=== PATIENT | female | born 1955 | race Caucasian/White ===

== ENCOUNTER 2020-01-08 07:31 | Outpatient (CLI) | payer BC, SELFPAY ==
[2020-01-08 07:56] LABS: Hemoglobin A1C 5.7 % (<5.7)
== END 2020-01-08 07:32 | disposition home or self-care (01) ==
PROVIDERS: PCP Nurse Practitioner Family; Visit Provider Nurse Practitioner Family
DX: R73.9 Hyperglycemia, unspecified (principal)
CPT/HCPCS: 36415; 83036

== ENCOUNTER 2020-01-09 01:20 | Day surgery (SDC) | payer BC, SELFPAY ==
[2020-01-09 06:19] LABS: Glucose Point of Care 157 (65-105)
[2020-01-09 06:25] VITALS: BP 64/46; PULSE 61; RESP 16; O2SAT 98
--- NOTE | 2020-01-09 06:48 | WPDANESEPPF ---
Anes - Initial Pre Proc Eval Procedure: Operation Date: 01/09/20 07:30 Proposed Procedures p Screening Colonoscopy - Heriberto Skinner MD Date/Time: 01/09/20 06:48 Surgeon: Heriberto Skinner MD Pre Op Diagnosis: NEOPLASM SCREENING Patient Data Age: 64 Gender: F Height: 5 ft 5 in Weight: 82 kg Allergies Allergy/AdvReac Type Severity Reaction Status Date / Time levofloxacin Allergy Unknown Rash Verified 01/09/20 06:42 naproxen Allergy Unknown Rash Verified 01/09/20 06:42 Home Medications Medication Instructions Recorded Confirmed Type aspirin 81 mg PO DAILY 11/17/19 01/07/20 History atorvastatin 40 mg PO HS 11/17/19 01/07/20 History carvedilol 25 mg PO BID 11/17/19 01/07/20 History lisinopril 10 mg PO QAM 11/17/19 01/07/20 History albuterol sulfate [ProAir HFA] 2 puff INHALATION QID PRN 01/07/20 01/07/20 History Laboratory Tests 01/09/20 06:17 POC Capillary Glucose 157 mg/dl H mg/dl (65-105) Patient hx anesthesia problems: none Family hx anesthesia problems: none PMFSH Past Medical History Medical History Anemia Arthritis Briones's cyst of knee left knee Bronchitis CAD (coronary artery disease) mild CHF (congestive heart failure) COPD (chronic obstructive pulmonary disease) Diverticulitis Diverticulosis DVT (deep venous thrombosis) Eczema Elbow fracture, left Heart murmur HTN (hypertension) Hyperlipidemia Inguinal hernia left Pneumonia Seasonal allergies Type I diabetes mellitus UTI (urinary tract infection) Valvular heart disease Surgical History Surgical History H/O inguinal hernia repair H/O removal of cyst Briones's cyst removed from left knee History of cardiac catheterization History of hysterectomy History of tubal ligation Hx of tonsillectomy S/P insertion of iliac artery stent Family History Family History Mother Asthma Father Family history of heart disease in male family member before age 55 Other Cerebrovascular accident Diabetes mellitus Family history of allergic disorder Hypertension Social History Social History Smoking status: Former smoker Tobacco type: cigarettes Second hand tobacco smoke exposure: Yes Additional smoking assessment comments: Pt quit smoking in 09/30 Gender identity (if verbalized by the patient): Female Anes - Evsweta Final PreProcedure Day of Procedure 01/09/20 06:48 Patient weight: obese Heart: regular rate and rhythm Lungs: clear to auscultation Airway: Mallampati scale class II and other (dentures) Neurological: alert and oriented Last oral intake: >/= 8 hours ASA classification: III Emergent: no Anesthetic plan: proceed Anesthesia type and monitoring: general GIVS and standard monitoring Other findings: Pt dizzy in pre-op, initial hypotensive, responded to IV fluids ,stable Informed Consent: The patient's anesthetic plan and its attendant risks and benefits were discussed with the patient/family/POA. Questions were solicited and answers provided to the satisfaction of the patient/family/POA.
[2020-01-09] MEDS: LACTATED RINGERS 1,000 ML 150 ML IV CONT (06:52)
[2020-01-09 06:57] VITALS: BP 103/49; PULSE 69; RESP 16; TEMP 36.1; O2SAT 100
--- NOTE | 2020-01-09 06:58 | PM.HPGS ---
History of Present Illness History of Present Illness Consent: Risks, benefits, and alternatives have been discussed and questions answered. Patient agrees to proceed with procedure. Chief complaint: NEOPLASM SCREENING Narrative: Gayle Cisse is a 64 year old W female Who is referred for screening colonoscopy. he patient's last colonoscopy was in 2008. Patient was found to have diverticular disease and multiple small adenomatous polyps. patient was sent follow-up letter several years after that but did not return for colonoscopy. patient has no GI complaints. When the patient was sitting in the waiting room she became lightheaded and dizzy. Her blood pressure was decreased at 70/40 she was given some IV fluids blood pressure now is 100/60 is normal she has no complaints PMFSH Past Medical History Medical History Anemia Arthritis Briones's cyst of knee left knee Bronchitis CAD (coronary artery disease) mild CHF (congestive heart failure) COPD (chronic obstructive pulmonary disease) Diverticulitis Diverticulosis DVT (deep venous thrombosis) Eczema Elbow fracture, left Heart murmur HTN (hypertension) Hyperlipidemia Inguinal hernia left Pneumonia Seasonal allergies Type I diabetes mellitus UTI (urinary tract infection) Valvular heart disease Surgical History Surgical History H/O inguinal hernia repair H/O removal of cyst Briones's cyst removed from left knee History of cardiac catheterization History of hysterectomy History of tubal ligation Hx of tonsillectomy S/P insertion of iliac artery stent Family History Family History Mother Asthma Father Family history of heart disease in male family member before age 55 Other Cerebrovascular accident Diabetes mellitus Family history of allergic disorder Hypertension Social History Social History Smoking status: Former smoker Tobacco type: cigarettes Second hand tobacco smoke exposure: Yes Additional smoking assessment comments: Pt quit smoking in 09/30 Gender identity (if verbalized by the patient): Female Meds Home Medications and Allergies Home Medications Medication Instructions Recorded Confirmed Type aspirin 81 mg PO DAILY 11/17/19 01/09/20 History atorvastatin 40 mg PO HS 11/17/19 01/09/20 History carvedilol 25 mg PO BID 11/17/19 01/09/20 History lisinopril 10 mg PO QAM 11/17/19 01/09/20 History albuterol sulfate [ProAir HFA] 2 puff INHALATION QID PRN 01/07/20 01/09/20 History Allergies Allergy/AdvReac Type Severity Reaction Status Date / Time levofloxacin Allergy Unknown Rash Verified 01/09/20 06:42 naproxen Allergy Unknown Rash Verified 01/09/20 06:42 Vital Signs Vital Signs - 24 hr 01/09/20 06:25 Pulse Rate 61 Respiratory Rate 16 Blood Pressure 64/46 L Pulse Oximetry 98 Exam Const: Orientation/consciousness: patient oriented x3 Resp: Auscultation: clear to auscultation bilaterally Cardio: Rate: regular rate Rhythm: regular rhythm Heart sounds: no murmurs GI: GI Palp: Yes Soft to palpation, No Tenderness to palpation present (GI), Yes No hepatosplenomegaly present and No Palpable mass present Auscultation: normal bowel sounds Neuro: General: patient oriented x3 and no focal motor deficits Extrem: General: no pedal edema Assessment and Plan Additional Plan screening colonoscopy secondary to history of colonic polyps
--- NOTE | 2020-01-09 07:00 | SUR.PREOP ---
PT C/O DIZZINESS DIAPHORTIC AND WEAK IN T HE WAITING ROOM, SHE WAS TRANSFERRED IN WHEELCHAIR TO GI, VS AND GLUCOSE OBTAINED, DR JARAMILLO NOTIFIED, IV AND IVF STARTED, DR JARAMILLO ASSESSED PT.PT STATES SHE FEELS BETTER, VS IMPROVED, DR ORTA IN TO ASSESS PT
[2020-01-09] MEDS: CENTRAL LINE FLUSH 7 ML XX (07:55)
[2020-01-09 08:20] VITALS: BP 98/58; PULSE 63; RESP 13; O2SAT 100
[2020-01-09 08:30] VITALS: BP 121/57; PULSE 69; RESP 20; O2SAT 100
[2020-01-09 08:40] VITALS: BP 111/61; PULSE 69; RESP 18; O2SAT 100
== END 2020-01-09 08:55 | disposition home or self-care (01) ==
PROVIDERS: PCP Nurse Practitioner Family; Visit Provider Internal Medicine Gastroenterology
PROC: 0DJD8ZZ Inspection of Lower Intestinal Tract, Via Natural or Artificial Opening Endoscopic (ICD-10-PCS; CPT 45378; principal; 2020-01-09 07:30)
DX: Z12.11 Encounter for screening for malignant neoplasm of colon (principal); D12.3 Benign neoplasm of transverse colon; D12.4 Benign neoplasm of descending colon; D12.5 Benign neoplasm of sigmoid colon; D12.8 Benign neoplasm of rectum; K64.8 Other hemorrhoids; K57.30 Diverticulosis of large intestine without perforation or abscess without bleeding; I11.0 Hypertensive heart disease with heart failure; I50.9 Heart failure, unspecified; E78.5 Hyperlipidemia, unspecified; D64.9 Anemia, unspecified; I25.10 Atherosclerotic heart disease of native coronary artery without angina pectoris; J44.9 Chronic obstructive pulmonary disease, unspecified; E10.9 Type 1 diabetes mellitus without complications; Z86.718 Personal history of other venous thrombosis and embolism; Z87.891 Personal history of nicotine dependence; E66.9 Obesity, unspecified; Z68.30 Body mass index [BMI] 30.0-30.9, adult
CPT/HCPCS: 45385; 45381; 88305; J2001; J2704; J7120

== ENCOUNTER 2020-04-01 08:34 | Outpatient (CLI) | payer BC, SELFPAY ==
[2020-04-01 09:13] LABS: Alanine Aminotransferase 16 U/L (4-35); Alkaline Phosphatase 94 U/L (38-126); Aspartate Amino Transferase 21 U/L (14-36); Bilirubin,Total 0.4 mg/dL (0.2-1.3); Blood Urea Nitrogen 17 mg/dL (7-17); Calcium 8.9 mg/dL (8.4-10.2); Carbon Dioxide 26 mmol/L (22-30); Chloride 105 mmol/L (98-107); Cholesterol 179 mg/dL (0-200); Creatine Kinase 69 U/L (30-135); Estimated Glomerular Filt Rate 41; Glucose 122 mg/dL (65-105); HDL Direct 49 mg/dL; Magnesium 1.9 mg/dL (1.6-2.3); Potassium 4.4 mmol/L (3.4-5.0); Sodium 137 mmol/L (137-145); Triglycerides 130 mg/dL (<150)
[2020-04-01 09:25] LABS: LDL Cholesterol Direct 89 mg/dL
== END 2020-04-01 08:35 | disposition home or self-care (01) ==
PROVIDERS: PCP Nurse Practitioner Family; Visit Provider Internal Medicine Cardiovascular Disease
DX: E78.2 Mixed hyperlipidemia (principal); I10 Essential (primary) hypertension; I25.10 Atherosclerotic heart disease of native coronary artery without angina pectoris
CPT/HCPCS: 36415; 80053; 80061; 82550; 83735

== ENCOUNTER 2020-06-24 08:38 | Outpatient (CLI) | payer BC, SELFPAY ==
[2020-06-24 09:26] LABS: Alanine Aminotransferase 23 U/L (4-35); Albumin Level 4.4 g/dL (3.5-5.1); Alkaline Phosphatase 101 U/L (38-126); Anion Gap 8 mmol/L (8-16); Aspartate Amino Transferase 29 U/L (14-36); Bilirubin,Total 0.5 mg/dL (0.2-1.3); Blood Urea Nitrogen 15 mg/dL (7-17); Calcium 9.1 mg/dL (8.4-10.2); Carbon Dioxide 26 mmol/L (22-30); Chloride 103 mmol/L (98-107); Cholesterol 205 mg/dL (0-200); Creatine Kinase 89 U/L (30-135); Estimated Glomerular Filt Rate 50; Glucose 124 mg/dL (65-105); HDL Direct 61 mg/dL; Magnesium 1.9 mg/dL (1.6-2.3); Potassium 4.3 mmol/L (3.4-5.0); Sodium 137 mmol/L (137-145); Triglycerides 136 mg/dL (<150)
[2020-06-24 09:36] LABS: LDL Cholesterol Direct 103 mg/dL
== END 2020-06-24 08:39 | disposition home or self-care (01) ==
PROVIDERS: PCP Nurse Practitioner Family; Visit Provider Internal Medicine Cardiovascular Disease
DX: E78.5 Hyperlipidemia, unspecified (principal); I10 Essential (primary) hypertension; I25.10 Atherosclerotic heart disease of native coronary artery without angina pectoris
CPT/HCPCS: 36415; 80053; 80061; 82550; 83735

== ENCOUNTER 2020-11-11 13:57 | Outpatient (CLI) | payer BC, SELFPAY ==
--- NOTE | ~2020-11-11 | XR_ITS ---
XR knee LT min 4V DATE: 11/11/2020 14:23 INDICATION: Knee pain laterally and posteriorly TECHNIQUE: Standing AP and lateral and PA views. [place] view. COMPARISON: None FINDINGS: Diffuse osteopenia. There is enthesopathy of the superior pole of patella at the quadriceps tendon insertion. There is sl ight periarticular spurring of the patella. Knee joint spaces are relatively preserved. No radiograph ic intra-articular loose body or chondrocalcinosis. No fracture or dislocation or joint effusion. IMPRESSION: Osteopenia Slight periarticular spurring of the patella consistent with osteoarthritis Reviewed, dictated and finalized at location A. ATTENDANT
== END 2020-11-11 13:58 | disposition home or self-care (01) ==
PROVIDERS: PCP Nurse Practitioner Family; Visit Provider Nurse Practitioner Family
DX: M25.569 Pain in unspecified knee (principal); M85.88 Other specified disorders of bone density and structure, other site; M76.52 Patellar tendinitis, left knee
CPT/HCPCS: 73564

== ENCOUNTER 2020-12-03 08:34 | Outpatient (CLI) | payer BC, SELFPAY ==
[2020-12-03 09:12] LABS: Hemoglobin A1C 6.1 % (<5.7)
[2020-12-03 09:16] LABS: Alanine Aminotransferase 19 U/L (4-35); Albumin Level 4.2 g/dL (3.5-5.1); Alkaline Phosphatase 102 U/L (38-126); Anion Gap 5 mmol/L (8-16); Aspartate Amino Transferase 26 U/L (14-36); Bilirubin,Total 0.6 mg/dL (0.2-1.3); Blood Urea Nitrogen 18 mg/dL (7-17); Calcium 9.3 mg/dL (8.4-10.2); Carbon Dioxide 28 mmol/L (22-30); Chloride 104 mmol/L (98-107); Cholesterol 232 mg/dL (0-200); Estimated Glomerular Filt Rate 45; Glucose 124 mg/dL (65-105); HDL Direct 61 mg/dL; Magnesium 1.7 mg/dL (1.6-2.3); Potassium 4.4 mmol/L (3.4-5.0); Sodium 137 mmol/L (137-145); Triglycerides 163 mg/dL (<150)
[2020-12-03 09:26] LABS: LDL Cholesterol Direct 124 mg/dL
== END 2020-12-03 08:35 | disposition home or self-care (01) ==
LOC: ANHLAB 08:36
PROVIDERS: PCP Nurse Practitioner Family; Visit Provider Internal Medicine Cardiovascular Disease
DX: R60.0 Localized edema (principal); E78.2 Mixed hyperlipidemia; I10 Essential (primary) hypertension; Z51.81 Encounter for therapeutic drug level monitoring; Z79.899 Other long term (current) drug therapy
CPT/HCPCS: 36415; 80053; 80061; 83036; 83735; 84443

== ENCOUNTER 2021-04-28 07:55 | Outpatient (CLI) | payer BC, SELFPAY ==
[2021-04-28 08:28] LABS: Alanine Aminotransferase 18 U/L (4-35); Albumin Level 4.6 g/dL (3.5-5.1); Alkaline Phosphatase 114 U/L (38-126); Anion Gap 9 mmol/L (8-16); Aspartate Amino Transferase 32 U/L (14-36); Bilirubin,Total 0.6 mg/dL (0.2-1.3); Blood Urea Nitrogen 16 mg/dL (7-17); Calcium 9.9 mg/dL (8.4-10.2); Carbon Dioxide 28 mmol/L (22-30); Chloride 103 mmol/L (98-107); Cholesterol 276 mg/dL (0-200); Estimated Glomerular Filt Rate 45; Glucose 137 mg/dL (65-105); HDL Direct 61 mg/dL; Magnesium 1.8 mg/dL (1.6-2.3); Potassium 4.5 mmol/L (3.4-5.0); Sodium 140 mmol/L (137-145); Triglycerides 257 mg/dL (<150)
[2021-04-28 08:39] LABS: LDL Cholesterol Direct 129 mg/dL
== END 2021-04-28 07:56 | disposition home or self-care (01) ==
PROVIDERS: PCP Nurse Practitioner Family; Visit Provider Internal Medicine Cardiovascular Disease
DX: I25.10 Atherosclerotic heart disease of native coronary artery without angina pectoris (principal); R06.00 Dyspnea, unspecified; R60.9 Edema, unspecified
CPT/HCPCS: 36415; 80053; 80061; 83735; 84443

== ENCOUNTER 2021-06-30 08:24 | Outpatient (CLI) | payer BC, SELFPAY ==
[2021-06-30 09:12] LABS: Alanine Aminotransferase 23 U/L (4-35); Albumin Level 4.4 g/dL (3.5-5.1); Alkaline Phosphatase 107 U/L (38-126); Anion Gap 5 mmol/L (8-16); Aspartate Amino Transferase 25 U/L (14-36); Bilirubin,Total 0.8 mg/dL (0.2-1.3); Blood Urea Nitrogen 14 mg/dL (7-17); Calcium 9.6 mg/dL (8.4-10.2); Carbon Dioxide 31 mmol/L (22-30); Chloride 103 mmol/L (98-107); Cholesterol 256 mg/dL (0-200); Creatine Kinase 119 U/L (30-135); Estimated Glomerular Filt Rate 45; Glucose 127 mg/dL (65-110); HDL Direct 54 mg/dL; Magnesium 1.9 mg/dL (1.6-2.3); Potassium 4.7 mmol/L (3.4-5.0); Sodium 139 mmol/L (137-145); Triglycerides 143 mg/dL (<150)
[2021-06-30 09:23] LABS: LDL Cholesterol Direct 120 mg/dL
== END 2021-06-30 08:25 | disposition home or self-care (01) ==
PROVIDERS: PCP Nurse Practitioner Family; Visit Provider Internal Medicine Cardiovascular Disease
DX: E78.2 Mixed hyperlipidemia (principal); R60.0 Localized edema; I10 Essential (primary) hypertension
CPT/HCPCS: 36415; 80053; 80061; 82550; 83735

== ENCOUNTER 2021-09-15 09:29 | Outpatient (CLI) | payer BC, SELFPAY ==
[2021-09-15 11:21] LABS: Alanine Aminotransferase 20 U/L (4-35); Albumin Level 4.4 g/dL (3.5-5.1); Alkaline Phosphatase 98 U/L (38-126); Anion Gap 8 mmol/L (8-16); Aspartate Amino Transferase 24 U/L (14-36); Bilirubin,Total 0.7 mg/dL (0.2-1.3); Blood Urea Nitrogen 14 mg/dL (7-17); Calcium 9.4 mg/dL (8.4-10.2); Carbon Dioxide 27 mmol/L (22-30); Chloride 105 mmol/L (98-107); Cholesterol 148 mg/dL (0-200); Creatine Kinase 86 U/L (30-135); Estimated Glomerular Filt Rate 50; Glucose 124 mg/dL (65-110); HDL Direct 64 mg/dL; Magnesium 1.8 mg/dL (1.6-2.3); Potassium 4.1 mmol/L (3.4-5.0); Sodium 140 mmol/L (137-145); Triglycerides 138 mg/dL (<150)
[2021-09-15 11:32] LABS: LDL Cholesterol Direct 56 mg/dL
== END 2021-09-15 09:30 | disposition home or self-care (01) ==
LOC: ANHLAB 09:32
PROVIDERS: PCP Nurse Practitioner Family; Visit Provider Internal Medicine Cardiovascular Disease
DX: I11.0 Hypertensive heart disease with heart failure (principal); I50.22 Chronic systolic (congestive) heart failure; E78.2 Mixed hyperlipidemia; R60.0 Localized edema
CPT/HCPCS: 36415; 80053; 80061; 82550; 83735

== ENCOUNTER 2022-05-09 06:52 | Outpatient (CLI) | payer OTHER, SELFPAY ==
[2022-05-09 07:10] LABS: Basophils Percent Auto 0.6 % (0.2-1.2); Eosinophils Absolute Auto 0.1 K/mm3 (0-0.3); Eosinophils Percent Auto 1.8 % (0-4.4); Hematocrit 40.5 % (37.0-47.0); Immature Granulocyte Absolute 0.02 K/mm3 (0.00-0.031); Immature Granulocyte Percent A 0.3 % (0-0.5); Lymphocytes Absolute Auto 1.19 K/mm3 (0.9-3.2); Lymphocytes Percent Auto 18.1 % (18.3-44.2); Mean Corpuscular HGB Conc 32.1 g/dl (32-36); Mean Corpuscular Hemoglobin 30.2 pg (26-34); Mean Corpuscular Volume 94.2 fl (80-100); Mean Platelet Volume 8.4 fl (7.4-10.4); Monocytes Absolute Auto 0.6 K/mm3 (0.1-0.6); Monocytes Percent Auto 8.4 % (2.6-8.5); Neutrophils Absolute Auto 4.7 K/mm3 (1.3-6.7); Neutrophils Percent Auto 70.8 % (45.5-73.1); Platelet Count Result 184 k/mm3 (150-375); Red Cell Distribution Width 12.9 % (11.5-14.5); White Blood Count 6.6 K/mm3 (4.5-10.0)
[2022-05-09 07:27] LABS: Alanine Aminotransferase 19 U/L (6-35); Albumin Level 4.1 g/dL (3.5-5.1); Alkaline Phosphatase 108 U/L (38-126); Anion Gap 5 mmol/L (8-16); Aspartate Amino Transferase 20 U/L (14-36); Bilirubin,Total 0.4 mg/dL (0.2-1.3); Blood Urea Nitrogen 17 mg/dL (7-17); Calcium 8.9 mg/dL (8.4-10.2); Carbon Dioxide 27 mmol/L (22-30); Chloride 107 mmol/L (98-107); Cholesterol 165 mg/dL (0-200); Estimated Glomerular Filt Rate 45; Glucose 170 mg/dL (65-110); HDL Direct 54 mg/dL; Magnesium 1.9 mg/dL (1.6-2.3); Potassium 4.1 mmol/L (3.4-5.0); Sodium 139 mmol/L (137-145); Triglycerides 157 mg/dL (<150)
[2022-05-09 07:38] LABS: LDL Cholesterol Direct 61 mg/dL
== END 2022-05-09 06:53 | disposition home or self-care (01) ==
LOC: ANHLAB 06:56
PROVIDERS: PCP Nurse Practitioner Family; Visit Provider Internal Medicine Cardiovascular Disease
DX: I50.22 Chronic systolic (congestive) heart failure (principal); E78.2 Mixed hyperlipidemia; I25.10 Atherosclerotic heart disease of native coronary artery without angina pectoris; I11.0 Hypertensive heart disease with heart failure
CPT/HCPCS: 36415; 80053; 80061; 83735; 84443; 85025

== ENCOUNTER 2022-08-24 17:54 | Emergency (ER) | payer OTHER, SELFPAY ==
[2022-08-24] VITALS (10 sets, daily range): BP systolic 150–188; BP diastolic 65–83; PULSE 81–92; RESP 17–25; TEMP 37.1; O2SAT 95–98
--- NOTE | ~2022-08-24 | XR_ITS ---
EXAMINATION: XR chest 2V Exam Date/Time: 08/24/2022 18:45 CDT HISTORY: weakness Comparison: 03/08/2019. RESULT: Lines, tubes, and devices: None. Lungs and pleura: Clear. Cardiomediastinal silhouette: Stable. Other: No acute osseous or upper abdominal finding. IMPRESSION: No acute cardiopulmonary process. Reviewed, dictated and finalized at location K.
--- NOTE | 2022-08-24 17:55 | ECG_ITS ---
Measurements Intervals [place] Rate: 81 P: 61 HI: 174 QRS: -32 QRSD: 88 T: 8 QT: 395 QTc: 459 Interpretive Statements SINUS RHYTHM LEFT AXIS DEVIATION [QRS AXIS < -30] PATTERN CONSISTENT WITH PULMONARY DISEASE POSSIBLE RIGHT VENTRICULAR CONDUCTION DELAY [RSR (QR) IN V1/V2]V1/V2] COMPARED TO ECG 03/08/2019 18:15:50 NO SIGNIFICANT CHANGE Electronically Signed On 08-24-2022 20:01:17 CDT by Elodia Sánchez M.D.
--- NOTE | 2022-08-24 19:03 | ED.WEAKNESS ---
HPI - Weakness General Chief complaint: Weakness Stated complaint: congestion, weak, nauseated, diarrhea x 1 week Time Seen by Provider: 08/24/22 19:01 Source: patient and family Mode of arrival: ambulatory Limitations: no limitations History of Present Illness HPI Narrative: The patient is a 67-year-old female with a history of hypertension, hyperlipidemia, prediabetes, presenting to the emergency department for evaluation of general malaise, cough, congestion. Patient states she has felt unwell over the past week when her symptoms began. She reports initial congestion, sore throat, mildly productive cough. She denies hemoptysis, chest pain, shortness of breath. She denies abdominal pain. She reports loose stools that began today. She denies blood or mucus present in the stools. She denies dysuria or hematuria. She has been ambulatory without recent fall or injury. She reports mild myalgias and general malaise. She denies any focal swelling, pain, edema. Patient states she took a negative at-home COVID test. She is vaccinated for COVID. No recent sick contacts. Patient states she contacted her primary care provider who wrote her a prescription for coughing pills. She states she has felt no better over the past 7 days. Related Data Home Medications Medication Instructions Recorded Confirmed aspirin 81 mg tablet,delayed 81 mg PO DAILY 11/17/19 01/09/20 release atorvastatin 40 mg tablet 40 mg PO HS 11/17/19 01/09/20 carvedilol 25 mg tablet 25 mg PO BID 11/17/19 01/09/20 lisinopril 10 mg tablet 10 mg PO QAM 11/17/19 01/09/20 albuterol sulfate 90 mcg/actuation 2 puff inhalation QID PRN Dyspnea 01/07/20 01/09/20 aerosol inhaler (ProAir HFA) Allergies Allergy/AdvReac Type Severity Reaction Status Date / Time levofloxacin Allergy Unknown Rash Verified 08/24/22 18:07 naproxen Allergy Unknown Rash Verified 08/24/22 18:07 Review of Systems Review of Systems: CONSTITUTIONAL: Denies fever, chills, or sweats. EYES: Denies visual changes, redness, or discharge. ENT: Reports rhinorrhea, congestion, sore throat CARDIOVASCULAR: Denies chest pain, palpitations, or edema. RESPIRATORY: Reports cough, denies shortness of breath GASTROINTESTINAL: Denies abdominal pain, nausea, vomiting, reports diarrhea GENITOURINARY: Denies dysuria or hematuria. SKIN: Denies rash or itching. MUSCULOSKELETAL: Denies back pain, joint pain, reports general myalgias NEUROLOGIC: Denies headache, numbness, or weakness. Reports fatigue. [facility] Past Medical History Medical History (Updated 08/24/22 @ 21:00 by Shea Griffin MD) Anemia Arthritis Briones's cyst of knee left knee Bronchitis CAD (coronary artery disease) mild CHF (congestive heart failure) COPD (chronic obstructive pulmonary disease) Diverticulitis Diverticulosis DVT (deep venous thrombosis) Eczema Elbow fracture, left Heart murmur HTN (hypertension) Hyperlipidemia Inguinal hernia left Pneumonia Seasonal allergies Type I diabetes mellitus UTI (urinary tract infection) Valvular heart disease Surgical History Surgical History H/O inguinal hernia repair H/O removal of cyst Briones's cyst removed from left knee History of cardiac catheterization History of hysterectomy History of tubal ligation Hx of tonsillectomy S/P insertion of iliac artery stent Family History Family History Mother Asthma Father Family history of heart disease in male family member before age 55 Other Cerebrovascular accident Diabetes mellitus Family history of allergic disorder Hypertension Social History Social History Smoking status: Former smoker Tobacco type: cigarettes Second hand tobacco smoke exposure: Yes Additional smoking assessment comments: Pt quit smoking in 09/30 Gender identity (if
[2022-08-24 19:15] LABS: Basophils Percent Auto 0.3 % (0.2-1.2); Eosinophils Percent Auto 0.6 % (0-4.4); Hematocrit 38.5 % (37.0-47.0); Hemoglobin 12.6 g/dL (12.0-15.0); Immature Granulocyte Absolute 0.02 K/mm3 (0.00-0.031); Immature Granulocyte Percent A 0.6 % (0-0.5); Lymphocytes Absolute Auto 0.81 K/mm3 (0.9-3.2); Lymphocytes Percent Auto 22.3 % (18.3-44.2); Mean Corpuscular HGB Conc 32.7 g/dl (32-36); Mean Corpuscular Volume 94.6 fl (80-100); Mean Platelet Volume 8.5 fl (7.4-10.4); Monocytes Absolute Auto 0.6 K/mm3 (0.1-0.6); Monocytes Percent Auto 15.7 % (2.6-8.5); Neutrophils Absolute Auto 2.2 K/mm3 (1.3-6.7); Neutrophils Percent Auto 60.5 % (45.5-73.1); Platelet Count Result 140 k/mm3 (150-375); Red Blood Count 4.07 M/mm3 (4.2-5.4); Red Cell Distribution Width 12.8 % (11.5-14.5); White Blood Count 3.6 K/mm3 (4.5-10.0)
[2022-08-24 19:26] LABS: Alanine Aminotransferase 26 U/L (6-35); Albumin Level 4.3 g/dL (3.5-5.1); Alkaline Phosphatase 89 U/L (38-126); Anion Gap 8 mmol/L (8-16); Aspartate Amino Transferase 32 U/L (14-36); Bilirubin,Total 0.6 mg/dL (0.2-1.3); Blood Urea Nitrogen 14 mg/dL (7-17); Calcium 8.8 mg/dL (8.4-10.2); Carbon Dioxide 28 mmol/L (22-30); Chloride 100 mmol/L (98-107); Estimated CRCL calculation 54 ml/min; Estimated Glomerular Filt Rate 50; Glucose 113 mg/dL (65-110); Potassium 3.9 mmol/L (3.4-5.0); Sodium 136 mmol/L (137-145)
[2022-08-24] MEDS: SODIUM CHLORIDE 0.9% IV 1,000 ML 999 ML IV CONT (19:29)
[2022-08-24 20:10] LABS: Add Urine Microscopic? YES; Appearance Urine Cloudy (Clear); Bilirubin Urine Negative (Negative); Blood Urine 1+ (Negative); Color Urine Yellow (Yellow); Glucose Urine UA Negative (Negative); Ketones Urine Trace mg/dL (Negative); Leukocyte Esterase Ur Negative LEU/UL (Negative); Mucus Urine Rare /lpf; Nitrate Urine Negative (Negative); Protein Urine Negative (Negative); Squamous Epithelial Cell Urine Few /hpf (Few); Urobilinogen Urine Negative mg/dL (<2.0); WBC Urine 0-3 /hpf
[2022-08-24 20:24] LABS: Influenza A QL RT-PCR Negative (Negative); Influenza B QL RT-PCR Negative (Negative); SARS-CoV-2 RNA PCR Positive
== END 2022-08-24 21:33 | disposition home or self-care (01) ==
PROVIDERS: General Practice; Emergency Provider Emergency Medicine; PCP Nurse Practitioner Family
DX: U07.1 COVID-19 (principal); E78.5 Hyperlipidemia, unspecified; I25.10 Atherosclerotic heart disease of native coronary artery without angina pectoris; I50.9 Heart failure, unspecified; I11.0 Hypertensive heart disease with heart failure; J44.9 Chronic obstructive pulmonary disease, unspecified; I38 Endocarditis, valve unspecified; R73.03 Prediabetes; M19.90 Unspecified osteoarthritis, unspecified site; Z95.5 Presence of coronary angioplasty implant and graft; Z90.710 Acquired absence of both cervix and uterus; Z86.2 Personal history of diseases of the blood and blood-forming organs and certain disorders involving the immune mechanism; Z86.718 Personal history of other venous thrombosis and embolism; Z87.01 Personal history of pneumonia (recurrent); Z87.440 Personal history of urinary (tract) infections; Z87.891 Personal history of nicotine dependence; Z79.82 Long term (current) use of aspirin; R94.31 Abnormal electrocardiogram [ECG] [EKG]
CPT/HCPCS: 36415; 71046; 80053; 81001; 84443; 85025; 87502; 93005; 96360; 99283; C9803; J7030; U0003; U0005

== ENCOUNTER 2022-12-15 09:28 | Outpatient (CLI) | payer OTHER, SELFPAY ==
[2022-12-15 10:15] LABS: Basophils Absolute Auto 0.1 K/mm3 (0.0-0.1); Basophils Percent Auto 0.8 % (0.2-1.2); Eosinophils Absolute Auto 0.1 K/mm3 (0-0.3); Eosinophils Percent Auto 1.9 % (0-4.4); Hematocrit 40.5 % (37.0-47.0); Hemoglobin 13.1 g/dL (12.0-15.0); Immature Granulocyte Absolute 0.05 K/mm3 (0.00-0.031); Immature Granulocyte Percent A 0.8 % (0-0.5); Lymphocytes Absolute Auto 1.35 K/mm3 (0.9-3.2); Lymphocytes Percent Auto 22.9 % (18.3-44.2); Mean Corpuscular HGB Conc 32.3 g/dl (32-36); Mean Corpuscular Hemoglobin 30.3 pg (26-34); Mean Corpuscular Volume 93.8 fl (80-100); Mean Platelet Volume 9.1 fl (7.4-10.4); Monocytes Absolute Auto 0.4 K/mm3 (0.1-0.6); Monocytes Percent Auto 7.3 % (2.6-8.5); Neutrophils Absolute Auto 3.9 K/mm3 (1.3-6.7); Neutrophils Percent Auto 66.3 % (45.5-73.1); Platelet Count Result 192 k/mm3 (150-375); Red Blood Count 4.32 M/mm3 (4.2-5.4); Red Cell Distribution Width 12.4 % (11.5-14.5); White Blood Count 5.9 K/mm3 (4.5-10.0)
[2022-12-15 10:31] LABS: Alanine Aminotransferase 20 U/L (6-35); Alkaline Phosphatase 92 U/L (38-126); Anion Gap 6 mmol/L (8-16); Aspartate Amino Transferase 22 U/L (14-36); Bilirubin,Total 0.6 mg/dL (0.2-1.3); Blood Urea Nitrogen 17 mg/dL (7-17); Calcium 8.9 mg/dL (8.4-10.2); Carbon Dioxide 29 mmol/L (22-30); Chloride 104 mmol/L (98-107); Cholesterol 158 mg/dL (0-200); Estimated Glomerular Filt Rate 50; Glucose 144 mg/dL (65-110); HDL Direct 55 mg/dL; Magnesium 1.9 mg/dL (1.6-2.3); Potassium 4.2 mmol/L (3.4-5.0); Sodium 139 mmol/L (137-145); Triglycerides 156 mg/dL (<150)
[2022-12-15 10:42] LABS: LDL Cholesterol Direct 57 mg/dL
== END 2022-12-15 09:29 | disposition home or self-care (01) ==
LOC: ANHLAB 09:30
PROVIDERS: PCP Nurse Practitioner Family; Visit Provider Internal Medicine Cardiovascular Disease
DX: E78.5 Hyperlipidemia, unspecified (principal); R60.0 Localized edema; I10 Essential (primary) hypertension
CPT/HCPCS: 36415; 80053; 80061; 83735; 84443; 85025

== ENCOUNTER 2023-06-13 14:05 | Emergency (ER) | payer OTHER, SELFPAY ==
--- NOTE | ~2023-06-13 | XR_ITS ---
EXAMINATION: XR ankle RT min 3V, XR foot RT min 3V DATE: 06/13/2023 14:51 INDICATION: Pain at the right first metatarsal and overlying the medial malleolus post fall TECHNIQUE: 1. Anteroposterior, mortise, additional oblique and lateral view of the right ankle were obtained. 2. Dorsoplantar, two oblique and lateral views of the right foot were obtained. COMPARISON: None. FINDINGS: Alignment of the right foot and ankle is normal. No fracture. Polyarticular osteoarthritis, moderate severity at the first metatarsophalangeal joint and mild at the right ankle and a few tarsometatarsal and interphalangeal joints. Moderate-sized Achilles and plantar calcaneal spurs. Soft tissue swellin g about the right ankle. No definitive ankle joint effusion. IMPRESSION: 1. Calcaneal spurs and mild to moderate polyarticular osteoarthritis at the right foot and ankle. No acute osseous abnormality. Reviewed, dictated and finalized at location . IMPRESSION: 1. Calcaneal spurs and mild to moderate polyarticular osteoarthritis at the [employer] foot and ankle. No acute osseous abnormality.
[2023-06-13 14:08] VITALS: BP 161/70; PULSE 81; RESP 18; TEMP 36.4; O2SAT 98
[2023-06-13] MEDS: ACETAMINOPHEN 500 MG TABLET 1000 MG PO (14:53)
--- NOTE | 2023-06-13 16:26 | ED.LOWEXIN ---
HPI - Extremity Injury (Lower) General Chief Complaint: Extremity Injury, Lower Stated Complaint: right foot pain Time Seen by Provider: 06/13/23 14:11 History of Present Illness HPI Narrative: Patient is a 68-year-old female who presents ER with pain to her right foot and ankle. She was walking earlier and twisted it. She has had pain since then. No numbness or tingling. No swelling or deformity. No additional concerns. Related Data Home Medications Medication Instructions Recorded Confirmed aspirin 81 mg tablet,delayed 81 mg PO DAILY 11/17/19 01/09/20 release atorvastatin 40 mg tablet 40 mg PO HS 11/17/19 01/09/20 carvedilol 25 mg tablet 25 mg PO BID 11/17/19 01/09/20 lisinopril 10 mg tablet 10 mg PO QAM 11/17/19 01/09/20 albuterol sulfate 90 mcg/actuation 2 puff inhalation QID PRN Dyspnea 01/07/20 01/09/20 aerosol inhaler (ProAir HFA) Allergies Allergy/AdvReac Type Severity Reaction Status Date / Time levofloxacin Allergy Unknown Rash Verified 06/13/23 14:54 naproxen Allergy Unknown Rash Verified 06/13/23 14:54 Review of Systems Musculoskeletal: Musculoskeletal: Reports arthralgias and Denies joint swelling Neurologic: Denies focal weakness and Denies numbness PMFSH Past Medical History Medical History (Updated 06/13/23 @ 16:30 by Andrea Crowder MD) Anemia Arthritis Briones's cyst of knee left knee Bronchitis CAD (coronary artery disease) mild CHF (congestive heart failure) COPD (chronic obstructive pulmonary disease) Diverticulitis Diverticulosis DVT (deep venous thrombosis) Eczema Elbow fracture, left Heart murmur HTN (hypertension) Hyperlipidemia Inguinal hernia left Pneumonia Seasonal allergies Type I diabetes mellitus UTI (urinary tract infection) Valvular heart disease Surgical History Surgical History H/O inguinal hernia repair H/O removal of cyst Briones's cyst removed from left knee History of cardiac catheterization History of hysterectomy History of tubal ligation Hx of tonsillectomy S/P insertion of iliac artery stent Family History Family History Mother Asthma Father Family history of heart disease in male family member before age 55 Other Cerebrovascular accident Diabetes mellitus Family history of allergic disorder Hypertension Social History Social History Smoking status: Former smoker Tobacco type: cigarettes Second hand tobacco smoke exposure: Yes Additional smoking assessment comments: Pt quit smoking in 09/30 Gender identity (if verbalized by the patient): Female Exam Narrative: GENERAL: Well-appearing, well-nourished, and in no acute distress. HEAD: Normocephalic, atraumatic. HEART: Regular rate and rhythm. Normal peripheral pulses. EXTREMITIES: Normal range of motion. No edema. Mild tenderness over the medial malleolus of the right ankle as well as over the first metatarsal but no deformity or bruising noted. Sensation intact. SKIN: Warm, dry, no rash. NEURO: Alert and oriented x3. PSYCH: Normal mood and affect. Course Course Emergency Course: Patient resting comfortably. Informed of results. Discharge home. Vital Signs Vital signs: Vital Signs Temperature 97.6 F 06/13/23 14:08 Pulse Rate 81 06/13/23 14:08 Respiratory Rate 18 06/13/23 14:08 Blood Pressure 161/70 H 06/13/23 14:08 Pulse Oximetry 98 06/13/23 14:08 Oxygen Delivery Room Air 06/13/23 14:08 Temperature 97.6 F 06/13/23 14:08 Pulse Rate 76 06/13/23 16:44 Respiratory Rate 16 06/13/23 16:44 Blood Pressure 155/76 H 06/13/23 16:44 Pulse Oximetry 98 06/13/23 16:44 Oxygen Delivery Room Air 06/13/23 14:08 MDM - Extremity Injury (Lower) Imaging Data Radiologist's impression: ITS Impressions Ankle X-Ray 06/13/23 14:53 IM
[2023-06-13 16:44] VITALS: BP 155/76; PULSE 76; RESP 16; O2SAT 98
== END 2023-06-13 16:45 | disposition home or self-care (01) ==
PROVIDERS: Emergency Provider Emergency Medicine; PCP Nurse Practitioner Family
DX: S93.401A Sprain of unspecified ligament of right ankle, initial encounter (principal); S96.911A Strain of unspecified muscle and tendon at ankle and foot level, right foot, initial encounter; I25.10 Atherosclerotic heart disease of native coronary artery without angina pectoris; I11.0 Hypertensive heart disease with heart failure; I50.9 Heart failure, unspecified; Z86.718 Personal history of other venous thrombosis and embolism; E78.5 Hyperlipidemia, unspecified; E10.9 Type 1 diabetes mellitus without complications; Z87.891 Personal history of nicotine dependence; X50.0XXA Overexertion from strenuous movement or load, initial encounter
CPT/HCPCS: 73610; 73630; 99283; A9270

== ENCOUNTER 2023-07-20 07:40 | Outpatient (CLI) | payer OTHER, SELFPAY ==
[2023-07-20 08:41] LABS: Hemoglobin 13.1 g/dL (12.0-15.0); Mean Corpuscular Hemoglobin 30.8 pg (26-34); Mean Corpuscular Volume 96.2 fl (80-100); Mean Platelet Volume 9.1 fl (7.4-10.4); Platelet Count Result 164 k/mm3 (150-375); Red Blood Count 4.26 M/mm3 (4.2-5.4); Red Cell Distribution Width 12.5 % (11.5-14.5); White Blood Count 5.2 K/mm3 (4.5-10.0)
[2023-07-20 08:52] LABS: Alanine Aminotransferase 21 U/L (6-35); Albumin Level 4.3 g/dL (3.5-5.1); Alkaline Phosphatase 92 U/L (38-126); Anion Gap 10 mmol/L (8-16); Aspartate Amino Transferase 24 U/L (14-36); Bilirubin,Total 0.5 mg/dL (0.2-1.3); Blood Urea Nitrogen 16 mg/dL (7-17); Calcium 9.2 mg/dL (8.4-10.2); Carbon Dioxide 25 mmol/L (22-30); Chloride 105 mmol/L (98-107); Estimated Glomerular Filt Rate 45; Glucose 184 mg/dL (65-110); Potassium 4.4 mmol/L (3.4-5.0); Prothrombin Time 13.2 Seconds (11.1-14.7); Sodium 140 mmol/L (137-145)
[2023-07-20 08:53] LABS: Partial Thromboplastin Time 27.6 SECONDS (22.3-36.8)
[2023-07-20 08:58] LABS: NT Pro B Type Natriuretic Pept 138 pg/mL (19.9-100)
== END 2023-07-20 07:41 | disposition home or self-care (01) ==
PROVIDERS: PCP Nurse Practitioner Family; Visit Provider Specialist
DX: E78.5 Hyperlipidemia, unspecified (principal)
CPT/HCPCS: 36415; 80053; 83880; 85027; 85610; 85730

== ENCOUNTER 2023-12-08 09:24 | Outpatient (CLI) | payer OTHER, SELFPAY ==
[2023-12-08 10:11] LABS: Hemoglobin A1C 8.8 % (<5.7)
[2023-12-08 10:18] LABS: Alanine Aminotransferase 21 U/L (6-35); Albumin Level 4.2 g/dL (3.5-5.1); Alkaline Phosphatase 90 U/L (38-126); Anion Gap 8 mmol/L (8-16); Aspartate Amino Transferase 23 U/L (14-36); Bilirubin,Total 0.6 mg/dL (0.2-1.3); Blood Urea Nitrogen 15 mg/dL (7-17); Calcium 9.3 mg/dL (8.4-10.2); Carbon Dioxide 26 mmol/L (22-30); Chloride 104 mmol/L (98-107); Cholesterol 162 mg/dL (0-200); Creatine Kinase 68 U/L (30-135); Estimated Glomerular Filt Rate 55; Glucose 192 mg/dL (65-110); HDL Direct 47 mg/dL; Potassium 4.6 mmol/L (3.4-5.0); Sodium 138 mmol/L (137-145); Triglycerides 200 mg/dL (<150)
[2023-12-08 10:26] LABS: NT Pro B Type Natriuretic Pept 191 pg/mL (19.9-100)
[2023-12-08 10:29] LABS: LDL Cholesterol Direct 72 mg/dL
== END 2023-12-08 09:25 | disposition home or self-care (01) ==
LOC: ANHLAB 09:26
PROVIDERS: PCP Nurse Practitioner Family; Visit Provider Specialist
DX: I10 Essential (primary) hypertension (principal)
CPT/HCPCS: 36415; 80053; 80061; 82550; 83036; 83880

== ENCOUNTER 2024-01-12 17:30 | Emergency (ER) | payer OTHER, SELFPAY ==
[2024-01-12] VITALS (7 sets, daily range): BP systolic 156–195; BP diastolic 67–84; PULSE 73–111; RESP 16–18; TEMP 36.2–36.6; O2SAT 97–98
--- NOTE | ~2024-01-12 | XR_ITS ---
EXAMINATION: XR chest 1V portable INDICATION: Weakness TECHNIQUE: Portable AP chest at 2024 hours COMPARISON: 08/24/2022 FINDINGS: The lungs are free of acute opacities. No pleural effusion or pneumothorax. The cardiomedia stinal silhouette is normal. IMPRESSION: 1. No acute cardiopulmonary abnormality. Reviewed, dictated and finalized at location F. D CLERK
--- NOTE | 2024-01-12 19:58 | ECG_ITS ---
Measurements Intervals [place] Rate: 75 P: 64 [place]: 162 QRS: -34 QRSD: 93 T: 12 QT: 414 QTc: 464 Interpretive Statements SINUS RHYTHM VENTRICULAR PREMATURE COMPLEXES LEFT AXIS DEVIATION ANTEROSEPTAL INFARCT, AGE INDETERMINATE NONSPECIFIC ST-T WAVE ABNORMALITY- DIFFUSE LEADS ABNORMAL ECG COMPARED TO ECG 08/24/2022 19:43:10 NO SIGNIFICANT CHANGES Electronically Signed On 01-13-2024 8:45:57 MACHINERY ENGINEER by Jer Gilbert D.O.
[2024-01-12] MEDS: SODIUM CHLORIDE 0.9% IV 250 ML BAG 500 ML IVPB (20:20)
[2024-01-12 20:24] LABS: Basophils Percent Auto 0.6 % (0.2-1.2); Eosinophils Absolute Auto 0.1 K/mm3 (0-0.3); Eosinophils Percent Auto 0.7 % (0-4.4); Hematocrit 43.5 % (37.0-47.0); Hemoglobin 14.1 g/dL (12.0-15.0); Immature Granulocyte Absolute 0.03 K/mm3 (0.00-0.031); Immature Granulocyte Percent A 0.4 % (0-0.5); Lymphocytes Absolute Auto 1.21 K/mm3 (0.9-3.2); Lymphocytes Percent Auto 16.9 % (18.3-44.2); Mean Corpuscular HGB Conc 32.4 g/dl (32-36); Mean Corpuscular Hemoglobin 30.7 pg (26-34); Mean Corpuscular Volume 94.8 fl (80-100); Mean Platelet Volume 8.7 fl (7.4-10.4); Monocytes Absolute Auto 0.5 K/mm3 (0.1-0.6); Monocytes Percent Auto 7.1 % (2.6-8.5); Neutrophils Absolute Auto 5.3 K/mm3 (1.3-6.7); Neutrophils Percent Auto 74.3 % (45.5-73.1); Platelet Count Result 178 k/mm3 (150-375); Red Blood Count 4.59 M/mm3 (4.2-5.4); Red Cell Distribution Width 12.5 % (11.5-14.5); White Blood Count 7.2 K/mm3 (4.5-10.0)
[2024-01-12 20:31] LABS: Appearance Urine Cloudy (Clear); Bacteria Urine 1+ /hpf; Bilirubin Urine Negative (Negative); Blood Urine Negative (Negative); Color Urine Yellow (Yellow); Glucose Urine UA Negative (Negative); Ketones Urine Trace mg/dL (Negative); Leukocyte Esterase Ur Negative LEU/UL (Negative); Nitrate Urine Negative (Negative); Non Pathogenic Casts 0-2; Protein Urine Trace mg/dL (Negative); Specific Grav Ur 1.024 (1.001-1.035); Squamous Epithelial Cell Urine Moderate /hpf (Few); WBC Urine 0-5 /hpf; pH Urine 5.5 (5.0-9.0)
[2024-01-12 20:35] LABS: Lactic Acid Reflex 1.1 mmol/L (0.7-2.0)
[2024-01-12 20:37] LABS: Add Urine Microscopic? YES
[2024-01-12 20:37] LABS: Alanine Aminotransferase 22 U/L (6-35); Albumin Level 4.5 g/dL (3.5-5.1); Alkaline Phosphatase 101 U/L (38-126); Anion Gap 8 mmol/L (8-16); Aspartate Amino Transferase 24 U/L (14-36); Bilirubin,Total 0.8 mg/dL (0.2-1.3); Blood Urea Nitrogen 13 mg/dL (7-17); Calcium 9.8 mg/dL (8.4-10.2); Carbon Dioxide 28 mmol/L (22-30); Chloride 103 mmol/L (98-107); Estimated CRCL calculation 55 ml/min; Estimated Glomerular Filt Rate 55; Glucose 171 mg/dL (65-110); Potassium 3.8 mmol/L (3.4-5.0); Sodium 139 mmol/L (137-145)
[2024-01-12 20:47] LABS: NT Pro B Type Natriuretic Pept 275 pg/mL (19.9-100); Troponin I < 0.012 ng/mL (0.000-0.034)
[2024-01-12 21:02] LABS: Influenza A QL RT-PCR Negative (Negative); Influenza B QL RT-PCR Negative (Negative); RSV RNA, RT-PCR Negative (Negative); SARS-CoV-2 RNA PCR Negative (Negative)
--- NOTE | 2024-01-12 22:28 | ED.GENADULT ---
HPI - General Adult General Chief complaint: Dizziness Stated complaint: headache Time Seen by Provider: 01/12/24 19:40 History of Present Illness HPI narrative: Patient is a 68-year-old female who presents emergency department with chief complaint of lightheadedness and nausea. Patient reports that she has noticed that she has felt nauseated has not been drinking as much as normal and reports that she has also had a lightheaded sensation worse with standing. The patient reports when she is laying she does not have the sensation. The patient denies fever denies chest pain denies shortness of breath denies focal weakness patient denies abdominal pain denies dysuria Related Data Home Medications Medication Instructions Recorded Confirmed aspirin 81 mg tablet,delayed 81 mg PO DAILY 11/17/19 01/09/20 release atorvastatin 40 mg tablet 40 mg PO HS 11/17/19 01/09/20 carvedilol 25 mg tablet 25 mg PO BID 11/17/19 01/09/20 lisinopril 10 mg tablet 10 mg PO QAM 11/17/19 01/09/20 albuterol sulfate 90 mcg/actuation 2 puff inhalation QID PRN Dyspnea 01/07/20 01/09/20 aerosol inhaler (ProAir HFA) Allergies Allergy/AdvReac Type Severity Reaction Status Date / Time levofloxacin Allergy Unknown Rash Verified 06/13/23 14:54 naproxen Allergy Unknown Rash Verified 06/13/23 14:54 Review of Systems Review of Systems: A 10 system review of systems was completed on the patient and is negative except for what is stated in the HPI. Nursing and ancillary documentation was reviewed. [facility] Past Medical History Medical History (Updated 01/12/24 @ 22:31 by Sunday De La Torre MD) Anemia Arthritis Briones's cyst of knee left knee Bronchitis CAD (coronary artery disease) mild CHF (congestive heart failure) COPD (chronic obstructive pulmonary disease) Diverticulitis Diverticulosis DVT (deep venous thrombosis) Eczema Elbow fracture, left Heart murmur HTN (hypertension) Hyperlipidemia Inguinal hernia left Pneumonia Seasonal allergies Type I diabetes mellitus UTI (urinary tract infection) Valvular heart disease Surgical History Surgical History H/O inguinal hernia repair H/O removal of cyst Briones's cyst removed from left knee History of cardiac catheterization History of hysterectomy History of tubal ligation Hx of tonsillectomy S/P insertion of iliac artery stent Family History Family History Mother Asthma Father Family history of heart disease in male family member before age 55 Other Cerebrovascular accident Diabetes mellitus Family history of allergic disorder Hypertension Social History Social History Smoking status: Former smoker Tobacco type: cigarettes Second hand tobacco smoke exposure: Yes Additional smoking assessment comments: Pt quit smoking in 09/30 Gender identity (if verbalized by the patient): Female Exam Narrative: GENERAL: Well-appearing, well-nourished, and in no acute distress. HEAD: Normocephalic, atraumatic. EYES: PERRLA and EOMI. ENT: Nares clear, no rhinorrhea or epistaxis. Mucous membranes moist. NECK: Supple. CHEST: Clear to auscultation. No respiratory distress. HEART: Regular rate and rhythm. No murmur heard. Normal peripheral pulses. ABDOMEN: Soft, nontender, nondistended, normal active bowel sounds. EXTREMITIES: Normal range of motion. No edema. SKIN: Warm, dry, no rash. NEURO: No focal deficits. Alert and oriented x3. PSYCH: Normal mood and affect. Course Vital Signs Vital signs: Vital Signs Temperature 36.2 C L 01/12/24 17:49 Pulse Rate 83 01/12/24 17:49 Respiratory Rate 16 01/12/24 17:49 Blood Pressure 156/84 H 01/12/24 17:49 Pulse Oximetry 98 01/12/24 17:49 Oxygen Delivery Room Air 01/12/24 17:49 Temperature 36.4 C
--- NOTE | 2024-01-29 10:57 | PC.NURSE ---
LATE ENTRY This note is being entered to document information to the patient's record. The following information was omitted on [01/12/24], by [Margarita Leyva RN]. NS stopped at 2100 5ooml infused.
== END 2024-01-12 22:42 | disposition home or self-care (01) ==
PROVIDERS: Emergency Provider Emergency Medicine; PCP Nurse Practitioner Family
DX: R42 Dizziness and giddiness (principal); Z20.822 Contact with and (suspected) exposure to COVID-19; I25.10 Atherosclerotic heart disease of native coronary artery without angina pectoris; I50.9 Heart failure, unspecified; I11.0 Hypertensive heart disease with heart failure; I38 Endocarditis, valve unspecified; E78.5 Hyperlipidemia, unspecified; E10.9 Type 1 diabetes mellitus without complications; M19.90 Unspecified osteoarthritis, unspecified site; Z86.718 Personal history of other venous thrombosis and embolism; Z87.01 Personal history of pneumonia (recurrent); Z87.440 Personal history of urinary (tract) infections; Z86.2 Personal history of diseases of the blood and blood-forming organs and certain disorders involving the immune mechanism; Z90.710 Acquired absence of both cervix and uterus; Z79.82 Long term (current) use of aspirin; Z87.891 Personal history of nicotine dependence
CPT/HCPCS: 36415; 71045; 80053; 81001; 83605; 83735; 83880; 84484; 85025; 87637; 93005; 96360; 99284; J7050

== ENCOUNTER 2025-02-03 07:03 | Outpatient (CLI) | payer OTHER, SELFPAY ==
--- OUTSIDE RECORDS SUMMARY | 2025-02-03 07:09 | XMS_ITS | Data Portability ---
Author Organization [place] [facility] [employer], Main Office Address [address] [place] [address] Care Team Providers Care Investigative Shopper Name Role Phone Unavailable City Administrator [phone] Unavailable City Administrator [phone] Assessment Encounter Date Assessment Date Assessment LastModified by Organization Details LastModified Time 10/25/2023 10/25/2023 D/w pt about her findings and further plan of care. Explained about different options. Pt declined for any testing at this time. Meds as directed. Good liquid and fiber intake explained. Educated pt about alarming symptoms to monitor at home and call us back or get checked in ED. Pt verbalized understanding it. F/u as directed. [email or web address] Not available 10/25/2023 10:40:54 01/15/2024 01/15/2024 I have reconciled the patient's medications post their discharge from inpatient facility. D/w pt about her findings and further plan of care. Staff to get recent ED records. Pt declined for any Injection for her DM. Meds as directed. OTC symptomatic Rx explained in detail. Very good liquid intake explained. Advised pt to avoid driving until back to his baseline. BP and DM diary education given. Educated pt about alarming symptoms to monitor at home and call us back or get checked in ED. Pt verbalized understanding it. Cont f/u with Cardio as per schedule. F/u as directed. Not available 01/15/2024 15:11:19 04/03/2024 04/03/2024 68 yo F with - WELL ADULT VISIT - DM II - HTN - CHF - HLD - VIT D DEFICIENCY - OBESITY II - EX-SMOKER (quitted 2017) CXR: 08/24/22. D/w pt about her findings, recent labs & imagines and further plan of care. Will do routine labs, LDCT chest. Meds as directed. Diet and exercise explained in detail. BP diary education and fall risk precautions explained. Cont f/u with Cardio as per schedule. Cont f/u with Ophtho as per schedule. HM: WWE - Long time ago. S/p hysterectomy. Pt declined. Mammo - Ordered. DEXA - Ordered. Colonoscopy - 2011, normal as per pt. Cont f/u with GI as per schedule. Flu - 09/04. Tdap - 10/30. Pneumo - On next visit. Shingrix - At pharmacy/HD. F/u in 2-3 weeks. Annual labs in 04/06. [email or web address] Not available 04/03/2024 11:07:19 Plan of Treatment Reminders Order Date Submit Date Provider Last Modified By Organization Details Last Modified Time Details Appointments None recorded. Lab CBC w/ auto diff [address] (Lab), [address] [place], [address], 4 09:14:43 CMP, serum or plasma [address] (Lab), [address] [place], [address], 4 09:14:44 lipid panel, serum [address] (Lab), [address] [place], [address], 4 09:14:44 TSH, serum, reflex free T4 [address] (Lab), [address] [place], [address], 4 09:14:44 urinalysis complete, reflex culture [address] (Lab), [address] [place], [address], 4 09:14:44 vitamin D, 25-hydroxy, total, serum [address] (Lab), [address] [place], [address], 4 09:14:44 glycohemogl obin, total, blood [address] (Lab), [address] [place], [address], 4 09:14:44 microalbumi n, urine [address] (Lab), [address] [place], [address], 4 09:14:44 Referral None recorded. Procedures None recorded. Surgeries None recorded. Imaging MAMMO, screening, bilateral 2023 024 [email or web address] [id number] Not available 10:09:40 LDCT, chest, for lung cancer screening - *Please call pt to schedule* 2023 024 [email or web address] [facility] (Radiology), [address] [place], [address], 4 10:45:23 DEXA 2023 024 [email or web address] [id number] Not available 4 10:10:58 Medication Orders albuterol sulfate HFA 90 mcg/actuati on aerosol inhaler 2024 025 [facility] #[id number], [address] [place], [place], [id number], 5 17:25:12 oseltamivir 75 mg capsule 2024 025 [facility] #43220, [address] [place], [place], [id number], 5 17:25:09 Medrol (Ollie) 4 mg tablets in a dose pack 2024 025 [facility] #90303, [address] [facility] [place], [place], [id number], 5 17:25:15 azithromyci n 250 mg tablet 2023 024 [facility] #76468, [address] [facility] [place], [place], [id number], 4 10:56:23 prednisone 10 mg tablet 2023 024 [facility] #90692, [address] [facility] [place], [place], [id number], 4 10:56:13 benzonatate 200 mg capsule 2023 024 [facility] #03801, [address] [facility] [place], [place], [id number], 4 10:56:07 meclizine 25 mg tablet [address] [facility] #51846, [address] [facility] [place], [place], [id number], 4 10:33:07 ondansetron 4 mg disintegrat ing tablet [email or web address] [facility] #19183, [address] [facility] [place], [place], [id number], 4 10:33:11 metformin ER 500 mg tablet,exte nded release 24 hr 2023 024 [facility] #22468, [address] [facility] [place], [place], [id number], 4 14:59:15 Farxiga 10 mg tablet 2023 024 [facility] #03067, [address] [facility] [place], [place], [id number], 4 14:59:14 ondansetron 4 mg disintegrat ing tablet [address] [facility] #90034, [address] [facility] [place], [place], [id number], 4 10:33:11 ciprofloxac in 500 mg tablet [address] [facility] #39470, [address] [facility] [place], [place], [id number], 4 14:45:35 metronidazo le 500 mg tablet [address] [facility] #10122, [address] [facility] [place], [place], [id number], 4 14:45:48 Medrol (Ollie) 4 mg tablets in a dose pack [address] #53481, [address] [facility] [place], [place], [id number], 4 14:45:44 Breo Ellipta 100 mcg-25 mcg/dose powder for inhalation 2022 023 [facility] #01513, [address] [facility] [place], [place], [id number], 3 16:49:25 Cipro 500 mg tablet [address] [facility] #73594, [address] [facility] [place], [place], [id number], 14:45:35 Patient TargetsNo targets recorded. Patient Instructions Encounter Date Encounter Id Patient Instructions Last Modified By Organization Details Last Modified Time 01/15/2024 [id number] Thank you for your visit to our office today. We would like to request that you reach out to your referring or previous provider and request that they send us a Summary of Care in electronic form, so that we may have it on file in your medical record. At your visit, we had the medical records we needed to provide you with the best possible care; however, for insurance purposes, an electronic Summary of Care is beneficial. Thank you for your assistance in obtaining this information and we look forward to providing continued care to you. Please review your medication list from the Summary of Care for this visit. If there are any differences from what you are currently taking at home, please call us to discuss. Not available 01/15/2024 14:42:56 Homebound Status : {{Patient has an inability to leave the home without a taxing effort and assistance from another person Does not meet homebound status}} Required Home Health Services: {{none fdc, physical therapy, occupational therapy fdc, physical therapy fdc}} Durable Medical Equipment needed: {{cane walker wal ker with seat manual wheelchair bedsid e commode oxygen}} Billing Guidelines CPT code 37059- Transitional Care Management services with moderate medical decision complexity ([id number] visit within 14 days of discharge). CPT code 58297- Transitional Care Management services with high medical decision complexity ([id number] visit within 7 days of discharge). Not available 01/15/2024 14:42:56 Reason for Referral None Reported. Results Created Date Observation Date Name Description Value Unit Range Abnormal Flag Note LastModifiedBy Organization Detail LastModifiedTime 06/13/2006/13/2023 XR, ankle No observ ation record ed. [email or web address] [facility] [address] [facility] [address], [place], [address], 06/14/2023 08:16:35 Result Notes None recorded. Problems Name Problem SNOMED Code Status Onset Date Resolution Date Notes Provider Name and Address Organization Details Recorded Time Chronic obstructiv e pulmonary disease 69926567 Active 2017 Not Available [employer] 3 09:19:02 Feeling stressed 816559704 Active Not Available [facility] 3 09:19:03 Increased blood pressure 77403354 Active 2017 Not Available [facility] 3 09:19:03 Fluid level behind tympanic membrane Active Not Available [facility] 3 09:19:03 Dyspnea 786085286 Active 2017 Not Available [facility] 3 09:19:03 Chest pain 08693916 Active 2017 Not Available [facility] 3 09:19:03 Mass of body structure 124947310 Active Not Available [facility] 3 09:19:03 Diverticul itis 593016298 Active Not Available [facility] 3 09:19:03 Bronchitis 80601417 Active Not Available [facility] 3 09:19:03 Strain of neck muscle 763098704 Active 2018 Not Available [facility] 3 09:19:03 Seasonal allergic rhinitis 137052578 Active 2021 Not Available [facility] 3 09:19:04 Sinusitis 97277434 Active Not Available [facility] 3 09:19:04 Stented coronary artery 315362719 Active 2017 Not Available [facility] 3 09:19:04 Inguinal hernia 883287631 Active Not Available [facility] 3 09:19:04 Congestive heart failure 95988681 Active 2017 Not Available [facility] 3 09:19:04 Acute urinary tract infection 122331940 Active Not Available [facility] 3 09:19:04 Seasonal allergy 717980249 Active Not Available [facility] 3 09:19:04 Dysuria 98970144 Active Not Available [facility] 3 09:19:04 Cough 69099295 Active Not Available [facility] 3 09:19:05 Coronary arterioscl erosis 79883662 Active 2018 Not Available [facility] 3 09:19:05 Upper respirator y infection 55057435 Active 2 Not Available [facility] 3 09:19:05 Left ventricula r hypertroph y 23525382 Active 2017 Not Available [facility] 3 09:19:05 Essential hypertensi on 14929266 Active 2017 Not Available [facility] 3 09:19:05 Urinary tract infectious disease 67452575 Active Not Available [facility] 3 09:19:05 Diverticul osis of colon 060909061 Active 2021 Not Available [facility] 3 09:19:06 Posterior rhinorrhea 54983352 Active Not Available [facility] 3 09:19:06 Smoker 12564051 Completed Not Available [facility] 3 09:19:06 Fatigue 03190789 Active Not Available [facility] 3 09:19:06 Ex-smoker 2312714 Active 2018 Not Available [facility] 3 09:19:06 Cardiomyop athy 96345093 Active 2018 Not Available [facility] 3 09:19:06 Diverticul ar disease of colon 094604670 Active 2022 Scott Wright MD [address], [place], [address] , [employer] [facility] [employer] 3 10:22:41 Nausea and vomiting 10933775 Active 2022 Scott Wright MD [address], [place], [address] , [employer] [facility] [employer] [facility] 3 10:25:03 Obesity 306837515 Active 2022 Scott Wright MD [address], [place], [address] , [employer] [facility] [employer] [facility] 3 10:40:18 Nausea 178156173 Active 2023 Scott Wright MD [address], [place], [address] , [employer] [facility] [employer] [facility] 4 14:52:02 Vertigo 680676663 Active 2023 Scott Wright MD [address] [facility] [address] [place] [address], [place], [address] , [employer] [facility] 4 14:52:11 Type 2 diabetes mellitus without complicati on 553306884 Active 2023 Scott Wright MD [address], [place] [address], [place], [address] , [employer] 4 14:57:17 Labyrinthi tis 62330827 Active 2023 Scott Wright MD [address], [place] [address], [place], [address] , [employer] [facility] 4 15:12:15 Hypertensi ve disorder 79704290 Active 2023 Scott Wright MD [address], [place] [address], [place], [address] , [employer] 4 15:12:35 Vitamin D deficiency 10135883 Active 2023 Scott Wright MD [address] [facility], [place] [address], [place], [address] , [employer] 4 10:52:55 Ex-cigaret te smoker 612772439 Active 2024 Scott Wright MD [address] [facility], [place] [address], [place], [address] , [employer] [facility] 5 17:36:24 Problem Notes None recorded. Procedures Surgical History Date Name Laterality Status Provider Name and Address Organization Details Recorded Time 01/15/2024 Transition al_Care_Ma nagement completed Pablo Cortez Aarki [facility] [employer] 01/15/2024 14:42:56 Imaging Results Imaging Date Name Status LastModified by Organiz ation Details LastModified Time 06/13/2023 XR, ankle completed [email or web address] [facility] [address] [facility] [address], [place], [address], 06/14/2023 08:16:35 Procedure Notes None recorded. Medical Equipment None Reported. Allergies Allergen ID Allergen Name Allergen Category Reaction Reaction Severity Criticality Documentation Date Start Date Code Code System Note Provider Name and Address Organization Details Recorded Time 18112 naproxen medicatio n hives Not available Not available 01/11/2023 7258 RxNorm Not Available [facility] 3 09:26:28 80040 Levaquin medicatio n edema Not available Not available 01/11/2023 49717 2 RxNorm turne d brigh t red Not Available [facility] 3 09:26:28 Medications Name Sig Start Date Stop Date Status Note LastModified by Organization Details LastModified Time cyclobenzap rine 10 mg tablet 08/29 completed Not Available Not Available Not Available furosemide 40 mg tablet 10/23 completed Not Available Not Available Not Available latanoprost 0.005 % eye drops INSTILL 1 DROP INTO BOTH EYES EVERY NIGHT AT BEDTIME active Not Available Not Available No t Available atorvastati n 40 mg tablet 02/11 completed Not Available Not Available Not Available hydralazine 10 mg tablet TAKE 1 TABLET BY MOUTH THREE TIMES DAILY active Not Available Not Available No t Available carvedilol 25 mg tablet TAKE 1 TABLET BY MOUTH TWICE DAILY active Not Available Not Available No t Available carvedilol 6.25 mg tablet 1 tab po bid 11/27 completed Not Available Not Available Not Available prednisone 10 mg tablet Take 1 tablet every day by oral route as directed for 7 days. active Not Available Not Available No t Available doxycycline hyclate 100 mg capsule Take 1 capsule twice a day by oral route for 10 days. active Not Available Not Available No t Available atorvastati n 20 mg tablet TK 1 T PO QD HS 11/20 completed Not Available Not Available Not Available carvedilol 12.5 mg tablet 11/27 completed Not Available Not Available Not Available ipratropium 0.5 mg-albutero l 3 mg (2.5 mg base)/3 mL nebulizatio n soln Inhale 3 mL every day by nebulizat ion route. 11/16 completed Not Available Not Available Not Available cetirizine 10 mg tablet Take 1 tablet every day by oral route. 02/21 completed Not Available Not Available Not Available azithromyci n 250 mg tablet TAKE 2 TABLETS (500 MG) BY ORAL ROUTE ONCE DAILY FOR 1 DAY THEN 1 TABLET (250 MG) BY ORAL ROUTE ONCE DAILY FOR 4 DAYS active Not Available Not Available No t Available fluconazole 150 mg tablet active Not Available Not Available Not Available benzonatate 200 mg capsule TAKE 1 CAPSULE BY MOUTH EVERY 8 HOURS FOR 10 DAYS NEEDED active Not Available Not Available No t Available acetaminoph en 120 mg-codeine 12 mg/5 mL oral solution active Not Available Not Available Not Available lisinopril 20 mg tablet TAKE 1 TABLET BY MOUTH EVERY DAY 02/21 completed Not Available Not Available Not Available prednisone 20 mg tablet 1 tab po bid for 3 days, 1 po daily for 4 days active Not Available Not Available No t Available hydralazine 25 mg tablet 08/29 completed Not Available Not Available Not Available metronidazo le 500 mg tablet TAKE 1 TABLET BY MOUTH EVERY 8 HOURS FOR 7 DAYS 01/14 completed Not Available Not Available Not Available amlodipine 5 mg tablet TAKE 1 TABLET BY MOUTH TWICE DAILY active Not Available Not Available No t Available ciprofloxac in 500 mg tablet Take 1 tablet every 12 hours by oral route for 5 days. 01/14 completed Not Available Not Available Not Available sulfamethox azole 800 mg-trimetho prim 160 mg tablet TK 1 T PO Q 12 H FOR 10 DAYS 10/23 completed Not Available Not Available Not Available acetaminoph en 500 mg tablet TAKE 1 TABLET BY MOUTH EVERY 6 HOURS NEEDED FOR PAIN 04/03 completed Not Available Not Available Not Available triamcinolo ne acetonide 0.1 % topical cream APPLY A THIN LAYER TO THE AFFECTED AREA(S) on feet and hands BY TOPICAL ROUTE 2 TIMES PER DAY active Not Available Not Available No t Available spironolact one 25 mg tablet TK 1/2 T PO QD UTD 02/11 completed Not Available Not Available Not Available amoxicillin 500 mg tablet 05/18 completed Not Available Not Available Not Available carvedilol 3.125 mg tablet 10/23 completed Not Available Not Available Not Available ketorolac 10 mg tablet active Not Available Not Available Not Available Kenalog 40 mg/mL suspension for injection Take 1 mL every day by injection route. 10/23 completed Not Available Not Available Not Available methocarbam ol 750 mg tablet TAKE 1 TABLET BY MOUTH THREE TIMES DAILY NEEDED 01/14 completed Not Available Not Available Not Available lorazepam 2 mg tablet TAKE 2 TABLETS BY MOUTH ONE HOUR PRIOR TO THE TEST. MAY REPEAT 1 TIME IF NEEDED. MUST HAVE A GUIDE RAIL CLEANER FOR THE TEST. 02/21 completed Not Available Not Available Not Available meclizine 25 mg tablet TAKE 1 TABLET BY MOUTH EVERY 8 HOURS FOR 7 DAYS NEEDED 04/03 completed Not Available Not Available Not Available benzonatate 100 mg capsule TK 1 C PO BID PRN 05/18 completed Not Available Not Available Not Available hydrocodone 7.5 mg-acetamin ophen 325 mg tablet active Not Available Not Available No t Available oseltamivir 75 mg capsule TAKE 1 CAPSULE BY MOUTH TWICE DAILY FOR 5 DAYS DIRECTED active Not Available Not Available No t Available nitrofurant oin macrocrysta l 100 mg capsule Take 1 capsule every 6 hours by oral route with meals for 7 days. active Not Available Not Available No t Available lisinopril 10 mg tablet TAKE 1 TABLET BY MOUTH EVERY DAY active Not Available Not Available No t Available nicotine 21 mg/24 hr daily transdermal patch Apply 1 patch every day by transderm al route. active Not Available Not Available No t Available dorzolamide 22.3 mg-timolol 6.8 mg/mL eye drops INSTILL 1 DROP IN BOTH EYES TWICE DAILY active Not Available Not Available No t Available montelukast 10 mg tablet Take 1 tablet every day by oral route in the evening for 90 days. active Not Available Not Available No t Available hydroxyzine HCl 25 mg tablet Take 1 tablet 3 times a day by oral route. active Not Available Not Available No t Available hydralazine 50 mg tablet TAKE 1 TABLET BY MOUTH THREE TIMES DAILY 04/03 completed Not Available Not Available Not Available furosemide 20 mg tablet TAKE 1 TABLET BY MOUTH EVERY DAY active Not Available Not Available No t Available diazepam 10 mg tablet TAKE 1-2 TABLET BY MOUTH 1-2 HOURS BEFORE PROCEDURE 02/21 completed Not Available Not Available Not Available methylpredn isolone 4 mg tablets in a dose pack FOLLOW PACKAGE DIRECTION S active Not Available Not Available No t Available albuterol sulfate HFA 90 mcg/actuati on aerosol inhaler INHALE 2 PUFFS BY MOUTH EVERY 4 HOURS NEEDED active Not Available Not Available No t Available Cipro 250 mg tablet Take 1 tablet every 12 hours by oral route with meals for 5 days. 05/12 completed Not Available Not Available Not Available ondansetron 4 mg disintegrat ing tablet DISSOLVE 1 TABLET ON THE TONGUE EVERY 6 TO 8 HOURS FOR 5 DAYS NEEDED 04/03 completed Not Available Not Available Not Available fluticasone propionate 50 mcg/actuati on nasal spray,suspe nsion SHAKE LIQUID AND USE 2 SPRAYS IN EACH NOSTRIL EVERY DAY IN THE MORNING 02/21 completed Not Available Not Available Not Available metformin ER 500 mg tablet,exte nded release 24 hr TAKE 1 TABLET BY MOUTH TWICE DAILY DIRECTED active Not Available Not Available No t Available loratadine 10 mg tablet Take 1 tablet every day by oral route in the morning for 90 days. active Not Available Not Available No t Available amoxicillin 875 mg-potassiu m clavulanate 125 mg tablet Take 1 tablet every 12 hours by oral route for 10 days. 07/28 completed Not Available Not Available Not Available amoxicillin 500 mg-potassiu m clavulanate 125 mg tablet active Not Available Not Available Not Available Benadryl 25 mg capsule Take 1 capsule every 4 hours by oral route. 02/21 completed Not Available Not Available Not Available Asprin Ec Low Dose 81 mg tablet,virgie yed release Take 1 tablet every day by oral route. 02/21 completed Not Available Not Available Not Available rosuvastati n 10 mg tablet TAKE 1 TABLET BY MOUTH EVERY DAY AT BEDTIME 02/21 completed Not Available Not Available Not Available rosuvastati n 20 mg tablet TAKE 1 TABLET BY MOUTH EVERY DAY AT BEDTIME active Not Available Not Available No t Available nitrofurant oin monohydrate /macrocryst als 100 mg capsule Take 1 capsule every 12 hours by oral route for 7 days. active Not Available Not Available No t Available hydrochloro thiazide 12.5 mg tablet TAKE 1 TABLET BY MOUTH EVERY DAY 02/21 completed Not Available Not Available Not Available Symbicort 80 mcg-4.5 mcg/actuati on HFA aerosol inhaler 2 puffs bid 08/29 completed COPD Not Available Not Available Not Available budesonide- formoterol HFA 160 mcg-4.5 mcg/actuati on aerosol inhaler INHALE 2 PUFFS BY MOUTH TWICE DAILY DIRECTED 02/21 completed Not Available Not Available Not Available brimonidine 0.2 %-timolol 0.5 % eye drops INSTILL 1 DROP IN BOTH EYES TWICE DAILY 04/03 completed Not Available Not Available Not Available Solu-Medrol (PF) 125 mg/2 mL solution for injection Take 125 mg by injection route for 1 day. 01/28 completed Not Available Not Available Not Available Livalo 4 mg tablet TK 1 T PO QD HS 02/21 completed Not Available Not Available Not Available Livalo 2 mg tablet TK 1 T PO QHS 10/29 completed Not Available Not Available Not Available Suprep Bowel Prep Kit 17.5 gram-3.13 gram-1.6 gram oral solution 02/11 completed Not Available Not Available Not Available Lumigan 0.01 % eye drops INSTILL 1 DROP INTO BOTH EYES EVERY NIGHT AT BEDTIME active Not Available Not Available No t Available Breo Ellipta 100 mcg-25 mcg/dose powder for inhalation INHALE 1 PUFF BY MOUTH EVERY DAY active Not Available Not Available No t Available Farxiga 10 mg tablet TAKE 1 TABLET BY MOUTH EVERY DAY DIRECTED active Not Available Not Available No t Available Entresto 49 mg-51 mg tablet TAKE 1 TABLET BY MOUTH TWICE DAILY active Not Available Not Available No t Available Entresto 24 mg-26 mg tablet TAKE 1 TABLET BY MOUTH TWICE DAILY 04/03 completed Not Available Not Available Not Available omega3 300 mg-dha,epa 250 mg-other omega 3s-fish oil 1,000 mg capsule TAKE 1 CAPSULE BY MOUTH EVERY DAY active Not Available Not Available No t Available Vitals Date Recorded Body weight Body mass index (BMI) Body height Body temperature Heart rate Respiratory rate Oxygen saturation Oxygen saturation in Arterial blood by Pulse oximetry Pain severity - 0-10 verbal numeric rating [Score] - Reported Systolic blood pressure Diastolic blood pressure Provider Name and Address Organization Details Last Updated DateTime 3 12156.9 6 g 34.7 kg/m2 165.1 cm 96.6 [degF] 81 /min 20 /min 97 % 97 % 0 180 mm[Hg] 90 mm[Hg] Annemarie Mueller RN [place] - [facility] [employer] [facility] 3 16:34:25 Date Recorded Body height Body mass index (BMI) Body weight Body temperature Respiratory rate Oxygen saturation Oxygen saturation in Arterial blood by Pulse oximetry Systolic blood pressure Diastolic blood pressure Provider Name and Address Organization Details Last Updated DateTime 3 165.1 cm 35 kg/m2 41747.7 5 g 97.1 [degF] 16 /min 98 % 98 % 148 mm[Hg] 72 mm[Hg] Pablo Cortez [place] [employer] [facility] [employer] 3 10:03:40 Date Recorded Body height Body mass index (BMI) Body weight Body temperature Heart rate Respiratory rate Oxygen saturation Oxygen saturation in Arterial blood by Pulse oximetry Systolic blood pressure Diastolic blood pressure Provider Name and Address Organization Details Last Updated DateTime 4 165.1 cm 34.8 kg/m2 21686.5 6 g 98 [degF] 78 /min 16 /min 98 % 98 % 144 mm[Hg] 70 mm[Hg] Pablo Cortez [place] [employer] [facility] [employer] 4 14:47:57 Date Recorded Body height Body mass index (BMI) Body weight Body temperature Heart rate Respiratory rate Oxygen saturation Oxygen saturation in Arterial blood by Pulse oximetry Systolic blood pressure Diastolic blood pressure Provider Name and Address Organization Details Last Updated DateTime 4 165.1 cm 35 kg/m2 78596.7 5 g 97.99 [degF] 82 /min 16 /min 99 % 99 % 140 mm[Hg] 76 mm[Hg] Pablo Cortez [place] [employer] [facility] [employer] 4 10:43:47 Date Recorded Body height Body mass index (BMI) Body weight Body temperature Heart rate Provider Name and Address Organization Details Last Updated DateTime 12/25/2024 165.1 cm 34.2 kg/m2 11173.84 g 97.1 [degF] 95 /min Marisa Diana RN [facility] [employer] 5 17:19:43 Date Recorded Oxygen saturation Oxygen saturation in Arterial blood by Pulse oximetry Systolic blood pressure Diastolic blood pressure Provider Name and Address Organization Details Last Updated DateTime 12/25/2024 94 % 94 % 162 mm[Hg] 100 mm[Hg] Scott Wright MD [address] [facility], [facility] [address], [place], [address], [place] [employer] [facility] [employer] 5 17:35:36 Social History Question Answer Notes LastModified by Organizat ion Details LastModified Time Tobacco Smoking Status Former Smoker Annemarie Ami, RN null, [place] - [facility] 02/21/2023 16:36:22 Do You Have An Advance Directive? No Information not available 02/21/2023 What Is Your Level Of Alcohol Consumption? None [id number] Information not available 01/11/2023 Are You Blind Or Do You Have Difficulty Seeing? No Information not available 02/21/2023 Is Blood Transfusion Acceptable In An Emergency? Yes Information not available 02/21/2023 What Is Your Level Of Caffeine Consumption? Heavy Soda Information not available 02/21/2023 How Much Tobacco Do You Chew? None [id number] Information not available 01/11/2023 What Is Your Code Status? Full Code Information not available 02/21/2023 In The 14 Days Before Symptom Onset, Have You Had Close Contact With A Laboratory-confir med COVID-19 While That Case Was Ill? No [id number] Information not available 01/11/2023 In The 14 Days Before Symptom Onset, Have You Had Close Contact With A Person Who Is Under Investigation For COVID-19 While That Person Was Ill? No [id number] Information not available 01/11/2023 Are You Deaf Or Do You Have Serious Difficulty Hearing? No Information not available 02/21/2023 What Type Of Diet Are You Following? REGULAR [id number] Information not available 01/11/2023 Which Illicit Or Recreational Drugs Have You Used? None [id number] Information not available 01/11/2023 Do You Or Have You Ever Used E-cigarettes Or Vape? Never Used Electronic Cigarettes [id number] Information not available 01/11/2023 What Is Your Occupation? [employer] [id number] Information not available 01/11/2023 Have There Been Any Changes To Your Family Or Social Situation? No Information no t available 02/21/2023 When Did You Quit Smoking? 6-10yearssincel astcigarette Information not available 02/21/2023 Do You Use Insect Repellent Routinely? No Information not available 02/21/2023 Where Do You Live? Other Mobile Information not available 02/21/2023 Do You Have A Medical Power Of Health Specialist? No Information not available 02/21/2023 Do You Have Any Pets? Yes Information not available 02/21/2023 What Is Your Relationship Status? Information not available 02/21/2023 Do You Use Your Seat Belt Or Car Seat Routinely? Yes Information not available 02/21/2023 At What Age Did You Start Smoking Tobacco? 15 Information not available 02/21/2023 Are You Passively Exposed To Smoke? Yes Information no t available 02/21/2023 Are There Any Smokers In Your House? Yes Information not available 02/21/2023 Do You Participate In Social Media? Yes Information not available 02/21/2023 Do You Feel Stressed (tense, Restless, Nervous, Or Anxious, Or Unable To Sleep At Night)? [id number] Information not available 02/21/2023 Do You Use Any Illicit Or Recreational Drugs? No Information not available 02/21/2023 Do You Use Sunscreen Routinely? No Information not available 02/21/2023 Have You Recently Traveled Abroad? No Information not available 02/21/2023 Sex: Unknown Functional Status Question Answer Note LastModified by Organizat ion Details LastModified Time Do you have difficulty walking or climbing stairs? No Information not available 02/21/2023 Do you have transportation difficulties? No Information not available 02/21/2023 Are you able to walk? YESWOREST Information not available 02/21/2023 Do you have difficulty doing errands alone? No Information not available 02/21/2023 Are you able to care for yourself? Yes Information n ot available 02/21/2023 Do you have difficulty dressing or bathing? No Information not available 02/21/2023 What is your exercise level? None [id number] Information not available 01/11/2023 Mental Status Question Answer Note LastModified by Organization D etails LastModified Time Do you have difficulty concentrating, remembering or making decisions? No Information no t available 02/21/2023 Family History Relationship Description Onset Age of this Age Resolved Age Notes LastModified by Organization Details LastModified Time Unspecified Relation Family history of malignant neoplasm [id number] Not available 01/11/2023 09:14:02 Father Congestive heart failure [id number] Not available 01/11/2023 09:14:02 Sister Malignant tumor of pharynx ~early 50's [id number] Not available 01/11/2023 09:14:02 Medical History Condition Response CHF Y Gynecological History Statement/Question Response Date of Last Colonoscopy Most Recent Mammogram Date of LMP Most Recent Bone Density Obstetrics History GPAL:G 0 P 0 0 0 0 Immunizations Vaccine Type Date Status Note Provider Nam e and Address Organization Details Recorded Time Influenza, high-dose, quadrivalent, PF 10/25/2023 completed [facility] 10/26/2023 12:30:55 Influenza, high-dose, quadrivalent, PF 09/28/2022 completed Not Available [facility] 3 09:26:23 Influenza, high-dose, quadrivalent, PF 11/18/2021 completed Not Available [facility] 3 09:26:23 Tdap 10/23/2018 completed Not Available [facility] 01/11/2023 09:26:23 Influenza, split virus, quadrivalent, PF 10/23/2018 completed Not Available [facility] 3 09:26:23 Influenza, split virus, quadrivalent, PF 10/29/2020 completed Not Available [facility] 3 09:26:23 Influenza, split virus, quadrivalent, PF 11/20/2019 completed Not Available [facility] 3 09:26:24 Past Encounters Encounter ID Performer Location Encounter Start Date Encounter Closed Date Diagnosis/Indication Diagnosis SNOMED-CT Code Diagnosis ICD10 Code Diagnosis Note [id number] [address] [address] 02/25/2021 00:00:00 02/25/2021 16:26:49 [id number] [facility] [address] [place] [address] 04/28/2021 00:00:00 04/28/2021 15:23:59 [id number] [facility] [address] [place] [address] 07/08/2021 00:00:00 07/08/2021 17:26:35 [id number] [facility] Dat [address] [place], [place] [address] [place] [address] 11/17/2021 00:00:00 11/17/2021 18:56:43 [id number] [facility] [address] [place], [place] [address] [address] 08/18/2022 00:00:00 08/18/2022 11:43:34 [id number] [facility] [address] [place] [address] 09/28/2022 00:00:00 09/28/2022 12:58:26 [id number] Annemarie Lizarraga NP [address] [address] 02/21/2023 16:25:41 02/21/2023 16:51:40 Chronic obstructive pulmonary disease 83256327 J44.9 Medrol dose ollie, breo sent. If getting colored drainage start on cipro [id number] Scott Wright MD [address] [address] 10/25/2023 09:52:23 10/25/2023 10:46:21 Diverticular disease of colon 219269306 K57.30 Administra tion of influenza vaccine 75720351 Z23 Nausea and vomiting 1693 1999 R11.2 Obesity 837772583 E66.9 [id number] Scott Wright MD [address] [place] [address] 01/15/2024 14:41:05 01/15/2024 15:03:17 Transition of care 3937583630 105 Z75.8 [facility] 916974097 Z76.89 Nausea 535336811 R11.0 Vertigo 134983515 R42 Type 2 zabrina betes mellitus without complication 727403143 E11.9 Ex-smoker 2652191 Z87.89 1 Labyrinthitis 76856319 H 83.03 Hypertensive disorder 38 254675 I10 Obesity 898761763 E66.9 [id number] Scott Wright MD [address] [address] 04/03/2024 10:31:43 04/03/2024 11:15:33 Bronchitis 35023745 J40 Adult heal th examination 709754403 Z00.00 Screening mammography 24 730608 Z12.31 Screening for osteoporosis 834939009 Z13.820 Congestive heart failure 36106273 I50.9 Obesity 578888630 E66.9 Type 2 zabrina betes mellitus without complication 117508107 E11.9 Vitamin D deficiency 347 59163 E55.9 Cough 90381178 R05.9 Ex-smoker 5664086 Z87.89 1 Quitted 2017 [id number] Scott Wright MD [address] [address] 12/25/2024 17:10:35 12/25/2024 17:32:39 Exposure to Influenzavirus 312344060 Z20.828 Pt declined for swab. Bronchitis 16868249 J40 Ex-cigarette smoker 2810 60943 Z87.891 Fatigue 69283377 R53.83 Health Concerns Section Related Observation LastModified by Organization Detai ls LastModified Time None Recorded Concern Status LastModified by Organization Details LastModified Time None Recorded Advance Directives Directive N: Payers Encounter Date Sequence Insurance Name Policy Number Policy Acosta Covered Member ID Acosta Member ID Guarantor Name 02/21/2023 1 [facility] [id number] [facility] [id number] [facility] 10/25/2023 1 [facility] [id number] [facility] [id number] [facility] 01/15/2024 1 [facility] [id number] [facility] [id number] [facility] 04/03/2024 1 [facility] [id number] Gayle Kelseyefer [id number] Gayle Kelseyefer 12/25/2024 1 [facility] [id number] Gayle Kelseyefer [id number] Gayle Cisse Notes Date Note Type Note Provider Name and Address Organization Details Recorded Time 02/21/2023 text/html Sick feeling sta rted yesterday.Having posterior throat drainage. Throat is scratchy and sore. Feeling laborious breathing. Sob. Has been sleeping well on CPAP machine. Waking up to use the restroom at night.Diet decreased since yesterday not feeling well.Sinus drainage is clear. Coughing is not having any drainage.No chills. No sweats.[place] warm today, but was at work.Getting 5-6 hours of sleep routinely. Annemarie Lizarraga NP [address] [address], [place], [address], [employer] 02/21/2023 16:52:44 10/25/2023 text/html ACV: C/o nausea, bloating, abdominal discomfort for last 2 days. Pt has h/o diverticulitis in the past and it feels the same. So she wants to start the Rx for it. Last colonoscopy in 2021. Pt wants to get flu shot today. Scott Wright MD [address] [facility] [address], [place], [address], [employer] 10/25/2023 10:41:29 01/15/2024 text/html ED fuv: Pt was seen in ED 3 days ago due to not feeling well, dizziness, nausea that started couple days before that. Pt had bunch of testing with labs, urine test, EKG and covid tests and it all came back good. So pt was given IV fluids and was d/c to home without any Rx med. Pt is feeling overall little better. Still has c/o vertigo and nausea. No other symptoms. No chest pain/sob/v/c/d/blood in stool/abdo pain. Pt is not on any meds for her DM. Pt is not coming here regularly. Pt is f/u with her Cardio and is on meds by them. Scott Wright MD [address], [place], [address], [employer] 01/15/2024 15:14:33 04/03/2024 text/html Pt is here for h er annual visit. Doing overall well. Denies any problem with meds. C/o cough, congestion, drainage for last 2 weeks. Pt has been doing otc meds, but still not getting better yet. Pt is f/u with Cardio every 3-6 months for her HTN and CHF and is on meds by them. Scott Wright MD [address], [place], [address], [employer] 04/03/2024 11:09:27 12/25/2024 text/html ACV: C/o congestion, dry cough, body aches, chills since yesterday. Pt says one of her co-worker was sick and she was around her and she has Flu. Scott Wright MD [address], [place], [address], [employer] 12/25/2024 17:37:20 OBGyn Episode No OBEpisode recorded.
--- OUTSIDE RECORDS SUMMARY | 2025-02-03 07:09 | XMS_ITS | Clinical Summary ---
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 Role Phone Unavailable Primary Care Provider Unavailabl e Social History Tobacco Use Types Packs/Day Years Used Date Smoking Tobacco: Never Assessed Comments Unknown Sex and Gender Information Value Date Recorded Sex Assigned at Not on file Legal Sex Female 7:00 PM CDT Gender Identity Not on file Sexual Orientation Not on file Plan of Treatment Health Maintenance Due Date Last Done Comments Colorectal Cancer Screening Colonoscopy (10 Years) 1956 Hepatitis C 1974 DTaP, Tdap and Td Vaccines ( 1 - Tdap) 1975 Mammogram Screening 1996 Zoster Vaccines (1 of 2) 2006 Dexa Scan (General) 2021 Pneumococcal Vaccine: 65+ Ye ars (1 of 1 - PCV) 2021 COVID-19 Vaccine ( - 2023-2 5 season) 2024 Influenza Adult (#1) 2024 RSV Immunization or 60+ Years (1 - 1-dose 75+ series) 2031 Meningococcal B Vaccine Aged Out No l onger eligible based on patient's age to complete this topic Meningococcal Vaccine Aged Out No malathi jared eligible based on patient's age to complete this topic RSV Immunizations Under 20 Months Aged Out No longer eligible based on patient's age to complete this topic
--- OUTSIDE RECORDS SUMMARY | 2025-02-03 07:10 | XMS_ITS | Data Portability ---
Author Organization [place] - [facility] OFFICE Address [address] [place] [id number] Assessment Encounter Date Assessment Date Assessment LastModified by Organization Details LastModified Time 07/27/2023 07/27/2023 Patient Examined by CESILIA Sagastume, Also Documentation reviewed and approved by supervising physician paoloo Not available 07/26/2023 15:21:21 11/20/2023 11/20/2023 Patient Examined by CESILIA Sagastume, Also Documentation reviewed and approved by supervising physician paoloo Not available 08/12/2023 13:08:49 04/01/2024 04/01/2024 Patient Examined by CESILIA Sagastume, Also Documentation reviewed and approved by supervising physician paoloo Not available 03/30/2024 11:07:28 Plan of Treatment Reminders Order Date Submit Date Provider Last Modified By Organization Details Last Modified Time Details Appointments ECHO 2024 02:45P Elsie Franco Schedule Not available Not available Not available ESTABLISH ED PATIENT DETAILED 2024 11:15A M Saulo López i, MD Not available Not available Not available Lab None recorded. Referral None recorded. Procedures None recorded. Surgeries None recorded. Imaging None recorded. Medication Orders carvedilo l 25 mg tablet 2023 024 [facility]329, [address], [place], [id number], 07/09/2024 10:39:48 Lasix 20 mg tablet 2023 024 [facility][id number], [address], [place], [id number], 07/09/2024 10:39:39 Fish Oil 1,000 mg (120 mg-180 mg) capsule 2023 [facility] #88593, [address], [place], [place], [id number], 04/01/2024 10:19:07 Entresto 49 mg-51 mg tablet 2023 024 [facility] #07137, [address], [place], [place], [id number], 11/20/2023 13:08:10 Lasix 20 mg tablet 2023 024 [facility] #25057, [address], [place], [place], [id number], 11/20/2023 13:06:25 rosuvasta tin 20 mg tablet 2023 024 [facility] #75057, [address], [place], [place], [id number], 11/20/2023 13:06:25 hydralazi ne 10 mg tablet 2023 024 [facility] #12691, [address], [place], [place], [id number], 11/20/2023 13:06:25 Farxiga 10 mg tablet 2023 024 [facility] #98500, [address], [place], [place], [id number], 11/20/2023 13:07:33 hydralazi ne 50 mg tablet 2022 023 [email or web address] [facility] #49646, [address], [place], [place], [id number], 04/01/2024 09:42:42 Patient TargetsNo targets recorded. Patient Instructions Encounter Date Encounter Id Patient Instructions Last Modified By Organization Details Last Modified Time 07/27/2023 [id number] Low cholesterol diet advised Low sodium diet advised. [email or web address] Not available 07/27/2023 16:28:13 11/20/2023 [id number] Exercise advised Low cholesterol diet advised Low sodium diet advised. eyassin Not available 11/20/2023 13:06:12 04/01/2024 [id number] Low cholesterol diet advised Low sodium diet advised. eyassin Not available 04/01/2024 10:18:11 Reason for Referral None Reported. Results Created Date Observation Date Name Description Value Unit Range Abnormal Flag Note LastModifiedBy Organization Detail LastModifiedTime 07/12/2007/04/2023 [facility] diogr am No observ ation record ed. [email or web address] Not Available 2022 10:53:31 04/09/20 24 04/01/2024 [facility] diogr am No observ ation record ed. [email or web address] Not Available 10:47:37 06/01/20 24 05/28/2024 madeline can cardi olite stres s test (PROC ) No observ ation record ed. [email or web address] Not Available 2023 15:54:53 01/08/20 25 01/07/2025 [facility] diogr am No observ ation record ed. [email or web address] Not Available 2024 10:34:25 Result Notes None recorded. Problems Name Problem SNOMED Code Status Onset Date Resolution Date Notes Provider Name and Address Organization Details Recorded Time Cough 08315542 Active 2017 Not Available [facility] 4 13:54:06 Infection of mucous cyst of nasal sinus 643435449 Active 2017 Not Available [facility] 4 13:54:06 Syncope 373487757 Active 2017 Not Available [facility] 4 13:54:05 Dizziness 154774594 Active 2017 Not Available [facility] 4 13:54:05 Snoring 46777420 Active 2017 Not Available [facility] 4 13:54:06 Fatigue 08786766 Active 2017 Not Available [facility] 4 13:54:06 Nonischemi c congestive cardiomyop athy 656124065041 Active 2017 Not Available [facility] 4 13:54:05 Essential hypertensi on 27076568 Active 2017 Not Available [facility] 4 13:54:06 Dyslipidem ia 599116174 Active 2017 Not Available [facility] 4 13:54:05 Coronary arterioscl erosis 15392434 Active 2018 Not Available [facility] 4 13:54:06 Dyspnea on exertion 61295682 Active 2018 Not Available [facility] 4 13:54:06 Obesity 677676704 Active 2018 Not Available [facility] 4 13:54:05 Obstructiv e sleep apnea syndrome 71327215 Active 2019 Not Available [facility] 4 13:54:06 Edema of lower extremity 656268367 Active 2019 Not Available [facility] 4 13:54:05 Notes:Some problems listed i n Documents: #[id number], #[id number], #[id number], #[id number], #[id number], #[id number], #[id number], #[id number], #[id number], #[id number] could not be added to this patient's chart. Please review these documents and add these problems to the patient's chart manually as needed. Problem Notes None recorded. Procedures Surgical History Date Name Laterality Status Provider Name and Address Organization Details Recorded Time [facility]08[facility]2018 13:07:10 [facility] 10/08/2018 13:07:19 [facility] 10/08/2018 13[facility]07:34 [facility] 13:07:48 Imaging Results Imaging Date Name Status LastModified by Organization Details LastModified Time 07/04/2023 electrocardiogram completed [email or web address] Informa tion not available 07/12/2023 10:53:31 04/01/2024 electrocardiogram completed [email or web address] Info rmation not available 06/01/2024 10:47:37 05/28/2024 lexiscan cardiolite stress test (PROC) completed Information not available 06/01/2024 15:54:53 01/07/2025 electrocardiogram completed Informa tion not available 01/08/2025 10:34:25 Procedure Notes None recorded. Medical Equipment None Reported. Allergies Allergen ID Allergen Name Allergen Category Reaction Reaction Severity Criticality Documentation Date Start Date Code Code System Note Provider Name and Address Organization Details Recorded Time 7083 naproxen medicatio n facial swelling hives itching severe severe severe Not available 10/08/2018 7258 RxNorm Annmarie Jacobpravin walls, [facility] 9 11:19:40 7084 Levaquin medicatio n hives itching severe severe Not available 10/08/2018 99714 2 RxNorm Annmarie Jacobpravin [place], [place] - [facility] 9 11:19:16 Medications Name Sig Start Date Stop Date Status Note LastModified by Organization Details LastModified Time symbicort 160-4.5 mcg/act aero 06/03 completed pt not taking 03/04/20 Not Available Not Available Not Available atorvastat in calcium 40 mg tabs 03/04 completed Not Available Not Available Not Available methylpred nisolone dose pack 4 mg tbpk 06/03 completed pt not taking 03/04/20 Not Available Not Available Not Available spironolac tone 25 mg tabs 03/04 completed pt not taking 03/04/20 Not Available Not Available Not Available carvedilol 25 mg tabs bid 06/03 completed Not Available Not Available Not Available cyclobenza jose hydrochlor francheska 10 mg tabs 11/11 completed Not Available Not Available Not Available hydralazin e hydrochlor francheska 25 mg tabs 03/04 completed pt not taking 03/04/20 Not Available Not Available Not Available amoxicilli n/clavulan ate potassium 875-125 mg tabs 06/03 completed pt not taking 03/04/20 Not Available Not Available Not Available ciprofloxa marcin hydrochlor francheska 500 mgtabs 06/03 completed pt not taking 03/04/20 Not Available Not Available Not Available atorvastat in calcium 20 mg tabs 03/04 completed pt not taking 03/04/20 Not Available Not Available Not Available lisinopril 10 mg tabs qd 03/04 completed Not Available Not Available Not Available cyclobenza jose 10 mg tablet 01/11 completed pt not taking 03/04/20 Not Available Not Available Not Available furosemide 40 mg tablet Take 1 tablet every day by oral route as directed . 10/08 completed Not Available Not Available Not Available latanopros t 0.005 % eye drops INSTILL 1 DROP INTO BOTH EYES EVERY NIGHT AT BEDTIME active Not Available Not Available No t Available atorvastat in 40 mg tablet Take 1 tablet every day by oral route at bedtime. 03/04 completed pt not taking 03/04/20 Not Available Not Available Not Available hydralazin e 10 mg tablet TAKE 1 TABLET BY MOUTH THREE TIMES DAILY active Not Available Not Available No t Available carvedilol 25 mg tablet TAKE 1 TABLET BY MOUTH TWICE DAILY active Not Available Not Available No t Available carvedilol 6.25 mg tablet Take 1 tablet twice a day by oral route. 10/29 completed Not Available Not Available Not Available prednisone 10 mg tablet TAKE 1 TABLET BY MOUTH EVERY DAY FOR 7 DAYS DIRECTED 01/07 completed Not Available Not Available Not Available atorvastat in 20 mg tablet Take 1 tablet every day by oral route at bedtime. 10/09 completed Not Available Not Available Not Available carvedilol 12.5 mg tablet Take 1 tablet twice a day by oral route. 11/19 completed Not Available Not Available Not Available azithromyc in 250 mg tablet active Not Available Not Available Not Available benzonatat e 200 mg capsule TAKE 1 CAPSULE BY MOUTH EVERY 8 HOURS FOR 10 DAYS NEEDED 01/07 completed Not Available Not Available Not Available lisinopril 20 mg tablet TAKE 1 TABLET BY MOUTH EVERY DAY 03/30 completed Not Available Not Available Not Available prednisone 20 mg tablet 06/03 completed pt not taking 03/04/20 Not Available Not Available Not Available hydralazin e 25 mg tablet Take 1 tablet 3 times a day by oral route. 10/09 completed pt. no longer takes 9 FH Not Available Not Available Not Available metronidaz ole 500 mg tablet TAKE 1 TABLET BY MOUTH EVERY 8 HOURS FOR 7 DAYS 04/01 completed Not Available Not Available Not Available amlodipine 5 mg tablet TAKE 1 TABLET BY MOUTH TWICE DAILY active Not Available Not Available No t Available ciprofloxa marcin 500 mg tablet TAKE 1 TABLET BY MOUTH EVERY 12 HOURS FOR 5 DAYS 03/30 completed Not Available Not Available Not Available sulfametho xazole 800 mg-trimeth oprim 160 mg tablet 06/03 completed Not Available Not Available Not Available acetaminop hen 500 mg tablet TAKE 1 TABLET BY MOUTH EVERY 6 HOURS NEEDED FOR PAIN active Not Available Not Available No t Available triamcinol one acetonide 0.1 % topical cream 06/03 completed pt not taking 03/04/20 Not Available Not Available Not Available spironolac tone 25 mg tablet Take 0.5 tablets every day by oral route as directed . 03/04 completed pt not taking 03/04/20 Not Available Not Available Not Available carvedilol 3.125 mg tablet Take 1 tablet twice a day by oral route as directed . 10/08 completed Not Available Not Available Not Available methocarba mol 750 mg tablet TAKE 1 TABLET BY MOUTH THREE TIMES DAILY NEEDED 08/11 completed Not Available Not Available Not Available lorazepam 2 mg tablet TAKE 2 TABLETS BY MOUTH ONE HOUR PRIOR TO THE TEST. MAY REPEAT 1 TIME IF NEEDED. MUST HAVE A RESEARCH AIDE FOR THE TEST. 04/01 completed Not Available Not Available Not Available meclizine 25 mg tablet TAKE 1 TABLET BY MOUTH EVERY 8 HOURS FOR 7 DAYS NEEDED 04/01 completed Not Available Not Available Not Available oseltamivi r 75 mg capsule TAKE 1 CAPSULE BY MOUTH TWICE DAILY FOR 5 DAYS DIRECTED 01/07 completed Not Available Not Available Not Available lisinopril 10 mg tablet Take 1 tablet every day by oral route as directed . 03/04 completed Not Available Not Available Not Available dorzolamid e 22.3 mg-timolol 6.8 mg/mL eye drops INSTILL 1 DROP IN BOTH EYES TWICE DAILY active Not Available Not Available No t Available hydroxyzin e HCl 25 mg tablet 04/10 completed NO LONGER TAKING; AL 8 Not Available Not Available Not Available hydralazin e 50 mg tablet TAKE 1 TABLET BY MOUTH THREE TIMES DAILY 04/01 completed Not Available Not Available Not Available furosemide 20 mg tablet TAKE 1 TABLET BY MOUTH EVERY DAY active Not Available Not Available No t Available diazepam 10 mg tablet TAKE 1-2 TABLET BY MOUTH 1-2 HOURS BEFORE PROCEDUR E 03/30 completed Not Available Not Available Not Available methylpred nisolone 4 mg tablets in a dose pack FOLLOW PACKAGE DIRECTIO NS 01/07 completed Not Available Not Available Not Available albuterol sulfate HFA 90 mcg/actuat ion aerosol inhaler INHALE 2 PUFFS BY MOUTH EVERY 4 HOURS NEEDED active Not Available Not Available No t Available ondansetro n 4 mg disintegra ting tablet DISSOLVE 1 TABLET ON THE TONGUE EVERY 6 TO 8 HOURS FOR 5 DAYS NEEDED 01/07 completed Not Available Not Available Not Available fluticason e propionate 50 mcg/actuat ion nasal spray,susp ension SHAKE LIQUID AND USE 2 SPRAYS IN EACH NOSTRIL EVERY DAY IN THE MORNING active Not Available Not Available No t Available metformin ER 500 mg tablet,ext ended release 24 hr TAKE 1 TABLET BY MOUTH TWICE DAILY DIRECTED active Not Available Not Available No t Available amoxicilli n 875 mg-potassi um clavulanat e 125 mg tablet 06/03 completed Not Available Not Available Not Available rosuvastat in 10 mg tablet TAKE 1 TABLET BY MOUTH EVERY DAY AT BEDTIME 09/30 completed Not Available Not Available Not Available rosuvastat in 20 mg tablet TAKE 1 TABLET BY MOUTH EVERY DAY AT BEDTIME active Not Available Not Available No t Available hydrochlor othiazide 12.5 mg tablet Take 1 tablet every day by oral route. 03/30 completed Not Available Not Available Not Available Symbicort 160 mcg-4.5 mcg/actuat ion HFA aerosol inhaler 06/03 completed pt not taking 03/04/20 Not Available Not Available Not Available Symbicort 80 mcg-4.5 mcg/actuat ion HFA aerosol inhaler Inhale 2 puffs twice a day by inhalati on route as directed . 06/03 completed pt not taking 03/04/20 Not Available Not Available Not Available brimonidin e 0.2 %-timolol 0.5 % eye drops INSTILL 1 DROP IN BOTH EYES TWICE DAILY active Not Available Not Available No t Available Livalo 4 mg tablet Take 1 tablet every day by oral route at bedtime. 08/11 completed pt not taking Not Available Not Available Not Available Livalo 2 mg tablet Take 1 tablet every day by oral route at bedtime. 06/24 completed Not Available Not Available Not Available Suprep Bowel Prep Kit 17.5 gram-3.13 gram-1.6 gram oral solution 06/03 completed pt not taking 03/04/20 Not Available Not Available Not Available Lumigan [...] TAKE 1 TABLET BY MOUTH TWICE DAILY 04/01 completed Not Available Not Available Not Available Fish Oil 1,000 mg (120 mg-180 mg) capsule Take 1 capsule every day by oral route. 2023 active Not Available Not Available Not Avai lable omega3 300 mg-dha,epa 250 mg-other omega 3s-fish oil 1,000 mg capsule TAKE 1 CAPSULE BY MOUTH EVERY DAY active Not Available Not Available No t Available Adult Aspirin Regimen 81 mg tablet,del ayed release Take 1 tablet every day by oral route. active Not Available Not Available No t Available Vitals Date Recorded Body height Body mass index (BMI) Body weight Heart rate Respiratory rate Oxygen saturation Oxygen saturation in Arterial blood by Pulse oximetry Systolic blood pressure Diastolic blood pressure Provider Name and Address Organization Details Last Updated DateTime 3 162.56 cm 36.2 kg/m2 39326.9 9 g 61 /min 16 /min 97 % 97 % 138 mm[Hg] 70 mm[Hg] Crow [place] 3 15:48:45 Date Recorded Body height Body mass index (BMI) Body weight Heart rate Respiratory rate Oxygen saturation Oxygen saturation in Arterial blood by Pulse oximetry Systolic blood pressure Diastolic blood pressure Provider Name and Address Organization Details Last Updated DateTime 4 162.56 cm 35.9 kg/m2 93927.8 1 g 66 /min 16 /min 94 % 94 % 127 mm[Hg] 62 mm[Hg] Crow Walls [facility] 4 12:36:07 Date Recorded Body height Body mass index (BMI) Body weight Heart rate Oxygen saturation Oxygen saturation in Arterial blood by Pulse oximetry Systolic blood pressure Diastolic blood pressure Provider Name and Address Organization Details Last Updated DateTime 4 162.56 cm 35.7 kg/m2 67700.2 1 g 85 /min 91 % 91 % 124 mm[Hg] 70 mm[Hg] Keely Mccain [facility] 4 09:44:14 Date Recorded Body height Body mass index (BMI) Body weight Heart rate Respiratory rate Oxygen saturation Oxygen saturation in Arterial blood by Pulse oximetry Systolic blood pressure Diastolic blood pressure Provider Name and Address Organization Details Last Updated DateTime 4 162.56 cm 35.9 kg/m2 33538.8 1 g 81 /min 16 /min 97 % 97 % 132 mm[Hg] 84 mm[Hg] Kalli Mason [facility] 4 10:07:52 Date Recorded Body height Body mass index (BMI) Body weight Heart rate Oxygen saturation Oxygen saturation in Arterial blood by Pulse oximetry Systolic blood pressure Diastolic blood pressure Provider Name and Address Organization Details Last Updated DateTime 5 162.56 cm 35.9 kg/m2 92068.2 4 g 70 /min 93 % 93 % 132 mm[Hg] 68 mm[Hg] Keely Mccain [facility] 5 12:19:34 Social History Question Answer Notes LastModified by Organizat ion Details LastModified Time Tobacco Smoking Status Former Smoker QUIT 8 Not Available [facility] 09/15/2020 03:30:42 What Is Your Level Of Alcohol Consumption? None [id number] Information not available 09/15/2020 What Is Your Level Of Caffeine Consumption? Moderate [id number] Information not available 09/15/2020 How Much Tobacco Do You Chew? None [id number] Information not available 09/15/2020 What Type Of Diet Are You Following? REGULAR LOW SALT [id number] Information not available 09/15/2020 Which Illicit Or Recreational Drugs Have You Used? NO [id number] Information not available 09/15/2020 Do You Or Have You Ever Used E-cigarettes Or Vape? 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 With Others Information not available 10/08/2018 Marital Status Informatio n not available 10/08/2018 What Was The Date Of Your Most Recent Tobacco Screening? 12/10/2018 [id number] Information not available 09/15/2020 How Many Children Do You Have? 3 [id number] Information not available 09/15/2020 Do You Or Have You Ever Used Smokeless Tobacco? Former Smokeless Tobacco User [id number] Information not available 09/15/2020 How Much Tobacco Do You Smoke? No [id number] Information not available 09/15/2020 Sex: Unknown Functional Status Question Answer Note LastModified by Organization D etails LastModified Time What is your exercise level? None [id number] Information not available 09/15/2020 Mental Status None recorded. Family History Relationship Description Onset Age of this Age Resolved Age Notes LastModified by Organization Details LastModified Time Father Heart disease [email or web address] Not available 2017 13:05:00 Father Myocardial infarction [email or web address] Not available 10/08 13:05:14 Father Hypertensive disorder [email or web address] Not available 2017 13:05:33 Father Cerebrovascu lar accident [email or web address] Not available 13:05:42 Maternal Aunt Heart disease [email or web address] Not available 2017 13:05:00 Maternal Aunt Myocardial infarction [email or web address] Not available 10/08 13:05:14 Maternal Aunt Diabetes mellitus [email or web address] Not available 2017 13:05:25 Sister Diabetes mellitus [email or web address] Not available 2017 13:05:25 Notes:No premature [place]. Medical History Condition Response Coronary Artery Disease Y Cardiomyopathy Y Hyperlipidemia Y Hypertension Y Gynecological HistoryNo gynecological history recorded. Obstetrics History GPAL:G 0 P 0 0 0 0 Past Encounters Encounter ID Performer Location Encounter Start Date Encounter Closed Date Diagnosis/Indication Diagnosis SNOMED-CT Code Diagnosis ICD10 Code Diagnosis Note [id number] Tereso Huynh [place] [facility] [address] [place] [address] 10/08/2018 12:21:25 10/08/2018 14:27:55 Nonischemic congestive cardiomyopathy 6800603195 04 I42.0 Dyspnea improving. Had echo 09/22/18: mild enlargemen t of left ventricle, severe global left ventricula r systolic dysfunctio n, LVEF 30%, mild to moderate MR. Had [facility] 09/26/18: mild CAD, severe left ventricula r dysfunctio n with possible nonischemi c cardiomyop athy. Continue lisinopril , Aldactone. Increased to carvedilol 6.25 mg bid 10/08/18. Had 10/02/18: Cr 1.5, K 4.6. Previously , Cr 0.9 09/21/18. Stopped furosemide 10/08/16 given increased Cr and no edema, and repeat BMP, Mg in 2 .5 wks. Begin [facility]. Begin cardiac rehab. at [place]. Patient interested in discussing CHF trials. Essential hypertension 92554915 I10 Patient's blood pressure is {{well-con trolled* s omewhat well-contr olled not well-contr olled}} on present medical therapy. Patient is {{tolerati ng, without difficulty ,* having side effects with}} the current medication s. I have {{not made* made the following} } changes to the current regimen. {{ Patient is advised to maintain a blood pressure diary.}} Patient was advised to eat a low-sodium diet (2 grams sodium or less daily). Dyslipidemia 036193339 E 78.5 Obtain FLP. Continue statin. [id number] Tereso Huynh [place] [facility] [address] [place] [address] 10/29/2018 11:51:24 11/08/2018 10:22:57 Nonischemic congestive cardiomyopathy 1075379397 04 I42.0 Dyspnea improving. Had echo 09/22/18: mild enlargemen t of left ventricle, severe global left ventricula r systolic dysfunctio n, LVEF 30%, mild to moderate MR. Had [facility] 09/26/18: mild CAD, severe left ventricula r dysfunctio n with possible nonischemi c cardiomyop athy. Continue lisinopril , Aldactone. Increased to carvedilol 6.25 mg bid 10/08/18. Increased to carvedilol 12.5 mg bid 10/29/18. Had 10/02/18: Cr 1.5, K 4.6. Previously , Cr 0.9 09/21/18. Stopped furosemide 10/08/16 given increased Cr and no edema, and repeated BMP, Mg in 2 .5 wks. Had 10/24/18: K 4.8, BUN 20, CR 1.20, decreased compared with Cr 1.5 10/02/18. Began [facility]. Repeat echo mid 12/2018. Begining cardiac rehab. at [facility] 10/29/18. Patient interested in discussing CHF trials. 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 Essential hypertension 42541710 I10 Patient's blood pressure is {{well-con trolled so mewhat well-contr olled* not well-contr olled}} on present medical therapy. Patient is {{tolerati ng, without difficulty ,* having side effects with}} the current medication s. I have {{not made* made the following} } changes to the current regimen. {{ Patient is advised to maintain a blood pressure diary.}} Patient was advised to eat a low-sodium diet (2 grams sodium or less daily). Dyslipidemia 192882699 E 78.5 Obtained FLP 10/24/18: LDL 71. Needs to keep LDL less than 70, and HDL more than 40. Continue statin. [id number] Tereso Reyezhman [place] [facility] [address] [place] [address] 11/19/2018 11:48:27 11/19/2018 13:19:04 Nonischemic congestive cardiomyopathy 3187263140 04 I42.0 Dyspnea improving. Had echo 09/22/18: mild enlargemen t of left ventricle, severe global left ventricula r systolic dysfunctio n, LVEF 30%, mild to moderate MR. Had [facility] 09/26/18: mild CAD, severe left ventricula r dysfunctio n with possible nonischemi c cardiomyop athy. Continue lisinopril , Aldactone. Increased to carvedilol 6.25 mg bid 10/08/18. Had 10/02/18: Cr 1.5, K 4.6. Previously , Cr 0.9 09/21/18. Stopped furosemide 10/08/16 given increased Cr and no edema, and repeated BMP, Mg in 2 .5 wks. Had 10/24/18: K 4.8, BUN 20, CR 1.20, decreased compared with Cr 1.5 10/02/18. Began Lifevest. Repeat echo mid 12/2018. Begining cardiac rehab. at [facility] 10/29/18. Patient interested in discussing CHF trials. Increased to carvedilol 25 mg bid 11/19/18. Needs to obtain echo 12/23/17 to evaluate for structural /functiona l disease. to reassess LVEF on Lifevest. Essential hypertension [id number] I10 Patient's blood pressure is {{well-con trolled so mewhat well-contr olled* not well-contr olled}} on present medical therapy. Patient is {{tolerati ng, without difficulty ,* having side effects with}} the current medication s. I have {{not made* made the following} } changes to the current regimen. {{ Patient is advised to maintain a blood pressure diary.}} Patient was advised to eat a low-sodium diet (2 grams sodium or less daily). Dyslipidemia [id number] E 78.5 Obtained FLP 10/24/18: LDL 71. Needs to keep LDL less than 70, and HDL more than 40. Continue statin. Coronary arteriosclerosis [id number] I25.10 Had [facility] 09/26/18: mild CAD, severe left ventricula r dysfunctio n with possible nonischemi c cardiomyop athy. Continue ASA and statin. Needs to keep LDL less than 70, and HDL more than 40. [id number] [address] [place] [address] [place] [address] 12/10/2018 12:00:28 12/10/2018 13:32:07 Nonischemic congestive cardiomyopathy [id number] 04 I42.0 Dyspnea improving. Had echo 09/22/18: mild enlargemen t of left ventricle, severe global left ventricula r systolic dysfunctio n, LVEF 30%, mild to moderate MR. Had [facility] 09/26/18: mild CAD, severe left ventricula r dysfunctio n with possible nonischemi c cardiomyop athy. Continue lisinopril , Aldactone. Increased to carvedilol 6.25 mg bid 10/08/18. Had 10/02/18: Cr 1.5, K 4.6. Previously , Cr 0.9 09/21/18. Stopped furosemide 10/08/16 given increased Cr and no edema, and repeated BMP, Mg in 2 .5 wks. Had 10/24/18: K 4.8, BUN 20, CR 1.20, decreased compared with Cr 1.5 10/02/18. Began Lifevest. Repeat echo mid 12/2018. Begining cardiac rehab. at [facility] 10/29/18. Patient interested in discussing CHF trials and patient states [facility] is following her for any available trials. Increased to carvedilol 25 mg bid 11/19/18. Given mildly increased Cr 1.2, continue with lisinopril 10 mg and began hydralazin e 25 mg tid 12/10/18. Needs to obtain echo 12/23/17 to evaluate for structural /functiona l disease. to reassess LVEF on Lifevest. Coronary arteriosclerosis [id number] I25.10 Had [facility] 09/26/18: mild CAD, severe left ventricula r dysfunctio n with possible nonischemi c cardiomyop athy. Continue ASA and statin. Needs to keep LDL less than 70, and HDL more than 40. Essential hypertension [id number] I10 Patient's blood pressure is {{well-con trolled so mewhat well-contr olled* not well-contr olled}} on present medical therapy. Patient is {{tolerati ng, without difficulty ,* having side effects with}} the current medication s. I have {{not made made the following* }} changes to the current regimen. {{ Patient is advised to maintain a blood pressure diary.}} Patient was advised to eat a low-sodium diet (2 grams sodium or less daily). Patient did not take meds today. Dyslipidemia [id number] E 78.5 Obtained FLP 10/24/18: LDL 71. Needs to keep LDL less than 70, and HDL more than 40. Continue statin. [id number] [address] [place] [facility] [address] [place] [address] 01/09/2019 13:30:59 01/09/2019 15:04:15 Nonischemic congestive cardiomyopathy [id number] 04 I42.0 Had normalizat ion of severe LV systolic function as of echo 12/20/18. Dyspnea improved. Had ECHO 12/20/18: LV chamber is normal. LV wall thickness is normal. There is normal global systolic function and contractil ity. The estimated left ventricle ejection fraction 55-60%(nor mal). LV relaxation is impaired. Let atrium chamber is mildly dilated. There is a trace anterior pericardia l effusion. Minimal MR. Had echo 09/22/18: mild enlargemen t of left ventricle, severe global left ventricula r systolic dysfunctio n, LVEF 30%, mild to moderate MR. Had [facility] 09/26/18: mild CAD, severe left ventricula r dysfunctio n with possible nonischemi c cardiomyop athy. Continue lisinopril , Aldactone. Increased to carvedilol 25 mg bid 11/19/18. Given mildly increased Cr 1.2, continue with lisinopril 10 mg and began hydralazin e 25 mg tid 12/10/18. Stop Lifevest. Continue cardiac rehab. at [facility]. Coronary arteriosclerosis [id number] I25.10 Had [facility] 09/26/18: mild CAD, severe left ventricula r dysfunctio n with possible nonischemi c cardiomyop athy. Continue ASA and statin. Needs to keep LDL less than 70, and HDL more than 40. Essential hypertension [id number] I10 Patient's blood pressure is {{well-con trolled so mewhat well-contr olled* not well-contr olled}} on present medical therapy. Patient is {{tolerati ng, without difficulty ,* having side effects with}} the current medication s. I have {{not made made the following* }} changes to the current regimen. {{ Patient is advised to maintain a blood pressure diary.*}} Patient was advised to eat a low-sodium diet (2 grams sodium or less daily). Patient did not take meds today. Dyslipidemia [id number] E 78.5 Obtained FLP 10/24/18: LDL 71. Needs to keep LDL less than 70, and HDL more than 40. Continue statin. [id number] Te[address] Hu[address]h [facility] [address] [place] [address] 04/10/2019 11:14:16 04/10/2019 12:47:31 Nonischemic congestive cardiomyopathy [id number] 04 I42.0 Had normalizat ion of severe LV systolic function as of echo 12/20/18. Dyspnea improved. Had ECHO 12/20/18: LV chamber is normal. LV wall thickness is normal. There is normal global systolic function and contractil ity. The estimated left ventricle ejection fraction 55-60%(nor mal). LV relaxation is impaired. Let atrium chamber is mildly dilated. There is a trace anterior pericardia l effusion. Minimal MR. Had echo 09/22/18: mild enlargemen t of left ventricle, severe global left ventricula r systolic dysfunctio n, LVEF 30%, mild to moderate MR. Had [facility] 09/26/18: mild CAD, severe left ventricula r dysfunctio n with possible nonischemi c cardiomyop athy. Continue lisinopril , Aldactone. Increased to carvedilol 25 mg bid 11/19/18. Given mildly increased Cr 1.2, continue with lisinopril 10 mg and began hydralazin e 25 mg tid 12/10/18. Obtain BMP, Mg. Completed cardiac rehab. at [facility]. Increase walking. Coronary arteriosclerosis [id number] I25.10 Had [facility] 09/26/18: mild CAD, severe left ventricula r dysfunctio n with possible nonischemi c cardiomyop athy. Continue ASA and statin. Needs to keep LDL less than 70, and HDL more than 40. Essential hypertension [id number] I10 Patient's blood pressure is {{well-con trolled* s omewhat well-contr olled not well-contr olled}} on present medical therapy. Patient is {{tolerati ng, without difficulty ,* having side effects with}} the current medication s. I have {{not made* made the following} } changes to the current regimen. {{ Patient is advised to maintain a blood pressure diary.*}} Patient was advised to eat a low-sodium diet (2 grams sodium or less daily). Patient did not take meds today. Dyslipidemia [id number] E 78.5 Obtained FLP 10/24/18: LDL 71. Needs to keep LDL less than 70, and HDL more than 40. Continue statin. Obtain FLP. [id number] [address] [place] [facility] [address] [place] [address] 10/09/2019 11:03:09 10/09/2019 11:45:43 Nonischemic congestive cardiomyopathy [id number] 04 I42.0 Had normalizat ion of severe LV systolic function as of echo 12/20/18. Dyspnea improved. Had ECHO 12/20/18: LV chamber is normal. LV wall thickness is normal. There is normal global systolic function and contractil ity. The estimated left ventricle ejection fraction 55-60%(nor mal). LV relaxation is impaired. Let atrium chamber is mildly dilated. There is a trace anterior pericardia l effusion. Minimal MR. Had echo 09/22/18: mild enlargemen t of left ventricle, severe global left ventricula r systolic dysfunctio n, LVEF 30%, mild to moderate MR. Had [facility] 09/26/18: mild CAD, severe left ventricula r dysfunctio n with possible nonischemi c cardiomyop athy. Continue lisinopril , Aldactone. Increased to carvedilol 25 mg bid 11/19/18. Given mildly increased Cr 1.2, continue with lisinopril 10 mg and began hydralazin e 25 mg tid 12/10/18. PCP stopped hydralazin e. Obtain BMP, Mg to follow-up Cr 1.3 04/29/19. Completed cardiac rehab. at [facility]. Increase walking. Obtain echo to evaluate for structural /functiona l disease, reassess LVEF and has new exertional dyspnea. Coronary arteriosclerosis [id number] I25.10 Had [facility] 09/26/18: mild CAD, severe left ventricula r dysfunctio n with possible nonischemi c cardiomyop athy. Continue ASA and statin. Needs to keep LDL less than 70, and HDL more than 40. Essential hypertension [id number] I10 Patient's blood pressure is {{well-con trolled* s omewhat well-contr olled not well-contr olled}} on present medical therapy. Patient is {{tolerati ng, without difficulty ,* having side effects with}} the current medication s. I have {{not made* made the following} } changes to the current regimen. {{ Patient is advised to maintain a blood pressure diary.*}} Patient was advised to eat a low-sodium diet (2 grams sodium or less daily). Dyslipidemia [id number] E 78.5 Obtained FLP 10/24/18: LDL 71. Needs to keep LDL less than 70, and HDL more than 40. Had 04/29/19: TC 191 ,TG 109, HDL 57, LDL 95. Increased to atorvastat in 40 mg qHS 10/09/19. FLP in 1 mo. Dyspnea on exertion 6084 5006 R06.09 Increased exertional dyspnea for 1 month. Obtain echo to evaluate for structural /functiona l disease. 20 lb. weight loss recommende d over the next 2 months. Increase walking. Consider pulm. evaluation for COPD. Obesity [id number] E66.9 20 lb. weight loss recommende d over the next 2 months. [id number] [facility] [address] [place] [address] 12/11/2019 11:00:23 12/11/2019 12:21:29 Nonischemic congestive cardiomyopathy [id number] 04 I42.0 Had normalizat ion of severe LV systolic function as of echo 12/20/18, with LVEF 45-50% mildly reduced on repeat echo 10/31/19. Dyspnea improved. Had echo 10/31/19: normal LV size and thickness, mildly reduced LV systolic function with LVEF 45-50%, grade 1 DD, mild pulm. HTN. Had ECHO 12/20/18: LV chamber is normal. LV wall thickness is normal. There is normal global systolic function and contractil ity. The estimated left ventricle ejection fraction 55-60%(nor mal). LV relaxation is impaired. Let atrium chamber is mildly dilated. There is a trace anterior pericardia l effusion. Minimal MR. Had echo 09/22/18: mild enlargemen t of left ventricle, severe global left ventricula r systolic dysfunctio n, LVEF 30%, mild to moderate MR. Had [facility] 09/26/18: mild CAD, severe left ventricula r dysfunctio n with possible nonischemi c cardiomyop athy. Continue lisinopril . Increased to carvedilol 25 mg bid 11/19/18. Given mildly increased Cr 1.2, continue with lisinopril 10 mg and began hydralazin e 25 mg tid 12/10/18. PCP stopped hydralazin e. Obtain BMP, Mg to follow-up Cr 1.3 04/29/19. Had 11/08/19 : Na 141, K 4.4, CL 101, CO2 31, GLU 117, BUN 18, CR 1.30, AST 20 ,ALT 19, Given persistent mild elevation in Cr 1.3, stopped spironolac tone 12/11/19. Obtain BMP, Mg in 1 mo. Completed cardiac rehab. at [facility]. Increase walking. Coronary arteriosclerosis [id number] I25.10 Had [facility] 09/26/18: mild CAD, severe left ventricula r dysfunctio n with possible nonischemi c cardiomyop athy. Continue ASA and statin. Needs to keep LDL less than 70, and HDL more than 40. Essential hypertension [id number] I10 Patient's blood pressure is {{well-con trolled* s omewhat well-contr olled not well-contr olled}} on present medical therapy. Patient is {{tolerati ng, without difficulty ,* having side effects with}} the current medication s. I have {{not made* made the following} } changes to the current regimen. {{ Patient is advised to maintain a blood pressure diary.*}} Patient was advised to eat a low-sodium diet (2 grams sodium or less daily). Dyslipidemia [id number] E 78.5 Obtained FLP 10/24/18: LDL 71. Needs to keep LDL less than 70, and HDL more than 40. Had 04/29/19: TC 191 ,TG 109, HDL 57, LDL 95. Increased to atorvastat in 40 mg qHS 10/09/19. Had 11/08/19 : TC 240 ,TG 205, HDL 51,LDL 146, Patient misses atorvastat in twice per week. Resume regular use of atorvastat in. FLP in 1 mo. Dyspnea on exertion 6084 5006 R06.09 Has occasional increased exertional dyspnea, currently improving with weight loss. Had echo 10/31/19: normal LV size and thickness, mildly reduced LV systolic function with LVEF 45-50%, grade 1 DD, mild pulm. HTN. 20 lb. weight loss recommende d over the next 2 months. Increase walking. Needs pulm. evaluation for COPD per PCP. Has mild pulm. HTN. Obesity [id number] E66.9 20 lb. weight loss recommende d over the next 2 months. [id number] [address] [place] [facility] [address] [place] [address] 03/04/2020 12:27:37 03/04/2020 15:26:36 Nonischemic congestive cardiomyopathy [id number] 04 I42.0 Had near normalizat ion of severe LV systolic function as of echo 12/20/18, with LVEF 45-50% mildly reduced on repeat echo 10/31/19. Dyspnea improved. Had echo 10/31/19: normal LV size and thickness, mildly reduced LV systolic function with LVEF 45-50%, grade 1 DD, mild pulm. HTN. Had ECHO 12/20/18: LV chamber is normal. LV wall thickness is normal. There is normal global systolic function and contractil ity. The estimated left ventricle ejection fraction 55-60%(nor mal). LV relaxation is impaired. Let atrium chamber is mildly dilated. There is a trace anterior pericardia l effusion. Minimal MR. Had echo 09/22/18: mild enlargemen t of left ventricle, severe global left ventricula r systolic dysfunctio n, LVEF 30%, mild to moderate MR. Had [facility] 09/26/18: mild CAD, severe left ventricula r dysfunctio n with possible nonischemi c cardiomyop athy. Increased to carvedilol 25 mg bid 11/19/18. Given mildly increased Cr 1.2, continue with lisinopril 10 mg and began hydralazin e 25 mg tid 12/10/18. PCP stopped hydralazin e. Obtain BMP, Mg to follow-up Cr 1.3 04/29/19. Had 11/08/19 : Na 141, K 4.4, CL 101, CO2 31, GLU 117, BUN 18, CR 1.30, AST 20 ,ALT 19, Given persistent mild elevation in Cr 1.3, stopped spironolac tone 12/11/19. PCP increased to lisinopril 20 mg qd early 02/2020. Obtain CMP, Mg. Completed cardiac rehab. at [facility]. Increase walking. Coronary arteriosclerosis [id number] I25.10 Had [facility] 09/26/18: mild CAD, severe left ventricula r dysfunctio n with possible nonischemi c cardiomyop athy. Continue ASA and statin. Needs to keep LDL less than 70, and HDL more than 40. Essential hypertension [id number] I10 Patient's blood pressure is {{well-con trolled so mewhat well-contr olled not well-contr olled*}} on present medical therapy. Patient is {{tolerati ng, without difficulty ,* having side effects with}} the current medication s. I have {{not made made the following* }} changes to the current regimen. {{ Patient is advised to maintain a blood pressure diary.*}} Patient was advised to eat a low-sodium diet (2 grams sodium or less daily). To improve BP control, began amlodipine 5 mg qd 03/04/20. Dyslipidemia [id number] E 78.5 Obtained FLP 10/24/18: LDL 71. Needs to keep LDL less than 70, and HDL more than 40. Had 04/29/19: TC 191 ,TG 109, HDL 57, LDL 95. Increased to atorvastat in 40 mg qHS 10/09/19. Had 11/08/19 : TC 240 ,TG 205, HDL 51,LDL 146, Patient misses atorvastat in twice per week. Resume regular use of atorvastat in. Patient was taking atorvastat in 40 mg qHS regularly then had cramps in both legs, resolved after stopping atorvastat in for a few days, then returned after resumed atorvastat in, so she stopped it. Switched to Livalo 2 mg qHS 03/04/20. FLP, CPK, CMP, Mg in 1 mo. Dyspnea on exertion 6084 5006 R06.09 Has occasional increased exertional dyspnea, currently improving with weight loss. Had echo 10/31/19: normal LV size and thickness, mildly reduced LV systolic function with LVEF 45-50%, grade 1 DD, mild pulm. HTN. 20 lb. weight loss recommende d over the next 2 months. Increase walking. Needs pulm. evaluation for COPD per PCP. Has mild pulm. HTN. Obesity 049527340 E66.9 20 lb. weight loss recommende d over the next 2 months. [id number] Tereso Huynh [facility] [address] [place] [address] 06/03/2020 12:00:00 06/03/2020 12:55:39 Nonischemic congestive cardiomyopathy [id number] 04 I42.0 Had near normalizat ion of severe LV systolic function as of echo 12/20/18, with LVEF 45-50% mildly reduced on repeat echo 10/31/19. Dyspnea improved. Had echo 10/31/19: normal LV size and thickness, mildly reduced LV systolic function with LVEF 45-50%, grade 1 DD, mild pulm. HTN. Had ECHO 12/20/18: LV chamber is normal. LV wall thickness is normal. There is normal global systolic function and contractil ity. The estimated left ventricle ejection fraction 55-60%(nor mal). LV relaxation is impaired. Let atrium chamber is mildly dilated. There is a trace anterior pericardia l effusion. Minimal MR. Had echo 09/22/18: mild enlargemen t of left ventricle, severe global left ventricula r systolic dysfunctio n, LVEF 30%, mild to moderate MR. Had C 09/26/18: mild CAD, severe left ventricula r dysfunctio n with possible nonischemi c cardiomyop athy. Increased to carvedilol 25 mg bid 11/19/18. Given mildly increased Cr 1.2, continue with lisinopril 10 mg and began hydralazin e 25 mg tid 12/10/18. PCP stopped hydralazin e. Obtain BMP, Mg to follow-up Cr 1.3 04/29/19. Had 11/08/19 : Na 141, K 4.4, CL 101, CO2 31, GLU 117, BUN 18, CR 1.30, AST 20 ,ALT 19, Given persistent mild elevation in Cr 1.3, stopped spironolac tone 12/11/19. PCP increased to lisinopril 20 mg qd early 02/2020. Had 04/01/20: K 4.4, Mg 1.9, CR 1.3. Completed cardiac rehab. at [facility]. Increase walking. Obtain echo 10/2020. Coronary arteriosclerosis [id number] I25.10 Had [facility] 09/26/18: mild CAD, severe left ventricula r dysfunctio n with possible nonischemi c cardiomyop athy. Continue ASA and statin. Needs to keep LDL less than 70, and HDL more than 40. Essential hypertension [id number] I10 Patient's blood pressure is {{well-con trolled so mewhat well-contr olled* not well-contr olled}} on present medical therapy. Patient is {{tolerati ng, without difficulty ,* having side effects with}} the current medication s. I have {{not made made the following* }} changes to the current regimen. {{ Patient is advised to maintain a blood pressure diary.*}} Patient was advised to eat a low-sodium diet (2 grams sodium or less daily). To improve BP control, began amlodipine 5 mg qd 03/04/20. Dyslipidemia [id number] E 78.5 Obtained FLP 10/24/18: LDL 71. Needs to keep LDL less than 70, and HDL more than 40. Had 04/29/19: TC 191 ,TG 109, HDL 57, LDL 95. Increased to atorvastat in 40 mg qHS 10/09/19. Had 11/08/19 : TC 240 ,TG 205, HDL 51,LDL 146. Patient misses atorvastat in twice per week. Resume regular use of atorvastat in. Patient was taking atorvastat in 40 mg qHS regularly then had cramps in both legs, resolved after stopping atorvastat in for a few days, then returned after resumed atorvastat in, so she stopped it. Switched to Livalo 2 mg qHS 03/04/20, which she has been tolerating . Had 04/01/20: TC 179 ,TG 130 ,HDL 49 ,LDL 89, CPK 69. Increase Livalo to 4 mg qHS 06/03/20. FLP, CPK, CMP, Mg in 1 mo. Dyspnea on exertion 6084 5006 R06.09 Has occasional increased exertional dyspnea, currently improving with weight loss. Had echo 10/31/19: normal LV size and thickness, mildly reduced LV systolic function with LVEF 45-50%, grade 1 DD, mild pulm. HTN. 20 lb. weight loss recommende d over the next 2 months. Increase walking. Needs pulm. evaluation for COPD per PCP. Has mild pulm. HTN. Obesity [id number] E66.9 20 lb. weight loss recommende d over the next 2 months. [id number] [address] [place] [facility] [address] [place] [address] 06/24/2020 14:42:46 06/24/2020 16:38:37 Nonischemic congestive cardiomyopathy [id number] 04 I42.0 Had near normalizat ion of severe LV systolic function as of echo 12/20/18, with LVEF 45-50% mildly reduced on repeat echo 10/31/19. Dyspnea improved. Had echo 10/31/19: normal LV size and thickness, mildly reduced LV systolic function with LVEF 45-50%, grade 1 DD, mild pulm. HTN. Had ECHO 12/20/18: LV chamber is normal. LV wall thickness is normal. There is normal global systolic function and contractil ity. The estimated left ventricle ejection fraction 55-60%(nor mal). LV relaxation is impaired. Let atrium chamber is mildly dilated. There is a trace anterior pericardia l effusion. Minimal MR. Had echo 09/22/18: mild enlargemen t of left ventricle, severe global left ventricula r systolic dysfunctio n, LVEF 30%, mild to moderate MR. Had C 09/26/18: mild CAD, severe left ventricula r dysfunctio n with possible nonischemi c cardiomyop athy. Increased to carvedilol 25 mg bid 11/19/18. Given mildly increased Cr 1.2, continue with lisinopril 10 mg and began hydralazin e 25 mg tid 12/10/18. PCP stopped hydralazin e. Obtain BMP, Mg to follow-up Cr 1.3 04/29/19. Had 11/08/19 : Na 141, K 4.4, CL 101, CO2 31, GLU 117, BUN 18, CR 1.30, AST 20 ,ALT 19, Given persistent mild elevation in Cr 1.3, stopped spironolac tone 12/11/19. PCP increased to lisinopril 20 mg qd early 02/2020. Had 04/01/20: K 4.4, Mg 1.9, CR 1.3. Had 06/24/20: K 4.3, Cr 1.1, Mg 1.9, LDL 103. Completed cardiac rehab. at [facility]. Increase walking. Obtain echo 10/2020. Coronary arteriosclerosis [id number] I25.10 Had [facility] 09/26/18: mild CAD, severe left ventricula r dysfunctio n with possible nonischemi c cardiomyop athy. Continue ASA and statin. Needs to keep LDL less than 70, and HDL more than 40. Essential hypertension [id number] I10 Patient's blood pressure is {{well-con trolled so mewhat well-contr olled* not well-contr olled}} on present medical therapy. Patient is {{tolerati ng, without difficulty ,* having side effects with}} the current medication s. I have {{not made* made the following} } changes to the current regimen. {{ Patient is advised to maintain a blood pressure diary.*}} Patient was advised to eat a low-sodium diet (2 grams sodium or less daily). To improve BP control, began amlodipine 5 mg qd 03/04/20. Dyslipidemia 374967077 E 78.5 Obtained FLP 10/24/18: LDL 71. Needs to keep LDL less than 70, and HDL more than 40. Had 04/29/19: TC 191 ,TG 109, HDL 57, LDL 95. Increased to atorvastat in 40 mg qHS 10/09/19. Had 11/08/19 : TC 240 ,TG 205, HDL 51,LDL 146. Patient misses atorvastat in twice per week. Resume regular use of atorvastat in. Patient was taking atorvastat in 40 mg qHS regularly then had cramps in both legs, resolved after stopping atorvastat in for a few days, then returned after resumed atorvastat in, so she stopped it. Switched to Livalo 2 mg qHS 03/04/20, which she has been tolerating . Had 04/01/20: TC 179 ,TG 130 ,HDL 49 ,LDL 89, CPK 69. Increase Livalo to 4 mg qHS 06/03/20, without leg cramps. Had 06/24/20: LDL 103. Patient missed half of Livalo doses in recents weeks due to falling asleep. Increase compliance with Livalo. Dyspnea on exertion 6084 5006 R06.09 Has occasional increased exertional dyspnea, currently improving with weight loss. Had echo 10/31/19: normal LV size and thickness, mildly reduced LV systolic function with LVEF 45-50%, grade 1 DD, mild pulm. HTN. 20 lb. weight loss recommende d over the next 2 months. Increase walking. Needs pulm. evaluation for COPD per PCP. Has mild pulm. HTN. Obesity 386206267 E66.9 20 lb. weight loss recommende d over the next 2 months. Obstructiv e sleep apnea syndrome 65344858 G47.33 Reports snoring. Reports fatigue. No daytime somnolence . Had echo 10/31/19: normal LV size and thickness, mildly reduced LV systolic function with LVEF 45-50%, grade 1 DD, mild pulm. HTN. Obtain home sleep study. Edema of l ower extremity [id number] R60.0 Reports increased bilateral pedal edema since 06/18/20, greater on right. Spironolac tone was stopped several months prior due to increased Cr to 1.3, which improved off spironolac tone. Had 06/24/20: K 4.3, Cr 1.1, Mg 1.9 Obtain bilateral LE venous Doppler. Elevate legs.Compr ession stockings. Sodium restrictio n. Obtain home sleep study, given mild pulm. HTN. Consider stopping amlodipine . [id number] [address] [place] [facility] [address] [place] [address] 11/11/2020 11:20:02 11/11/2020 12:35:01 Edema of lower extremity [id number] R60.0 Reports less intermitte nt bilateral pedal edema, greater on right. Spironolac tone was stopped several months prior due to increased Cr to 1.3, which improved off spironolac tone. Had 06/24/20: K 4.3, Cr 1.1, Mg 1.9 Obtained 10/27/20 negative bilateral LE venous Doppler. Elevate legs.Compr ession stockings. Sodium restrictio n. Obtain home sleep study, given mild pulm. HTN. Consider stopping amlodipine . Obtain CMP, Mg, TSH. Nonischemi c congestive cardiomyopathy [id number] 04 I42.0 Had near normalizat ion of severe LV systolic function as of echo 12/20/18, with LVEF 45-50% mildly reduced on repeat echo 10/31/19. Dyspnea improved. Had echo 10/31/19: normal LV size and thickness, mildly reduced LV systolic function with LVEF 45-50%, grade 1 DD, mild pulm. HTN. Had ECHO 12/20/18: LV chamber is normal. LV wall thickness is normal. There is normal global systolic function and contractil ity. The estimated left ventricle ejection fraction 55-60%(nor mal). LV relaxation is impaired. Let atrium chamber is mildly dilated. There is a trace anterior pericardia l effusion. Minimal MR. Had echo 09/22/18: mild enlargemen t of left ventricle, severe global left ventricula r systolic dysfunctio n, LVEF 30%, mild to moderate MR. Had [facility] 09/26/18: mild CAD, severe left ventricula r dysfunctio n with possible nonischemi c cardiomyop athy. Increased to carvedilol 25 mg bid 11/19/18. Given mildly increased Cr 1.2, continue with lisinopril 10 mg and began hydralazin e 25 mg tid 12/10/18. PCP stopped hydralazin e. Obtain BMP, Mg to follow-up Cr 1.3 04/29/19. Had 11/08/19 : Na 141, K 4.4, CL 101, CO2 31, GLU 117, BUN 18, CR 1.30, AST 20 ,ALT 19, Given persistent mild elevation in Cr 1.3, stopped spironolac tone 12/11/19. PCP increased to lisinopril 20 mg qd early 02/2020. Had 04/01/20: K 4.4, Mg 1.9, CR 1.3. Had 06/24/20: K 4.3, Cr 1.1, Mg 1.9, LDL 103. Completed cardiac rehab. at [facility]. Increase walking. Obtain echo to evaluate for structural /functiona l disease. Coronary arteriosclerosis [id number] I25.10 Had [facility] 09/26/18: mild CAD, severe left ventricula r dysfunctio n with possible nonischemi c cardiomyop athy. Continue ASA and statin. Needs to keep LDL less than 70, and HDL more than 40. Essential hypertension [id number] I10 Patient's blood pressure is {{well-con trolled* s omewhat well-contr olled not well-contr olled}} on present medical therapy. Patient is {{tolerati ng, without difficulty ,* having side effects with}} the current medication s. I have {{not made* made the following} } changes to the current regimen. {{ Patient is advised to maintain a blood pressure diary.*}} Patient was advised to eat a low-sodium diet (2 grams sodium or less daily). To improve BP control, began amlodipine 5 mg qd 03/04/20. Dyslipidemia [id number] E 78.5 Obtained FLP 10/24/18: LDL 71. Needs to keep LDL less than 70, and HDL more than 40. Had 04/29/19: TC 191 ,TG 109, HDL 57, LDL 95. Increased to atorvastat in 40 mg qHS 10/09/19. Had 11/08/19 : TC 240 ,TG 205, HDL 51,LDL 146. Patient misses atorvastat in twice per week. Resume regular use of atorvastat in. Patient was taking atorvastat in 40 mg qHS regularly then had cramps in both legs, resolved after stopping atorvastat in for a few days, then returned after resumed atorvastat in, so she stopped it. Switched to Livalo 2 mg qHS 03/04/20, which she has been tolerating . Had 04/01/20: TC 179 ,TG 130 ,HDL 49 ,LDL 89, CPK 69. Increase Livalo to 4 mg qHS 06/03/20, without leg cramps. Had 06/24/20: LDL 103. Patient missed half of Livalo doses in recents weeks due to falling asleep.She has increased compliance with Livalo. Obtain FLP. Dyspnea on exertion 6084 5006 R06.09 Has occasional increased exertional dyspnea, currently improving with weight loss. Had echo 10/31/19: normal LV size and thickness, mildly reduced LV systolic function with LVEF 45-50%, grade 1 DD, mild pulm. HTN. 20 lb. weight loss recommende d over the next 2 months. Increase walking. Needs pulm. evaluation for COPD per PCP. Has mild pulm. HTN. Obesity [id number] E66.9 20 lb. weight loss recommende d over the next 2 months. Obstructiv e sleep apnea syndrome 27183660 G47.33 Reports snoring. Reports fatigue. No daytime somnolence . Had echo 10/31/19: normal LV size and thickness, mildly reduced LV systolic function with LVEF 45-50%, grade 1 DD, mild pulm. HTN. Obtain home sleep study. [id number] [facility] [address] [place] [address] 05/05/2021 11:23:52 05/05/2021 17:47:54 Edema of lower extremity [id number] R60.0 Reports less intermitte nt bilateral pedal edema, greater on right. Stable. Spironolac tone was stopped several months prior due to increased Cr to 1.3, which improved off spironolac tone. Had 06/24/20: K 4.3, Cr 1.1, Mg 1.9 Obtained 10/27/20 negative bilateral LE venous Doppler. Elevate legs.Compr ession stockings. Sodium restrictio n. Obtain home sleep study, given mild pulm. HTN. Consider stopping amlodipine . 04/28/21:N a 140,K 4.5,Cl 103,Co2 28,Glu 137,Bun 16,Cr 1.2,AST 32,ALT 18, Mg 1.8, TSH 2.92. Nonischemi c congestive cardiomyopathy [id number] 04 I42.0 Improved to mild-moder ate LV dysfunctio n from severe LV systolic function as of echo 12/20/18, 10/31/19, 01/08/21. Dyspnea improved. Had 01/08/2021 : EChocardio graphic studies ; Study quality technicall y difficult Technical limitation s LV chamber size is normal There is borderline LV hypertroph y LV systolic function is mildly to moderately reduced The estimated left ventricle ejection fraction is 40-45% LV relaxation is impaired Left atrium chamber is mildly dilated There is mild aortic root calcificat ion There is mild thickening of the mitral valve anterior leaflet There is trace mitral regurgitat ion There is trace tricuspid regurgitat ion Had echo 10/31/19: normal LV size and thickness, mildly reduced LV systolic function with LVEF 45-50%, grade 1 DD, mild pulm. HTN. Had ECHO 12/20/18: LV chamber is normal. LV wall thickness is normal. There is normal global systolic function and contractil ity. The estimated left ventricle ejection fraction 55-60%(nor mal). LV relaxation is impaired. Let atrium chamber is mildly dilated. There is a trace anterior pericardia l effusion. Minimal MR. Had echo 09/22/18: mild enlargemen t of left ventricle, severe global left ventricula r systolic dysfunctio n, LVEF 30%, mild to moderate MR. Had [facility] 09/26/18: mild CAD, severe left ventricula r dysfunctio n with possible nonischemi c cardiomyop athy. Increased to carvedilol 25 mg bid 11/19/18. Given mildly increased Cr 1.2, continue with lisinopril 10 mg and began hydralazin e 25 mg tid 12/10/18. PCP stopped hydralazin e. Obtain BMP, Mg to follow-up Cr 1.3 04/29/19. Had 11/08/19 : Na 141, K 4.4, CL 101, CO2 31, GLU 117, BUN 18, CR 1.30, AST 20 ,ALT 19, Given persistent mild elevation in Cr 1.3, stopped spironolac tone 12/11/19. PCP increased to lisinopril 20 mg qd early 02/2020. Had 04/01/20: K 4.4, Mg 1.9, CR 1.3. Had 06/24/20: K 4.3, Cr 1.1, Mg 1.9, LDL 103. Had 04/28/21:N a 140,K 4.5,Cl 103,Co2 28,Glu 137,Bun 16,Cr 1.2,AST 32,ALT 18, Mg 1.8, TSH 2.92. Completed cardiac rehab. at [facility]. Increase walking. Coronary arteriosclerosis [id number] I25.10 Had [facility] 09/26/18: mild CAD, severe left ventricula r dysfunctio n with possible nonischemi c cardiomyop athy. Continue ASA and statin. Needs to keep LDL less than 70, and HDL more than 40. Essential hypertension [id number] I10 Patient's blood pressure is {{well-con trolled* s omewhat well-contr olled not well-contr olled}} on present medical therapy. Patient is {{tolerati ng, without difficulty ,* having side effects with}} the current medication s. I have {{not made* made the following} } changes to the current regimen. {{ Patient is advised to maintain a blood pressure diary.*}} Patient was advised to eat a low-sodium diet (2 grams sodium or less daily). To improve BP control, began amlodipine 5 mg qd 03/04/20. Dyslipidemia [id number] E 78.5 Obtained FLP 10/24/18: LDL 71. Needs to keep LDL less than 70, and HDL more than 40. Had 04/29/19: TC 191 ,TG 109, HDL 57, LDL 95. Increased to atorvastat in 40 mg qHS 10/09/19. Had 11/08/19 : TC 240 ,TG 205, HDL 51,LDL 146. Patient misses atorvastat in twice per week. Resume regular use of atorvastat in. Patient was taking atorvastat in 40 mg qHS regularly then had cramps in both legs, resolved after stopping atorvastat in for a few days, then returned after resumed atorvastat in, so she stopped it. Switched to Livalo 2 mg qHS 03/04/20, which she has been tolerating . Had 04/01/20: TC 179 ,TG 130 ,HDL 49 ,LDL 89, CPK 69. Increase Livalo to 4 mg qHS 06/03/20, without leg cramps. Had 06/24/20: LDL 103. Patient missed half of Livalo doses in recents weeks due to falling asleep.She has increased compliance with Livalo. Due to insurance issues, she switched from Livalo to rosuvastat in 10 mg qHS. Obtained 04/28/21:T C 276,TG 257,HDL 61,LDL 129, with regular use of rosuvastat in. Switched back to Livalo 4 mg qHS 05/05/21. Obtain FLP, BMP, Mg Dyspnea on exertion 6084 5006 R06.09 Has occasional increased exertional dyspnea, currently improving with need for weight loss. Had echo 10/31/19: normal LV size and thickness, mildly reduced LV systolic function with LVEF 45-50%, grade 1 DD, mild pulm. HTN. 20 lb. weight loss recommende d over the next 2 months. Increase walking. Needs pulm. evaluation for COPD per PCP. Has mild pulm. HTN. Obesity [id number] E66.9 20 lb. weight loss recommende d over the next 2 months. Obstructiv e sleep apnea syndrome 24755997 G47.33 Reports snoring. Reports fatigue. No daytime somnolence . Had echo 10/31/19: normal LV size and thickness, mildly reduced LV systolic function with LVEF 45-50%, grade 1 DD, mild pulm. HTN. Obtain home sleep study. [id number] [facility] [address] [place] [address] 08/11/2021 10:59:57 08/11/2021 12:11:24 Edema of lower extremity [id number] R60.0 Reports increased intermitte nt bilateral pedal edema, greater on right. Stable. Spironolac tone was stopped several months prior due to increased Cr to 1.3, which improved off spironolac tone. Had 06/24/20: K 4.3, Cr 1.1, Mg 1.9 Obtained 10/27/20 negative bilateral LE venous Doppler. Elevate legs.Compr ession stockings, using.Sodi um restrictio n. 20 lb. weight loss recommende d over the next 2 months. Obtain home sleep study, given mild pulm. HTN. Had 04/28/21:N a 140,K 4.5,Cl 103,Co2 28,Glu 137,Bun 16,Cr 1.2,AST 32,ALT 18, Mg 1.8, TSH 2.92. Had06/30/21 : K 4.7, Mg 1.9, Cr 1.2, BUN 14, LDL 120 Began HCTZ 12.5 mg qd 08/11/21 for improved control of edema and HTN. Obtain BMP, Mg, FLP in 3 wks. Consider stopping amlodipine . BP diary. Nonischemi c congestive cardiomyopathy [id number] 04 I42.0 Improved to mild-moder ate LV dysfunctio n from severe LV systolic function as of echo 12/20/18, 10/31/19, 01/08/21. Dyspnea improved. Had 01/08/2021 : EChocardio graphic studies ; Study quality technicall y difficult Technical limitation s LV chamber size is normal There is borderline LV hypertroph y LV systolic function is mildly to moderately reduced The estimated left ventricle ejection fraction is 40-45% LV relaxation is impaired Left atrium chamber is mildly dilated There is mild aortic root calcificat ion There is mild thickening of the mitral valve anterior leaflet There is trace mitral regurgitat ion There is trace tricuspid regurgitat ion Had echo 10/31/19: normal LV size and thickness, mildly reduced LV systolic function with LVEF 45-50%, grade 1 DD, mild pulm. HTN. Had ECHO 12/20/18: LV chamber is normal. LV wall thickness is normal. There is normal global systolic function and contractil ity. The estimated left ventricle ejection fraction 55-60%(nor mal). LV relaxation is impaired. Let atrium chamber is mildly dilated. There is a trace anterior pericardia l effusion. Minimal MR. Had echo 09/22/18: mild enlargemen t of left ventricle, severe global left ventricula r systolic dysfunctio n, LVEF 30%, mild to moderate MR. Had [facility] 09/26/18: mild CAD, severe left ventricula r dysfunctio n with possible nonischemi c cardiomyop athy. Increased to carvedilol 25 mg bid 11/19/18. Given mildly increased Cr 1.2, continue with lisinopril 10 mg and began hydralazin e 25 mg tid 12/10/18. PCP stopped hydralazin e. Obtain BMP, Mg to follow-up Cr 1.3 04/29/19. Had 11/08/19 : Na 141, K 4.4, CL 101, CO2 31, GLU 117, BUN 18, CR 1.30, AST 20 ,ALT 19, Given persistent mild elevation in Cr 1.3, stopped spironolac tone 12/11/19. PCP increased to lisinopril 20 mg qd early 02/2020. Had 04/01/20: K 4.4, Mg 1.9, CR 1.3. Had 06/24/20: K 4.3, Cr 1.1, Mg 1.9, LDL 103. Had 04/28/21:N a 140,K 4.5,Cl 103,Co2 28,Glu 137,Bun 16,Cr 1.2,AST 32,ALT 18, Mg 1.8, TSH 2.92. Completed cardiac rehab. at [facility]. Increase walking. Coronary arteriosclerosis [id number] I25.10 Had [facility] 09/26/18: mild CAD, severe left ventricula r dysfunctio n with possible nonischemi c cardiomyop athy. Continue ASA and statin. Needs to keep LDL less than 70, and HDL more than 40. Essential hypertension 75063968 I10 Patient's blood pressure is {{well-con trolled so mewhat well-contr olled* not well-contr olled}} on present medical therapy. Patient is {{tolerati ng, without difficulty ,* having side effects with}} the current medication s. I have {{not made made the following* }} changes to the current regimen. {{ Patient is advised to maintain a blood pressure diary.*}} Patient was advised to eat a low-sodium diet (2 grams sodium or less daily). To improve BP control, began amlodipine 5 mg qd 03/04/20. Began HCTZ 12.5 mg qd 08/11/21 for improved control of edema and HTN. Dyslipidemia [id number] E 78.5 Needs to keep LDL less than 70, and HDL more than 40. Had 04/29/19: TC 191 ,TG 109, HDL 57, LDL 95. Increased to atorvastat in 40 mg qHS 10/09/19. Had 11/08/19 : TC 240 ,TG 205, HDL 51,LDL 146. Patient misses atorvastat in twice per week. Resume regular use of atorvastat in. Patient was taking atorvastat in 40 mg qHS regularly then had cramps in both legs, resolved after stopping atorvastat in for a few days, then returned after resumed atorvastat in, so she stopped it. Switched to Livalo 2 mg qHS 03/04/20, which she has been tolerating . Had 04/01/20: TC 179 ,TG 130 ,HDL 49 ,LDL 89, CPK 69. Increase Livalo to 4 mg qHS 06/03/20, without leg cramps. Had 06/24/20: LDL 103. Patient missed half of Livalo doses in recents weeks due to falling asleep.She has increased compliance with Livalo. Due to insurance issues, she switched from Livalo to rosuvastat in 10 mg qHS. Obtained 04/28/21:T C 276,TG 257,HDL 61,LDL 129, with regular use of rosuvastat in 10mg. Switched back to Livalo 4 mg qHS 05/05/21. Had06/30/21 : LDL 120 off all statins. Began rosuvastat in 20 mg qHS 08/11/21 as 10 mg was not enough previously . Obtain FLP, CMP, Mg, CPK. Dyspnea on exertion 6084 5006 R06.09 Has occasional increased exertional dyspnea, currently improving with need for weight loss. Had echo 10/31/19: normal LV size and thickness, mildly reduced LV systolic function with LVEF 45-50%, grade 1 DD, mild pulm. HTN. 20 lb. weight loss recommende d over the next 2 months. Increase walking. Needs pulm. evaluation for COPD per PCP. Has mild pulm. HTN. Obesity 135521311 E66.9 20 lb. weight loss recommende d over the next 2 months. Obstructiv e sleep apnea syndrome 93692117 G47.33 Reports snoring. Reports fatigue. No daytime somnolence . Had echo 10/31/19: normal LV size and thickness, mildly reduced LV systolic function with LVEF 45-50%, grade 1 DD, mild pulm. HTN. Obtain home sleep study for possible GUNNAR. [id number] Saulo Martínez MD [place] [facility] [address] [place] [address] 09/29/2021 11:34:43 09/29/2021 12:31:56 Edema of lower extremity [id number] R60.0 Previously : Had Reports increased intermitte nt bilateral pedal edema, greater on right. Stable. Much improved today 09-29-2021 Spironolac tone was stopped several months prior due to increased Cr to 1.3, which improved off spironolac tone. Had 06/24/20: K 4.3, Cr 1.1, Mg 1.9 Obtained 10/27/20 negative bilateral LE venous Doppler. Elevate legs.Compr ession stockings, using.Sodi um restrictio n. 20 lb. weight loss recommende d over the next 2 months. Obtain home sleep study, given mild pulm. HTN. Had 04/28/21:N a 140,K 4.5,Cl 103,Co2 28,Glu 137,Bun 16,Cr 1.2,AST 32,ALT 18, Mg 1.8, TSH 2.92. Had06/30/21 : K 4.7, Mg 1.9, Cr 1.2, BUN 14, LDL 120 Began HCTZ 12.5 mg qd 08/11/21 for improved control of edema and HTN. Obtain BMP, Mg, FLP in 3 wks. Consider stopping amlodipine . BP diary. Nonischemi c congestive cardiomyopathy [id number] 04 I42.0 Improved to mild-moder ate LV dysfunctio n from severe LV systolic function as of echo 12/20/18, 10/31/19, 01/08/21. Dyspnea improved. Had 01/08/2021 : EChocardio graphic studies ; Study quality technicall y difficult Technical limitation s LV chamber size is normal There is borderline LV hypertroph y LV systolic function is mildly to moderately reduced The estimated left ventricle ejection fraction is 40-45% LV relaxation is impaired Left atrium chamber is mildly dilated There is mild aortic root calcificat ion There is mild thickening of the mitral valve anterior leaflet There is trace mitral regurgitat ion There is trace tricuspid regurgitat ion Had echo 10/31/19: normal LV size and thickness, mildly reduced LV systolic function with LVEF 45-50%, grade 1 DD, mild pulm. HTN. Had ECHO 12/20/18: LV chamber is normal. LV wall thickness is normal. There is normal global systolic function and contractil ity. The estimated left ventricle ejection fraction 55-60%(nor mal). LV relaxation is impaired. Let atrium chamber is mildly dilated. There is a trace anterior pericardia l effusion. Minimal MR. Had echo 09/22/18: mild enlargemen t of left ventricle, severe global left ventricula r systolic dysfunctio n, LVEF 30%, mild to moderate MR. Had [facility] 09/26/18: mild CAD, severe left ventricula r dysfunctio n with possible nonischemi c cardiomyop athy. Increased to carvedilol 25 mg bid 11/19/18. Given mildly increased Cr 1.2, continue with lisinopril 10 mg and began hydralazin e 25 mg tid 12/10/18. PCP stopped hydralazin e. Obtain BMP, Mg to follow-up Cr 1.3 04/29/19. Had 11/08/19 : Na 141, K 4.4, CL 101, CO2 31, GLU 117, BUN 18, CR 1.30, AST 20 ,ALT 19, Given persistent mild elevation in Cr 1.3, stopped spironolac tone 12/11/19. PCP increased to lisinopril 20 mg qd early 02/2020. Had 04/01/20: K 4.4, Mg 1.9, CR 1.3. Had 06/24/20: K 4.3, Cr 1.1, Mg 1.9, LDL 103. Had 04/28/21:N a 140,K 4.5,Cl 103,Co2 28,Glu 137,Bun 16,Cr 1.2,AST 32,ALT 18, Mg 1.8, TSH 2.92. Completed cardiac rehab. at [facility]. Increase walking. Coronary arteriosclerosis [id number] I25.10 Had [facility] 09/26/18: mild CAD, severe left ventricula r dysfunctio n with possible nonischemi c cardiomyop athy. Continue ASA and statin. Needs to keep LDL less than 70, and HDL more than 40. Essential hypertension 44614336 I10 Patient's blood pressure is {{well-con trolled so mewhat well-contr olled not well-contr olled well-contr olled#}} on present medical therapy. Patient is {{tolerati ng, without difficulty ,* having side effects with}} the current medication s. I have {{not made made the following* }} changes to the current regimen. {{ Patient is advised to maintain a blood pressure diary.*}} Patient was advised to eat a low-sodium diet (2 grams sodium or less daily). To improve BP control, began amlodipine 5 mg qd 03/04/20. Began HCTZ 12.5 mg qd 08/11/21 for improved control of edema and HTN. Dyslipidemia 615991605 E 78.5 Needs to keep LDL less than 70, and HDL more than 40. Had 04/29/19: TC 191 ,TG 109, HDL 57, LDL 95. Increased to atorvastat in 40 mg qHS 10/09/19. Had 11/08/19 : TC 240 ,TG 205, HDL 51,LDL 146. Patient misses atorvastat in twice per week. Resume regular use of atorvastat in. Patient was taking atorvastat in 40 mg qHS regularly then had cramps in both legs, resolved after stopping atorvastat in for a few days, then returned after resumed atorvastat in, so she stopped it. Switched to Livalo 2 mg qHS 03/04/20, which she has been tolerating . Had 04/01/20: TC 179 ,TG 130 ,HDL 49 ,LDL 89, CPK 69. Increase Livalo to 4 mg qHS 06/03/20, without leg cramps. Had 06/24/20: LDL 103. Patient missed half of Livalo doses in recents weeks due to falling asleep.She has increased compliance with Livalo. Due to insurance issues, she switched from Livalo to rosuvastat in 10 mg qHS. Obtained 04/28/21:T C 276,TG 257,HDL 61,LDL 129, with regular use of rosuvastat in 10mg. Switched back to Livalo 4 mg qHS 05/05/21. Had06/30/21 : LDL 120 off all statins. Began rosuvastat in 20 mg qHS 08/11/21 as 10 mg was not enough previously . Obtain FLP, CMP, Mg, CPK. Had labs at [facility] and we were not able to review them or obtain them will need to recheck LDL Dyspnea on exertion 6084 5006 R06.09 Has occasional increased exertional dyspnea, currently improving with need for weight loss. Had echo 10/31/19: normal LV size and thickness, mildly reduced LV systolic function with LVEF 45-50%, grade 1 DD, mild pulm. HTN. 20 lb. weight loss recommende d over the next 2 months. Increase walking. Needs pulm. evaluation for COPD per PCP. Has mild pulm. HTN. Obesity 016702563 E66.9 20 lb. weight loss recommende d over the next 2 months. Obstructiv e sleep apnea syndrome [id number] G47.33 Reports snoring. Reports fatigue. No daytime somnolence . Had echo 10/31/19: normal LV size and thickness, mildly reduced LV systolic function with LVEF 45-50%, grade 1 DD, mild pulm. HTN. Obtain home sleep study for possible GUNNAR. 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 Intermitte nt. Spironolac tone was stopped several months prior due to increased Cr to 1.3, which improved off spironolac tone. Had 06/24/20: K 4.3, Cr 1.1, Mg 1.9 Obtained 10/27/20 negative bilateral LE venous Doppler. Elevate legs.Compr ession stockings, using.Sodi um restrictio n. 20 lb. weight loss recommende d over the next 2 months. Obtain home sleep study, given mild pulm. HTN. Had 04/28/21:N a 140,K 4.5,Cl 103,Co2 28,Glu 137,Bun 16,Cr 1.2,AST 32,ALT 18, Mg 1.8, TSH 2.92. Had06/30/21 : K 4.7, Mg 1.9, Cr 1.2, BUN 14, LDL 120 Began HCTZ 12.5 mg qd 08/11/21 for improved control of edema and HTN. Had 1 CMP- sodium-140 , POTASSIUM- 4.1, CHOLRIDE-1 05, creatinine -1.10, (lipids,ld l,hdl)-glu cose-124, calcium-9. 4, mag-1.8, Consider stopping amlodipine . BP diary. Nonischemi c congestive cardiomyopathy [id number] 04 I42.0 Improved to mild-moder ate LV dysfunctio n from severe LV systolic function as of echo 12/20/18, 10/31/19, 2/26/21. Dyspnea improved. Had 01/08/2021 : EChocardio graphic studies ; Study quality technicall y difficult Technical limitation s LV chamber size is normal There is borderline LV hypertroph y LV systolic function is mildly to moderately reduced The estimated left ventricle ejection fraction is 40-45% LV relaxation is impaired Left atrium chamber is mildly dilated There is mild aortic root calcificat ion There is mild thickening of the mitral valve anterior leaflet There is trace mitral regurgitat ion There is trace tricuspid regurgitat ion Had echo 10/31/19: normal LV size and thickness, mildly reduced LV systolic function with LVEF 45-50%, grade 1 DD, mild pulm. HTN. Had ECHO 12/20/18: LV chamber is normal. LV wall thickness is normal. There is normal global systolic function and contractil ity. The estimated left ventricle ejection fraction 55-60%(nor mal). LV relaxation is impaired. Let atrium chamber is mildly dilated. There is a trace anterior pericardia l effusion. Minimal MR. Had echo 09/22/18: mild enlargemen t of left ventricle, severe global left ventricula r systolic dysfunctio n, LVEF 30%, mild to moderate MR. Had LHC 09/26/18: mild CAD, severe left ventricula r dysfunctio n with possible nonischemi c cardiomyop athy. Increased to carvedilol 25 mg bid 11/19/18. Given mildly increased Cr 1.2, continue with lisinopril 10 mg and began hydralazin e 25 mg tid 12/10/18. PCP stopped hydralazin e. Obtain BMP, Mg to follow-up Cr 1.3 04/29/19. Had 11/08/19 : Na 141, K 4.4, CL 101, CO2 31, GLU 117, BUN 18, CR 1.30, AST 20 ,ALT 19, Given persistent mild elevation in Cr 1.3, stopped spironolac tone 12/11/19. PCP increased to lisinopril 20 mg qd early 02/2020. Had 04/01/20: K 4.4, Mg 1.9, CR 1.3. Had 06/24/20: K 4.3, Cr 1.1, Mg 1.9, LDL 103. Had 04/28/21:N a 140,K 4.5,Cl 103,Co2 28,Glu 137,Bun 16,Cr 1.2,AST 32,ALT 18, Mg 1.8, TSH 2.92. Completed cardiac rehab. at [facility]. Increase walking. Stop lisinopril for 2 days 03/30/22, and begin Entresto 24-26 bid. Obtain CMP, Mg, CBC, Mg, FLP in 3-4 wks. Obtain echo to evaluate for structural /functiona l disease, reassess LVEF. Pending echo and LVEF, consider Verquvo and Farxiga. Coronary arteriosclerosis [id number] I25.10 Had [facility] 09/26/18: mild CAD, severe left ventricula r dysfunctio n with possible nonischemi c cardiomyop athy. Continue ASA and statin. Needs to keep LDL less than 70, and HDL more than 40. Essential hypertension [id number] I10 Patient's blood pressure is {{well-con trolled so mewhat well-contr olled not well-contr olled well-contr olled#}} on present medical therapy. Patient is {{tolerati ng, without difficulty ,* having side effects with}} the current medication s. I have {{not made made the following* }} changes to the current regimen. {{ Patient is advised to maintain a blood pressure diary.*}} Patient was advised to eat a low-sodium diet (2 grams sodium or less daily). To improve BP control, began amlodipine 5 mg qd 03/04/20. Began HCTZ 12.5 mg qd 08/11/21 for improved control of edema and HTN. Dyslipidemia [id number] E 78.5 Needs to keep LDL less than 70, and HDL more than 40. Had 04/29/19: TC 191 ,TG 109, HDL 57, LDL 95. Increased to atorvastat in 40 mg qHS 10/09/19. Had 11/08/19 : TC 240 ,TG 205, HDL 51,LDL 146. Patient misses atorvastat in twice per week. Resume regular use of atorvastat in. Patient was taking atorvastat in 40 mg qHS regularly then had cramps in both legs, resolved after stopping atorvastat in for a few days, then returned after resumed atorvastat in, so she stopped it. Switched to Livalo 2 mg qHS 03/04/20, which she has been tolerating . Had 04/01/20: TC 179 ,TG 130 ,HDL 49 ,LDL 89, CPK 69. Increase Livalo to 4 mg qHS 06/03/20, without leg cramps. Had 06/24/20: LDL 103. Patient missed half of Livalo doses in recents weeks due to falling asleep.She has increased compliance with Livalo. Due to insurance issues, she switched from Livalo to rosuvastat in 10 mg qHS. Obtained 04/28/21:T C 276,TG 257,HDL 61,LDL 129, with regular use of rosuvastat in 10mg. Switched back to Livalo 4 mg qHS 05/05/21. Had06/30/21 : LDL 120 off all statins. Began rosuvastat in 20 mg qHS 08/11/21 as 10 mg was not enough previously . Obtain 09/15/21: creatine kinase-86, trig-138, chol-148, direct LDL-56, HDL direct-64. Dyspnea on exertion 6084 5006 R06.09 Has occasional increased exertional dyspnea, currently improving with need for weight loss. Had echo 10/31/19: normal LV size and thickness, mildly reduced LV systolic function with LVEF 45-50%, grade 1 DD, mild pulm. HTN. 20 lb. weight loss recommende d over the next 2 months. Increase walking. Needs pulm. evaluation for COPD per PCP. Has mild pulm. HTN. Obesity [id number] E66.9 20 lb. weight loss recommende d over the next 2 months. Obstructiv e sleep apnea syndrome [id number] G47.33 Reports snoring. Reports fatigue. No daytime somnolence . Had echo 10/31/19: normal LV size and thickness, mildly reduced LV systolic function with LVEF 45-50%, grade 1 DD, mild pulm. HTN. Obtain home sleep study for possible GUNNAR. [id number] [address] [place] [facility] [address] [place] [address] 06/01/2022 11:51:30 06/01/2022 12:39:22 Edema of lower extremity [id number] R60.0 Stable. Intermitte nt. Spironolac tone was stopped several months prior due to increased Cr to 1.3, which improved off spironolac tone. Had 06/24/20: K 4.3, Cr 1.1, Mg 1.9 Obtained 10/27/20 negative bilateral LE venous Doppler. Elevate legs.Compr ession stockings, using.Sodi um restrictio n. 20 lb. weight loss recommende d over the next 2 months. Obtain home sleep study with GUNNAR, beginning CPAP. Had 04/28/21:N a 140,K 4.5,Cl 103,Co2 28,Glu 137,Bun 16,Cr 1.2,AST 32,ALT 18, Mg 1.8, TSH 2.92. Had06/30/21 : K 4.7, Mg 1.9, Cr 1.2, BUN 14, LDL 120 Began HCTZ 12.5 mg qd 08/11/21 for improved control of edema and HTN. Had 1 CMP- sodium-140 , POTASSIUM- 4.1, CHOLRIDE-1 05, creatinine -1.10, (lipids,ld l,hdl)-glu cose-124, calcium-9. 4, mag-1.8, Had 05/09/2022 CMP-NA 139 K 4.1 CR 1.20 GL 170 CA 8.9 MAG 1.9 LIPID-TRIG 157 CHOL 165 LDL 61 HDL 54 CBC-WBC 5.6 RBC 4.30 HGB 13.0 HCT 40.5 PLT 184 Consider stopping amlodipine . BP diary. Nonischemi c congestive cardiomyopathy [id number] 04 I42.0 Improved to mild-moder ate LV dysfunctio n from severe LV systolic function as of echo 12/20/18, 10/31/19, 01/08/21, then LVEF normalized on echo 04/13/22. Dyspnea improved. Had US, echocardio gram 04/13/22:LV chamber size is normal. There is normal global systolic function and contractil ity. The estimated left ventricle ejection fraction is 55-60% (normal). Diastolic filling demonstrat es impaired relaxation . Left Atrium chamber is mildly dilated. Had 01/08/2021 : EChocardio graphic studies ; Study quality technicall y difficult Technical limitation s LV chamber size is normal There is borderline LV hypertroph y LV systolic function is mildly to moderately reduced The estimated left ventricle ejection fraction is 40-45% LV relaxation is impaired Left atrium chamber is mildly dilated There is mild aortic root calcificat ion There is mild thickening of the mitral valve anterior leaflet There is trace mitral regurgitat ion There is trace tricuspid regurgitat ion Had echo 10/31/19: normal LV size and thickness, mildly reduced LV systolic function with LVEF 45-50%, grade 1 DD, mild pulm. HTN. Had ECHO 12/20/18: LV chamber is normal. LV wall thickness is normal. There is normal global systolic function and contractil ity. The estimated left ventricle ejection fraction 55-60%(nor mal). LV relaxation is impaired. Let atrium chamber is mildly dilated. There is a trace anterior pericardia l effusion. Minimal MR. Had echo 09/22/18: mild enlargemen t of left ventricle, severe global left ventricula r systolic dysfunctio n, LVEF 30%, mild to moderate MR. Had [facility] 09/26/18: mild CAD, severe left ventricula r dysfunctio n with possible nonischemi c cardiomyop athy. Increased to carvedilol 25 mg bid 11/19/18. Given mildly increased Cr 1.2, continue with lisinopril 10 mg and began hydralazin e 25 mg tid 12/10/18. PCP stopped hydralazin e. Obtain BMP, Mg to follow-up Cr 1.3 04/29/19. Had 11/08/19 : Na 141, K 4.4, CL 101, CO2 31, GLU 117, BUN 18, CR 1.30, AST 20 ,ALT 19, Given persistent mild elevation in Cr 1.3, stopped spironolac tone 12/11/19. PCP increased to lisinopril 20 mg qd early 02/2020. Had 04/01/20: K 4.4, Mg 1.9, CR 1.3. Had 06/24/20: K 4.3, Cr 1.1, Mg 1.9, LDL 103. Had 04/28/21:N a 140,K 4.5,Cl 103,Co2 28,Glu 137,Bun 16,Cr 1.2,AST 32,ALT 18, Mg 1.8, TSH 2.92. Completed cardiac rehab. at [facility]. Increase walking. Stopped lisinopril for 2 days 03/30/22, then began Entresto 24-26 bid. Had 05/09/2022 CMP-NA 139 K 4.1 CR 1.20 GL 170 CA 8.9 MAG 1.9 Coronary arteriosclerosis [id number] I25.10 Had [facility] 09/26/18: mild CAD, severe left ventricula r dysfunctio n with possible nonischemi c cardiomyop athy. Continue ASA and statin. Needs to keep LDL less than 70, and HDL more than 40. Essential hypertension [id number] I10 Patient's blood pressure is {{well-con trolled* s omewhat well-contr olled not well-contr olled}} on present medical therapy. Patient is {{tolerati ng, without difficulty ,* having side effects with}} the current medication s. I have {{not made* made the following} } changes to the current regimen. {{ Patient is advised to maintain a blood pressure diary.*}} Patient was advised to eat a low-sodium diet (2 grams sodium or less daily). To improve BP control, began amlodipine 5 mg qd 03/04/20. Began HCTZ 12.5 mg qd 08/11/21 for improved control of edema and HTN. Dyslipidemia [id number] E 78.5 Needs to keep LDL less than 70, and HDL more than 40. Had 04/29/19: TC 191 ,TG 109, HDL 57, LDL 95. Increased to atorvastat in 40 mg qHS 10/09/19. Had 11/08/19 : TC 240 ,TG 205, HDL 51,LDL 146. Patient misses atorvastat in twice per week. Resume regular use of atorvastat in. Patient was taking atorvastat in 40 mg qHS regularly then had cramps in both legs, resolved after stopping atorvastat in for a few days, then returned after resumed atorvastat in, so she stopped it. Switched to Livalo 2 mg qHS 03/04/20, which she has been tolerating . Had 04/01/20: TC 179 ,TG 130 ,HDL 49 ,LDL 89, CPK 69. Increase Livalo to 4 mg qHS 06/03/20, without leg cramps. Had 06/24/20: LDL 103. Patient missed half of Livalo doses in recents weeks due to falling asleep.She has increased compliance with Livalo. Due to insurance issues, she switched from Livalo to rosuvastat in 10 mg qHS. Obtained 04/28/21:T C 276,TG 257,HDL 61,LDL 129, with regular use of rosuvastat in 10mg. Switched back to Livalo 4 mg qHS 05/05/21. Had06/30/21 : LDL 120 off all statins. Began rosuvastat in 20 mg qHS 08/11/21 as 10 mg was not enough previously . Obtain 09/15/21: creatine kinase-86, trig-138, chol-148, direct LDL-56, HDL direct-64. Had 05/09/2022 LIPID-TRIG 157 CHOL 165 LDL 61 HDL 54 Minimize simple sugars. Dyspnea on exertion 6084 5006 R06.09 Has occasional increased exertional dyspnea, currently improving with need for weight loss. Had US, echocardio gram 04/13/22:LV chamber size is normal. There is normal global systolic function and contractil ity. The estimated left ventricle ejection fraction is 55-60% (normal). Diastolic filling demonstrat es impaired relaxation . Left Atrium chamber is mildly dilated. Had echo 10/31/19: normal LV size and thickness, mildly reduced LV systolic function with LVEF 45-50%, grade 1 DD, mild pulm. HTN. 20 lb. weight loss recommende d over the next 2 months. Increase walking. Needs pulm. evaluation for COPD per PCP. Had mild pulm. HTN. Obesity [id number] E66.9 20 lb. weight loss recommende d over the next 2 months. Obstructiv e sleep apnea syndrome [id number] G47.33 Reports snoring. Reports fatigue. No daytime somnolence . Had US, echocardio gram 04/13/22: LV chamber size is normal. There is normal global systolic function and contractil ity. The estimated left ventricle ejection fraction is 55-60% (normal). Diastolic filling demonstrat es impaired relaxation . Left Atrium chamber is mildly dilated. RVSP 11. Had echo 10/31/19: normal LV size and thickness, mildly reduced LV systolic function with LVEF 45-50%, grade 1 DD, mild pulm. HTN. Had sleep study 05/18/22:Fin dings are consistent with moderate positional obstructiv e sleep apnea. Began CPAP. [id number] [address] [place] [facility] [address] [place] [address] 07/13/2022 12:23:36 07/13/2022 13:48:39 Edema of lower extremity [id number] R60.0 Stable. Intermitte nt. Spironolac tone was stopped several months prior due to increased Cr to 1.3, which improved off spironolac tone. Had 06/24/20: K 4.3, Cr 1.1, Mg 1.9 Obtained 10/27/20 negative bilateral LE venous Doppler. Elevate legs.Compr ession stockings, using.Sodi um restrictio n. 20 lb. weight loss recommende d over the next 2 months. Obtain home sleep study with [facility], beginning CPAP. Had 04/28/21:N a 140,K 4.5,Cl 103,Co2 28,Glu 137,Bun 16,Cr 1.2,AST 32,ALT 18, Mg 1.8, TSH 2.92. Had06/30/21 : K 4.7, Mg 1.9, Cr 1.2, BUN 14, LDL 120 Began HCTZ 12.5 mg qd 08/11/21 for improved control of edema and HTN. Had 1 CMP- sodium-140 , POTASSIUM- 4.1, CHOLRIDE-1 05, creatinine -1.10, (lipids,ld l,hdl)-glu cose-124, calcium-9. 4, mag-1.8, Had 05/09/2022 CMP-NA 139 K 4.1 CR 1.20 GL 170 CA 8.9 MAG 1.9LIPID-T RIG 157 CHOL 165 LDL 61 HDL 54CBC-WBC 5.6 RBC 4.30 HGB 13.0 HCT 40.5 PLT 184 Consider stopping amlodipine . BP diary. Nonischemi c congestive cardiomyopathy [id number] 04 I42.0 Improved to mild-moder ate LV dysfunctio n from severe LV systolic function as of echo 12/20/18, 10/31/19, 01/08/21, then LVEF normalized on echo 04/13/22. Dyspnea improved. Had US, echocardio gram 04/13/22:LV chamber size is normal. There is normal global systolic function and contractil ity. The estimated left ventricle ejection fraction is 55-60% (normal). Diastolic filling demonstrat es impaired relaxation . Left Atrium chamber is mildly dilated. RVSP 11. Had 01/08/2021 : EChocardio graphic studies ; Study quality technicall y difficult Technical limitation s LV chamber size is normal There is borderline LV hypertroph y LV systolic function is mildly to moderately reduced The estimated left ventricle ejection fraction is 40-45% LV relaxation is impaired Left atrium chamber is mildly dilated There is mild aortic root calcificat ion There is mild thickening of the mitral valve anterior leaflet There is trace mitral regurgitat ion There is trace tricuspid regurgitat ion Had echo 10/31/19: normal LV size and thickness, mildly reduced LV systolic function with LVEF 45-50%, grade 1 DD, mild pulm. HTN. Had ECHO 12/20/18: LV chamber is normal. LV wall thickness is normal. There is normal global systolic function and contractil ity. The estimated left ventricle ejection fraction 55-60%(nor mal). LV relaxation is impaired. Let atrium chamber is mildly dilated. There is a trace anterior pericardia l effusion. Minimal MR. Had echo 09/22/18: mild enlargemen t of left ventricle, severe global left ventricula r systolic dysfunctio n, LVEF 30%, mild to moderate MR. Had [facility] 09/26/18: mild CAD, severe left ventricula r dysfunctio n with possible nonischemi c cardiomyop athy. Increased to carvedilol 25 mg bid 11/19/18. Given persistent mild elevation in Cr 1.3, stopped spironolac tone 12/11/19. Completed cardiac rehab. at [facility]. Increase walking. Stopped lisinopril for 2 days 03/30/22, then began Entresto 24-26 bid. Had 05/09/2022 CMP-NA 139 K 4.1 CR 1.20 GL 170 CA 8.9 MAG 1.9 Coronary arteriosclerosis [id number] I25.10 Had [facility] 09/26/18: mild CAD, severe left ventricula r dysfunctio n with possible nonischemi c cardiomyop athy. Continue ASA and statin. Needs to keep LDL less than 70, and HDL more than 40. Essential hypertension [id number] I10 Patient's blood pressure is {{well-con trolled so mewhat well-contr olled* not well-contr olled}} on present medical therapy. Patient is {{tolerati ng, without difficulty ,* having side effects with}} the current medication s. I have {{not made* made the following} } changes to the current regimen. {{ Patient is advised to maintain a blood pressure diary.*}} Patient was advised to eat a low-sodium diet (2 grams sodium or less daily). To improve BP control, began amlodipine 5 mg qd 03/04/20. BP diary. Dyslipidemia 147706504 E 78.5 Needs to keep LDL less than 70, and HDL more than 40. Had 04/29/19: TC 191 ,TG 109, HDL 57, LDL 95. Increased to atorvastat in 40 mg qHS 10/09/19. Had 11/08/19 : TC 240 ,TG 205, HDL 51,LDL 146. Patient misses atorvastat in twice per week. Resume regular use of atorvastat in. Patient was taking atorvastat in 40 mg qHS regularly then had cramps in both legs, resolved after stopping atorvastat in for a few days, then returned after resumed atorvastat in, so she stopped it. Switched to Livalo 2 mg qHS 03/04/20, which she has been tolerating . Had 04/01/20: TC 179 ,TG 130 ,HDL 49 ,LDL 89, CPK 69. Increase Livalo to 4 mg qHS 06/03/20, without leg cramps. Had 06/24/20: LDL 103. Patient missed half of Livalo doses in recents weeks due to falling asleep.She has increased compliance with Livalo. Due to insurance issues, she switched from Livalo to rosuvastat in 10 mg qHS. Obtained 04/28/21:T C 276,TG 257,HDL 61,LDL 129, with regular use of rosuvastat in 10mg. Switched back to Livalo 4 mg qHS 05/05/21. Had06/30/21 : LDL 120 off all statins. Began rosuvastat in 20 mg qHS 08/11/21 as 10 mg was not enough previously . Obtain 09/15/21: creatine kinase-86, trig-138, chol-148, direct LDL-56, HDL direct-64. Had 05/09/2022 : LIPID-TRIG 157 CHOL 165 LDL 61 HDL 54 Minimize simple sugars. Dyspnea on exertion 6084 5006 R06.09 Has occasional increased exertional dyspnea, currently improving with need for weight loss. Had US, echocardio gram 04/13/22:LV chamber size is normal. There is normal global systolic function and contractil ity. The estimated left ventricle ejection fraction is 55-60% (normal). Diastolic filling demonstrat es impaired relaxation . Left Atrium chamber is mildly dilated. Had echo 10/31/19: normal LV size and thickness, mildly reduced LV systolic function with LVEF 45-50%, grade 1 DD, mild pulm. HTN. 20 lb. weight loss recommende d over the next 2 months. Increase walking. Needs pulm. evaluation for COPD per PCP. Had mild pulm. HTN. Obesity 853176277 E66.9 20 lb. weight loss recommende d over the next 2 months. Obstructiv e sleep apnea syndrome 61428290 G47.33 Reports snoring. Reports fatigue. No daytime somnolence . Had US, echocardio gram 04/13/22: LV chamber size is normal. There is normal global systolic function and contractil ity. The estimated left ventricle ejection fraction is 55-60% (normal). Diastolic filling demonstrat es impaired relaxation . Left Atrium chamber is mildly dilated. RVSP 11. Had echo 10/31/19: normal LV size and thickness, mildly reduced LV systolic function with LVEF 45-50%, grade 1 DD, mild pulm. HTN. Had sleep study 05/18/22: Findings are consistent with moderate positional obstructiv e sleep apnea. Ordered CPAP, and is currently awaiting CPAP delivery, with delay. [id number] [address] [facility] [address] [place] [address] 10/13/2022 10:24:51 10/13/2022 11:11:36 Sleep disorder 25409242 G47.9 Now she has CpapPt is on CPAP and is 100% compliant. Patient is benefiting with CPAP therapy and will continue nightly use. [id number] [address] [place] [facility] [address] [place] [address] 11/23/2022 14:55:19 11/23/2022 15:52:22 Edema of lower extremity [id number] R60.0 Stable. Intermitte nt. Spironolac tone was stopped several months prior due to increased Cr to 1.3, which improved off spironolac tone. Had 06/24/20: K 4.3, Cr 1.1, Mg 1.9 Obtained 10/27/20 negative bilateral LE venous Doppler. Elevate legs.Compr ession stockings, using.Sodi um restrictio n. 20 lb. weight loss recommende d over the next 2 months. Obtain home sleep study with [facility], beginning CPAP. Had 04/28/21:N a 140,K 4.5,Cl 103,Co2 28,Glu 137,Bun 16,Cr 1.2,AST 32,ALT 18, Mg 1.8, TSH 2.92. Had06/30/21 : K 4.7, Mg 1.9, Cr 1.2, BUN 14, LDL 120 Began HCTZ 12.5 mg qd 08/11/21 for improved control of edema and HTN. Had 1 CMP- sodium-140 , POTASSIUM- 4.1, CHOLRIDE-1 05, creatinine -1.10, (lipids,ld l,hdl)-glu cose-124, calcium-9. 4, mag-1.8, Had 05/09/2022 CMP-NA 139 K 4.1 CR 1.20 GL 170 CA 8.9 MAG 1.9LIPID-T RIG 157 CHOL 165 LDL 61 HDL 54CBC-WBC 5.6 RBC 4.30 HGB 13.0 HCT 40.5 PLT 184 Consider stopping amlodipine . BP diary. Nonischemi c congestive cardiomyopathy [id number] 04 I42.0 Improved to mild-moder ate LV dysfunctio n from severe LV systolic function as of echo 12/20/18, 10/31/19, 01/08/21, then LVEF normalized on echo 04/13/22. Dyspnea improved. Had US, echocardio gram 04/13/22:LV chamber size is normal. There is normal global systolic function and contractil ity. The estimated left ventricle ejection fraction is 55-60% (normal). Diastolic filling demonstrat es impaired relaxation . Left Atrium chamber is mildly dilated. RVSP 11. Had 01/08/2021 : EChocardio graphic studies ; Study quality technicall y difficult Technical limitation s LV chamber size is normal There is borderline LV hypertroph y LV systolic function is mildly to moderately reduced The estimated left ventricle ejection fraction is 40-45% LV relaxation is impaired Left atrium chamber is mildly dilated There is mild aortic root calcificat ion There is mild thickening of the mitral valve anterior leaflet There is trace mitral regurgitat ion There is trace tricuspid regurgitat ion Had echo 10/31/19: normal LV size and thickness, mildly reduced LV systolic function with LVEF 45-50%, grade 1 DD, mild pulm. HTN. Had ECHO 12/20/18: LV chamber is normal. LV wall thickness is normal. There is normal global systolic function and contractil ity. The estimated left ventricle ejection fraction 55-60%(nor mal). LV relaxation is impaired. Let atrium chamber is mildly dilated. There is a trace anterior pericardia l effusion. Minimal MR. Had echo 09/22/18: mild enlargemen t of left ventricle, severe global left ventricula r systolic dysfunctio n, LVEF 30%, mild to moderate MR. Had [facility] 09/26/18: mild CAD, severe left ventricula r dysfunctio n with possible nonischemi c cardiomyop athy. Increased to carvedilol 25 mg bid 11/19/18. Given persistent mild elevation in Cr 1.3, stopped spironolac tone 12/11/19. Completed cardiac rehab. at [facility]. Increase walking. Stopped lisinopril for 2 days 03/30/22, then began Entresto 24-26 bid. Had 05/09/2022 : CMP-NA 139 K 4.1 CR 1.20 GL 170 CA 8.9 MAG 1.9 Coronary arteriosclerosis 55281102 I25.10 Had [facility] 09/26/18: mild CAD, severe left ventricula r dysfunctio n with possible nonischemi c cardiomyop athy. Continue ASA and statin. Needs to keep LDL less than 70, and HDL more than 40. Essential hypertension [id number] I10 Patient's blood pressure is {{well-con trolled so mewhat well-contr olled* not well-contr olled}} on present medical therapy. Patient is {{tolerati ng, without difficulty ,* having side effects with}} the current medication s. I have {{not made* made the following} } changes to the current regimen. {{ Patient is advised to maintain a blood pressure diary.*}} Patient was advised to eat a low-sodium diet (2 grams sodium or less daily). To improve BP control, began amlodipine 5 mg qd 03/04/20. BP diary. Consider increase in Entresto pending BP diary. Dyslipidemia 731927431 E 78.5 Needs to keep LDL less than 70, and HDL more than 40. Had 04/29/19: TC 191 ,TG 109, HDL 57, LDL 95. Increased to atorvastat in 40 mg qHS 10/09/19. Had 11/08/19 : TC 240 ,TG 205, HDL 51,LDL 146. Patient misses atorvastat in twice per week. Resume regular use of atorvastat in. Patient was taking atorvastat in 40 mg qHS regularly then had cramps in both legs, resolved after stopping atorvastat in for a few days, then returned after resumed atorvastat in, so she stopped it. Switched to Livalo 2 mg qHS 03/04/20, which she has been tolerating . Had 04/01/20: TC 179 ,TG 130 ,HDL 49 ,LDL 89, CPK 69. Increase Livalo to 4 mg qHS 06/03/20, without leg cramps. Had 06/24/20: LDL 103. Patient missed half of Livalo doses in recents weeks due to falling asleep.She has increased compliance with Livalo. Due to insurance issues, she switched from Livalo to rosuvastat in 10 mg qHS. Obtained 04/28/21:T C 276,TG 257,HDL 61,LDL 129, with regular use of rosuvastat in 10mg. Switched back to Livalo 4 mg qHS 05/05/21. Had06/30/21 : LDL 120 off all statins. Began rosuvastat in 20 mg qHS 08/11/21 as 10 mg was not enough previously . Obtain 09/15/21: creatine kinase-86, trig-138, chol-148, direct LDL-56, HDL direct-64. Had 05/09/2022 : LIPID-TRIG 157 CHOL 165 LDL 61 HDL 54 Minimize simple sugars. Obtain FLP, CMP, Mg, TSH, CBC. Dyspnea on exertion 6084 5006 R06.09 Has occasional increased exertional dyspnea, currently improving with need for weight loss. Had US, echocardio gram 04/13/22: LV chamber size is normal. There is normal global systolic function and contractil ity. The estimated left ventricle ejection fraction is 55-60% (normal). Diastolic filling demonstrat es impaired relaxation . Left Atrium chamber is mildly dilated. Had echo 10/31/19: normal LV size and thickness, mildly reduced LV systolic function with LVEF 45-50%, grade 1 DD, mild pulm. HTN. 20 lb. weight loss recommende d over the next 2 months. Increase walking. Needs pulm. evaluation for COPD per PCP. Had mild pulm. HTN, with GUNNAR now on CPAP. Obesity 118353131 E66.9 20 lb. weight loss recommende d over the next 2 months. Obstructiv e sleep apnea syndrome 83209942 G47.33 Reports snoring. Reports fatigue. No daytime somnolence . Had US, echocardio gram 04/13/22: LV chamber size is normal. There is normal global systolic function and contractil ity. The estimated left ventricle ejection fraction is 55-60% (normal). Diastolic filling demonstrat es impaired relaxation . Left Atrium chamber is mildly dilated. RVSP 11. Had echo 10/31/19: normal LV size and thickness, mildly reduced LV systolic function with LVEF 45-50%, grade 1 DD, mild pulm. HTN. Had sleep study 05/18/22: Findings are consistent with moderate positional obstructiv e sleep apnea. Tolerating CPAP. Continue. [id number] MD Ector [facility] [address] [address] 01/26/2023 10:08:28 01/26/2023 11:04:46 Obstructive sleep apnea syndrome [id number] G47.33 Pt is on CPAP and is 100% compliant. Patient is benefiting with CPAP therapy and will continue nightly use. [id number] Tereso Huynh [place] [facility] [address] [place] [address] 03/10/2023 10:59:52 03/10/2023 11:37:27 Edema of lower extremity [id number] R60.0 Resolved on CPAP. Spironolac tone was stopped several months prior due to increased Cr to 1.3, which improved off spironolac tone. Had 06/24/20: K 4.3, Cr 1.1, Mg 1.9 Obtained 10/27/20 negative bilateral LE venous Doppler. Elevate legs.Compr ession stockings, using.Sodi um restrictio n. 20 lb. weight loss recommende d over the next 2 months. Obtain home sleep study with GUNNAR, beginning CPAP. Had 04/28/21:N a 140,K 4.5,Cl 103,Co2 28,Glu 137,Bun 16,Cr 1.2,AST 32,ALT 18, Mg 1.8, TSH 2.92. Had06/30/21 : K 4.7, Mg 1.9, Cr 1.2, BUN 14, LDL 120 Began HCTZ 12.5 mg qd 08/11/21 for improved control of edema and HTN. Had 1 CMP- sodium-140 , POTASSIUM- 4.1, CHOLRIDE-1 05, creatinine -1.10, (lipids,ld l,hdl)-glu cose-124, calcium-9. 4, mag-1.8, Had 05/09/2022 CMP-NA 139 K 4.1 CR 1.20 GL 170 CA 8.9 MAG 1.9LIPID-T RIG 157 CHOL 165 LDL 61 HDL 54CBC-WBC 5.6 RBC 4.30 HGB 13.0 HCT 40.5 PLT 184 BP diary. Nonischemi c congestive cardiomyopathy [id number] 04 I42.0 Improved to mild-moder ate LV dysfunctio n from severe LV systolic function as of echo 12/20/18, 10/31/19, 01/08/21, then LVEF normalized on echo 04/13/22. Dyspnea improved. Had US, echocardio gram 04/13/22:LV chamber size is normal. There is normal global systolic function and contractil ity. The estimated left ventricle ejection fraction is 55-60% (normal). Diastolic filling demonstrat es impaired relaxation . Left Atrium chamber is mildly dilated. RVSP 11. Had 01/08/2021 : EChocardio graphic studies ; Study quality technicall y difficult Technical limitation s LV chamber size is normal There is borderline LV hypertroph y LV systolic function is mildly to moderately reduced The estimated left ventricle ejection fraction is 40-45% LV relaxation is impaired Left atrium chamber is mildly dilated There is mild aortic root calcificat ion There is mild thickening of the mitral valve anterior leaflet There is trace mitral regurgitat ion There is trace tricuspid regurgitat ion Had echo 10/31/19: normal LV size and thickness, mildly reduced LV systolic function with LVEF 45-50%, grade 1 DD, mild pulm. HTN. Had ECHO 12/20/18: LV chamber is normal. LV wall thickness is normal. There is normal global systolic function and contractil ity. The estimated left ventricle ejection fraction 55-60%(nor mal). LV relaxation is impaired. Let atrium chamber is mildly dilated. There is a trace anterior pericardia l effusion. Minimal MR. Had echo 09/22/18: mild enlargemen t of left ventricle, severe global left ventricula r systolic dysfunctio n, LVEF 30%, mild to moderate MR. Had [facility] 09/26/18: mild CAD, severe left ventricula r dysfunctio n with possible nonischemi c cardiomyop athy. Increased to carvedilol 25 mg bid 11/19/18. Given persistent mild elevation in Cr 1.3, stopped spironolac tone 12/11/19. Completed cardiac rehab. at [facility]. Increase walking. Stopped lisinopril for 2 days 03/30/22, then began Entresto 24-26 bid. Had 05/09/2022 : CMP-NA 139 K 4.1 CR 1.20 GL 170 CA 8.9 MAG 1.9 Obtain echo 05/2023, reassess LVEF. Coronary arteriosclerosis [id number] I25.10 Had [facility] 09/26/18: mild CAD, severe left ventricula r dysfunctio n with possible nonischemi c cardiomyop athy. Continue ASA and statin. Needs to keep LDL less than 70, and HDL more than 40. Essential hypertension [id number] I10 Patient's blood pressure is {{well-con trolled so mewhat well-contr olled* not well-contr olled}} on present medical therapy. Patient is {{tolerati ng, without difficulty ,* having side effects with}} the current medication s. I have {{not made* made the following} } changes to the current regimen. {{ Patient is advised to maintain a blood pressure diary.*}} Patient was advised to eat a low-sodium diet (2 grams sodium or less daily). To improve BP control, began amlodipine 5 mg qd 03/04/20. BP diary. Consider increase in Entresto pending BP diary. Dyslipidemia [id number] E 78.5 Needs to keep LDL less than 70, and HDL more than 40. Had 04/29/19: TC 191 ,TG 109, HDL 57, LDL 95. Increased to atorvastat in 40 mg qHS 10/09/19. Had 11/08/19 : TC 240 ,TG 205, HDL 51,LDL 146. Patient misses atorvastat in twice per week. Resume regular use of atorvastat in. Patient was taking atorvastat in 40 mg qHS regularly then had cramps in both legs, resolved after stopping atorvastat in for a few days, then returned after resumed atorvastat in, so she stopped it. Switched to Livalo 2 mg qHS 03/04/20, which she has been tolerating . Had 04/01/20: TC 179 ,TG 130 ,HDL 49 ,LDL 89, CPK 69. Increase Livalo to 4 mg qHS 06/03/20, without leg cramps. Had 06/24/20: LDL 103. Patient missed half of Livalo doses in recents weeks due to falling asleep.She has increased compliance with Livalo. Due to insurance issues, she switched from Livalo to rosuvastat in 10 mg qHS. Obtained 04/28/21:T C 276,TG 257,HDL 61,LDL 129, with regular use of rosuvastat in 10mg. Switched back to Livalo 4 mg qHS 05/05/21. Had06/30/21 : LDL 120 off all statins. Began rosuvastat in 20 mg qHS 08/11/21 as 10 mg was not enough previously . Obtain 09/15/21: creatine kinase-86, trig-138, chol-148, direct LDL-56, HDL direct-64. Had 05/09/2022 : LIPID-TRIG 157 CHOL 165 LDL 61 HDL 54 Had 12/15/2022 CBC-WBC 5.9 RBC 4.32 HGB 13.1 HCT 40.5 PLT 192CMP-NA 139 K 4.2 BUN 17 CR 1.10 GL 144 CA 8.9 MG 1.9LIPID-T RIG 156 CHOL 158 LDL 57 HDL 55 TSH 3.150 Minimize simple sugars. Obtain FLP, CMP, Mg, TSH, CBC. Dyspnea on exertion 6084 5006 R06.09 Has occasional increased exertional dyspnea, currently improving with need for weight loss. Had US, echocardio gram 04/13/22: LV chamber size is normal. There is normal global systolic function and contractil ity. The estimated left ventricle ejection fraction is 55-60% (normal). Diastolic filling demonstrat es impaired relaxation . Left Atrium chamber is mildly dilated. Had echo 10/31/19: normal LV size and thickness, mildly reduced LV systolic function with LVEF 45-50%, grade 1 DD, mild pulm. HTN. 20 lb. weight loss recommende d over the next 2 months. Increase walking. Needs pulm. evaluation for COPD per PCP. Had mild pulm. HTN, with GUNNAR now on CPAP. Obesity [id number] E66.9 20 lb. weight loss recommende d over the next 2 months. Obstructiv e sleep apnea syndrome 87383927 G47.33 Reports snoring. Reports fatigue. No daytime somnolence . Had US, echocardio gram 04/13/22: LV chamber size is normal. There is normal global systolic function and contractil ity. The estimated left ventricle ejection fraction is 55-60% (normal). Diastolic filling demonstrat es impaired relaxation . Left Atrium chamber is mildly dilated. RVSP 11. Had echo 10/31/19: normal LV size and thickness, mildly reduced LV systolic function with LVEF 45-50%, grade 1 DD, mild pulm. HTN. Had sleep study 05/18/22: Findings are consistent with moderate positional obstructiv e sleep apnea. Tolerating CPAP. Continue. [id number] [address] STORM [place] [facility] [address] [place] [address] 07/04/2023 11:12:27 07/04/2023 12:41:18 Edema of lower extremity [id number] R60.0 Resolved on CPAP. Spironolac tone was stopped several months prior due to increased Cr to 1.3, which improved off spironolac tone. Had 06/24/20: K 4.3, Cr 1.1, Mg 1.9 Obtained 10/27/20 negative bilateral LE venous Doppler. Elevate legs.Compr ession stockings, using.Sodi um restrictio n. 20 lb. weight loss recommende d over the next 2 months. Obtain home sleep study with GUNNAR, beginning CPAP. Had 04/28/21:N a 140,K 4.5,Cl 103,Co2 28,Glu 137,Bun 16,Cr 1.2,AST 32,ALT 18, Mg 1.8, TSH 2.92. Had06/30/21 : K 4.7, Mg 1.9, Cr 1.2, BUN 14, LDL 120 Began HCTZ 12.5 mg qd 08/11/21 for improved control of edema and HTN. Had 1 CMP- sodium-140 , POTASSIUM- 4.1, CHOLRIDE-1 05, creatinine -1.10, (lipids,ld l,hdl)-glu cose-124, calcium-9. 4, mag-1.8, Had 05/09/2022 CMP-NA 139 K 4.1 CR 1.20 GL 170 CA 8.9 MAG 1.9LIPID-T RIG 157 CHOL 165 LDL 61 HDL 54CBC-WBC 5.6 RBC 4.30 HGB 13.0 HCT 40.5 PLT 184 BP diary. Nonischemi c congestive cardiomyopathy [id number] 04 I42.0 Improved to mild-moder ate LV dysfunctio n from severe LV systolic function as of echo 12/20/18, 10/31/19, 01/08/21, then LVEF normalized on echo 04/13/22. Dyspnea improved. Had US, echocardio gram 04/13/22:LV chamber size is normal. There is normal global systolic function and contractil ity. The estimated left ventricle ejection fraction is 55-60% (normal). Diastolic filling demonstrat es impaired relaxation . Left Atrium chamber is mildly dilated. RVSP 11. Had 01/08/2021 : EChocardio graphic studies ; Study quality technicall y difficult Technical limitation s LV chamber size is normal There is borderline LV hypertroph y LV systolic function is mildly to moderately reduced The estimated left ventricle ejection fraction is 40-45% LV relaxation is impaired Left atrium chamber is mildly dilated There is mild aortic root calcificat ion There is mild thickening of the mitral valve anterior leaflet There is trace mitral regurgitat ion There is trace tricuspid regurgitat ion Had echo 10/31/19: normal LV size and thickness, mildly reduced LV systolic function with LVEF 45-50%, grade 1 DD, mild pulm. HTN. Had ECHO 12/20/18: LV chamber is normal. LV wall thickness is normal. There is normal global systolic function and contractil ity. The estimated left ventricle ejection fraction 55-60%(nor mal). LV relaxation is impaired. Let atrium chamber is mildly dilated. There is a trace anterior pericardia l effusion. Minimal MR. Had echo 09/22/18: mild enlargemen t of left ventricle, severe global left ventricula r systolic dysfunctio n, LVEF 30%, mild to moderate MR. Had [facility] 09/26/18: mild CAD, severe left ventricula r dysfunctio n with possible nonischemi c cardiomyop athy. Increased to carvedilol 25 mg bid 11/19/18. Given persistent mild elevation in Cr 1.3, stopped spironolac tone 12/11/19. Completed cardiac rehab. at [facility]. Increase walking. Stopped lisinopril for 2 days 03/30/22, then began Entresto 24-26 bid. Had 05/09/2022 : CMP-NA 139 K 4.1 CR 1.20 GL 170 CA 8.9 MAG 1.9 Obtain echo 05/2023, reassess LVEF. Coronary arteriosclerosis 18272249 I25.10 NO chest painUS, echocardio gram 04/13/22-E CHO. LV chamber size is normal. There is normal global systolic function and contractil ity. The estimated left ventricle ejection fraction is 55-60% (normal). Diastolic filling demonstrat es impaired relaxation . Left Atrium chamber is mildly dilated. Had [facility] 09/26/18: mild CAD, severe left ventricula r dysfunctio n with possible nonischemi c cardiomyop athy. Continue ASA and statin. Needs to keep LDL less than 70, and HDL more than 40. Essential hypertension 50672740 I10 will increased Entresto to 49.restart using CPAP Dyslipidemia 353998939 E 78.5 LDL is 57 and TG is 151continu e with crestor 20 mg daily Dyspnea on exertion 6084 5006 R06.09 Has occasional increased exertional dyspnea, currently improving with need for weight loss. Had US, echocardio gram 04/13/22: LV chamber size is normal. There is normal global systolic function and contractil ity. The estimated left ventricle ejection fraction is 55-60% (normal). Diastolic filling demonstrat es impaired relaxation . Left Atrium chamber is mildly dilated. Had echo 10/31/19: normal LV size and thickness, mildly reduced LV systolic function with LVEF 45-50%, grade 1 DD, mild pulm. HTN. 20 lb. weight loss recommende d over the next 2 months. Increase walking. Needs pulm. evaluation for COPD per PCP. Had mild pulm. HTN, with GUNNAR now on CPAP. Obesity 594992350 E66.9 20 lb. weight loss recommende d over the next 2 months. Obstructiv e sleep apnea syndrome 64907671 G47.33 Reports snoring. Reports fatigue. No daytime somnolence . Had US, echocardio gram 04/13/22: LV chamber size is normal. There is normal global systolic function and contractil ity. The estimated left ventricle ejection fraction is 55-60% (normal). Diastolic filling demonstrat es impaired relaxation . Left Atrium chamber is mildly dilated. RVSP 11. Had echo 10/31/19: normal LV size and thickness, mildly reduced LV systolic function with LVEF 45-50%, grade 1 DD, mild pulm. HTN. Had sleep study 05/18/22: Findings are consistent with moderate positional obstructiv e sleep apnea. Tolerating CPAP. Continue. Carotid bruit [id number] R09.89 will do ultrasound Swelling o f bilateral lower limbs 968980833 M79.89 will start her on lasix 20 mg daily for 2 weeks [id number] Alondra Barger [place] [facility] [address] [place] [address] 07/14/2023 13:54:39 07/14/2023 14:20:47 Edema of lower extremity 576171778 R60.0 Resolved on CPAP. Spironolac tone was stopped several months prior due to increased Cr to 1.3, which improved off spironolac tone. Had 06/24/20: K 4.3, Cr 1.1, Mg 1.9 Obtained 10/27/20 negative bilateral LE venous Doppler. Elevate legs.Compr ession stockings, using.Sodi um restrictio n. 20 lb. weight loss recommende d over the next 2 months. Obtain home sleep study with GUNNAR, beginning CPAP. Had 04/28/21:N a 140,K 4.5,Cl 103,Co2 28,Glu 137,Bun 16,Cr 1.2,AST 32,ALT 18, Mg 1.8, TSH 2.92. Had06/30/21 : K 4.7, Mg 1.9, Cr 1.2, BUN 14, LDL 120 Began HCTZ 12.5 mg qd 08/11/21 for improved control of edema and HTN. Had 1 CMP- sodium-140 , POTASSIUM- 4.1, CHOLRIDE-1 05, creatinine -1.10, (lipids,ld l,hdl)-glu cose-124, calcium-9. 4, mag-1.8, Had 05/09/2022 CMP-NA 139 K 4.1 CR 1.20 GL 170 CA 8.9 MAG 1.9LIPID-T RIG 157 CHOL 165 LDL 61 HDL 54CBC-WBC 5.6 RBC 4.30 HGB 13.0 HCT 40.5 PLT 184 BP diary. Nonischemi c congestive cardiomyopathy [id number] 04 I42.0 starting farxiga 10 mg daily and continue with entresto 49 BID daily Improved to mild-moder ate LV dysfunctio n from severe LV systolic function as of echo 12/20/18, 10/31/19, 01/08/21, then LVEF normalized on echo 04/13/22. Dyspnea improved. Had US, echocardio gram 04/13/22:LV chamber size is normal. There is normal global systolic function and contractil ity. The estimated left ventricle ejection fraction is 55-60% (normal). Diastolic filling demonstrat es impaired relaxation . Left Atrium chamber is mildly dilated. RVSP 11. Had 01/08/2021 : EChocardio graphic studies ; Study quality technicall y difficult Technical limitation s LV chamber size is normal There is borderline LV hypertroph y LV systolic function is mildly to moderately reduced The estimated left ventricle ejection fraction is 40-45% LV relaxation is impaired Left atrium chamber is mildly dilated There is mild aortic root calcificat ion There is mild thickening of the mitral valve anterior leaflet There is trace mitral regurgitat ion There is trace tricuspid regurgitat ion Had echo 10/31/19: normal LV size and thickness, mildly reduced LV systolic function with LVEF 45-50%, grade 1 DD, mild pulm. HTN. Had ECHO 12/20/18: LV chamber is normal. LV wall thickness is normal. There is normal global systolic function and contractil ity. The estimated left ventricle ejection fraction 55-60%(nor mal). LV relaxation is impaired. Let atrium chamber is mildly dilated. There is a trace anterior pericardia l effusion. Minimal MR. Had echo 09/22/18: mild enlargemen t of left ventricle, severe global left ventricula r systolic dysfunctio n, LVEF 30%, mild to moderate MR. Had [facility] 09/26/18: mild CAD, severe left ventricula r dysfunctio n with possible nonischemi c cardiomyop athy. Increased to carvedilol 25 mg bid 11/19/18. Given persistent mild elevation in Cr 1.3, stopped spironolac tone 12/11/19. Completed cardiac rehab. at [facility]. Increase walking. Stopped lisinopril for 2 days 03/30/22, then began Entresto 24-26 bid. Had 05/09/2022 : CMP-NA 139 K 4.1 CR 1.20 GL 170 CA 8.9 MAG 1.9 Obtain echo 05/2023, reassess LVEF. Coronary arteriosclerosis [id number] I25.10 NO chest painUS, echocardio gram 04/13/22-E CHO. LV chamber size is normal. There is normal global systolic function and contractil ity. The estimated left ventricle ejection fraction is 55-60% (normal). Diastolic filling demonstrat es impaired relaxation . Left Atrium chamber is mildly dilated. Had [facility] 09/26/18: mild CAD, severe left ventricula r dysfunctio n with possible nonischemi c cardiomyop athy. Continue ASA and statin. Needs to keep LDL less than 70, and HDL more than 40. Essential hypertension 03556277 I10 continue with Entresto to 49 BID dailywill increased amlodipin too 5 mg BID dailystart ing farxiga 10 mg dailyresta rt using CPAP Dyslipidemia 437884425 E 78.5 LDL is 57 and TG is 151continu e with crestor 20 mg daily Dyspnea on exertion 6084 5006 R06.09 Has occasional increased exertional dyspnea, currently improving with need for weight loss. Had US, echocardio gram 04/13/22: LV chamber size is normal. There is normal global systolic function and contractil ity. The estimated left ventricle ejection fraction is 55-60% (normal). Diastolic filling demonstrat es impaired relaxation . Left Atrium chamber is mildly dilated. Had echo 10/31/19: normal LV size and thickness, mildly reduced LV systolic function with LVEF 45-50%, grade 1 DD, mild pulm. HTN. 20 lb. weight loss recommende d over the next 2 months. Increase walking. Needs pulm. evaluation for COPD per PCP. Had mild pulm. HTN, with GUNNAR now on CPAP. Obesity 042919591 E66.9 20 lb. weight loss recommende d over the next 2 months. Obstructiv e sleep apnea syndrome 31022656 G47.33 Reports snoring. Reports fatigue. No daytime somnolence . Had US, echocardio gram 04/13/22: LV chamber size is normal. There is normal global systolic function and contractil ity. The estimated left ventricle ejection fraction is 55-60% (normal). Diastolic filling demonstrat es impaired relaxation . Left Atrium chamber is mildly dilated. RVSP 11. Had echo 10/31/19: normal LV size and thickness, mildly reduced LV systolic function with LVEF 45-50%, grade 1 DD, mild pulm. HTN. Had sleep study 05/18/22: Findings are consistent with moderate positional obstructiv e sleep apnea. Tolerating CPAP. Continue. Congestive heart failure 53481565 I50.9 [id number] [address] STORM [place] [facility] [address] [place] [address] 07/27/2023 15:31:04 07/27/2023 16:55:03 Edema of lower extremity 469449217 R60.0 Resolved on CPAP. Spironolac tone was stopped several months prior due to increased Cr to 1.3, which improved off spironolac tone. Had 06/24/20: K 4.3, Cr 1.1, Mg 1.9 Obtained 10/27/20 negative bilateral LE venous Doppler. Elevate legs.Compr ession stockings, using.Sodi um restrictio n. 20 lb. weight loss recommende d over the next 2 months. Obtain home sleep study with GUNNAR, beginning CPAP. Had 04/28/21:N a 140,K 4.5,Cl 103,Co2 28,Glu 137,Bun 16,Cr 1.2,AST 32,ALT 18, Mg 1.8, TSH 2.92. Had06/30/21 : K 4.7, Mg 1.9, Cr 1.2, BUN 14, LDL 120 Began HCTZ 12.5 mg qd 08/11/21 for improved control of edema and HTN. Had 1 CMP- sodium-140 , POTASSIUM- 4.1, CHOLRIDE-1 05, creatinine -1.10, (lipids,ld l,hdl)-glu cose-124, calcium-9. 4, mag-1.8, Had 05/09/2022 CMP-NA 139 K 4.1 CR 1.20 GL 170 CA 8.9 MAG 1.9LIPID-T RIG 157 CHOL 165 LDL 61 HDL 54CBC-WBC 5.6 RBC 4.30 HGB 13.0 HCT 40.5 PLT 184 BP diary. Nonischemi c congestive cardiomyopathy [id number] 04 I42.0 continue with farxiga 10 mg daily and continue with entresto 49 BID daily Improved to mild-moder ate LV dysfunctio n from severe LV systolic function as of echo 12/20/18, 10/31/19, 01/08/21, then LVEF normalized on echo 04/13/22. Dyspnea improved. Had US, echocardio gram 04/13/22:LV chamber size is normal. There is normal global systolic function and contractil ity. The estimated left ventricle ejection fraction is 55-60% (normal). Diastolic filling demonstrat es impaired relaxation . Left Atrium chamber is mildly dilated. RVSP 11. Had 01/08/2021 : EChocardio graphic studies ; Study quality technicall y difficult Technical limitation s LV chamber size is normal There is borderline LV hypertroph y LV systolic function is mildly to moderately reduced The estimated left ventricle ejection fraction is 40-45% LV relaxation is impaired Left atrium chamber is mildly dilated There is mild aortic root calcificat ion There is mild thickening of the mitral valve anterior leaflet There is trace mitral regurgitat ion There is trace tricuspid regurgitat ion Had echo 10/31/19: normal LV size and thickness, mildly reduced LV systolic function with LVEF 45-50%, grade 1 DD, mild pulm. HTN. Had ECHO 12/20/18: LV chamber is normal. LV wall thickness is normal. There is normal global systolic function and contractil ity. The estimated left ventricle ejection fraction 55-60%(nor mal). LV relaxation is impaired. Let atrium chamber is mildly dilated. There is a trace anterior pericardia l effusion. Minimal MR. Had echo 09/22/18: mild enlargemen t of left ventricle, severe global left ventricula r systolic dysfunctio n, LVEF 30%, mild to moderate MR. Had [facility] 09/26/18: mild CAD, severe left ventricula r dysfunctio n with possible nonischemi c cardiomyop athy. Increased to carvedilol 25 mg bid 11/19/18. Given persistent mild elevation in Cr 1.3, stopped spironolac tone 12/11/19. Completed cardiac rehab. at [facility]. Increase walking. Stopped lisinopril for 2 days 03/30/22, then began Entresto 24-26 bid. Had 05/09/2022 : CMP-NA 139 K 4.1 CR 1.20 GL 170 CA 8.9 MAG 1.9 Obtain echo 05/2023, reassess LVEF. Coronary arteriosclerosis 95881057 I25.10 NO chest painUS, echocardio gram 04/13/22-E CHO. LV chamber size is normal. There is normal global systolic function and contractil ity. The estimated left ventricle ejection fraction is 55-60% (normal). Diastolic filling demonstrat es impaired relaxation . Left Atrium chamber is mildly dilated. Had [facility] 09/26/18: mild CAD, severe left ventricula r dysfunctio n with possible nonischemi c cardiomyop athy. Continue ASA and statin. Needs to keep LDL less than 70, and HDL more than 40. Essential hypertension 49262473 I10 still elevated 180/80cont inue with Entresto to 49 BID dailyconti nue amlodipin 5 mg BID dailyconti nue farxiga 10 mg dailystari ng hydralazin e 50 mg TID dailyresta rt using CPAP Dyslipidemia 828713389 E 78.5 LDL is 57 and TG is 151continu e with crestor 20 mg daily Dyspnea on exertion 6084 5006 R06.09 Has occasional increased exertional dyspnea, currently improving with need for weight loss. Had US, echocardio gram 04/13/22: LV chamber size is normal. There is normal global systolic function and contractil ity. The estimated left ventricle ejection fraction is 55-60% (normal). Diastolic filling demonstrat es impaired relaxation . Left Atrium chamber is mildly dilated. Had echo 10/31/19: normal LV size and thickness, mildly reduced LV systolic function with LVEF 45-50%, grade 1 DD, mild pulm. HTN. 20 lb. weight loss recommende d over the next 2 months. Increase walking. Needs pulm. evaluation for COPD per PCP. Had mild pulm. HTN, with GUNNAR now on CPAP. Obesity [id number] E66.9 20 lb. weight loss recommende d over the next 2 months. Obstructiv e sleep apnea syndrome 99471519 G47.33 Reports snoring. Reports fatigue. No daytime somnolence . Had US, echocardio gram 04/13/22: LV chamber size is normal. There is normal global systolic function and contractil ity. The estimated left ventricle ejection fraction is 55-60% (normal). Diastolic filling demonstrat es impaired relaxation . Left Atrium chamber is mildly dilated. RVSP 11. Had echo 10/31/19: normal LV size and thickness, mildly reduced LV systolic function with LVEF 45-50%, grade 1 DD, mild pulm. HTN. Had sleep study 05/18/22: Findings are consistent with moderate positional obstructiv e sleep apnea. Tolerating CPAP. Continue. Congestive heart failure [id number] I50.9 [id number] JOAQUIN STORM [place] [facility] [place] [address] 11/20/2023 12:23:06 11/20/2023 13:09:53 Nonischemic congestive cardiomyopathy [id number] 04 I42.0 continue with farxiga 10 mg daily and continue with entresto 49 BID daily Improved to mild-moder ate LV dysfunctio n from severe LV systolic function as of echo 12/20/18, 10/31/19, 01/08/21, then LVEF normalized on echo 04/13/22. Dyspnea improved. Had US, echocardio gram 04/13/22:LV chamber size is normal. There is normal global systolic function and contractil ity. The estimated left ventricle ejection fraction is 55-60% (normal). Diastolic filling demonstrat es impaired relaxation . Left Atrium chamber is mildly dilated. RVSP 11. Had 01/08/2021 : EChocardio graphic studies ; Study quality technicall y difficult Technical limitation s LV chamber size is normal There is borderline LV hypertroph y LV systolic function is mildly to moderately reduced The estimated left ventricle ejection fraction is 40-45% LV relaxation is impaired Left atrium chamber is mildly dilated There is mild aortic root calcificat ion There is mild thickening of the mitral valve anterior leaflet There is trace mitral regurgitat ion There is trace tricuspid regurgitat ion Had echo 10/31/19: normal LV size and thickness, mildly reduced LV systolic function with LVEF 45-50%, grade 1 DD, mild pulm. HTN. Had ECHO 12/20/18: LV chamber is normal. LV wall thickness is normal. There is normal global systolic function and contractil ity. The estimated left ventricle ejection fraction 55-60%(nor mal). LV relaxation is impaired. Let atrium chamber is mildly dilated. There is a trace anterior pericardia l effusion. Minimal MR. Had echo 09/22/18: mild enlargemen t of left ventricle, severe global left ventricula r systolic dysfunctio n, LVEF 30%, mild to moderate MR. Had [facility] 09/26/18: mild CAD, severe left ventricula r dysfunctio n with possible nonischemi c cardiomyop athy. Increased to carvedilol 25 mg bid 11/19/18. Given persistent mild elevation in Cr 1.3, stopped spironolac tone 12/11/19. Completed cardiac rehab. at [facility]. Increase walking. Stopped lisinopril for 2 days 03/30/22, then began Entresto 24-26 bid. Had 05/09/2022 : CMP-NA 139 K 4.1 CR 1.20 GL 170 CA 8.9 MAG 1.9 Obtain echo 05/2023, reassess LVEF. Coronary arteriosclerosis 07148037 I25.10 NO chest painUS, echocardio gram 04/13/22-E CHO. LV chamber size is normal. There is normal global systolic function and contractil ity. The estimated left ventricle ejection fraction is 55-60% (normal). Diastolic filling demonstrat es impaired relaxation . Left Atrium chamber is mildly dilated. Had [facility] 09/26/18: mild CAD, severe left ventricula r dysfunctio n with possible nonischemi c cardiomyop athy. Continue ASA and statin. Needs to keep LDL less than 70, and HDL more than 40. Essential hypertension [id number] I10 still elevated 150/80cont inue with Entresto to 49 BID dailyconti nue amlodipin 5 mg BID dailyconti nue farxiga 10 mg dailystari ng hydralazin e 25 mg BID dailyconti nue CPAP Dyslipidemia [id number] E 78.5 LDL is 57 and TG is 151continu e with crestor 20 mg daily Obesity 207656792 E66.9 20 lb. weight loss recommende d over the next 2 months. Obstructiv e sleep apnea syndrome 27482286 G47.33 Reports snoring. Reports fatigue. No daytime somnolence . Had US, echocardio gram 04/13/22: LV chamber size is normal. There is normal global systolic function and contractil ity. The estimated left ventricle ejection fraction is 55-60% (normal). Diastolic filling demonstrat es impaired relaxation . Left Atrium chamber is mildly dilated. RVSP 11. Had echo 10/31/19: normal LV size and thickness, mildly reduced LV systolic function with LVEF 45-50%, grade 1 DD, mild pulm. HTN. Had sleep study 05/18/22: Findings are consistent with moderate positional obstructiv e sleep apnea. Tolerating CPAP. Continue. Congestive heart failure 97495482 I50.9 Swelling o f bilateral lower limbs 565056834 M79.89 will start her on lasix 20 mg daily [id number] JOAQUIN STORM [place] [facility] [address] [place] [address] 04/01/2024 09:27:43 04/01/2024 10:21:49 Nonischemic congestive cardiomyopathy [id number] 04 I42.0 continue with farxiga 10 mg daily and continue with entresto 49 BID daily Improved to mild-moder ate LV dysfunctio n from severe LV systolic function as of echo 12/20/18, 10/31/19, 01/08/21, then LVEF normalized on echo 04/13/22. Dyspnea improved. Had US, echocardio gram 04/13/22:LV chamber size is normal. There is normal global systolic function and contractil ity. The estimated left ventricle ejection fraction is 55-60% (normal). Diastolic filling demonstrat es impaired relaxation . Left Atrium chamber is mildly dilated. RVSP 11. Had 01/08/2021 : EChocardio graphic studies ; Study quality technicall y difficult Technical limitation s LV chamber size is normal There is borderline LV hypertroph y LV systolic function is mildly to moderately reduced The estimated left ventricle ejection fraction is 40-45% LV relaxation is impaired Left atrium chamber is mildly dilated There is mild aortic root calcificat ion There is mild thickening of the mitral valve anterior leaflet There is trace mitral regurgitat ion There is trace tricuspid regurgitat ion Had echo 10/31/19: normal LV size and thickness, mildly reduced LV systolic function with LVEF 45-50%, grade 1 DD, mild pulm. HTN. Had ECHO 12/20/18: LV chamber is normal. LV wall thickness is normal. There is normal global systolic function and contractil ity. The estimated left ventricle ejection fraction 55-60%(nor mal). LV relaxation is impaired. Let atrium chamber is mildly dilated. There is a trace anterior pericardia l effusion. Minimal MR. Had echo 09/22/18: mild enlargemen t of left ventricle, severe global left ventricula r systolic dysfunctio n, LVEF 30%, mild to moderate MR. Had [facility] 09/26/18: mild CAD, severe left ventricula r dysfunctio n with possible nonischemi c cardiomyop athy. Increased to carvedilol 25 mg bid 11/19/18. Given persistent mild elevation in Cr 1.3, stopped spironolac tone 12/11/19. Completed cardiac rehab. at [facility]. Increase walking. Stopped lisinopril for 2 days 03/30/22, then began Entresto 24-26 bid. Had 05/09/2022 : CMP-NA 139 K 4.1 CR 1.20 GL 170 CA 8.9 MAG 1.9 Obtain echo 05/2023, reassess LVEF. Coronary arteriosclerosis [id number] I25.10 Lexiscan Myoview stress test, pt can not walk. Has known coronary artery disease, with atypical symptoms now US, echocardio gram 04/13/22-E CHO. LV chamber size is normal. There is normal global systolic function and contractil ity. The estimated left ventricle ejection fraction is 55-60% (normal). Diastolic filling demonstrat es impaired relaxation . Left Atrium chamber is mildly dilated. Had [facility] 09/26/18: mild CAD, severe left ventricula r dysfunctio n with possible nonischemi c cardiomyop athy. Continue ASA and statin. Needs to keep LDL less than 70, and HDL more than 40. Essential hypertension 60119409 I10 BP is well controlled todayconti nue with Entresto to 49 BID dailyconti nue amlodipin 5 mg BID dailyconti nue farxiga 10 mg daily and hydralazin e 25 mg BID dailyconti nue CPAP Dyslipidemia 708857402 E 78.5 *Last LDL was 72 and TG is 200 done on 12/07/23.P t takes rosuvastat in 20 mg.will add fish oil Obesity 331207910 E66.9 20 lb. weight loss recommende d over the next 2 months. Obstructiv e sleep apnea syndrome 77910583 G47.33 Reports snoring. Reports fatigue. No daytime somnolence . Had US, echocardio gram 04/13/22: LV chamber size is normal. There is normal global systolic function and contractil ity. The estimated left ventricle ejection fraction is 55-60% (normal). Diastolic filling demonstrat es impaired relaxation . Left Atrium chamber is mildly dilated. RVSP 11. Had echo 10/31/19: normal LV size and thickness, mildly reduced LV systolic function with LVEF 45-50%, grade 1 DD, mild pulm. HTN. Had sleep study 05/18/22: Findings are consistent with moderate positional obstructiv e sleep apnea. Tolerating CPAP. Continue. Congestive heart failure 22534639 I50.9 well compensate d today Swelling o f bilateral lower limbs 783058608 M79.89 will start her on lasix 20 mg daily for two day then continue as needed [id number] Saulo Martínez MD [place] [facility] [place] [address] 07/09/2024 09:32:37 07/09/2024 10:41:45 Nonischemic congestive cardiomyopathy [id number] 04 I42.0 continue with farxiga 10 mg daily and continue with entresto 49 BID daily Improved to mild-moder ate LV dysfunctio n from severe LV systolic function as of echo 12/20/18, 10/31/19, 01/08/21, then LVEF normalized on echo 04/13/22. Dyspnea improved. Had US, echocardio gram 04/13/22:LV chamber size is normal. There is normal global systolic function and contractil ity. The estimated left ventricle ejection fraction is 55-60% (normal). Diastolic filling demonstrat es impaired relaxation . Left Atrium chamber is mildly dilated. RVSP 11. Had 01/08/2021 : EChocardio graphic studies ; Study quality technicall y difficult Technical limitation s LV chamber size is normal There is borderline LV hypertroph y LV systolic function is mildly to moderately reduced The estimated left ventricle ejection fraction is 40-45% LV relaxation is impaired Left atrium chamber is mildly dilated There is mild aortic root calcificat ion There is mild thickening of the mitral valve anterior leaflet There is trace mitral regurgitat ion There is trace tricuspid regurgitat ion Had echo 10/31/19: normal LV size and thickness, mildly reduced LV systolic function with LVEF 45-50%, grade 1 DD, mild pulm. HTN. Had ECHO 12/20/18: LV chamber is normal. LV wall thickness is normal. There is normal global systolic function and contractil ity. The estimated left ventricle ejection fraction 55-60%(nor mal). LV relaxation is impaired. Let atrium chamber is mildly dilated. There is a trace anterior pericardia l effusion. Minimal MR. Had echo 09/22/18: mild enlargemen t of left ventricle, severe global left ventricula r systolic dysfunctio n, LVEF 30%, mild to moderate MR. Had [facility] 09/26/18: mild CAD, severe left ventricula r dysfunctio n with possible nonischemi c cardiomyop athy. Increased to carvedilol 25 mg bid 11/19/18. Given persistent mild elevation in Cr 1.3, stopped spironolac tone 12/11/19. Completed cardiac rehab. at [facility]. Increase walking. Stopped lisinopril for 2 days 03/30/22, then began Entresto 24-26 bid. Had 05/09/2022 : CMP-NA 139 K 4.1 CR 1.20 GL 170 CA 8.9 MAG 1.9 Obtain echo 05/2023, reassess LVEF. Coronary arteriosclerosis 50853295 I25.10 Lexiscan Myoview stress test, pt can not walk. Has known coronary artery disease, with atypical symptoms now US, echocardio gram 04/13/22-E CHO. LV chamber size is normal. There is normal global systolic function and contractil ity. The estimated left ventricle ejection fraction is 55-60% (normal). Diastolic filling demonstrat es impaired relaxation . Left Atrium chamber is mildly dilated. Had [facility] 09/26/18: mild CAD, severe left ventricula r dysfunctio n with possible nonischemi c cardiomyop athy. Continue ASA and statin. Needs to keep LDL less than 70, and HDL more than 40. Essential hypertension 42930213 I10 BP is well controlled todayconti nue with Entresto to 49 BID dailyconti nue amlodipin 5 mg BID dailyconti nue farxiga 10 mg daily and hydralazin e 25 mg BID dailyconti nue CPAP Dyslipidemia 254710425 E 78.5 *Last LDL was 72 and TG is 200 done on 12/07/23.P t takes rosuvastat in 20 mg.will add fish oil Obesity 556419562 E66.9 20 lb. weight loss recommende d over the next 2 months. Obstructiv e sleep apnea syndrome 93932792 G47.33 Reports snoring. Reports fatigue. No daytime somnolence . Had US, echocardio gram 04/13/22: LV chamber size is normal. There is normal global systolic function and contractil ity. The estimated left ventricle ejection fraction is 55-60% (normal). Diastolic filling demonstrat es impaired relaxation . Left Atrium chamber is mildly dilated. RVSP 11. Had echo 10/31/19: normal LV size and thickness, mildly reduced LV systolic function with LVEF 45-50%, grade 1 DD, mild pulm. HTN. Had sleep study 05/18/22: Findings are consistent with moderate positional obstructiv e sleep apnea. Tolerating CPAP. Continue. Congestive heart failure 21256452 I50.9 well compensate d today Swelling o f bilateral lower limbs 939957503 M79.89 will start her on lasix 20 mg daily for two day then continue as needed [id number] Alondra Barger [place] [facility] [address] [place] [address] 01/07/2025 11:35:53 01/07/2025 12:32:54 Nonischemic congestive cardiomyopathy [id number] 04 I42.0 continue with farxiga 10 mg daily and continue with entresto 49 BID daily Improved to mild-moder ate LV dysfunctio n from severe LV systolic function as of echo 12/20/18, 10/31/19, 01/08/21, then LVEF normalized on echo 04/13/22. Coronary arteriosclerosis 69543169 I25.10 Positive Lexiscan stress test on 05/28/24 with reversible defect small in size consistent with ischemia in inferior area. Normal LV systolic function. LVEF: 48%. US, echocardio gram 04/13/22-E CHO. LV chamber size is normal. There is normal global systolic function and contractil ity. The estimated left ventricle ejection fraction is 55-60% (normal). Diastolic filling demonstrat es impaired relaxation . Left Atrium chamber is mildly dilated. Essential hypertension 52827366 I10 BP is well controlled todayconti nue with Entresto to 49 BID dailyconti nue amlodipin 5 mg BID dailyconti nue farxiga 10 mg daily and hydralazin e 25 mg BID dailyconti nue CPAP Dyslipidemia 129908616 E 78.5 *Last LDL was 72 and TG is 200 done on 12/07/23.P t takes rosuvastat in 20 mg.will add fish oil Obesity 731924991 E66.9 20 lb. weight loss recommende d over the next 2 months. Obstructiv e sleep apnea syndrome 44423583 G47.33 resume CpapObtain echo to evaluate for structural /functiona l disease. Congestive heart failure 27417373 I50.9 well compensate d todayObtai n echo to evaluate for structural /functiona l disease. Swelling o f bilateral lower limbs 426783355 M79.89 will start her on lasix 20 mg daily for two day then continue as needed Health Concerns Section Related Observation LastModified by Organization Detai ls LastModified Time None Recorded Concern Status LastModified by Organization Details LastModified Time None Recorded Advance Directives Directive None Recorded Payers Encounter Date Sequence Insurance Name Policy Number Policy Acosta Covered Member ID Acosta Member ID Guarantor Name 07/27/2023 1 [facility] [id number] Gayle Pappaser [id number] Gayle Pappaser 11/20/2023 1 [facility] [id number] Gayle Kelseyefer [id number] Gayle Pappaser 04/01/2024 1 [facility] [id number] Gayle Kelseyefer [id number] Gayle Kelseyefer 07/09/2024 1 [facility] [id number] Gayle Kelseyefer [id number] Gayle Kelseyefer 01/07/2025 1 [facility] [id number] Gayle Kelseyefer [id number] Gayle Cisse Notes Date Note Type Note Provider Name and Address Organization Details Recorded Time 07/27/2023 text/html 07/27/23CC : Car diac follow up dyspnea on [id number] year-old white woman with history of nonischemic cardiomyopathy, HF-rEF (improved to mild-moderate LV dysfunction from severe LV systolic function as of echo 12/20/18, 10/31/19, 01/08/21, then LVEF normalized on echo 04/13/22), mild CAD, GUNNAR (on CPAP), pulmonary HTN, hypertension, dyslipidemia, pre-diabetes, former tobacco dependence (70 pack-year, quit 09/21/2018), COPD, obesity, peripheral vascular disease, CKD, presents for 2 week follow-up. She was last seen in the clinic on 07/14/23, since then Radames denies ER visits and hospitalizations since she was last seen. Today reports:Denies chest pain.Denies shortness of breath at rest. Has mild dyspnea on exertion.No orthopnea. No PNDs.Denies heart palpitations.Denies dizziness. Denies syncope or near syncope.No ankle or leg edema.No major bleeding events.No reported side effects from medications. Taking medications as prescribed with no missed doses.Denies snoring, daytime somnolence and AM headache.*Last LDL was 57 done on 12/14/22.Pt takes rosuvastatin 20 mg. Previously:Now she has Cpap, Pt is on CPAP and is 80% compliant. Patient is benefiting with CPAP therapy and will continue nightly use. Previously had reported intermittent bilateral pedal edema since 06/18/20, greater on right, much improved on CPAP. Previously, [facility] with several day history of dyspnea, with orthopnea, edema, and tachycardia. BNP elevated. Reports snoring but no daytime somnolence and has sense of good sleep. Had sleep study 05/18/22: Findings are consistent with moderate positional obstructive sleep apnea. Had [facility] 09/26/18: mild CAD, severe left ventricular dysfunction with possible nonischemic cardiomyopathy. Had ECHO on 04/13/22: LV chamber size is normal. There is normal global systolic function and contractility. The estimated left ventricle ejection fraction is 55-60% (normal). Diastolic filling demonstrates impaired relaxation. Left Atrium chamber is mildly dilated.Results from this visit, or from the past: 3CBC-WBC 5.9 RBC 4.32 HGB 13.1 HCT 40.5 PLT 192CMP-NA 139 K 4.2 BUN 17 CR 1.10 GL 144 CA 8.9 MG 1.9LIPID-TRIG 156 CHOL 158 LDL 57 HDL 55 TSH 3.150 2CMP-NA 139 K 4.1 CR 1.20 GL 170 CA 8.9 MAG 1.9LIPID-TRIG 157 CHOL 165 LDL 61 HDL 54CBC-WBC 5.6 RBC 4.30 HGB 13.0 HCT 40.5 PLT 184 09/15/21 CMP- sodium-140, POTASSIUM-4.1, CHOLRIDE-105, creatinine-1.10, (lipids,ldl,hdl)-gluco se-124, calcium-9.4, mag-1.8, AST-24, ALT-86, creatine kinase-86, trig-138, chol-148, direct LDL-56, HDL direct-64. 06/20/21:Na 139,K 4.7,Cl 103,CO2 31,GLU 127,BUN 14,Cr 1.2,AST 25,ALT 23,CK 119. 04/28/21:Na 140,K 4.5,Cl 103,Co2 28,Glu 137,Bun 16,Cr 1.2,AST 32,ALT 18, Mg 1.8, TSH 2.92. 04/28/21:TC 276,TG 257,HDL 61,LDL 129. CMP, serum or plasma [id number] 6.1, Na 137, K 4.4, Cl 104, CO2 28, Anion Gap 5, BUN 18, Cr 1.2, Estimated GFR 45, Glucose 124, Ca 9.3, Mg 1.7, Total Bilirubin 0.8, AST 26, ALT 19, Total Protein 8/0, Albumin 4.2, TR 163, TC 232, LDL 124, HDL 61, Alk Phos 102, TSH 2.: K 4.3, Cr 1.1, Mg 1.9, LDL 103. 11/08/19 : Na 141, K 4.4, CL 101, CO2 31, GLU 117, BUN 18, CR 1.30, AST 20 ,ALT 19, 11/08/19 : TC 240 ,TG 205, HDL 51,LDL 146, CMP, serum or plasma 04-29-2019 04/29/19: Na 140, K 4.1 ,CL 104 , CO2 28 , GLU 114, BUN 21 ,CR 1.30 , lipid panel, blood 04-29-2019 04/29/19: TC 191 ,TG 109, HDL 57,LDL 95, 10/24/18: NA 136 , K 4.8, CL 103 ,CO2 27, GLU 105, BUN 20, CR 1.20, 10/24/18: TC 154 ,TG 99 ,HDL ,LDL 71 ,AST 22, ALT23 , electrocardiogram 03-30-2022:One or more complexes with too much noise, warning; excessive noise in (part of ) recording, sinus rhythm, P; normal, QRS; possible septal infarct. QS in V1. R < 0.15 mV in V2 V3. ST-T; slight left-precordial ST-T changes, consider ischemia. LV overload or aspecific change, small negative T in V5 V6 with flat or low negative T in V4 , conclusion: possibly abnormal ECG. 08/11/21 EKG: sinus rhythm,P; normal, QRS; 05/05/21 EKG One or more complexes with too much noise warning excessive noise in (part of) recording sinus rhythm P normal QRS normal ST-T mid and left precordial ST-T changes, consider ischemia or LV overload negative T in V5 V6 with small negative T in V3 V4 conclusion abnormal ECG EKG 04/10/19 AM Non confirmed diagnosis. Low voltage, chest leads. Poor R progression in chest leads.EKG 01/09/19 : NSR WNL.EK10/08/18 Normal sinus rhythm.EKG : 10/08/18 Sinus rhythm. Inverted Twave in V5 and V6. [facility] 09/26/18: mild CAD, severe left ventricular dysfunction with possible nonischemic cardiomyopathy. 10/27/20 VENOUS DOP: Negative bilateral venous study 04/13/22-ECHO.LV chamber size is normal. There is normal global systolic function and contractility. The estimated left ventricle ejection fraction is 55-60% (normal). Diastolic filling demonstrates impaired relaxation. Left Atrium chamber is mildly dilated. 01/08/2021 : EChocardiographic studies ; Study quality technically difficult Technical limitations LV chamber size is normal There is borderline LV hypertrophy LV sytolic function is mildly to moderately reduyced The estimated left ventricle ejection fraction is 40-45% LV relaxation is impaired Left atrium chamber is mildly dilated There is mild aortic root calcification There is mild thickening of the mitral valve anterior leaflet There is trace mitral regurgitation There is trace tricuspid regurgitation 12/20/18 ECHO: LV chamber is normal. LV wall thickness is normal. There is normal global systolic function and contractility. The estimated left ventricle ejection fraction 55-60%(normal). LV relaxation is impaired. Let atrium chamber is mildly dilated. The aortic valve is mildly calcified. There is mild aortic root calcification. There is mild thickening of mitral valve anterior leaflet. There is mild calcification of mitral valve posterior leaflet. There is minimal pulmonic regurgitation. There is a trace anterior pericardial effusion. Had echo 10/31/19: normal LV size and thickness, mildly reduced LV systolic function with LVEF 45-50%, grade 1 DD, mild pulm. HTN. Echo 09/22/18: mild enlargement of left ventricle, severe global left ventricular systolic dysfunction, LVEF 30%, mild to moderate MR. JOAQUIN STORM [facility], [place] [facility] 07/27/2023 16:28:20 11/20/2023 text/html 11/20/23CC : Car diac follow up dyspnea on [id number] year-old white woman with history of nonischemic cardiomyopathy, HF-rEF (improved to mild-moderate LV dysfunction from severe LV systolic function as of echo 12/20/18, 10/31/19, 01/08/21, then LVEF normalized on echo 04/13/22), mild CAD, GUNNAR (on CPAP), pulmonary HTN, hypertension, dyslipidemia, pre-diabetes, former tobacco dependence (70 pack-year, quit 09/21/2018), COPD, obesity, peripheral vascular disease, and CKD, presents for 2 week follow-up. She was last seen in the clinic on 07/27/23, since then she is doing well. Her BP is still elevated but she did not tolerate her hydralazine 50 mg tid.*Last LDL was 57 done on 12/14/22.Pt takes rosuvastatin 20 mg. She denies ER visits and hospitalizations since she was last seen. Today reports:Denies chest pain.Denies shortness of breath at rest. Has mild dyspnea on exertion.No orthopnea. No PNDs.Denies heart palpitations.Denies dizziness. Denies syncope or near syncope.YES ankle or leg edema. ON LASIXNo major bleeding events.No reported side effects from medications. Taking medications as prescribed with no missed doses.Denies snoring, daytime somnolence and AM headache.*Last LDL was 57 done on 12/14/22.Pt takes rosuvastatin 20 mg. Previously:Now she has Cpap, Pt is on CPAP and is 80% compliant. Patient is benefiting with CPAP therapy and will continue nightly use. Previously had reported intermittent bilateral pedal edema since 06/18/20, greater on right, much improved on CPAP. Previously, patient presented [facility] with several day history of dyspnea, with orthopnea, edema, and tachycardia. BNP elevated. Reports snoring but no daytime somnolence and has sense of good sleep. Had sleep study 05/18/22: Findings are consistent with moderate positional obstructive sleep apnea. *Had [facility] 09/26/18: mild CAD, severe left ventricular dysfunction with possible nonischemic cardiomyopathy. *Had ECHO on 04/13/22: LV chamber size is normal. There is normal global systolic function and contractility. The estimated left ventricle ejection fraction is 55-60% (normal). Diastolic filling demonstrates impaired relaxation. Left Atrium chamber is mildly dilated.Results from this visit, or from the past: 3CBC-WBC 5.9 RBC 4.32 HGB 13.1 HCT 40.5 PLT 192CMP-NA 139 K 4.2 BUN 17 CR 1.10 GL 144 CA 8.9 MG 1.9LIPID-TRIG 156 CHOL 158 LDL 57 HDL 55 TSH 3.150 2CMP-NA 139 K 4.1 CR 1.20 GL 170 CA 8.9 MAG 1.9LIPID-TRIG 157 CHOL 165 LDL 61 HDL 54CBC-WBC 5.6 RBC 4.30 HGB 13.0 HCT 40.5 PLT 184 09/15/21 CMP- sodium-140, POTASSIUM-4.1, CHOLRIDE-105, creatinine-1.10, (lipids,ldl,hdl)-gluco se-124, calcium-9.4, mag-1.8, AST-24, ALT-86, creatine kinase-86, trig-138, chol-148, direct LDL-56, HDL direct-64. 06/20/21:Na 139,K 4.7,Cl 103,CO2 31,GLU 127,BUN 14,Cr 1.2,AST 25,ALT 23,CK 119. 04/28/21:Na 140,K 4.5,Cl 103,Co2 28,Glu 137,Bun 16,Cr 1.2,AST 32,ALT 18, Mg 1.8, TSH 2.92. 04/28/21:TC 276,TG 257,HDL 61,LDL 129. CMP, serum or plasma [id number] 6.1, Na 137, K 4.4, Cl 104, CO2 28, Anion Gap 5, BUN 18, Cr 1.2, Estimated GFR 45, Glucose 124, Ca 9.3, Mg 1.7, Total Bilirubin 0.8, AST 26, ALT 19, Total Protein 8/0, Albumin 4.2, TR 163, TC 232, LDL 124, HDL 61, Alk Phos 102, TSH 2.: K 4.3, Cr 1.1, Mg 1.9, LDL 103. 11/08/19 : Na 141, K 4.4, CL 101, CO2 31, GLU 117, BUN 18, CR 1.30, AST 20 ,ALT 19, 11/08/19 : TC 240 ,TG 205, HDL 51,LDL 146, CMP, serum or plasma 04-29-2019 04/29/19: Na 140, K 4.1 ,CL 104 , CO2 28 , GLU 114, BUN 21 ,CR 1.30 , lipid panel, blood 04-29-2019 04/29/19: TC 191 ,TG 109, HDL 57,LDL 95, 10/24/18: NA 136 , K 4.8, CL 103 ,CO2 27, GLU 105, BUN 20, CR 1.20, 10/24/18: TC 154 ,TG 99 ,HDL ,LDL 71 ,AST 22, ALT23 , electrocardiogram 03-30-2022:One or more complexes with too much noise, warning; excessive noise in (part of ) recording, sinus rhythm, P; normal, QRS; possible septal infarct. QS in V1. R < 0.15 mV in V2 V3. ST-T; slight left-precordial ST-T changes, consider ischemia. LV overload or aspecific change, small negative T in V5 V6 with flat or low negative T in V4 , conclusion: possibly abnormal ECG. 08/11/21 EKG: sinus rhythm,P; normal, QRS; 05/05/21 EKG One or more complexes with too much noise warning excessive noise in (part of) recording sinus rhythm P normal QRS normal ST-T mid and left precordial ST-T changes, consider ischemia or LV overload negative T in V5 V6 with small negative T in V3 V4 conclusion abnormal ECG EKG 04/10/19 AM Non confirmed diagnosis. Low voltage, chest leads. Poor R progression in chest leads.EKG 01/09/19 : NSR WNL.EK10/08/18 Normal sinus rhythm.EKG : 10/08/18 Sinus rhythm. Inverted Twave in V5 and V6. LHC 09/26/18: mild CAD, severe left ventricular dysfunction with possible nonischemic cardiomyopathy. 10/27/20 VENOUS DOP: Negative bilateral venous study 04/13/22-ECHO.LV chamber size is normal. There is normal global systolic function and contractility. The estimated left ventricle ejection fraction is 55-60% (normal). Diastolic filling demonstrates impaired relaxation. Left Atrium chamber is mildly dilated. 01/08/2021 : EChocardiographic studies ; Study quality technically difficult Technical limitations LV chamber size is normal There is borderline LV hypertrophy LV sytolic function is mildly to moderately reduyced The estimated left ventricle ejection fraction is 40-45% LV relaxation is impaired Left atrium chamber is mildly dilated There is mild aortic root calcification There is mild thickening of the mitral valve anterior leaflet There is trace mitral regurgitation There is trace tricuspid regurgitation 12/20/18 ECHO: LV chamber is normal. LV wall thickness is normal. There is normal global systolic function and contractility. The estimated left ventricle ejection fraction 55-60%(normal). LV relaxation is impaired. Let atrium chamber is mildly dilated. The aortic valve is mildly calcified. There is mild aortic root calcification. There is mild thickening of mitral valve anterior leaflet. There is mild calcification of mitral valve posterior leaflet. There is minimal pulmonic regurgitation. There is a trace anterior pericardial effusion. Had echo 10/31/19: normal LV size and thickness, mildly reduced LV systolic function with LVEF 45-50%, grade 1 DD, mild pulm. HTN. Echo 09/22/18: mild enlargement of left ventricle, severe global left ventricular systolic dysfunction, LVEF 30%, mild to moderate MR. JOAQUIN walls [place] [facility] 11/20/2023 13:06:21 04/01/2024 text/html 04/01/24CC : Car diac follow up dyspnea on [id number] year-old white woman with history of nonischemic cardiomyopathy, HF-rEF (improved to mild-moderate LV dysfunction from severe LV systolic function as of echo 12/20/18, 10/31/19, 01/08/21, then LVEF normalized on echo 04/13/22), mild CAD C done 2017, GUNNAR (on CPAP), pulmonary HTN, hypertension, dyslipidemia, pre-diabetes, former tobacco dependence (70 pack-year, quit 09/21/2018), COPD, obesity, peripheral vascular disease, and CKD, presents for 3 week follow-up. She was last seen in the clinic on 11/30/23, since then she is doing well. She denied chest pain but she has some dyspnea on exertion as she is currently having upper respiratoy viral infection, *Last LDL was 72 and TG is 200 done on 12/07/23.Pt takes rosuvastatin 20 mg. She denies ER visits and hospitalizations since she was last seen. Today reports:no ccDenies chest pain.Denies shortness of breath at rest. Has mild dyspnea on exertion.No orthopnea. No PNDs.Denies heart palpitations.Denies dizziness. Denies syncope or near syncope.No ankle or leg edema.No major bleeding events.No reported side effects from medications. Taking medications as prescribed with no missed doses.Denies snoring, daytime somnolence and AM headache.*Last LDL was 72 done on 12/07/23.Pt takes rosuvastatin 20 mg. 12/08/23:Na 138,K 4.6,CL 104,CO2 26,GLU 192,BUN 15,Cr 1.00,AST 21,ALT 23, 8.8.12/08/23:TC 162,TG 200,HDL 47,LDL 72. Previously:Her BP is still elevated but she did not tolerate her hydralazine 50 mg tid. Now she has Cpap, Pt is on CPAP and is 80% compliant. Patient is benefiting with CPAP therapy and will continue nightly use. Previously had reported intermittent bilateral pedal edema since 06/18/20, greater on right, much improved on CPAP. Previously, patient presented to [facility] 09/[facility]/18 with several day history of dyspnea, with orthopnea, edema, and tachycardia. BNP elevated. Reports snoring but no daytime somnolence and has sense of good sleep. Had sleep study 05/18/22: Findings are consistent with moderate positional obstructive sleep apnea. *Had C 09/26/18: mild CAD, severe left ventricular dysfunction with possible nonischemic cardiomyopathy. *Had ECHO on 04/13/22: LV chamber size is normal. There is normal global systolic function and contractility. The estimated left ventricle ejection fraction is 55-60% (normal). Diastolic filling demonstrates impaired relaxation. Left Atrium chamber is mildly dilated.Results from this visit, or from the past: 3CBC-WBC 5.9 RBC 4.32 HGB 13.1 HCT 40.5 PLT 192CMP-NA 139 K 4.2 BUN 17 CR 1.10 GL 144 CA 8.9 MG 1.9LIPID-TRIG 156 CHOL 158 LDL 57 HDL 55 TSH 3.150 2CMP-NA 139 K 4.1 CR 1.20 GL 170 CA 8.9 MAG 1.9LIPID-TRIG 157 CHOL 165 LDL 61 HDL 54CBC-WBC 5.6 RBC 4.30 HGB 13.0 HCT 40.5 PLT 184 09/15/21 CMP- sodium-140, POTASSIUM-4.1, CHOLRIDE-105, creatinine-1.10, (lipids,ldl,hdl)-gluco se-124, calcium-9.4, mag-1.8, AST-24, ALT-86, creatine kinase-86, trig-138, chol-148, direct LDL-56, HDL direct-64. 06/20/21:Na 139,K 4.7,Cl 103,CO2 31,GLU 127,BUN 14,Cr 1.2,AST 25,ALT 23,CK 119. 04/28/21:Na 140,K 4.5,Cl 103,Co2 28,Glu 137,Bun 16,Cr 1.2,AST 32,ALT 18, Mg 1.8, TSH 2.92. 04/28/21:TC 276,TG 257,HDL 61,LDL 129. CMP, serum or plasma [id number] 6.1, Na 137, K 4.4, Cl 104, CO2 28, Anion Gap 5, BUN 18, Cr 1.2, Estimated GFR 45, Glucose 124, Ca 9.3, Mg 1.7, Total Bilirubin 0.8, AST 26, ALT 19, Total Protein 8/0, Albumin 4.2, TR 163, TC 232, LDL 124, HDL 61, Alk Phos 102, TSH 2.: K 4.3, Cr 1.1, Mg 1.9, LDL 103. 11/08/19 : Na 141, K 4.4, CL 101, CO2 31, GLU 117, BUN 18, CR 1.30, AST 20 ,ALT 19, 11/08/19 : TC 240 ,TG 205, HDL 51,LDL 146, CMP, serum or plasma 04-29-2019 04/29/19: Na 140, K 4.1 ,CL 104 , CO2 28 , GLU 114, BUN 21 ,CR 1.30 , lipid panel, blood 04-29-2019 04/29/19: TC 191 ,TG 109, HDL 57,LDL 95, 10/24/18: NA 136 , K 4.8, CL 103 ,CO2 27, GLU 105, BUN 20, CR 1.20, 10/24/18: TC 154 ,TG 99 ,HDL ,LDL 71 ,AST 22, ALT23 , electrocardiogram 03-30-2022:One or more complexes with too much noise, warning; excessive noise in (part of ) recording, sinus rhythm, P; normal, QRS; possible septal infarct. QS in V1. R < 0.15 mV in V2 V3. ST-T; slight left-precordial ST-T changes, consider ischemia. LV overload or aspecific change, small negative T in V5 V6 with flat or low negative T in V4 , conclusion: possibly abnormal ECG. 08/11/21 EKG: sinus rhythm,P; normal, QRS; 05/05/21 EKG One or more complexes with too much noise warning excessive noise in (part of) recording sinus rhythm P normal QRS normal ST-T mid and left precordial ST-T changes, consider ischemia or LV overload negative T in V5 V6 with small negative T in V3 V4 conclusion abnormal ECG EKG 04/10/19 AM Non confirmed diagnosis. Low voltage, chest leads. Poor R progression in chest leads.EKG 01/09/19 : NSR WNL.EK10/08/18 Normal sinus rhythm.EKG : 10/08/18 Sinus rhythm. Inverted Twave in V5 and V6. LHC 09/26/18: mild CAD, severe left ventricular dysfunction with possible nonischemic cardiomyopathy. 10/27/20 VENOUS DOP: Negative bilateral venous study 04/13/22-ECHO.LV chamber size is normal. There is normal global systolic function and contractility. The estimated left ventricle ejection fraction is 55-60% (normal). Diastolic filling demonstrates impaired relaxation. Left Atrium chamber is mildly dilated. 01/08/2021 : EChocardiographic studies ; Study quality technically difficult Technical limitations LV chamber size is normal There is borderline LV hypertrophy LV sytolic function is mildly to moderately reduyced The estimated left ventricle ejection fraction is 40-45% LV relaxation is impaired Left atrium chamber is mildly dilated There is mild aortic root calcification There is mild thickening of the mitral valve anterior leaflet There is trace mitral regurgitation There is trace tricuspid regurgitation 12/20/18 ECHO: LV chamber is normal. LV wall thickness is normal. There is normal global systolic function and contractility. The estimated left ventricle ejection fraction 55-60%(normal). LV relaxation is impaired. Let atrium chamber is mildly dilated. The aortic valve is mildly calcified. There is mild aortic root calcification. There is mild thickening of mitral valve anterior leaflet. There is mild calcification of mitral valve posterior leaflet. There is minimal pulmonic regurgitation. There is a trace anterior pericardial effusion. Had echo 10/31/19: normal LV size and thickness, mildly reduced LV systolic function with LVEF 45-50%, grade 1 DD, mild pulm. HTN. Echo 09/22/18: mild enlargement of left ventricle, severe global left ventricular systolic dysfunction, LVEF 30%, mild to moderate MR. JOAQUIN PATINODARWIN [place], [place] - [facility] 04/01/2024 10:19:04 07/09/2024 text/html 07/09/24CC : Car diac follow up, dyspnea on year-old white woman with history of nonischemic cardiomyopathy, HF-rEF (improved to mild-moderate LV dysfunction from severe LV systolic function as of echo 12/20/18, 10/31/19, 01/08/21, then LVEF normalized on echo 04/13/22), mild CAD LHC done 2017, GUNNAR (on CPAP), pulmonary HTN, hypertension, dyslipidemia, pre-diabetes, former tobacco dependence (70 pack-year, quit 09/21/2018), COPD, obesity, peripheral vascular disease, and CKD, presents for 3 month follow-up with stress test results. She was last seen in the clinic on 04/01/24, since then she had a stress ets with mild ischemiaShe denies ER visits and hospitalizations since she was last seen. Today reports:Denies chest pain.Denies shortness of breath at rest. Has mild dyspnea on exertion.No orthopnea. No PNDs.Denies heart palpitations.Denies dizziness. Denies syncope or near syncope.Has leg edema.No major bleeding events.No reported side effects from medications. Taking medications as prescribed with no missed doses.Denies snoring, daytime somnolence and AM headache.*Last LDL was 72 and TG is 200 done on 12/07/23.Pt takes rosuvastatin 20 mg. *Had Positive Lexiscan stress test on 05/28/24 with reversible defect small in size consistent with ischemia in inferior area. Normal LV systolic function. LVEF: 48%. Previously:Now she has Cpap, Pt is on CPAP and is 80% compliant. Patient is benefiting with CPAP therapy and will continue nightly use. Had sleep study 05/18/22: Findings are consistent with moderate positional obstructive sleep apnea. *Had LHC 09/26/18: mild CAD, severe left ventricular dysfunction with possible nonischemic cardiomyopathy. *Had ECHO on 04/13/22: LV chamber size is normal. There is normal global systolic function and contractility. The estimated left ventricle ejection fraction is 55-60% (normal). Diastolic filling demonstrates impaired relaxation. Left Atrium chamber is mildly dilated.Results from this visit, or from the past: 3CBC-WBC 5.9 RBC 4.32 HGB 13.1 HCT 40.5 PLT 192CMP-NA 139 K 4.2 BUN 17 CR 1.10 GL 144 CA 8.9 MG 1.9LIPID-TRIG 156 CHOL 158 LDL 57 HDL 55 TSH 3.150 2CMP-NA 139 K 4.1 CR 1.20 GL 170 CA 8.9 MAG 1.9LIPID-TRIG 157 CHOL 165 LDL 61 HDL 54CBC-WBC 5.6 RBC 4.30 HGB 13.0 HCT 40.5 PLT 184 09/15/21 CMP- sodium-140, POTASSIUM-4.1, CHOLRIDE-105, creatinine-1.10, (lipids,ldl,hdl)-gluco se-124, calcium-9.4, mag-1.8, AST-24, ALT-86, creatine kinase-86, trig-138, chol-148, direct LDL-56, HDL direct-64. 06/20/21:Na 139,K 4.7,Cl 103,CO2 31,GLU 127,BUN 14,Cr 1.2,AST 25,ALT 23,CK 119. 04/28/21:Na 140,K 4.5,Cl 103,Co2 28,Glu 137,Bun 16,Cr 1.2,AST 32,ALT 18, Mg 1.8, TSH 2.92. 04/28/21:TC 276,TG 257,HDL 61,LDL 129. CMP, serum or plasma [id number] 6.1, Na 137, K 4.4, Cl 104, CO2 28, Anion Gap 5, BUN 18, Cr 1.2, Estimated GFR 45, Glucose 124, Ca 9.3, Mg 1.7, Total Bilirubin 0.8, AST 26, ALT 19, Total Protein 8/0, Albumin 4.2, TR 163, TC 232, LDL 124, HDL 61, Alk Phos 102, TSH 2.: K 4.3, Cr 1.1, Mg 1.9, LDL 103. 11/08/19 : Na 141, K 4.4, CL 101, CO2 31, GLU 117, BUN 18, CR 1.30, AST 20 ,ALT 19, 11/08/19 : TC 240 ,TG 205, HDL 51,LDL 146, CMP, serum or plasma 04-29-2019 04/29/19: Na 140, K 4.1 ,CL 104 , CO2 28 , GLU 114, BUN 21 ,CR 1.30 , lipid panel, blood 04-29-2019 04/29/19: TC 191 ,TG 109, HDL 57,LDL 95, 10/24/18: NA 136 , K 4.8, CL 103 ,CO2 27, GLU 105, BUN 20, CR 1.20, 10/24/18: TC 154 ,TG 99 ,HDL ,LDL 71 ,AST 22, ALT23 , electrocardiogram 03-30-2022:One or more complexes with too much noise, warning; excessive noise in (part of ) recording, sinus rhythm, P; normal, QRS; possible septal infarct. QS in V1. R < 0.15 mV in V2 V3. ST-T; slight left-precordial ST-T changes, consider ischemia. LV overload or aspecific change, small negative T in V5 V6 with flat or low negative T in V4 , conclusion: possibly abnormal ECG. 08/11/21 EKG: sinus rhythm,P; normal, QRS; 05/05/21 EKG One or more complexes with too much noise warning excessive noise in (part of) recording sinus rhythm P normal QRS normal ST-T mid and left precordial ST-T changes, consider ischemia or LV overload negative T in V5 V6 with small negative T in V3 V4 conclusion abnormal ECG EKG 04/10/19 AM Non confirmed diagnosis. Low voltage, chest leads. Poor R progression in chest leads.EKG 01/09/19 : NSR WNL.EK10/08/18 Normal sinus rhythm.EKG : 10/08/18 Sinus rhythm. Inverted Twave in V5 and V6. LHC 09/26/18: mild CAD, severe left ventricular dysfunction with possible nonischemic cardiomyopathy. 10/27/20 VENOUS DOP: Negative bilateral venous study 04/13/22-ECHO.LV chamber size is normal. There is normal global systolic function and contractility. The estimated left ventricle ejection fraction is 55-60% (normal). Diastolic filling demonstrates impaired relaxation. Left Atrium chamber is mildly dilated. 01/08/2021 : EChocardiographic studies ; Study quality technically difficult Technical limitations LV chamber size is normal There is borderline LV hypertrophy LV sytolic function is mildly to moderately reduyced The estimated left ventricle ejection fraction is 40-45% LV relaxation is impaired Left atrium chamber is mildly dilated There is mild aortic root calcification There is mild thickening of the mitral valve anterior leaflet There is trace mitral regurgitation There is trace tricuspid regurgitation 12/20/18 ECHO: LV chamber is normal. LV wall thickness is normal. There is normal global systolic function and contractility. The estimated left ventricle ejection fraction 55-60%(normal). LV relaxation is impaired. Let atrium chamber is mildly dilated. The aortic valve is mildly calcified. There is mild aortic root calcification. There is mild thickening of mitral valve anterior leaflet. There is mild calcification of mitral valve posterior leaflet. There is minimal pulmonic regurgitation. There is a trace anterior pericardial effusion. Had echo 10/31/19: normal LV size and thickness, mildly reduced LV systolic function with LVEF 45-50%, grade 1 DD, mild pulm. HTN. Echo 09/22/18: mild enlargement of left ventricle, severe global left ventricular systolic dysfunction, LVEF 30%, mild to moderate MR. Saulo Martínez MD [address] [place], [address], [facility] 07/09/2024 10:39:42 01/07/2025 text/html 01/07/25CC : Car [facility] follow up69 year-old white woman with history of nonischemic cardiomyopathy, HF-rEF (improved to mild-moderate LV dysfunction from severe LV systolic function as of echo 12/20/18, 10/31/19, 01/08/21, then LVEF normalized on echo 04/13/22), mild CAD C done 2017, GUNNAR (on CPAP), pulmonary HTN, hypertension, dyslipidemia, pre-diabetes, former tobacco dependence (70 pack-year, quit 09/21/2018), COPD, obesity, peripheral vascular disease, and CKD, presents for 6 month follow-up. She was last seen in the clinic on 07/09/24, since then she had flu LAST MONTHShe denies ER visits and hospitalizations since she was last seen. Today reports:getting over virus flu bronchitisDenies chest pain.Denies shortness of breath at rest. Has mild dyspnea on exertion.No orthopnea. No PNDs.Denies heart palpitations.Denies dizziness. Denies syncope or near syncope.No ankle or leg edema.No major bleeding events.No reported side effects from medications. Taking medications as prescribed with no missed doses.Denies snoring, daytime somnolence and AM headache.*Last LDL was 72 done on 12/08/23.Pt takes rosuvastatin 20 mg. Previously:*Had Positive Lexiscan stress test on 05/28/24 with reversible defect small in size consistent with ischemia in inferior area. Normal LV systolic function. LVEF: 48%. Now she has Cpap, Pt is on CPAP and is 80% compliant. Patient is benefiting with CPAP therapy and will continue nightly use. Had sleep study 05/18/22: Findings are consistent with moderate positional obstructive sleep apnea. *Had LHC 09/26/18: mild CAD, severe left ventricular dysfunction with possible nonischemic cardiomyopathy. *Had ECHO on 04/13/22: LV chamber size is normal. There is normal global systolic function and contractility. The estimated left ventricle ejection fraction is 55-60% (normal). Diastolic filling demonstrates impaired relaxation. Left Atrium chamber is mildly dilated.Results from this visit, or from the past: 3CBC-WBC 5.9 RBC 4.32 HGB 13.1 HCT 40.5 PLT 192CMP-NA 139 K 4.2 BUN 17 CR 1.10 GL 144 CA 8.9 MG 1.9LIPID-TRIG 156 CHOL 158 LDL 57 HDL 55 TSH 3.150 2CMP-NA 139 K 4.1 CR 1.20 GL 170 CA 8.9 MAG 1.9LIPID-TRIG 157 CHOL 165 LDL 61 HDL 54CBC-WBC 5.6 RBC 4.30 HGB 13.0 HCT 40.5 PLT 184 09/15/21 CMP- sodium-140, POTASSIUM-4.1, CHOLRIDE-105, creatinine-1.10, (lipids,ldl,hdl)-gluco se-124, calcium-9.4, mag-1.8, AST-24, ALT-86, creatine kinase-86, trig-138, chol-148, direct LDL-56, HDL direct-64. 06/20/21:Na 139,K 4.7,Cl 103,CO2 31,GLU 127,BUN 14,Cr 1.2,AST 25,ALT 23,CK 119. 04/28/21:Na 140,K 4.5,Cl 103,Co2 28,Glu 137,Bun 16,Cr 1.2,AST 32,ALT 18, Mg 1.8, TSH 2.92. 04/28/21:TC 276,TG 257,HDL 61,LDL 129. CMP, serum or plasma [id number] 6.1, Na 137, K 4.4, Cl 104, CO2 28, Anion Gap 5, BUN 18, Cr 1.2, Estimated GFR 45, Glucose 124, Ca 9.3, Mg 1.7, Total Bilirubin 0.8, AST 26, ALT 19, Total Protein 8/0, Albumin 4.2, TR 163, TC 232, LDL 124, HDL 61, Alk Phos 102, TSH 2.: K 4.3, Cr 1.1, Mg 1.9, LDL 103. 11/08/19 : Na 141, K 4.4, CL 101, CO2 31, GLU 117, BUN 18, CR 1.30, AST 20 ,ALT 19, 11/08/19 : TC 240 ,TG 205, HDL 51,LDL 146, CMP, serum or plasma 04-29-2019 04/29/19: Na 140, K 4.1 ,CL 104 , CO2 28 , GLU 114, BUN 21 ,CR 1.30 , lipid panel, blood 04-29-2019 04/29/19: TC 191 ,TG 109, HDL 57,LDL 95, 10/24/18: NA 136 , K 4.8, CL 103 ,CO2 27, GLU 105, BUN 20, CR 1.20, 10/24/18: TC 154 ,TG 99 ,HDL ,LDL 71 ,AST 22, ALT23 , electrocardiogram 03-30-2022:One or more complexes with too much noise, warning; excessive noise in (part of ) recording, sinus rhythm, P; normal, QRS; possible septal infarct. QS in V1. R < 0.15 mV in V2 V3. ST-T; slight left-precordial ST-T changes, consider ischemia. LV overload or aspecific change, small negative T in V5 V6 with flat or low negative T in V4 , conclusion: possibly abnormal ECG. 08/11/21 EKG: sinus rhythm,P; normal, QRS; 05/05/21 EKG One or more complexes with too much noise warning excessive noise in (part of) recording sinus rhythm P normal QRS normal ST-T mid and left precordial ST-T changes, consider ischemia or LV overload negative T in V5 V6 with small negative T in V3 V4 conclusion abnormal ECG EKG 04/10/19 AM Non confirmed diagnosis. Low voltage, chest leads. Poor R progression in chest leads.EKG 01/09/19 : NSR WNL.EK10/08/18 Normal sinus rhythm.EKG : 10/08/18 Sinus rhythm. Inverted Twave in V5 and V6. LHC 09/26/18: mild CAD, severe left ventricular dysfunction with possible nonischemic cardiomyopathy. 10/27/20 VENOUS DOP: Negative bilateral venous study 04/13/22-ECHO.LV chamber size is normal. There is normal global systolic function and contractility. The estimated left ventricle ejection fraction is 55-60% (normal). Diastolic filling demonstrates impaired relaxation. Left Atrium chamber is mildly dilated. 01/08/2021 : EChocardiographic studies ; Study quality technically difficult Technical limitations LV chamber size is normal There is borderline LV hypertrophy LV sytolic function is mildly to moderately reduyced The estimated left ventricle ejection fraction is 40-45% LV relaxation is impaired Left atrium chamber is mildly dilated There is mild aortic root calcification There is mild thickening of the mitral valve anterior leaflet There is trace mitral regurgitation There is trace tricuspid regurgitation 12/20/18 ECHO: LV chamber is normal. LV wall thickness is normal. There is normal global systolic function and contractility. The estimated left ventricle ejection fraction 55-60%(normal). LV relaxation is impaired. Let atrium chamber is mildly dilated. The aortic valve is mildly calcified. There is mild aortic root calcification. There is mild thickening of mitral valve anterior leaflet. There is mild calcification of mitral valve posterior leaflet. There is minimal pulmonic regurgitation. There is a trace anterior pericardial effusion. Had echo 10/31/19: normal LV size and thickness, mildly reduced LV systolic function with LVEF 45-50%, grade 1 DD, mild pulm. HTN. Echo 09/22/18: mild enlargement of left ventricle, severe global left ventricular systolic dysfunction, LVEF 30%, mild to moderate MR. Alondra Barger [facility], [place] - [facility] 01/20/2025 16:04:30 OBGyn Episode No OBEpisode recorded.
[2025-02-03 07:47] LABS: Basophils Percent Auto 0.4 % (0.2-1.2); Eosinophils Absolute Auto 0.2 K/mm3 (0-0.3); Eosinophils Percent Auto 1.8 % (0-4.4); Hematocrit 40.6 % (37.0-47.0); Hemoglobin 12.9 g/dL (12.0-15.0); Immature Granulocyte Absolute 0.03 K/mm3 (0.00-0.031); Immature Granulocyte Percent A 0.3 % (0-0.5); Lymphocytes Absolute Auto 1.27 K/mm3 (0.9-3.2); Lymphocytes Percent Auto 13.9 % (18.3-44.2); Mean Corpuscular HGB Conc 31.8 g/dl (32-36); Mean Corpuscular Hemoglobin 30.1 pg (26-34); Mean Corpuscular Volume 94.6 fl (80-100); Mean Platelet Volume 9.1 fl (7.4-10.4); Monocytes Absolute Auto 0.6 K/mm3 (0.1-0.6); Monocytes Percent Auto 6.9 % (2.6-8.5); Neutrophils Percent Auto 76.7 % (45.5-73.1); Platelet Count Result 174 k/mm3 (150-375); Red Blood Count 4.29 M/mm3 (4.2-5.4); Red Cell Distribution Width 12.9 % (11.5-14.5); White Blood Count 9.1 K/mm3 (4.5-10.0)
[2025-02-03 08:00] LABS: Alanine Aminotransferase 22 U/L (6-35); Albumin Level 4.4 g/dL (3.5-5.1); Alkaline Phosphatase 107 U/L (38-126); Anion Gap 9 mmol/L (4-12); Aspartate Amino Transferase 22 U/L (14-36); Bilirubin,Total 0.9 mg/dL (0.2-1.3); Blood Urea Nitrogen 20 mg/dL (7-17); Calcium 9.5 mg/dL (8.4-10.2); Carbon Dioxide 27 mmol/L (22-30); Chloride 102 mmol/L (98-107); Cholesterol 158 mg/dL (0-200); Estimated Glomerular Filt Rate 37; Glucose 220 mg/dL (65-110); HDL Direct 50 mg/dL; Potassium 4.3 mmol/L (3.4-5.0); Sodium 138 mmol/L (137-145); Triglycerides 213 mg/dL (<150)
[2025-02-03 08:08] LABS: Add Urine Microscopic? NO; Appearance Urine Clear (Clear); Bilirubin Urine Negative (Negative); Blood Urine Negative (Negative); Color Urine Yellow (Yellow); Glucose Urine UA 3+ mg/dL (Negative); Ketones Urine Trace mg/dL (Negative); Leukocyte Esterase Ur Negative LEU/UL (Negative); Nitrate Urine Negative (Negative); Protein Urine Negative (Negative); Specific Grav Ur 1.033 (1.001-1.035); Urobilinogen Urine 0.2 mg/dL (<2.0); pH Urine 6.5 (5.0-9.0)
[2025-02-03 08:11] LABS: LDL Cholesterol Direct 57 mg/dL
[2025-02-03 08:20] LABS: Hemoglobin A1C 8.3 % (<5.7)
[2025-02-03 09:15] LABS: Creatinine Urine 82.4 mg/dL
[2025-02-03 09:21] LABS: MALB Creatinine Ratio < 7.3 mg/g (0-30); Microalbumin Urine Random < 6.0 mg/L (0-16.7)
[2025-02-03 10:10] LABS: Vitamin D 25 Hydroxy 20.4 ng/mL
== END 2025-02-03 07:04 | disposition home or self-care (01) ==
PROVIDERS: PCP Nurse Practitioner Family; Visit Provider Family Medicine
DX: Z00.00 Encounter for general adult medical examination without abnormal findings (principal); E11.9 Type 2 diabetes mellitus without complications; E55.9 Vitamin D deficiency, unspecified
CPT/HCPCS: 36415; 80053; 80061; 81003; 82043; 82306; 83036; 84443; 85025

== ENCOUNTER 2025-04-04 08:06 | Outpatient (CLI) | payer OTHER, SELFPAY ==
--- NOTE | ~2025-04-04 | CT_ITS ---
CT Scan of the Chest without Contrast: Clinical Indication: History of nicotine dependence Technique: Contiguous sections were acquired throughout the chest without intravenous contrast. Dose reduction technique was used on this scan by utilizing automated exposure control and iterative recon struction technique. The dose-length product (DLP) was 178.45 mGy-cm. Findings: There is no evidence of any significant mediastinal, hilar or axillary lymphadenopathy. There are ext ensive atherosclerotic calcifications of the aorta and coronary arteries. There is no evidence of pleural or pericardial effusion. The lungs are clear, aside from calcified left lower lobe granuloma. There is minimal emphysema. Images through the upper abdomen reveal are severely atrophic left kidney. Impression: Minimal emphysema. No significant pulmonary nodule. Reviewed, dictated and finalized at location . Impression: Minimal emphysema. No significant pulmonary nodule.
--- OUTSIDE RECORDS SUMMARY | 2025-04-04 08:13 | XMS_ITS | Data Portability ---
Author Organization [place] [facility] [employer], Main Office Address [address] [place] [address] Care Team Providers Care Implementation Manager Name Role Phone Unavailable Union Contract Representative Unavailable Union Contract Representative [phone] Assessment Encounter Date Assessment Date Assessment LastModified by Organization Details LastModified Time 01/15/2024 01/15/2024 I have reconciled the patient's [...] Cardio as per schedule. F/u as directed. [email or web address] Not available 01/15/2024 15:11:19 04/03/2024 04/03/2024 68 [...] in 2-3 weeks. Annual labs in 04/06. [email or web address] Not available 04/03/2024 11:07:19 02/05/2025 02/05/2025 69 yo F with - CKD III, new - DM II, uncontrolled - HTN - CHF - HLD - HTG - VIT D DEFICIENCY - OBESITY II - EX-SMOKER (quitted 2017) HbA1c: Annual labs: 02/03/25. CXR: 08/24/22. D/w pt about her findings, recent labs & imagines and further plan of care. Will refer pt to Pulmo. All meds verified with pt. Pt declined for any injection. Meds as directed. Diet and exercise explained in detail. BP diary education and fall risk precautions explained. F/u with Pulmo as per schedule. Cont f/u with Cardio as per schedule. Cont f/u with Ophtho as per schedule. HM: WWE - Long time ago. S/p hysterectomy. Pt declined. Mammo - Ordered again. DEXA - Ordered again. Colonoscopy - 2011, normal as per pt. Cont f/u with GI as per schedule. Flu - Pt declined. Tdap - 10/30. Pneumo - Pt declined. Shingrix - At pharmacy/HD. F/u in 3 months. A1c, lipids, BMP in 05/07. Annual labs in 02/05. [email or web address] Not available 02/05/2025 13:10:12 02/17/2025 02/17/2025 The patient gave verbal consent using TelePhonic services and the consent is documented in the medical record prior to using the service. The patient has been informed of what a TeleMedicine visit is. Patient is located at home. Provider is located at office. Names and roles of persons in addition to the patient and provider participating in telemedicine services include staff. The patient had a 11 minute TeleMedicine consultation via phone call to discuss the following: [email or web address] Not available 02/17/2025 10:26:39 Plan of Treatment Reminders Order Date Submit Date Provider Last Modified By Organization Details Last Modified Time Details Appointments None recorded. Lab lipid panel, serum 202415/ 025 [email or web address] [facility], [address], [place], [address], 5 13:07:38 BMP, serum or plasma 2024 025 [email or web address] [facility], [address], [place], [address], 5 13:07:38 glycohemogl obin, total, blood 2024 025 [email or web address] [facility] (Lab), [address] [place], [address], 5 13:07:37 CBC w/ auto diff [address] (Lab), [address] [place], [address], 4 09:14:43 CMP, serum or plasma [address] (Lab), [address] [place], [address], 4 09:14:44 lipid panel, serum [address] (Lab), [address] [place], [address], 4 09:14:44 TSH, serum, reflex free T4 [address] (Lab), [address] [place], [address], 4 09:14:44 urinalysis complete, reflex culture [address] (Lab), [address] [place], [address], 4 09:14:44 vitamin D, 25-hydroxy, total, serum [address] (Lab), [address] [place], [address], 4 09:14:44 glycohemogl obin, total, blood [address] (Lab), [address] [place], [address], 4 09:14:44 microalbumi n, urine [address] (Lab), [address] [place], [address], 4 09:14:[address] referral - Please call patient to schedule an appointment . Thank you. 2024 025 [email or web address] Michelet San MD, [address] [place], [address], 5 14:45:50 Procedures None recorded. Surgeries None recorded. Imaging MAMMO, screening, bilateral [address], [address] [place] [address], [address], 5 10:01:23 LDCT, chest, for lung cancer screening - *Please call pt to schedule* [address], [address] [place] [address], [address], 5 16:13:44 DEXA [address], [address] [place] [address], [address], 5 10:01:23 MAMMO, screening, bilateral 2023 024 [email or web address] [id number] Not available 4 10:09:40 LDCT, chest, for lung cancer screening - *Please call pt to schedule* 2023 024 [email or web address] [id number] [facility] (Radiology), [address] [place], [address], 4 10:45:23 DEXA 2023 024 [email or web address] 256 Not available 4 10:10:58 Medication Orders ciprofloxac in 500 mg tablet [address] [facility], [address] [facility], [place], [place], [id number], 5 11:50:52 metronidazo le 500 mg tablet [address] [facility]103, [address], [place], [id number], 5 11:50:51 azithromyci n 250 mg tablet 2024 025 [email or web address] [facility], [address] [place], [place], [id number], 5 11:48:02 prednisone 10 mg tablet 2024 025 [facility], [address], [place], [id number], 5 11:48:19 benzonatate 200 mg capsule 2024 025 [email or web address] [facility], [address] [place], [place], [id number], 5 11:48:06 Breztri Aerosphere 160 mcg-9mcg-4. 8mcg/actuat ion HFA aerosol inhaler [address] [facility]00069, [address] [facility], [place], [place], [id number], 5 13:07:38 ergocalcife rol (vitamin D2) 1,250 mcg (50,000 unit) capsule [address] [facility]25285, [address] [facility], [place], [place], [id number], 5 13:07:38 metformin ER 500 mg tablet,exte nded release 24 hr [address] [facility]84027, [address] [place], [place], [id number], 5 13:07:38 Rybelsus 3 mg tablet [address] [facility] #93431, [address] [place], [place], [id number], 5 13:07:38 albuterol sulfate HFA 90 mcg/actuati on aerosol inhaler 2024 DEX [facility] #03075, [address] [place], [place], [id number], 5 17:25:12 oseltamivir 75 mg capsule [address] [facility]64174, [address] [place], [place], [id number], 5 12:50:52 Medrol (Ollie) 4 mg tablets in a dose pack [address] [facility] #52599, [address] [place], [place], [id number], 5 12:50:44 azithromyci n 250 mg tablet 2023 024 [address] [facility] [facility], [address] [facility], [place], [place], [id number], 5 11:48:02 prednisone 10 mg tablet [address] [facility] #28757, [address] [facility], [place], [place], [id number], 5 11:48:19 benzonatate 200 mg capsule 2023 024 [facility], [address] [facility], [place], [place], [id number], 5 11:48:06 meclizine 25 mg tablet 2023 024 [address] [facility], [address] [facility], [place], [place], [id number], 4 10:33:07 ondansetron 4 mg disintegrat ing tablet [address] [facility] #16078, [address] [facility], [place], [place], [id number], 4 10:33:11 metformin ER 500 mg tablet,exte nded release 24 hr 2023 [facility], [address] [facility], [place], [place], [id number], 4 14:59:15 Farxiga 10 mg tablet [address] [facility], [address] [facility], [place], [place], [id number], 4 14:59:14 Patient TargetsNo targets recorded. Patient Instructions Encounter Date Encounter Id Patient Instructions Last Modified By Organization Details Last Modified Time 01/15/2024 [id number] Thank you for yo ur visit to our office today. We would [...] homebound status}} Required Home Health Services: {{none penitentiary, physical therapy, occupational therapy penitentiary, physical therapy penitentiary}} Durable Medical Equipment needed: {{cane walker walk er with seat manual wheelchair bedside commode oxygen}} Billing Guidelines CPT code 76237- Transitional Care Management services with moderate medical decision complexity (onln-sg-ckea visit within 14 days of discharge). CPT code 94132- Transitional Care Management services with high medical decision complexity (lnzg-fn-nhuc visit within 7 days of discharge). Not available 01/15/2024 14:42:56 02/17/2025 [id number] Due to the COVID-19 (Novel Coronavirus) pandemic, it is within this context (and with the understanding that this method of patient encounter is in the patient s best interest as well as the health and safety of other patients and the public) that telehealth is being provided for this patient encounter rather than a wefp-hn-wwut visit. This patient encounter is appropriate at this time. This patient has been advised of the potential risks and limitations of this mode of treatment (including, but not limited to, the absence of in-person examination) and has agreed to be treated in a remote fashion despite these risks. Any and all of the patient s/patient s family s questions on this issue have been answered, and I have made no promises or guarantees to the patient. The patient has also been advised to contact this office for worsening conditions or problems, and seek emergency medical treatment and/or call 911 if the patient deems either necessary. HPI and/or vitals, if listed, were provided by the patient. Not available 02/17/2025 10:26:13 Reason for Referral Leadership Program Internship Referral for C hronic dyspnea Please call patient to schedule an appointment. Thank you. Referring Physician: Scott Wright, Family Medicine, Encounter Date: 02/05/2025 Results Created Date Observation Date Name Description Value Unit Range Abnormal Flag Note LastModifiedBy Organization Detail LastModifiedTime Result Notes None recorded. Problems Name Problem SNOMED Code Status Onset Date Resolution Date Notes Provider Name and Address Organization Details Recorded Time Chronic obstructiv e pulmonary disease 05240249 Active 2017 Not Available [facility] 3 09:19:02 Feeling stressed 633398490 Active Not Available [facility] 3 09:19:03 Increased blood pressure 14704286 Active 2017 Not Available [facility] 3 09:19:03 Fluid level behind tympanic membrane Active Not Available [facility] 3 09:19:03 Dyspnea 034511848 Active 2017 Not Available [facility] 3 09:19:03 Chest pain 89628516 Active 2017 Not Available [facility] 3 09:19:03 Mass of body structure 611114222 Active Not Available [facility] 3 09:19:03 Diverticul itis 588064233 Active Not Available [facility] 3 09:19:03 Bronchitis 24599703 Active Not Available [facility] 3 09:19:03 Strain of neck muscle 358277965 Active 2018 Not Available [facility] 3 09:19:03 Seasonal allergic rhinitis 573665343 Active 2021 Not Available [facility] 3 09:19:04 Sinusitis 37952362 Active Not Available [facility] 3 09:19:04 Stented coronary artery 839881277 Active 2017 Not Available [facility] 3 09:19:04 Inguinal hernia 744857399 Active Not Available [facility] 3 09:19:04 Congestive heart failure 50891050 Active 2017 Not Available [facility] 3 09:19:04 Acute urinary tract infection 910069086 Active Not Available [facility] 3 09:19:04 Seasonal allergy 810308650 Active Not Available [facility] 3 09:19:04 Dysuria 48172117 Active Not Available [facility] 3 09:19:04 Cough 69290402 Active Not Available [facility] 3 09:19:05 Coronary arterioscl erosis 16215161 Active 2018 Not Available [facility] 3 09:19:05 Upper respirator y infection 80930010 Active 2021 Not Available [facility] 3 09:19:05 Left ventricula r hypertroph y 32010792 Active 2017 Not Available [facility] 3 09:19:05 Essential hypertensi on 63518391 Active 2017 Not Available [facility] 3 09:19:05 Urinary tract infectious disease 41551511 Active Not Available [facility] 3 09:19:05 Diverticul osis of colon 403210838 Active 2021 Not Available [facility] 3 09:19:06 Posterior rhinorrhea 32528032 Active Not Available [facility] 3 09:19:06 Smoker 41140589 Completed Not Available [facility] 3 09:19:06 Fatigue 11228227 Active Not Available [facility] 3 09:19:06 Ex-smoker 4064951 Active 2018 Not Available [facility] 3 09:19:06 Cardiomyop athy 78493382 Active 2018 Not Available [facility] 3 09:19:06 Diverticul ar disease of colon 963885968 Active 2022 Scott Wright MD [address] [place] [address], [address], [address] , [place] [facility] 3 10:22:41 Nausea and vomiting 03563435 Active 2022 Scott Wright MD [address], [place], [address] , [place] [facility] 3 10:25:03 Obesity 550377931 Active 2022 Scott Wright MD [address], [place], [address] , [place] [facility] 3 10:40:18 Nausea 681765920 Active 2023 Scott Wright MD [address], [place], [address] , [facility] 4 14:52:02 Vertigo 298416491 Active 2023 Scott Wright MD [address], [place], [address] , [facility] 4 14:52:11 Type 2 diabetes mellitus without complicati on 841528253 Active 2023 Scott Wright MD [address], [place], [address] , [facility] 4 14:57:17 Labyrinthi tis 35230708 Active 2023 Scott Wright MD [address], [place], [address] , [facility] - [facility] 4 15:12:15 Hypertensi ve disorder 69213999 Active 2023 Scott Wright MD [address], [place], [address] , [facility] 4 15:12:35 Vitamin D deficiency 73763031 Active 2023 Scott Wright MD [address], [place], [address] , [facility] - [facility] [employer] 4 10:52:55 Ex-cigaret te smoker 167588975 Active 2024 Scott Wright MD [address] [place] [address], [place], [address] , [employer] [facility] [employer] 5 17:36:24 Chronic kidney disease stage 3 179014363 Active 2024 Scott Wright MD [address], [address] , [employer] [facility] [employer] 5 12:57:35 Hypertrigl yceridemia 684878695 Active 2024 Scott Wright MD [address] [facility] [place], [address] , [employer] [facility] [employer] 5 12:58:51 Chronic dyspnea 580840926 Active 2024 Scott Wright MD [address] [facility] [place], [address] , [employer] [facility] [employer] 5 13:01:26 Left lower quadrant pain 234642301 Active 2024 Sctot Wright MD [address] [facility] [place], [address] , [employer] [facility] [employer] 5 11:47:50 Diverticul itis of colon 443208719 Active 2024 Scott Wirght MD [address] [facility] [address], [place], [address] , [employer] [facility] [employer] 5 11:48:35 Abdominal pain 73783565 Active 2024 Scott Wright MD [address] [facility] [place], [address] , [employer] [facility] [employer] 5 11:51:06 Problem Notes None recorded. Procedures Surgical History Date Name Laterality Status Provider Name and Address Organization Details Recorded Time 01/15/2024 Transition al_Care_Ma nagement completed Pablo Cortez [employer] [facility] [employer] 01/15/2024 14:42:56 Imaging Results None recorded. Procedure Notes None recorded. Medical Equipment None Reported. Allergies Allergen ID Allergen Name Allergen Category Reaction Reaction Severity Criticality Documentation Date Start Date Code Code System Note Provider Name and Address Organization Details Recorded Time 88286 naproxen medicatio n hives Not available Not available 01/11/2023 7258 RxNorm Not Available [facility] 3 09:26:28 13868 Levaquin medicatio n edema Not available Not available 01/11/2023 98569 2 RxNorm turne d brigh t red Not Available [facility] 3 09:26:28 Medications Name Sig Start Date [...] oral route as directed for 7 days. 02/17 completed Not Available Not Available Not Available doxycycline hyclate 100 mg capsule Take [...] ORAL ROUTE ONCE DAILY FOR 4 DAYS 02/17 completed Not Available Not Available Not Available fluconazole 150 mg tablet active Not Available Not Available Not Available benzonatate 200 mg capsule TAKE 1 CAPSULE BY MOUTH EVERY 8 HOURS FOR 10 DAYS NEEDED 02/17 completed Not Available Not Available Not Available acetaminoph en 120 mg-codeine 12 mg/5 [...] MOUTH EVERY 8 HOURS FOR 7 DAYS active Not Available Not Available No t Available amlodipine 5 mg tablet TAKE 1 TABLET BY MOUTH TWICE DAILY active Not Available Not Available No t Available ciprofloxac in 500 mg tablet TAKE 1 TABLET BY MOUTH EVERY 12 HOURS FOR 5 DAYS active Not Available Not Available No t Available sulfamethox azole 800 mg-trimetho prim 160 [...] 1 TIME IF NEEDED. MUST HAVE A BUFFET SERVER FOR THE TEST. 02/21 completed Not Available [...] MOUTH TWICE DAILY FOR 5 DAYS DIRECTED 02/05 completed Not Available Not Available Not Available nitrofurant oin macrocrysta l 100 mg [...] Not Available Not Available No t Available ergocalcife rol (vitamin D2) 1,250 mcg (50,000 unit) capsule TAKE 1 CAPSULE BY MOUTH EVERY WEEK DIRECTED active Not Available Not Available No t Available diazepam 10 mg tablet TAKE 1-2 TABLET BY MOUTH 1-2 HOURS BEFORE PROCEDURE 02/21 completed Not Available Not Available Not Available methylpredn isolone 4 mg tablets in a dose pack FOLLOW PACKAGE DIRECTION S 02/05 completed Not Available Not Available Not Available albuterol sulfate HFA 90 mcg/actuati on [...] Not Available Not Available No t Available Rybelsus 3 mg tablet TAKE 1 TABLET BY MOUTH EVERY DAY DIRECTED active Not Available Not Available No t Available Breztri Aerosphere 160 mcg-9mcg-4. 8mcg/actuat ion HFA aerosol inhaler INHALE 2 PUFFS BY MOUTH TWICE DAILY DIRECTED active Not Available Not Available No t Available Vitals Date Recorded Body height Body mass index (BMI) Body weight Body temperature Heart rate Respiratory rate Oxygen saturation Oxygen saturation in Arterial blood by Pulse oximetry Systolic blood pressure Diastolic blood pressure Provider Name and Address Organization Details Last Updated DateTime 4 165.1 cm 34.8 kg/m2 13252.5 6 g 98 [degF] 78 /min 16 /min 98 % 98 % 144 mm[Hg] 70 mm[Hg] Pablo Cortez [employer] 4 14:47:57 Date Recorded Body height Body mass index (BMI) Body weight Body temperature Heart rate Respiratory rate Oxygen saturation Oxygen saturation in Arterial blood by Pulse oximetry Systolic blood pressure Diastolic blood pressure Provider Name and Address Organization Details Last Updated DateTime 4 165.1 cm 35 kg/m2 73976.7 5 g 97.99 [degF] 82 /min 16 /min 99 % 99 % 140 mm[Hg] 76 mm[Hg] Pablo Cortez [employer] [facility] [employer] 4 10:43:47 Date Recorded Body height Body mass index (BMI) Body weight Body temperature Heart rate Provider Name and Address Organization Details Last Updated DateTime 12/25/2024 165.1 cm 34.2 kg/m2 32472.84 g 97.1 [degF] 95 /min Marisa Diana RN [facility] [employer] 5 17:19:43 Date Recorded Oxygen saturation Oxygen saturation in Arterial blood by Pulse oximetry Systolic blood pressure Diastolic blood pressure Provider Name and Address Organization Details Last Updated DateTime 12/25/2024 94 % 94 % 162 mm[Hg] 100 mm[Hg] Scott Wright MD [address] [facility] [facility] [address], [place], [address], [employer] [facility] [employer] 5 17:35:36 Date Recorded Body height Body mass index (BMI) Body weight Body temperature Heart rate Systolic blood pressure Diastolic blood pressure Provider Name and Address Organization Details Last Updated DateTime 5 165.1 cm 34.5 kg/m2 90185.3 2 g 97.2 [degF] 73 /min 150 mm[Hg] 72 mm[Hg] Marisa Diana RN [facility] [employer] 5 12:50:23 Date Recorded Oxygen saturation Oxygen saturation in Arterial blood by Pulse oximetry Provider Name and Address Organization Details Last Updated DateTime 02/05/2025 93 % 93 % Scott Wright MD [address], [place], [address], [facility] [employer] 02/05/2025 13:06:50 Social History Question Answer Notes LastModified by Organizat ion Details LastModified Time Tobacco Smoking Status Former Smoker quit 2017 [place] [employer], [place] 04/01/2025 16:16:46 Do You Have An Advance Directive? No Information not available 02/21/2023 Are You Blind Or Do You Have Difficulty Seeing? No Information not available 02/21/2023 Is Blood Transfusion Acceptable In An Emergency? Yes Information not available 02/21/2023 What Is Your Level Of Caffeine Consumption? Heavy Soda Information not available 02/21/2023 How Much Tobacco Do You Chew? None [id number] Information not available 01/11/2023 What Is Your Code Status? Full Code Information not available 02/21/2023 In The 14 Days Before Symptom Onset, Have You Had Close Contact With A Laboratory-confir med COVID-19 While That Case Was Ill? No [id number] Information not available 01/11/2023 In The 14 Days Before Symptom Onset, Have You Had Close Contact With A Person Who Is Under Investigation For COVID-19 While That Person Was Ill? No [id number] Information not available 01/11/2023 Are You Deaf Or Do You Have Serious Difficulty Hearing? No Information not available 02/21/2023 What Type Of Diet Are You Following? REGULAR [id number] Information not available 01/11/2023 Which Illicit Or Recreational Drugs Have You Used? None [id number] Information not available 01/11/2023 Have There Been Any Changes To Your Family Or Social Situation? No Information no t available 02/21/2023 When Did You Quit Smoking? 6-10yearssi ncelastciga rette Information not available 02/21/2023 Do You Use Insect Repellent Routinely? No Information not available 02/21/2023 Where Do You Live? Other [place] Information not available 02/21/2023 Do You Have A Medical Power Of Pushcart Peddler? No Information not available 02/21/2023 Do You [...] Yes Information not available 02/21/2023 Do You Use Sunscreen Routinely? No Information not available 02/21/2023 How Many Years Have You Smoked Tobacco? 48 [email or web address] Information not available 04/01/2025 Have You Recently Traveled Abroad? No Information not available 02/21/2023 Do You Have Difficulty Walking Or Climbing Stairs? No Information not available 02/21/2023 Sex: Unknown Functional Status Question Answer Note LastModified by Organizat ion Details LastModified Time Do you use any illicit or recreational drugs? No Information not available 02/21/2023 What is your level of alcohol consumption? None [id number] Information not available 01/11/2023 Do you have transportation difficulties? No Information not available 02/21/2023 Are you able to walk? YESWOREST Information not available 02/21/2023 Do you have difficulty doing errands alone? No Information not available 02/21/2023 Are you able to care for yourself? 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 No Information not available 02/21/2023 Do you or have you ever used e-cigarettes or vape? Never used electronic cigarettes [id number] Information not available 01/11/2023 What is your exercise level? None [id number] Information not available 01/11/2023 Mental Status Question Answer Note LastModified by Organizat ion Details LastModified Time Do you feel stressed (tense, restless, nervous, or anxious, or unable to sleep at night)? [id number] Information not available 02/21/2023 Do you have difficulty concentrating, remembering or making decisions? No Information no t available 02/21/2023 Family History Relationship Description Onset Age of this Age Resolved Age Notes LastModified by Organization Details LastModified Time Unspecified Relation Family history of malignant neoplasm [id number] Not available 01/11/2023 09:14:02 Father Congestive heart failure [id number] Not available 01/11/2023 09:14:02 Sister Malignant tumor of pharynx ~early 50's [id number] Not available 01/11/2023 09:14:02 Medical History Condition Response CHF Y Gynecological History Statement/Question Response Date of Last Colonoscopy Most Recent Mammogram Date of LMP Most Recent Bone Density Obstetrics History GPAL:G 0 P 0 0 0 0 Immunizations Vaccine Type Date Status Note Provider Nam e and Address Organization Details Recorded Time Influenza, high-dose, quadrivalent, PF 10/25/[address] [facility] 10/26/2023 12:30:55 Influenza, high-dose, quadrivalent, PF 09/28/2022 completed Not Available [facility] 3 09:26:23 Influenza, high-dose, quadrivalent, PF 11/18/2021 completed Not Available [facility] 3 09:26:23 Tdap 10/23/2018 completed Not Available [facility] 01/11/2023 09:26:23 Influenza, split virus, quadrivalent, PF 10/23/2018 completed Not Available [facility] 3 09:26:23 Influenza, split virus, quadrivalent, PF 10/29/2020 completed Not Available [facility] 3 09:26:23 Influenza, split virus, quadrivalent, PF 11/20/2019 completed Not [facility] 09:26:24 Past Encounters Encounter ID Performer Location Encounter Start Date Encounter Closed Date Diagnosis/Indication Diagnosis SNOMED-CT Code Diagnosis ICD10 Code Diagnosis Note [id number] Scott Wright MD [facility] [address] [place] [address] 02/25/2021 00:00:00 02/25/2021 16:26:49 [id number] Scott Wright MD [facility] [address] [place] [address] 04/28/2021 00:00:00 04/28/2021 15:23:59 [id number] Scott Wright MD [facility] [address] [place] [address] 07/08/2021 00:00:00 07/08/2021 17:26:35 [id number] Scott Wright MD [facility] [address] [place] [address] 11/17/2021 00:00:00 11/17/2021 18:56:43 [id number] Scott Wright MD [facility] [address] [place] [address] 08/18/2022 00:00:00 08/18/2022 11:43:34 [id number] Scott Wright MD [facility] [address] [place] [address] 09/28/2022 00:00:00 09/28/2022 12:58:26 [id number] Annemarie Lizarraga NP [facility] [address] [place] [address] 02/21/2023 16:25:41 02/21/2023 16:51:40 Chronic obstructive pulmonary disease 04403036 J44.9 Medrol dose ollie, breo sent. If getting colored drainage start on [facility] [id number] Scott Wright MD [facility] [address] [place] [address] 10/25/2023 09:52:23 10/25/2023 10:46:21 Diverticular disease of colon 262033455 K57.30 Administra tion of influenza vaccine 98712063 Z23 Nausea and vomiting 1693 2000 R11.2 Obesity 789335610 E66.9 [id number] Scott Wright MD [address] [address] 01/15/2024 14:41:05 01/15/2024 15:03:17 Transition of care 5531786089 105 Z75.8 [facility] 190104735 Z76.89 Nausea 422559978 R11.0 Vertigo 739929702 R42 Type 2 zabrina betes mellitus without complication 967784956 E11.9 Ex-smoker 4797004 Z87.89 1 Labyrinthitis 28335734 H 83.03 Hypertensive disorder 38 122313 I10 Obesity 433374281 E66.9 [id number] Scott Wright MD [address] [address] 04/03/2024 10:31:43 04/03/2024 11:15:33 Bronchitis 89628012 J40 Adult heal th examination 388540649 Z00.00 Screening mammography 24 062666 Z12.31 Screening for osteoporosis 747934907 Z13.820 Congestive heart failure 91162974 I50.9 Obesity 038899504 E66.9 Type 2 zabrina betes mellitus without complication 063216230 E11.9 Vitamin D deficiency 347 73048 E55.9 Cough 65704788 R05.9 Ex-smoker 3259249 Z87.89 1 Quitted 2017 [id number] Scott Wright MD [address] [address] 12/25/2024 17:10:35 12/25/2024 17:32:39 Exposure to Influenzavirus 175338894 Z20.828 Pt declined for swab. Bronchitis 13755342 J40 Ex-cigarette smoker 2810 69890 Z87.891 Fatigue 89040376 R53.83 [id number] Scott rWight MD [facility] [address] [address] 02/05/2025 12:41:02 02/05/2025 13:06:24 Bronchitis 55484664 J40 Screening mammography 24 569337 Z12.31 Screening for osteoporosis 378583232 Z13.820 Congestive heart failure 53169788 I50.9 Obesity 922010423 E66.9 Type 2 zabrina betes mellitus without complication 557023892 E11.9 Vitamin D deficiency 347 32649 E55.9 Cough 77017311 R05.9 Ex-smoker 8503629 Z87.89 1 Quitted 2017 Chronic ki dney disease stage 3 206075602 N18.30 Hypertriglyceridemia 302 856329 E78.2 Chronic dyspnea 17027014 9 R06.00 [id number] Scott Wright MD [facility] [address] 02/17/2025 10:14:47 02/17/2025 12:43:24 Diverticulitis of colon 582804155 K57.32 Left lower quadrant pain 801522391 R10.32 Abdominal pain 80247395 R10.9 Educated pt about alarming symptoms to monitor at home and get checked in ED in that case. Health Concerns Section Related Observation LastModified by Organization Detai ls LastModified Time None Recorded Concern Status LastModified by Organization Details LastModified Time None Recorded Advance Directives Directive N: Payers Encounter Date Sequence Insurance Name Policy Number Policy Acosta Covered Member ID Acosta Member ID Guarantor Name 01/15/2024 1 [facility] [id number] [id number] 04/03/2024 1 [facility] [id number] Gayle Tanna [id number] Gayle Tanna 12/25/2024 1 [facility] [id number] Gayle Tanna [id number] Gayle Tanna 02/05/2025 1 [facility] [id number] Gayle Tanna [id number] Gayle Tanna 02/17/2025 1 [facility] [id number] Gayle Tanna [id number] [facility] Notes Date Note Type Note Provider Name and Address Organization Details Recorded Time 01/15/2024 text/html ED fuv: Pt was seen [...] and nausea. No other symptoms. No chest pain/sob/v/c/d/blo od in stool/abdo pain. Pt is not on any meds for her DM. Pt is not coming here regularly. Pt is f/u with her Cardio and is on meds by them. Scott Wright MD [address], [place], [address], [email or web address] 01/15/2024 15:14:33 04/03/2024 text/html Pt is here for h er annual visit. Doing overall well. Denies any problem with meds. C/o cough, congestion, drainage for last 2 weeks. Pt has been doing otc meds, but still not getting better yet. Pt is f/u with Cardio every 3-6 months for her HTN and CHF and is on meds by them. Scott Wright MD [address], [place], [address], [email or web address] 04/03/2024 11:09:27 12/25/2024 text/html ACV: C/o congestion, dry cough, body aches, chills since yesterday. Pt says one of her co-worker was sick and she was around her and she has Flu. Scott Wright MD [address], [place], [address], [email or web address] 12/25/2024 17:37:20 02/05/2025 text/html FUV + ACV: C/o cough, congestion, drainage for last 2 weeks. Pt has been doing otc meds, but still not getting better yet. F/u on her annual labs. Denies any problem with meds. Pt is f/u with Cardio every 3-6 months for her HTN and CHF and is on meds by them. Scott Wright MD [address], [place], [address], [employer] 02/05/2025 13:10:40 02/17/2025 text/html Telephone visit.ACV: C/o LLQ abdominal area pain for last 3 days, denies any other symptoms or concerns. Denies any unusual outside food intake/known sick contact. Pt has done some dietary changes and she is feeling better today. Pt is requesting antibiotics for diverticulitis. Pt had it last year and it feels same this time. No other concern. Scott Wright MD [address], [place], [address], [employer] 02/17/2025 12:38:01 OBGyn Episode No OBEpisode recorded.
== END 2025-04-04 08:07 | disposition home or self-care (01) ==
PROVIDERS: PCP Family Medicine; Visit Provider Family Medicine
DX: Z12.2 Encounter for screening for malignant neoplasm of respiratory organs (principal); Z87.891 Personal history of nicotine dependence
CPT/HCPCS: 71250

== ENCOUNTER 2025-08-07 17:18 | Emergency (ER) | payer OTHER, SELFPAY ==
--- NOTE | 2025-08-07 17:22 | ED.URI ---
HPI - URI/Sore Throat General Chief Complaint: Upper Respiratory Infection Stated Complaint: Cough / Congestion Time Seen by Provider: 08/07/25 17:30 Source: patient Mode of arrival: ambulatory Limitations: no limitations History of Present Illness HPI Narrative: Gayle is a 70-year-old female patient presenting to the clinic today with complaints of productive cough with some yellow phlegm, nasal congestion, and chest congestion x3 days. She denies any shortness of breath or chest pain. No known fever but has had some chills and sweats. Has taken DayQuil, NyQuil, and Mucinex. MD elicited complaint: sore throat and nasal congestion Related Data Home Medications ?Medication ?Instructions ?Recorded ?Confirmed ?Last Taken ?Type aspirin 81 mg tablet,delayed 81 mg PO DAILY 11/17/19 01/09/20 01/08/20 08:00 History release atorvastatin 40 mg tablet 40 mg PO HS 11/17/19 01/09/20 01/08/20 20:00 History carvedilol 25 mg tablet 25 mg PO BID 11/17/19 01/09/20 01/09/20 04:30 History lisinopril 10 mg tablet 10 mg PO QAM 11/17/19 01/09/20 01/09/20 04:30 History albuterol sulfate 90 mcg/actuation 2 puff inhalation QID PRN Dyspnea 01/07/20 01/09/20 Unknown History aerosol inhaler (ProAir HFA) Allergies Allergy/AdvReac Type Severity Reaction Status Date / Time levofloxacin Allergy Unknown Rash Verified 08/07/25 17:38 naproxen Allergy Unknown Rash Verified 08/07/25 17:38 Review of Systems Review of Systems: Pertinent positives per HPI. Patient denies any fever, rash, headache, visual changes, dizziness, shortness of breath, chest pain, palpitations, nausea, vomiting, diarrhea, constipation, abdominal pain, or any urinary issues. [facility] Past Medical History Medical History (Updated 08/07/25 @ 18:01 by Kennedy Salcedo APRN) Eczema Anemia Type I diabetes mellitus Elbow fracture, left Briones's cyst of knee left knee Arthritis UTI (urinary tract infection) Inguinal hernia left Diverticulosis Pneumonia Bronchitis COPD (chronic obstructive pulmonary disease) DVT (deep venous thrombosis) CAD (coronary artery disease) mild Heart murmur Valvular heart disease CHF (congestive heart failure) Seasonal allergies Hyperlipidemia HTN (hypertension) Diverticulitis Surgical History Surgical History H/O removal of cyst Briones's cyst removed from left knee History of hysterectomy History of tubal ligation H/O inguinal hernia repair S/P insertion of iliac artery stent History of cardiac catheterization Hx of tonsillectomy Family History Family History Mother Asthma Father Family history of heart disease in male family member before age 55 Other Cerebrovascular accident Diabetes mellitus Family history of allergic disorder Hypertension Social History Social History Smoking status: Former smoker Tobacco type: cigarettes Second hand tobacco smoke exposure: Yes Additional smoking assessment comments: Pt quit smoking in 09/30 Gender identity (if verbalized by the patient): Female Comments At the time of my signature, I reviewed and agree with the nursing past medical, surgical, social, and family history. There is no relevant family history pertinent to the patient complaint. Exam Narrative: General: Well-developed, well nourished, in no apparent distress Head: Normocephalic, atraumatic Eyes: Pupils equally round and reactive to light bilaterally, EOM intact, sclera and conjunctive clear, no discharge, lids normal Ears: TMs intact and clear, ear canals clear, no drainage, grossly hearing normal. Nose: Nares patent, clear nasal discharge, mild inflammation, no sinus tenderness. Mouth: Oral pharynx without lesions or masses, good dentition, MMM. Postnasal drip Neck: Supple, trachea midline, no enlargement of anterior or posterior cervical nodes, no thyroid masses or goiter palpable. Cardio: Regular rate and rhythm, s1 and s2 normal, no murmur appreciated. Resp: Clear to auscultation bilaterally, no rhonchi, rales, wheezing or rubs Course Course Emergency Course: Portions of this record may have been created with voice recognition software. Level of Care: Express Care Visit Vital Signs Vital signs: Vital Signs Temperature 36.6 C 08/07/25 17:25 Pulse Rate 82 08/07/25 17:25 Respiratory Rate 18 08/07/25 17:25 Blood Pressure 174/66 H 08/07/25 17:25 Pulse Oximetry 95 08/07/25 17:25 Oxygen Delivery Room Air 08/07/25 17:25 Temperature 36.6 C 08/07/25 17:25 Pulse Rate 82 08/07/25 17: Respiratory Rate 18 08/07/25 17:25 Blood Pressure 174/66 H 08/07/25 17:25 Pulse Oximetry 95 08/07/25 17:25 Oxygen Delivery Room Air 08/07/25 17:25 Vital signs reviewed MDM - URI/Sore Throat MDM Narrative Medical decision making narrative: At the time of visit patient is resting comfortably on the exam table. Patient appears to be nontoxic. complaints of productive cough with some yellow phlegm, nasal congestion, and chest congestion x3 days. She denies any shortness of breath or chest pain. No known fever but has had some chills and sweats. Has taken DayQuil, NyQuil, and Mucinex. On exam patient has clear nasal drainage, mild swelling of the anterior turbinates, postnasal drip, lung sounds are clear, and heart rates regular rate and rhythm. COVID test was ordered Labs: COVID testing was performed and was negative in the clinic today. Plan: I suspect patient has URI. Recommend taking Coricidin HBP for cold flu symptoms patient's has high blood pressure is type 1 diabetic. Supportive measures were discussed with the patient and they voiced understanding discharge instructions and agrees to treatment plan. Return precautions reviewed Differential Diagnosis Differential diagnosis: Likely upper respiratory infection, otitis media, sinusitis, viral infection, bronchitis, influenza (Pneumonia), pharyngitis and other (COVID) Lab Data Labs: Lab Results 08/07/25 Range/Units 17:59 POC SARS CoV-2 Ag Negative (Negative) Discharge Plan Discharge Clinical Impression: Upper respiratory infection Qualifiers: URI type: unspecified URI Qualified Code(s): J06.9 - Acute upper respiratory infection, unspecified Patient Disposition: Home Condition: Stable Instructions: Antibiotic Form, Cold Symptoms (ED) Additional Instructions: COVID testing was negative in the clinic today. May take Coricidin HBP as directed on bottle for cold/flu symptoms Increase fluids and stay well hydrated May take Tylenol or motrin as directed on bottle for pain/fever May use Flonase 1 spray in each nare daily May take OTC antihistamines such as Zyrtec or Claritin daily as directed on bottle May apply Vicks vapor rub to chest to open sinuses Sinus rinses for congestion Cepacol spray, cough drops, throat lozenges, warm tea with honey/lemon, gargle salt water to soothe throat BRAT diet for diarrhea Clear liquids x 24 hours then advance as tolerated for nausea/vomiting Go to the ED if you develop a worsening in your condition- high fever not controlled by Tylenol or Motrin, dehydration, weakness, lethargy, shortness of breath, or chest pain. Follow up with your PCP in 3-5 days if symptoms persist. Patient Language: Honduran Prescriptions: No Action atorvastatin 40 mg Tablet 40 mg PO HS carvedilol 25 mg Tablet 25 mg PO BID aspirin 81 mg Tablet,Delayed Release (Dr/Ec) 81 mg PO DAILY lisinopril 10 mg Tablet 10 mg PO QAM albuterol sulfate [ProAir HFA] 90 mcg/actuation Hfa Aerosol Inhaler 2 puff INHALATION QID PRN (Reason: Dyspnea) acetaminophen 500 mg capsule 500 mg PO Q6H PRN (Reason: fever or pain) Qty: 30 0RF acetaminophen 500 mg capsule 500 mg PO Q6H PRN (Reason: pain) Qty: 20 0RF Follow-up/Referrals: Kyle,MD Scott [Primary Care Provider, Unknown] Time of Disposition: 17:58 Quality NIHSS Nursing Documentation ED NIHSS nursing documentation: reviewed/agree
[2025-08-07 17:25] VITALS: BP 174/66; PULSE 82; RESP 18; TEMP 36.6; O2SAT 95
--- OUTSIDE RECORDS SUMMARY | 2025-08-07 17:48 | XMS_ITS | Clinical Summary ---
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
--- OUTSIDE RECORDS SUMMARY | 2025-08-07 17:48 | XMS_ITS | Data Portability ---
Author Organization [place] - [facility] OFFICE Address [address] [place] [id number] Assessment Encounter Date Assessment Date Assessment LastModified by Organization Details LastModified Time 11/20/2023 11/20/2023 Patient Examined by CESILIA Sagastume, Also Documentation reviewed and approved by supervising physician quinesto Not available 08/12/2023 13:08:49 04/01/2024 04/01/2024 Patient Examined by CESILIA Sagastume, Also Documentation reviewed and approved by supervising physician esto Not available 03/30/2024 11:07:28 Plan of Treatment Reminders Order Date Submit Date Provider Last Modified By Organization Details Last Modified Time Details Appointments ESTABLISH ED PATIENT DETAILED 2025 01:45P M Saulo López i, MD Not available Not available Not available Lab None recorded. Referral None recorded. Procedures None recorded. Surgeries None recorded. Imaging None recorded. Medication Orders carvedilo l 25 mg tablet 2023 024 [facility], [address] [place], [place], [phone], 07/09/2024 10:39:48 Lasix 20 mg tablet 2023 024 [facility], [address], [place], [id number], 07/09/2024 10:39:39 Fish Oil 1,000 mg (120 mg-180 mg) capsule 2023 024 [facility], [address], [place], [id number], 04/01/2024 10:19:07 Entresto 49 mg-51 mg tablet 2023 024 [facility] #47342, [address], [place], [place], [id number], 11/20/2023 13:08:10 Lasix 20 mg tablet 2023 024 [facility] #65051, [address], [place], [place], [id number], 11/20/2023 13:06:25 rosuvasta tin 20 mg tablet 2023 024 [facility] #36700, [address], [place], [place], [id number], 11/20/2023 13:06:25 hydralazi ne 10 mg tablet 2023 024 [facility] #60053, [address], [place], [place], [id number], 11/20/2023 13:06:25 Farxiga 10 mg tablet 2023 024 [facility] #68679, [address], [place], [place], [id number], 11/20/2023 13:07:33 Patient TargetsNo targets recorded. Patient Instructions Encounter Date Encounter Id Patient Instructions Last Modified By Organization Details Last Modified Time 11/20/2023 [id number] Exercise advised Low cholesterol diet advised Low sodium diet advised. [email or web address] Not available 11/20/2023 13:06:12 04/01/2024 [id number] Low cholesterol diet advised Low sodium diet advised. eyassin Not available 04/01/2024 10:18:11 Reason for Referral None Reported. Results Created Date Observation Date Name Description Value Unit Range Abnormal Flag Note LastModifiedBy Organization Detail LastModifiedTime 05/04/01/2024 elect rocar diogr am No observ ation record ed. [email or web address] Not Available 10:47:37 06/01/20 24 05/28/2024 madeline can cardi olite stres s test (PROC ) No observ ation record ed. [email or web address] Not Available 2023 15:54:53 01/08/20 25 01/07/2025 elect rocar diogr am No observ ation record ed. [email or web address] Not Available 2024 14:50:05 02/21/20 25 02/05/2025 US, echoc ardio gram No observ ation record ed. esto [facility] [address], [place], [address], 07/18/2025 14:48:46 Result Notes None recorded. Problems Name Problem SNOMED Code Status Onset Date Resolution Date Notes Provider Name and Address Organization Details Recorded Time Cough 29831650 Active 2017 Not Available [facility] 13:[facility]:06 Infection of mucous cyst of nasal sinus 533350286 Active 2017 Not Available [facility] 4 13:54:06 Syncope 746979920 Active 2017 Not Available [facility] 4 13:54:05 Dizziness 018866982 Active 2017 Not Available [facility] 4 13:54:05 Snoring 25808080 Active 2017 Not Available [facility] 4 13:54:06 Fatigue 86920153 Active 2017 Not Available [facility] 4 13:54:06 Nonischemi c congestive cardiomyop athy 170394285767 Active 2017 Not Available [facility] 4 13:54:05 Essential hypertensi on 71378856 Active 2017 Not Available [facility] 4 13:54:06 Dyslipidem ia 763082678 Active 2017 Not Available [facility] 4 13:54:05 Coronary arterioscl erosis 48052915 Active 2018 Not Available [facility] 4 13:54:06 Dyspnea on exertion 60512931 Active 2018 Not Available [facility] 4 13:54:06 Obesity 241997968 Active 2018 Not Available [facility] 4 13:54:05 Obstructiv e sleep apnea syndrome 40608879 Active 2019 Not Available [facility] 4 13:54:06 Edema of lower extremity 609723845 Active 2019 Not Available [facility] 4 13:54:05 Notes:Some problems listed i n Documents: #[id number], #[id number], #[id number], #[id number], #[id number], #[id number], #[id number], #[id number], #[id number], #[id number] could not be added to this patient's chart. Please review these documents and add these problems to the patient's chart manually as needed. Problem Notes None recorded. Procedures Surgical History Date Name Laterality Status Provider Name and Address Organization Details Recorded Time tonsillectomy completed [facility] 10/08/2018 13:07:10 procedure on knee completed [facility] [place] 10/08/2018 13:07:19 hysterectomy completed [facility] 10/08/2018 13:07:34 cardiac catheterization completed [facility] 10/08/2018 13:07:48 Imaging Results None recorded. Procedure Notes None recorded. Medical Equipment None Reported. Allergies Allergen ID Allergen Name Allergen Category Reaction Reaction Severity Criticality Documentation Date Start Date Code Code System Note Provider Name and Address Organization Details Recorded Time 7083 naproxen medicatio n facial swelling hives itching severe severe severe Not available 10/08/2018 7258 RxNorm [facility] [place] 9 11:19:40 7084 Levaquin medicatio n hives itching severe severe Not available 10/08/2018 40361 2 RxNorm Annmar[facility], [facility] 9 11:19:16 Medications Name Sig Start Date Stop Date Status Note LastModified by Organization Details LastModified Time cyclobenza jose hydrochlor francheska 10 mg tabs 11/11 completed Not Available Not Available Not Available amoxicilli [...] 03/04/20 Not Available Not Available Not Available symbicort 160-4.5 mcg/act aero 06/03 completed pt [...] tablet twice a day by oral route. 12/17 /2018 completed Not Available Not Available Not Available prednisone 10 mg tablet TAKE 1 TABLET BY MOUTH EVERY DAY FOR 7 DAYS DIRECTED active Not Available Not Available No t Available atorvastat in 20 mg tablet Take [...] Available Not Available No t Available lisinopril 20 mg tablet TAKE 1 [...] Not Available Not Available No t Available sulfametho xazole 800 mg-trimeth oprim 160 [...] 1 TIME IF NEEDED. MUST HAVE A MATERIAL CHASER FOR THE TEST. 04/01 completed Not Available [...] Not Available Not Available No t Available ergocalcif eulogio (vitamin D2) 1,250 mcg (50,000 unit) capsule [...] 1 capsule every day by oral route. 2024 active Not Available Not Available Not Lydia labbalta omega3 300 mg-dha,epa 250 mg-other omega 3s-fish [...] Available No t Available Breztri Aerosphere 160 mcg-9mcg-4 .8mcg/actu ation HFA aerosol inhaler INHALE 2 PUFFS BY MOUTH TWICE DAILY DIRECTED active Not Available Not Available No t Available Vitals Date Recorded Body height Body mass index (BMI) Body weight Heart rate Respiratory rate Oxygen saturation Oxygen saturation in Arterial blood by Pulse oximetry Systolic And Diastolic Provider Name and Address Organization Details Last Updated DateTime 4 162.56 cm 35.9 kg/m2 94235.8 1 g 66 /min 16 /min 94 % 94 % 127/62 mm[Hg] Crow Walls [facility] [place] 4 12:36:07 Date Recorded Body height Body mass index (BMI) Body weight Heart rate Oxygen saturation Oxygen saturation in Arterial blood by Pulse oximetry Systolic And Diastolic Provider Name and Address Organization Details Last Updated DateTime 5 162.56 cm 35.9 kg/m2 28229.2 4 g 70 /min 93 % 93 % 132/68 mm[Hg] Keely Mccain [facility] [place] 5 12:19:34 Date Recorded Body height Body mass index (BMI) Body weight Heart rate Oxygen saturation Oxygen saturation in Arterial blood by Pulse oximetry Systolic And Diastolic Provider Name and Address Organization Details Last Updated DateTime 4 162.56 cm 35.7 kg/m2 45804.2 1 g 85 /min 91 % 91 % 124/70 mm[Hg] Keely Mccain [facility] [place] 4 09:44:14 Date Recorded Body height Body mass index (BMI) Body weight Heart rate Respiratory rate Oxygen saturation Oxygen saturation in Arterial blood by Pulse oximetry Systolic And Diastolic Provider Name and Address Organization Details Last Updated DateTime 4 162.56 cm 35.9 kg/m2 44328.8 1 g 81 /min 16 /min 97 % 97 % 132/84 mm[Hg] Kalli Smithran [facility] [place] 4 10:07:52 Date Recorded Body height Body mass index (BMI) Body weight Heart rate Respiratory rate Oxygen saturation Oxygen saturation in Arterial blood by Pulse oximetry Systolic And Diastolic Provider Name and Address Organization Details Last Updated DateTime 5 162.56 cm 35.4 kg/m2 14747.0 3 g 63 /min 16 /min 98 % 98 % 134/70 mm[Hg] Crow Walls [facility] [place] 5 12:54:47 Social History Question Answer Notes LastModified by PA Semi Details LastModified Time Tobacco Smoking Status Former Smoker QUIT 8 Not Available [facility] 09/15/2020 03:30:42 What Is Your Level Of Caffeine Consumption? Moderate [id number] Information not available 09/15/2020 How Much Tobacco Do You Chew? None [id number] Information not available 09/15/2020 What Type Of Diet Are You Following? REGULAR LOW SALT [id number] Information not available 09/15/2020 Which Illicit Or Recreational Drugs Have You Used? NO [id number] Information not available 09/15/2020 Live Alone Or With Others? With Others Information not available 10/08/2018 Marital Status Informatio n not available 10/08/2018 What Was The Date Of Your Most Recent Tobacco Screening? 12/10/2018 [id number] Information not available 09/15/2020 How Many Children Do You Have? 3 [id number] Information not available 09/15/2020 How Much Tobacco Do You Smoke? No [id number] Information not available 09/15/2020 Sex: Unknown Functional Status Question Answer Note LastModified by PA Semi Details LastModified Time What is your level of alcohol consumption? None [id number] Information not available 09/15/2020 Do you or have you ever used smokeless tobacco? Former smokeless tobacco user [id number] Information not available 09/15/2020 What is your occupation? [employer]- [employer] Information not available 10/08/2018 Do you or have you ever used e-cigarettes or vape? Never used electronic cigarettes [id number] Information not available 09/15/2020 What is your exercise level? None [id number] Information not available 09/15/2020 Mental Status None [...] [email or web address] Not available 2017 13:05:25 Notes:No premature NH. Medical History Condition Response Coronary Artery Disease Y Cardiomyopathy Y Hyperlipidemia Y Hypertension Y Gynecological HistoryNo gynecological history recorded. Obstetrics History GPAL:G 0 P 0 0 0 0 Past Encounters Encounter ID Performer Location Encounter Start Date Encounter Closed Date Diagnosis/Indication Diagnosis SNOMED-CT Code Diagnosis ICD10 Code Diagnosis IMO Codes Diagnosis Note [id number] Tereso Huynh MD [id number] [place] [address] 10/08/2018 12:21:25 10/08/2018 14:27:55 Nonischemic congestive cardiomyopathy 6054992401 04 I42.0 Dyspnea improving. Had echo 09/22/18: [...] wks. Begin [facility]. Begin cardiac rehab. at [place]. Patient interested in discussing CHF trials. Essential hypertension 44278084 I10 Patient's blood pressure is well-contr olled on present medical therapy. Patient is tolerating , without difficulty , the current medication s. I have not made changes to the current regimen. Patient was advised to eat a low-sodium diet (2 grams sodium or less daily). Dyslipidemia 822926121 E 78.5 Obtain FLP. Continue statin. [id number] Tereso Huynh MD [place] OFF[facility] [address] [place] [address] 10/29/2018 11:51:24 11/08/2018 10:22:57 Nonischemic congestive cardiomyopathy 9773370205 04 I42.0 Dyspnea improving. Had echo 09/22/18: [...] echo mid 12/2018. Begining cardiac rehab. at [place] 10/29/18. Patient interested in discussing CHF trials. 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 Essential hypertension 10838214 I10 Patient's blood pressure is somewhat well-contr olled on present medical therapy. Patient is tolerating , without difficulty , the current medication s. I have not made changes to the current regimen. Patient was advised to eat a low-sodium diet (2 grams sodium or less daily). Dyslipidemia 115746195 E 78.5 Obtained FLP 10/24/18: LDL 71. Needs to keep LDL less than 70, and HDL more than 40. Continue statin. [id number] Tereso Huynh MD [place] [facility] [address] [place] [address] 11/19/2018 11:48:27 11/19/2018 13:19:04 Nonischemic congestive cardiomyopathy 5357496777 04 I42.0 Dyspnea improving. Had echo 09/22/18: [...] echo mid 12/2018. Begining cardiac rehab. at [place] 10/29/18. Patient interested in discussing CHF trials. Increased to carvedilol 25 mg bid 11/19/18. Needs to obtain echo 12/23/17 to evaluate for structural /functiona l disease. to reassess LVEF on [facility]. Essential hypertension 59458901 I10 Patient's blood pressure is somewhat well-contr olled on present medical therapy. Patient is tolerating , without difficulty , the current medication s. I have not made changes to the current regimen. Patient was advised to eat a low-sodium diet (2 grams sodium or less daily). Dyslipidemia 198561534 E 78.5 Obtained FLP 10/24/18: LDL 71. Needs to keep LDL less than 70, and HDL more than 40. Continue statin. Coronary arteriosclerosis 23769568 I25.10 Had [facility] 09/26/18: mild CAD, severe left ventricula r dysfunctio n with possible nonischemi c cardiomyop athy. Continue ASA and statin. Needs to keep LDL less than 70, and HDL more than 40. [id number] Tereso Huynh MD [place] [facility] [address] [place] [address] 12/10/2018 12:00:28 12/10/2018 13:32:07 Nonischemic congestive cardiomyopathy 0426199392 04 I42.0 Dyspnea improving. Had echo 09/22/18: mild enlargemen t of left ventricle, severe global left ventricula r systolic dysfunctio n, LVEF 30%, mild to moderate MR. Had [facility] 09/26/18: mild CAD, severe left ventricula r [...] echo mid 12/2018. Begining cardiac rehab. at [place] 10/29/18. Patient interested in discussing CHF trials and patient states Keily is following her for any available trials. Increased to carvedilol 25 mg bid 11/19/18. Given mildly increased Cr 1.2, continue with lisinopril 10 mg and began hydralazin e 25 mg tid 12/10/18. Needs to obtain echo 12/23/17 to evaluate for structural /functiona l disease. to reassess LVEF on [facility]. Coronary arteriosclerosis 91026927 I25.10 Had [facility] 09/26/18: mild CAD, severe left ventricula r dysfunctio n with possible nonischemi c cardiomyop athy. Continue ASA and statin. Needs to keep LDL less than 70, and HDL more than 40. Essential hypertension 09808387 I10 Patient's blood pressure is somewhat well-contr olled on present medical therapy. Patient is tolerating , without difficulty , the current medication s. I have made the following changes to the current regimen. Patient was advised to eat a low-sodium diet (2 grams sodium or less daily). Patient did not take meds today. Dyslipidemia 831847520 E 78.5 Obtained FLP 10/24/18: LDL 71. Needs to keep LDL less than 70, and HDL more than 40. Continue statin. [id number] Tereso Huynh MD [place] [facility] [address] [place] [address] 01/09/2019 13:30:59 01/09/2019 15:04:15 Nonischemic congestive cardiomyopathy 1453785937 04 I42.0 Had normalizat ion of severe [...] LVEF 30%, mild to moderate MR. Had [facility] 09/26/18: mild CAD, severe left ventricula r dysfunctio n with possible nonischemi c cardiomyop athy. Continue lisinopril , Aldactone. Increased to carvedilol 25 mg bid 11/19/18. Given mildly increased Cr 1.2, continue with lisinopril 10 mg and began hydralazin e 25 mg tid 12/10/18. Stop [facility]. Continue cardiac rehab. at [place]. Coronary arteriosclerosis 21403766 I25.10 Had [facility] 09/26/18: mild CAD, severe left ventricula r dysfunctio n with possible nonischemi c cardiomyop athy. Continue ASA and statin. Needs to keep LDL less than 70, and HDL more than 40. Essential hypertension 30875282 I10 Patient's blood pressure is somewhat well-contr olled on present medical therapy. Patient is tolerating , without difficulty , the current medication s. I have made the following changes to the current regimen. Patient is advised to maintain a blood pressure diary. Patient was advised to eat a low-sodium diet (2 grams sodium or less daily). Patient did not take meds today. Dyslipidemia 480145184 E 78.5 Obtained FLP 10/24/18: LDL 71. Needs to keep LDL less than 70, and HDL more than 40. Continue statin. [id number] Tereso Huynh MD [place] [facility] [address] [place] [address] 04/10/2019 11:14:16 04/10/2019 12:47:31 Nonischemic congestive cardiomyopathy 2804100474 04 I42.0 Had normalizat ion of severe [...] LVEF 30%, mild to moderate MR. Had [facility] 09/26/18: mild CAD, severe left ventricula r dysfunctio n with possible nonischemi c cardiomyop athy. Continue lisinopril , Aldactone. Increased to carvedilol 25 mg bid 11/19/18. Given mildly increased Cr 1.2, continue with lisinopril 10 mg and began hydralazin e 25 mg tid 12/10/18. Obtain BMP, Mg. Completed cardiac rehab. at [place]. Increase walking. Coronary arteriosclerosis 39581791 I25.10 Had [facility] 09/26/18: mild CAD, severe left ventricula r dysfunctio n with possible nonischemi c cardiomyop athy. Continue ASA and statin. Needs to keep LDL less than 70, and HDL more than 40. Essential hypertension 07270248 I10 Patient's blood pressure is well-contr olled on present medical therapy. Patient is tolerating , without difficulty , the current medication s. I have not made changes to the current regimen. Patient is advised to maintain a blood pressure diary. Patient was advised to eat a low-sodium diet (2 grams sodium or less daily). Patient did not take meds today. Dyslipidemia 983547953 E 78.5 Obtained FLP 10/24/18: LDL 71. Needs to keep LDL less than 70, and HDL more than 40. Continue statin. Obtain FLP. [id number] Tereso Huynh MD [place] [facility] [address] [place] [address] 10/09/2019 11:03:09 10/09/2019 11:45:43 Nonischemic congestive cardiomyopathy 6629300949 04 I42.0 Had normalizat ion of severe [...] LVEF 30%, mild to moderate MR. Had [facility] 09/26/18: mild CAD, severe left ventricula r dysfunctio n with possible nonischemi c cardiomyop athy. Continue lisinopril , Aldactone. Increased to carvedilol 25 mg bid 11/19/18. Given mildly increased Cr 1.2, continue with lisinopril 10 mg and began hydralazin e 25 mg tid 12/10/18. PCP stopped hydralazin e. Obtain BMP, Mg to follow-up Cr 1.3 04/29/19. Completed cardiac rehab. at [place]. Increase walking. Obtain echo to evaluate for structural /functiona l disease, reassess LVEF and has new exertional dyspnea. Coronary arteriosclerosis 58738206 I25.10 Had [facility] 09/26/18: mild CAD, severe left ventricula r dysfunctio n with possible nonischemi c cardiomyop athy. Continue ASA and statin. Needs to keep LDL less than 70, and HDL more than 40. Essential hypertension 66129800 I10 Patient's blood pressure is well-contr olled on present medical therapy. Patient is tolerating , without difficulty , the current medication s. I have not made changes to the current regimen. Patient is advised to maintain a blood pressure diary. Patient was advised to eat a low-sodium diet (2 grams sodium or less daily). Dyslipidemia 174455156 E 78.5 Obtained FLP 10/24/18: LDL 71. [...] walking. Consider pulm. evaluation for COPD. Obesity 149160470 E66.9 20 lb. weight loss recommende d over the next 2 months. [id number] Tereso Huynh MD [place] [facility] [address] [place] [address] 12/11/2019 11:00:23 12/11/2019 12:21:29 Nonischemic congestive cardiomyopathy 4374416117 04 I42.0 Had normalizat ion of severe [...] in 1 mo. Completed cardiac rehab. at [place]. Increase walking. Coronary arteriosclerosis 17155678 I25.10 Had [facility] 09/26/18: mild CAD, severe left ventricula r dysfunctio n with possible nonischemi c cardiomyop athy. Continue ASA and statin. Needs to keep LDL less than 70, and HDL more than 40. Essential hypertension 09868578 I10 Patient's blood pressure is well-contr olled on present medical therapy. Patient is tolerating , without difficulty , the current medication s. I have not made changes to the current regimen. Patient is advised to maintain a blood pressure diary. Patient was advised to eat a low-sodium diet (2 grams sodium or less daily). Dyslipidemia 886892592 E 78.5 Obtained FLP 10/24/18: LDL 71. [...] per PCP. Has mild pulm. HTN. Obesity 805530383 E66.9 20 lb. weight loss recommende d over the next 2 months. [id number] Tereso Huynh MD [place] [facility] [address] [place] [address] 03/04/2020 12:27:37 03/04/2020 15:26:36 Nonischemic congestive cardiomyopathy 3817837994 04 I42.0 Had near normalizat ion of [...] Obtain CMP, Mg. Completed cardiac rehab. at [place]. Increase walking. Coronary arteriosclerosis 49057690 I25.10 Had [facility] 09/26/18: mild CAD, severe left ventricula r dysfunctio n with possible nonischemi c cardiomyop athy. Continue ASA and statin. Needs to keep LDL less than 70, and HDL more than 40. Essential hypertension 34175437 I10 Patient's blood pressure is not well-contr olled on present medical therapy. Patient is tolerating , without difficulty , the current medication s. I have made the following changes to the current regimen. Patient is advised to maintain a blood pressure diary. Patient was advised to eat a low-sodium diet (2 grams sodium or less daily). To improve BP control, began amlodipine 5 mg qd 03/04/20. Dyslipidemia 189966105 E 78.5 Obtained FLP 10/24/18: LDL 71. [...] per PCP. Has mild pulm. HTN. Obesity 132479911 E66.9 20 lb. weight loss recommende d over the next 2 months. [id number] Tereso Huynh MD [place] [facility] [address] [place] [address] 06/03/2020 12:00:00 06/03/2020 12:55:39 Nonischemic congestive cardiomyopathy 1037007313 04 I42.0 Had near normalizat ion of [...] LVEF 30%, mild to moderate MR. Had [facility] 09/26/18: mild CAD, severe left ventricula r [...] 1.9, CR 1.3. Completed cardiac rehab. at [place]. Increase walking. Obtain echo 10/2020. Coronary arteriosclerosis 25556862 I25.10 Had [facility] 09/26/18: mild CAD, severe left ventricula r dysfunctio n with possible nonischemi c cardiomyop athy. Continue ASA and statin. Needs to keep LDL less than 70, and HDL more than 40. Essential hypertension 26797214 I10 Patient's blood pressure is somewhat well-contr olled on present medical therapy. Patient is tolerating , without difficulty , the current medication s. I have made the following changes to the current regimen. Patient is advised to maintain a blood pressure diary. Patient was advised to eat a low-sodium diet (2 grams sodium or less daily). To improve BP control, began amlodipine 5 mg qd 03/04/20. Dyslipidemia 514785472 E 78.5 Obtained FLP 10/24/18: LDL 71. [...] per PCP. Has mild pulm. HTN. Obesity 607573001 E66.9 20 lb. weight loss recommende d over the next 2 months. [id number] Tereso Huynh MD [place] [facility] [address] [place] [address] 06/24/2020 14:42:46 06/24/2020 16:38:37 Nonischemic congestive cardiomyopathy [id number] 04 I42.0 Had near normalizat ion of [...] LVEF 30%, mild to moderate MR. Had [facility] 09/26/18: mild CAD, severe left ventricula r [...] 1.9, LDL 103. Completed cardiac rehab. at [place]. Increase walking. Obtain echo 10/2020. Coronary arteriosclerosis 30792069 I25.10 Had C 09/26/18: mild CAD, severe left ventricula r dysfunctio n with possible nonischemi c cardiomyop athy. Continue ASA and statin. Needs to keep LDL less than 70, and HDL more than 40. Essential hypertension 52430773 I10 Patient's blood pressure is somewhat well-contr olled on present medical therapy. Patient is tolerating , without difficulty , the current medication s. I have not made changes to the current regimen. Patient is advised to maintain a blood pressure diary. Patient was advised to eat a low-sodium diet (2 grams sodium or less daily). To improve BP control, began amlodipine 5 mg qd 03/04/20. Dyslipidemia 187923524 E 78.5 Obtained FLP 10/24/18: LDL 71. [...] per PCP. Has mild pulm. HTN. Obesity 126381215 E66.9 20 lb. weight loss recommende d over the next 2 months. Obstructiv e sleep apnea syndrome 85145513 G47.33 Reports snoring. Reports fatigue. No daytime somnolence . Had echo 10/31/19: normal LV size and thickness, mildly reduced LV systolic function with LVEF 45-50%, grade 1 DD, mild pulm. HTN. Obtain home sleep study. Edema of l ower extremity 199065708 R60.0 Reports increased bilateral pedal edema since 06/18/20, greater on right. Spironolac tone was stopped several months prior due to increased Cr to 1.3, which improved off spironolac tone. Had 06/24/20: K 4.3, Cr 1.1, Mg 1.9 Obtain bilateral LE venous Doppler. Elevate legs.Compr ession stockings. Sodium restrictio n. Obtain home sleep study, given mild pulm. HTN. Consider stopping amlodipine . [id number] Tereso Huynh MD [id number] [place] [address] 11/11/2020 11:20:02 11/11/2020 12:35:01 Edema of lower extremity 671209832 R60.0 Reports less intermitte nt bilateral pedal [...] CMP, Mg, TSH. Nonischemi c congestive cardiomyopathy 2136289727 04 I42.0 Had near normalizat ion of [...] LVEF 30%, mild to moderate MR. Had [facility] 09/26/18: mild CAD, severe left ventricula r [...] 1.9, LDL 103. Completed cardiac rehab. at [facility]. Increase walking. Obtain echo to evaluate for structural /functiona l disease. Coronary arteriosclerosis 79973009 I25.10 Had [facility] 09/26/18: mild CAD, severe left ventricula r dysfunctio n with possible nonischemi c cardiomyop athy. Continue ASA and statin. Needs to keep LDL less than 70, and HDL more than 40. Essential hypertension 74623297 I10 Patient's blood pressure is well-contr olled on present medical therapy. Patient is tolerating , without difficulty , the current medication s. I have not made changes to the current regimen. Patient is advised to maintain a blood pressure diary. Patient was advised to eat a low-sodium diet (2 grams sodium or less daily). To improve BP control, began amlodipine 5 mg qd 03/04/20. Dyslipidemia 540742326 E 78.5 Obtained FLP 10/24/18: LDL 71. [...] per PCP. Has mild pulm. HTN. Obesity 649585222 E66.9 20 lb. weight loss recommende d over the next 2 months. Obstructiv e sleep apnea syndrome 49416679 G47.33 Reports snoring. Reports fatigue. No daytime somnolence . Had echo 10/31/19: normal LV size and thickness, mildly reduced LV systolic function with LVEF 45-50%, grade 1 DD, mild pulm. HTN. Obtain home sleep study. [address]23 Tereso Huynh MD [facility] [address] [place] [address] 05/05/2021 11:23:52 05/05/2021 17:47:54 Edema of lower extremity 222740764 R60.0 Reports less intermitte nt bilateral pedal [...] 1.8, TSH 2.92. Nonischemi c congestive cardiomyopathy 9302031352 04 I42.0 Improved to mild-moder ate LV [...] 1.8, TSH 2.92. Completed cardiac rehab. at [place]. Increase walking. Coronary arteriosclerosis 82308370 I25.10 Had [facility] 09/26/18: mild CAD, severe left ventricula r dysfunctio n with possible nonischemi c cardiomyop athy. Continue ASA and statin. Needs to keep LDL less than 70, and HDL more than 40. Essential hypertension 79927771 I10 Patient's blood pressure is well-contr olled on present medical therapy. Patient is tolerating , without difficulty , the current medication s. I have not made changes to the current regimen. Patient is advised to maintain a blood pressure diary. Patient was advised to eat a low-sodium diet (2 grams sodium or less daily). To improve BP control, began amlodipine 5 mg qd 03/04/20. Dyslipidemia 445564074 E 78.5 Obtained FLP 10/24/18: LDL 71. [...] per PCP. Has mild pulm. HTN. Obesity 991511776 E66.9 20 lb. weight loss recommende d over the next 2 months. Obstructiv e sleep apnea syndrome 67589889 G47.33 Reports snoring. Reports fatigue. No daytime somnolence . Had echo 10/31/19: normal LV size and thickness, mildly reduced LV systolic function with LVEF 45-50%, grade 1 DD, mild pulm. HTN. Obtain home sleep study. 10961 Tereso Huynh MD [place] [facility] [place] [place] [address] 08/11/2021 10:59:57 08/11/2021 12:11:24 Edema of lower extremity 156565382 R60.0 Reports increased intermitte nt bilateral pedal [...] . BP diary. Nonischemi c congestive cardiomyopathy 8815917199 04 I42.0 Improved to mild-moder ate LV [...] pericardia l effusion. Minimal MR. Had echo 11/10/18: mild enlargemen t of left ventricle, severe global left ventricula r systolic dysfunctio n, LVEF 30%, mild to moderate MR. Had [facility] 09/26/18: mild CAD, severe left ventricula r [...] 1.8, TSH 2.92. Completed cardiac rehab. at [place]. Increase walking. Coronary arteriosclerosis 74392314 I25.10 Had [facility] 09/26/18: mild CAD, severe left ventricula r dysfunctio n with possible nonischemi c cardiomyop athy. Continue ASA and statin. Needs to keep LDL less than 70, and HDL more than 40. Essential hypertension 98267270 I10 Patient's blood pressure is somewhat well-contr olled on present medical therapy. Patient is tolerating , without difficulty , the current medication s. I have made the following changes to the current regimen. Patient is advised to maintain a blood pressure diary. Patient was advised to eat a low-sodium diet (2 grams sodium or less daily). To improve BP control, began amlodipine 5 mg qd 03/04/20. Began HCTZ 12.5 mg qd 08/11/21 for improved control of edema and HTN. Dyslipidemia 579519997 E 78.5 Needs to keep LDL less [...] per PCP. Has mild pulm. HTN. Obesity 620267733 E66.9 20 lb. weight loss recommende d over the next 2 months. Obstructiv e sleep apnea syndrome 60082056 G47.33 Reports snoring. Reports fatigue. No daytime somnolence . Had echo 10/31/19: normal LV size and thickness, mildly reduced LV systolic function with LVEF 45-50%, grade 1 DD, mild pulm. HTN. Obtain home sleep study for possible GUNNAR. [address] Saulo Martínez MD [place] [facility] [address] [place] [address] 09/29/2021 11:34:43 09/29/2021 12:31:56 Edema of lower extremity 531907453 R60.0 Previously : Had Reports increased intermitte [...] . BP diary. Nonischemi c congestive cardiomyopathy 2145286514 04 I42.0 Improved to mild-moder ate LV [...] LVEF 30%, mild to moderate MR. Had [facility] 09/26/18: mild CAD, severe left ventricula r [...] 1.8, TSH 2.92. Completed cardiac rehab. at [place]. Increase walking. Coronary arteriosclerosis 56594666 I25.10 Had [facility] 09/26/18: mild CAD, severe left ventricula r dysfunctio n with possible nonischemi c cardiomyop athy. Continue ASA and statin. Needs to keep LDL less than 70, and HDL more than 40. Essential hypertension 86506330 I10 Patient's blood pressure is well-contr olled on present medical therapy. Patient is tolerating , without difficulty , the current medication s. I have made the following changes to the current regimen. Patient is advised to maintain a blood pressure diary. Patient was advised to eat a low-sodium diet (2 grams sodium or less daily). To improve BP control, began amlodipine 5 mg qd 03/04/20. Began HCTZ 12.5 mg qd 08/11/21 for improved control of edema and HTN. Dyslipidemia 400521906 E 78.5 Needs to keep LDL less [...] statins. Began rosuvastat in 20 mg qHS 9/29/21 as 10 mg was not enough previously . Obtain FLP, CMP, Mg, CPK. Had labs at [facility] and we were not able to review [...] per PCP. Has mild pulm. HTN. Obesity 418063430 E66.9 20 lb. weight loss recommende d over the next 2 months. Obstructiv e sleep apnea syndrome 19049533 G47.33 Reports snoring. Reports fatigue. No daytime somnolence . Had echo 10/31/19: normal LV size and thickness, mildly reduced LV systolic function with LVEF 45-50%, grade 1 DD, mild pulm. HTN. Obtain home sleep study for possible GUNNAR. Was unable to complete sleep study due to malfunctio n of equipment in the office will relate this to court collections officer and give patient a call to reschedule [id number] Tereso Huynh MD [place] [facility] [place] [address] 03/30/2022 11:32:28 03/30/2022 13:27:47 Edema of lower extremity 102644951 R60.0 Stable. Intermitte nt. Spironolac tone was [...] . BP diary. Nonischemi c congestive cardiomyopathy 3133657976 04 I42.0 Improved to mild-moder ate LV [...] 1.8, TSH 2.92. Completed cardiac rehab. at [facility]. Increase walking. Stop lisinopril for 2 days 03/30/22, and begin Entresto 24-26 bid. Obtain CMP, Mg, CBC, Mg, FLP in 3-4 wks. Obtain echo to evaluate for structural /functiona l disease, reassess LVEF. Pending echo and LVEF, consider Verquvo and Farxiga. Coronary arteriosclerosis 88013491 I25.10 Had [facility] 09/26/18: mild CAD, severe left ventricula r dysfunctio n with possible nonischemi c cardiomyop athy. Continue ASA and statin. Needs to keep LDL less than 70, and HDL more than 40. Essential hypertension 79602378 I10 Patient's blood pressure is well-contr olled on present medical therapy. Patient is tolerating , without difficulty , the current medication s. I have made the following changes to the current regimen. Patient is advised to maintain a blood pressure diary. Patient was advised to eat a low-sodium diet (2 grams sodium or less daily). To improve BP control, began amlodipine 5 mg qd 03/04/20. Began HCTZ 12.5 mg qd 08/11/21 for improved control of edema and HTN. Dyslipidemia 791754985 E 78.5 Needs to keep LDL less [...] per PCP. Has mild pulm. HTN. Obesity 834629568 E66.9 20 lb. weight loss recommende d over the next 2 months. Obstructiv e sleep apnea syndrome 83435712 G47.33 Reports snoring. Reports fatigue. No daytime somnolence . Had echo 10/31/19: normal LV size and thickness, mildly reduced LV systolic function with LVEF 45-50%, grade 1 DD, mild pulm. HTN. Obtain home sleep study for possible GUNNAR. [address]78 Tereso Huynh MD [place] [facility] [place] [address] 06/01/2022 11:51:30 06/01/2022 12:39:22 Edema of lower extremity 226226141 R60.0 Stable. Intermitte nt. Spironolac tone was [...] . BP diary. Nonischemi c congestive cardiomyopathy 6574846912 04 I42.0 Improved to mild-moder ate LV [...] 1.8, TSH 2.92. Completed cardiac rehab. at [facility]. Increase walking. Stopped lisinopril for 2 days 03/30/22, then began Entresto 24-26 bid. Had 05/09/2022 CMP-NA 139 K 4.1 CR 1.20 GL 170 CA 8.9 MAG 1.9 Coronary arteriosclerosis 03990367 I25.10 Had [facility] 09/26/18: mild CAD, severe left ventricula r dysfunctio n with possible nonischemi c cardiomyop athy. Continue ASA and statin. Needs to keep LDL less than 70, and HDL more than 40. Essential hypertension 34824165 I10 Patient's blood pressure is well-contr olled on present medical therapy. Patient is tolerating , without difficulty , the current medication s. I have not made changes to the current regimen. Patient is advised to maintain a blood pressure diary. Patient was advised to eat a low-sodium diet (2 grams sodium or less daily). To improve BP control, began amlodipine 5 mg qd 03/04/20. Began HCTZ 12.5 mg qd 08/11/21 for improved control of edema and HTN. Dyslipidemia 622658389 E 78.5 Needs to keep LDL less [...] per PCP. Had mild pulm. HTN. Obesity 554411864 E66.9 20 lb. weight loss recommende d over the next 2 months. Obstructiv e sleep apnea syndrome 26586604 G47.33 Reports snoring. Reports fatigue. No daytime [...] positional obstructiv e sleep apnea. Began CPAP. 52197 Tereso Huynh MD [facility] [address] [place] [address] 07/13/2022 12:23:36 07/13/2022 13:48:39 Edema of lower extremity 479246511 R60.0 Stable. Intermitte nt. Spironolac tone was [...] . BP diary. Nonischemi c congestive cardiomyopathy 9975764935 04 I42.0 Improved to mild-moder ate LV [...] LVEF 30%, mild to moderate MR. Had [facility] 09/26/18: mild CAD, severe left ventricula r dysfunctio n with possible nonischemi c cardiomyop athy. Increased to carvedilol 25 mg bid 11/19/18. Given persistent mild elevation in Cr 1.3, stopped spironolac tone 12/11/19. Completed cardiac rehab. at [facility]. Increase walking. Stopped lisinopril for 2 days 03/30/22, then began Entresto 24-26 bid. Had 05/09/2022 CMP-NA 139 K 4.1 CR 1.20 GL 170 CA 8.9 MAG 1.9 Coronary arteriosclerosis 75995534 I25.10 Had [facility] 09/26/18: mild CAD, severe left ventricula r dysfunctio n with possible nonischemi c cardiomyop athy. Continue ASA and statin. Needs to keep LDL less than 70, and HDL more than 40. Essential hypertension 28225246 I10 Patient's blood pressure is somewhat well-contr olled on present medical therapy. Patient is tolerating , without difficulty , the current medication s. I have not made changes to the current regimen. Patient is advised to maintain a blood pressure diary. Patient was advised to eat a low-sodium diet (2 grams sodium or less daily). To improve BP control, began amlodipine 5 mg qd 03/04/20. BP diary. Dyslipidemia 964799402 E 78.5 Needs to keep LDL less [...] per PCP. Had mild pulm. HTN. Obesity 048528754 E66.9 20 lb. weight loss recommende d over the next 2 months. Obstructiv e sleep apnea syndrome 24929163 G47.33 Reports snoring. Reports fatigue. No daytime [...] is currently awaiting CPAP delivery, with delay. [id number] MD [facility] [address] [facility] [place] [address] 10/13/2022 10:24:51 10/13/2022 11:11:36 Sleep disorder 47488949 G47.9 Now she has CpapPt is on CPAP and is 100% compliant. Patient is benefiting with CPAP therapy and will continue nightly use. [id number] Tereso Huynh MD [place] [facility] [address] [place] [address] 11/23/2022 14:55:19 11/23/2022 15:52:22 Edema of lower extremity 351703375 R60.0 Stable. Intermitte nt. Spironolac tone was [...] . BP diary. Nonischemi c congestive cardiomyopathy 5295555810 04 I42.0 Improved to mild-moder ate LV [...] spironolac tone 12/11/19. Completed cardiac rehab. at [facility]. Increase walking. Stopped lisinopril for 2 days 03/30/22, then began Entresto 24-26 bid. Had 05/09/2022 : CMP-NA 139 K 4.1 CR 1.20 GL 170 CA 8.9 MAG 1.9 Coronary arteriosclerosis 09268440 I25.10 Had C 09/26/18: mild CAD, severe left ventricula r dysfunctio n with possible nonischemi c cardiomyop athy. Continue ASA and statin. Needs to keep LDL less than 70, and HDL more than 40. Essential hypertension 57424239 I10 Patient's blood pressure is somewhat well-contr olled on present medical therapy. Patient is tolerating , without difficulty , the current medication s. I have not made changes to the current regimen. Patient is advised to maintain a blood pressure diary. Patient was advised to eat a low-sodium diet (2 grams sodium or less daily). To improve BP control, began amlodipine 5 mg qd 03/04/20. BP diary. Consider increase in Entresto pending BP diary. Dyslipidemia 101489070 E 78.5 Needs to keep LDL less [...] HTN, with GUNNAR now on CPAP. Obesity 919988203 E66.9 20 lb. weight loss recommende d over the next 2 months. Obstructiv e sleep apnea syndrome 78686428 G47.33 Reports snoring. Reports fatigue. No daytime [...] obstructiv e sleep apnea. Tolerating CPAP. Continue. [id number] MD [facility] [address] [place] [address] 01/26/2023 10:08:28 01/26/2023 11:04:46 Obstructive sleep apnea syndrome 91442738 G47.33 Pt is on CPAP and is 100% compliant. Patient is benefiting with CPAP therapy and will continue nightly use. 22110 Tereso Huynh MD [facility] [address] [place] [address] 03/10/2023 10:59:52 03/10/2023 11:37:27 Edema of lower extremity 095167566 R60.0 Resolved on CPAP. Spironolac tone was [...] 184 BP diary. Nonischemi c congestive cardiomyopathy 5035609793 04 I42.0 Improved to mild-moder ate LV [...] LVEF 30%, mild to moderate MR. Had [facility] 09/26/18: mild CAD, severe left ventricula r dysfunctio n with possible nonischemi c cardiomyop athy. Increased to carvedilol 25 mg bid 11/19/18. Given persistent mild elevation in Cr 1.3, stopped spironolac tone 12/11/19. Completed cardiac rehab. at [facility]. Increase walking. Stopped lisinopril for 2 days 03/30/22, then began Entresto 24-26 bid. Had 05/09/2022 : CMP-NA 139 K 4.1 CR 1.20 GL 170 CA 8.9 MAG 1.9 Obtain echo 05/2023, reassess LVEF. Coronary arteriosclerosis 24657064 I25.10 Had [facility] 09/26/18: mild CAD, severe left ventricula r dysfunctio n with possible nonischemi c cardiomyop athy. Continue ASA and statin. Needs to keep LDL less than 70, and HDL more than 40. Essential hypertension 64813968 I10 Patient's blood pressure is somewhat well-contr olled on present medical therapy. Patient is tolerating , without difficulty , the current medication s. I have not made changes to the current regimen. Patient is advised to maintain a blood pressure diary. Patient was advised to eat a low-sodium diet (2 grams sodium or less daily). To improve BP control, began amlodipine 5 mg qd 03/04/20. BP diary. Consider increase in Entresto pending BP diary. Dyslipidemia 674950895 E 78.5 Needs to keep LDL less [...] HTN, with GUNNAR now on CPAP. Obesity 977654774 E66.9 20 lb. weight loss recommende d over the next 2 months. Obstructiv e sleep apnea syndrome 01024623 G47.33 Reports snoring. Reports fatigue. No daytime [...] obstructiv e sleep apnea. Tolerating CPAP. Continue. [address] Saulo Martínez MD [place] [facility] [place] [address] 07/04/2023 11:12:27 07/04/2023 12:41:18 Edema of lower extremity 470626576 R60.0 Resolved on CPAP. Spironolac tone was [...] 184 BP diary. Nonischemi c congestive cardiomyopathy 5189997902 04 I42.0 Improved to mild-moder ate LV [...] LVEF 30%, mild to moderate MR. Had [facility] 09/26/18: mild CAD, severe left ventricula r dysfunctio n with possible nonischemi c cardiomyop athy. Increased to carvedilol 25 mg bid 11/19/18. Given persistent mild elevation in Cr 1.3, stopped spironolac tone 12/11/19. Completed cardiac rehab. at [facility]. Increase walking. Stopped lisinopril for 2 days 03/30/22, then began Entresto 24-26 bid. Had 05/09/2022 : CMP-NA 139 K 4.1 CR 1.20 GL 170 CA 8.9 MAG 1.9 Obtain echo 05/2023, reassess LVEF. Coronary arteriosclerosis 96687397 I25.10 NO chest painUS, echocardio gram 04/13/22-E CHO. LV chamber size is normal. There is normal global systolic function and contractil ity. The estimated left ventricle ejection fraction is 55-60% (normal). Diastolic filling demonstrat es impaired relaxation . Left Atrium chamber is mildly dilated. Had [facility] 09/26/18: mild CAD, severe left ventricula r dysfunctio n with possible nonischemi c cardiomyop athy. Continue ASA and statin. Needs to keep LDL less than 70, and HDL more than 40. Essential hypertension 60219915 I10 will increased Entresto to 49.restart using CPAP Dyslipidemia 414782044 E 78.5 LDL is 57 and TG [...] HTN, with GUNNAR now on CPAP. Obesity 986460950 E66.9 20 lb. weight loss recommende d over the next 2 months. Obstructiv e sleep apnea syndrome 58967862 G47.33 Reports snoring. Reports fatigue. No daytime [...] sleep apnea. Tolerating CPAP. Continue. Carotid bruit 015456991 R09.89 will do ultrasound Swelling o f bilateral lower limbs 418699525 M79.89 will start her on lasix 20 mg daily for 2 weeks [id number] Saulo Martínez MD [facility] [address] [place] [address] 07/14/2023 13:54:39 07/14/2023 14:20:47 Edema of lower extremity 367977542 R60.0 Resolved on CPAP. Spironolac tone was [...] 184 BP diary. Nonischemi c congestive cardiomyopathy 3011450875 04 I42.0 starting farxiga 10 mg daily [...] LVEF 30%, mild to moderate MR. Had [facility] 09/26/18: mild CAD, severe left ventricula r dysfunctio n with possible nonischemi c cardiomyop athy. Increased to carvedilol 25 mg bid 11/19/18. Given persistent mild elevation in Cr 1.3, stopped spironolac tone 12/11/19. Completed cardiac rehab. at [facility]. Increase walking. Stopped lisinopril for 2 days 03/30/22, then began Entresto 24-26 bid. Had 05/09/2022 : CMP-NA 139 K 4.1 CR 1.20 GL 170 CA 8.9 MAG 1.9 Obtain echo 05/2023, reassess LVEF. Coronary arteriosclerosis 47623399 I25.10 NO chest painUS, echocardio gram 04/13/22-E CHO. LV chamber size is normal. There is normal global systolic function and contractil ity. The estimated left ventricle ejection fraction is 55-60% (normal). Diastolic filling demonstrat es impaired relaxation . Left Atrium chamber is mildly dilated. Had [facility] 09/26/18: mild CAD, severe left ventricula r dysfunctio n with possible nonischemi c cardiomyop athy. Continue ASA and statin. Needs to keep LDL less than 70, and HDL more than 40. Essential hypertension 23210215 I10 continue with Entresto to 49 BID dailywill increased amlodipin too 5 mg BID dailystart ing farxiga 10 mg dailyresta rt using CPAP Dyslipidemia 044142555 E 78.5 LDL is 57 and TG [...] HTN, with GUNNAR now on CPAP. Obesity 208647852 E66.9 20 lb. weight loss recommende d over the next 2 months. Obstructiv e sleep apnea syndrome 92351349 G47.33 Reports snoring. Reports fatigue. No daytime [...] apnea. Tolerating CPAP. Continue. Congestive heart failure 10263356 I50.9 42728 Saulo Martínez MD [place] [facility] [place] [address] 07/27/2023 15:31:04 07/27/2023 16:55:03 Edema of lower extremity 583195112 R60.0 Resolved on CPAP. Spironolac tone was [...] 184 BP diary. Nonischemi c congestive cardiomyopathy 8352009600 04 I42.0 continue with farxiga 10 mg [...] LVEF 30%, mild to moderate MR. Had [facility] 09/26/18: mild CAD, severe left ventricula r dysfunctio n with possible nonischemi c cardiomyop athy. Increased to carvedilol 25 mg bid 11/19/18. Given persistent mild elevation in Cr 1.3, stopped spironolac tone 12/11/19. Completed cardiac rehab. at [facility]. Increase walking. Stopped lisinopril for 2 days 03/30/22, then began Entresto 24-26 bid. Had 05/09/2022 : CMP-NA 139 K 4.1 CR 1.20 GL 170 CA 8.9 MAG 1.9 Obtain echo 05/2023, reassess LVEF. Coronary arteriosclerosis 87620806 I25.10 NO chest painUS, echocardio gram 04/13/22-E CHO. LV chamber size is normal. There is normal global systolic function and contractil ity. The estimated left ventricle ejection fraction is 55-60% (normal). Diastolic filling demonstrat es impaired relaxation . Left Atrium chamber is mildly dilated. Had [facility] 09/26/18: mild CAD, severe left ventricula r dysfunctio n with possible nonischemi c cardiomyop athy. Continue ASA and statin. Needs to keep LDL less than 70, and HDL more than 40. Essential hypertension 97041349 I10 still elevated 180/80cont inue with Entresto to 49 BID dailyconti nue amlodipin 5 mg BID dailyconti nue farxiga 10 mg dailystari ng hydralazin e 50 mg TID dailyresta rt using CPAP Dyslipidemia 132902482 E 78.5 LDL is 57 and TG [...] HTN, with GUNNAR now on CPAP. Obesity 315301737 E66.9 20 lb. weight loss recommende d over the next 2 months. Obstructiv e sleep apnea syndrome 13948464 G47.33 Reports snoring. Reports fatigue. No daytime [...] apnea. Tolerating CPAP. Continue. Congestive heart failure 87487020 I50.9 [id number] Saulo Martínez MD [id number] [place] [address] 11/20/2023 12:23:06 11/20/2023 13:09:53 Nonischemic congestive cardiomyopathy [id number] 04 I42.0 continue with farxiga 10 mg [...] LVEF 30%, mild to moderate MR. Had [facility] 09/26/18: mild CAD, severe left ventricula r dysfunctio n with possible nonischemi c cardiomyop athy. Increased to carvedilol 25 mg bid 11/19/18. Given persistent mild elevation in Cr 1.3, stopped spironolac tone 12/11/19. Completed cardiac rehab. at [place]. Increase walking. Stopped lisinopril for 2 days 03/30/22, then began Entresto 24-26 bid. Had 05/09/2022 : CMP-NA 139 K 4.1 CR 1.20 GL 170 CA 8.9 MAG 1.9 Obtain echo 05/2023, reassess LVEF. Coronary arteriosclerosis 38362004 I25.10 NO chest painUS, echocardio gram 04/13/22-E CHO. LV chamber size is normal. There is normal global systolic function and contractil ity. The estimated left ventricle ejection fraction is 55-60% (normal). Diastolic filling demonstrat es impaired relaxation . Left Atrium chamber is mildly dilated. Had [facility] 09/26/18: mild CAD, severe left ventricula r dysfunctio n with possible nonischemi c cardiomyop athy. Continue ASA and statin. Needs to keep LDL less than 70, and HDL more than 40. Essential hypertension 24725263 I10 still elevated 150/80cont inue with Entresto to 49 BID dailyconti nue amlodipin 5 mg BID dailyconti nue farxiga 10 mg dailystari ng hydralazin e 25 mg BID dailyconti nue CPAP Dyslipidemia 540997953 E 78.5 LDL is 57 and TG is 151continu e with crestor 20 mg daily Obesity 776585076 E66.9 20 lb. weight loss recommende d over the next 2 months. Obstructiv e sleep apnea syndrome 95388973 G47.33 Reports snoring. Reports fatigue. No daytime [...] apnea. Tolerating CPAP. Continue. Congestive heart failure 28963891 I50.9 Swelling o f bilateral lower limbs 717622272 M79.89 will start her on lasix 20 mg daily [id number] Saulo Martínez MD [facility] [address] [place] [address] 04/01/2024 09:27:43 04/01/2024 10:21:49 Nonischemic congestive cardiomyopathy [id number] 04 I42.0 continue with farxiga 10 mg [...] spironolac tone 12/11/19. Completed cardiac rehab. at [place]. Increase walking. Stopped lisinopril for 2 days 03/30/22, then began Entresto 24-26 bid. Had 05/09/2022 : CMP-NA 139 K 4.1 CR 1.20 GL 170 CA 8.9 MAG 1.9 Obtain echo 05/2023, reassess LVEF. Coronary arteriosclerosis 51117617 I25.10 Lexiscan Myoview stress test, pt can not walk. Has known coronary artery disease, with atypical symptoms now US, echocardio gram 04/13/22-E CHO. LV chamber size is normal. There is normal global systolic function and contractil ity. The estimated left ventricle ejection fraction is 55-60% (normal). Diastolic filling demonstrat es impaired relaxation . Left Atrium chamber is mildly dilated. Had [facility] 09/26/18: mild CAD, severe left ventricula r dysfunctio n with possible nonischemi c cardiomyop athy. Continue ASA and statin. Needs to keep LDL less than 70, and HDL more than 40. Essential hypertension 63631017 I10 BP is well controlled todayconti nue with Entresto to 49 BID dailyconti nue amlodipin 5 mg BID dailyconti nue farxiga 10 mg daily and hydralazin e 25 mg BID dailyconti nue CPAP Dyslipidemia 609131267 E 78.5 *Last LDL was 72 and TG is 200 done on 12/07/23.P t takes rosuvastat in 20 mg.will add fish oil Obesity 438072596 E66.9 20 lb. weight loss recommende d over the next 2 months. Obstructiv e sleep apnea syndrome 61599001 G47.33 Reports snoring. Reports fatigue. No daytime [...] apnea. Tolerating CPAP. Continue. Congestive heart failure 97884723 I50.9 well compensate d today Swelling o f bilateral lower limbs 393254331 M79.89 will start her on lasix 20 mg daily for two day then continue as needed [id number] Saulo Martínez MD [facility] [address] [place] [address] 07/09/2024 09:32:37 07/09/2024 10:41:45 Nonischemic congestive cardiomyopathy 7688382512 04 I42.0 continue with farxiga 10 mg [...] LVEF 30%, mild to moderate MR. Had [facility] 09/26/18: mild CAD, severe left ventricula r dysfunctio n with possible nonischemi c cardiomyop athy. Increased to carvedilol 25 mg bid 11/19/18. Given persistent mild elevation in Cr 1.3, stopped spironolac tone 12/11/19. Completed cardiac rehab. at [place]. Increase walking. Stopped lisinopril for 2 days 03/30/22, then began Entresto 24-26 bid. Had 05/09/2022 : CMP-NA 139 K 4.1 CR 1.20 GL 170 CA 8.9 MAG 1.9 Obtain echo 05/2023, reassess LVEF. Coronary arteriosclerosis 90528786 I25.10 Lexiscan Rormixview stress test, pt can not walk. Has known coronary artery disease, with atypical symptoms now US, echocardio gram 04/13/22-E CHO. LV chamber size is normal. There is normal global systolic function and contractil ity. The estimated left ventricle ejection fraction is 55-60% (normal). Diastolic filling demonstrat es impaired relaxation . Left Atrium chamber is mildly dilated. Had [facility] 09/26/18: mild CAD, severe left ventricula r dysfunctio n with possible nonischemi c cardiomyop athy. Continue ASA and statin. Needs to keep LDL less than 70, and HDL more than 40. Essential hypertension 14443098 I10 BP is well controlled todayconti nue with Entresto to 49 BID dailyconti nue amlodipin 5 mg BID dailyconti nue farxiga 10 mg daily and hydralazin e 25 mg BID dailyconti nue CPAP Dyslipidemia 095140466 E 78.5 *Last LDL was 72 and TG is 200 done on 12/07/23.P t takes rosuvastat in 20 mg.will add fish oil Obesity 844988125 E66.9 20 lb. weight loss recommende d over the next 2 months. Obstructiv e sleep apnea syndrome 99743895 G47.33 Reports snoring. Reports fatigue. No daytime [...] apnea. Tolerating CPAP. Continue. Congestive heart failure 69604230 I50.9 well compensate d today Swelling o f bilateral lower limbs 471841549 M79.89 will start her on lasix 20 mg daily for two day then continue as needed [id number] Saulo Martínez MD [facility] [address] [place] [address] 01/07/2025 11:35:53 01/07/2025 12:32:54 Nonischemic congestive cardiomyopathy 4769624495 04 I42.0 continue with farxiga 10 mg daily and continue with entresto 49 BID daily Improved to mild-moder ate LV dysfunctio n from severe LV systolic function as of echo 12/20/18, 10/31/19, 01/08/21, then LVEF normalized on echo 04/13/22. Coronary arteriosclerosis 64078244 I25.10 Positive Lexiscan stress test on 05/28/24 [...] Atrium chamber is mildly dilated. Essential hypertension 08958321 I10 BP is well controlled todayconti nue with Entresto to 49 BID dailyconti nue amlodipin 5 mg BID dailyconti nue farxiga 10 mg daily and hydralazin e 25 mg BID dailyconti nue CPAP Dyslipidemia 245760260 E 78.5 *Last LDL was 72 and TG is 200 done on 12/07/23.P t takes rosuvastat in 20 mg.will add fish oil Obesity 088002473 E66.9 20 lb. weight loss recommende d over the next 2 months. Obstructiv e sleep apnea syndrome 14115702 G47.33 resume CpapObtain echo to evaluate for structural /functiona l disease. Congestive heart failure 47314091 I50.9 well compensate d todayObtai n echo to evaluate for structural /functiona l disease. Swelling o f bilateral lower limbs 871627345 M79.89 will start her on lasix 20 mg daily for two day then continue as needed [id number] Saulo Martínez MD [facility] [address] [place] [address] 07/22/2025 12:13:17 07/22/2025 13:09:15 Nonischemic congestive cardiomyopathy 7527873743 04 I42.0 continue with farxiga 10 mg daily and continue with entresto 49 BID daily Improved to mild-moder ate LV dysfunctio n from severe LV systolic function as of echo 12/20/18, 10/31/19, 01/08/21, then LVEF normalized on echo 04/13/22. Coronary arteriosclerosis 81301183 I25.10 Positive Lexiscan stress test on 05/28/24 [...] Atrium chamber is mildly dilated. Essential hypertension 95224058 I10 BP is well controlled todayconti nue with Entresto to 49 BID dailyconti nue amlodipin 5 mg BID dailyconti nue farxiga 10 mg daily and hydralazin e 25 mg BID dailyconti nue CPAP Dyslipidemia 570553329 E 78.5 *Last LDL was 72 and TG is 200 done on 12/07/23.P t takes rosuvastat in 20 mg.will add fish oil Obesity 020837770 E66.9 20 lb. weight loss recommende d over the next 2 months. Obstructiv e sleep apnea syndrome 01915156 G47.33 resume CpapObtain echo to evaluate for structural /functiona l disease. Congestive heart failure 70295586 I50.9 Had ECHO on 02/05/25 showed LV chamber size is normal. LV wall thickness is mildly increased. The estimated LVEF is 55-60% (normal). LV relaxation is impaired. The aortic valve is mildly calcified. There is mild aortic root calcificat ion. There is mild aortic valve stenosis. Swelling o f bilateral lower limbs 965259101 M79.89 will start her on lasix 20 mg daily for two day then continue as needed Health Concerns Section Related Observation LastModified by Organization Detai ls LastModified Time None Recorded Concern Status LastModified by Organization Details LastModified Time None Recorded Advance Directives Directive None Recorded Payers Insurance Date Sequence Insurance Name Policy Number Policy Acosta Covered Member ID Acosta Member ID Guarantor Name 07/22/2025 1 [facility] [id number] Gayle Cisse [id number] Gayle Cisse 07/22/[address] [facility] [id number] Gayle Cisse [id number] Gayle Cisse Notes Date Note Type Note Provider Name and Address Organization Details Recorded Time 11/20/2023 text/html Sleep ProblemsRe ported by Patient 11/20/23CC : Cardiac follow up dyspnea on [id number] year-old white woman with history of nonischemic [...] improved on CPAP. Previously, patient presented to [facility]. 09/22/18 with several day history of dyspnea, [...] 257,HDL 61,LDL 129. CMP, serum or plasma [id number] 6.1, Na 137, K 4.4, Cl 104, [...] 30%, mild to moderate MR. JOAQUIN STORM [place], [place] - [facility] 11/20/2023 13:06:21 04/01/2024 text/html Sleep ProblemsRe ported by Patient 04/01/24CC : Cardiac follow up dyspnea on [id number] year-old white woman with history of nonischemic cardiomyopathy, HF-rEF (improved to mild-moderate LV dysfunction from severe LV systolic function as of echo 12/20/18, 10/31/19, 01/08/21, then LVEF normalized on echo 04/13/22), mild CAD C done 2018, GUNNAR (on CPAP), pulmonary HTN, hypertension, dyslipidemia, [...] improved on CPAP. [facility] several day history of dyspnea, [...] 257,HDL 61,LDL 129. CMP, serum or plasma [id number] 6.1, Na 137, K 4.4, Cl 104, [...] 30%, mild to moderate MR. JOAQUIN STORM [facility] 04/01/2024 10:19:04 07/09/2024 text/html Sleep ProblemsRe ported by Patient 07/09/24CC : Cardiac follow up, dyspnea on [id number] year-old white woman with history of nonischemic cardiomyopathy, HF-rEF (improved to mild-moderate LV dysfunction from severe LV systolic function as of echo 12/20/18, 10/31/19, 01/08/21, then LVEF normalized on echo 04/13/22), mild CAD [facility] done 2017, GUNNAR (on CPAP), pulmonary HTN, [...] 257,HDL 61,LDL 129. CMP, serum or plasma [id number] 6.1, Na 137, K 4.4, Cl 104, [...] mild to moderate MR. Saulo Martínez MD [address] [place], [address], [facility] 07/09/2024 10:39:42 01/07/2025 text/html Sleep ProblemsRe ported by Patient 01/07/25CC : Cardiac follow up69 year-old white woman with history of nonischemic cardiomyopathy, HF-rEF (improved to mild-moderate LV dysfunction from severe LV systolic function as of echo 12/20/18, 10/31/19, 01/08/21, then LVEF normalized on echo 04/13/22), mild CAD [facility] done 2018, GUNNAR (on CPAP), pulmonary HTN, hypertension, dyslipidemia, [...] 257,HDL 61,LDL 129. CMP, serum or plasma [id number] 6.1, Na 137, K 4.4, Cl 104, [...] LVEF 30%, mild to moderate MR. Alondra walls [place] - [facility] 01/20/2025 16:04:30 07/22/2025 text/html Sleep ProblemsRe ported by Patient 07/22/25CC : Cardiac follow up, dyspnea on [id number] year-old white woman with history of nonischemic cardiomyopathy, HF-rEF (improved to mild-moderate LV dysfunction from severe LV systolic function as of echo 12/20/18, 10/31/19, 01/08/21, then LVEF normalized on echo 04/13/22), mild CAD [facility] done 2018, GUNNAR (on CPAP), pulmonary HTN, hypertension, dyslipidemia, pre-diabetes, former tobacco dependence (70 pack-year, quit 09/21/2018), COPD, obesity, peripheral vascular disease, and CKD, presents for 6 month follow-up with ECHO results. She was last seen in the clinic on 01/07/25, since then she Had ECHO on 02/05/25 showed LV chamber size is normal. LV wall thickness is mildly increased. The estimated LVEF is 55-60% (normal). LV relaxation is impaired. The aortic valve is mildly calcified. There is mild aortic root calcification. There is mild aortic valve stenosis.She denies ER visits and hospitalizations since she [...] done on 12/08/23.Pt takes rosuvastatin 20 mg. *Had ECHO on 02/05/25 showed LV chamber size is normal. LV wall thickness is mildly increased. The estimated LVEF is 55-60% (normal). LV relaxation is impaired. The aortic valve is mildly calcified. There is mild aortic root calcification. There is mild aortic valve stenosis. There is mild thickening of the mitral valve anterior leaflet. Previously:*EKG 01/07/25: Sinus rhythm, P; normal, QRS; left axis deviation. anteroseptal infarct. QS In V1 V2 V3, R<0.15 mV in V4, low voltage in precordial leads, ST-T; normal, conclusion: abnormal ECG. *Had Positive Lexiscan stress test on 05/28/24 with reversible defect small in size consistent with ischemia in inferior area. Normal LV systolic function. LVEF: 48%. Now she has Cpap, Pt is on CPAP and is 80% compliant. Patient is benefiting with CPAP therapy and will continue nightly use. *Had sleep study 05/18/22: Findings are consistent with moderate positional obstructive sleep apnea. *Had [facility] 09/26/18: mild CAD, severe left ventricular dysfunction with possible nonischemic cardiomyopathy.Results from this visit, or from the past: [...] 257,HDL 61,LDL 129. CMP, serum or plasma [id number] 6.1, Na 137, K 4.4, Cl 104, [...] LVEF 30%, mild to moderate MR. Saulo Martíenz, MD [address] [place], [address], [facility] 07/22/2025 13:04:38 OBGyn Episode No OBEpisode recorded.
--- OUTSIDE RECORDS SUMMARY | 2025-08-07 17:48 | XMS_ITS | Data Portability ---
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 F/u as directed. [email or web address] Not available 01/15/2024 15:11:19 04/03/2024 04/03/2024 68 [...] in 2-3 weeks. Annual labs in 04/06. [email or web address] Not available 04/03/2024 11:07:19 02/05/2025 02/05/2025 69 [...] BMP in 05/07. Annual labs in 02/05. [email or web address] Not available 02/05/2025 13:10:12 02/17/2025 02/17/2025 The [...] via phone call to discuss the following: Not available 02/17/2025 10:26:39 Plan of Treatment Reminders Order Date Submit Date Provider Last Modified By Organization Details Last Modified Time Details Appointments None recorded. Lab lipid panel, serum 2024 025 4 [facility], [address], [address], [place], [address], 5 17:57:14 BMP, serum or plasma 2024 025 [email or web address] 4 [facility], [address], [address], [place], [address], 5 17:57:14 glycohemogl obin, total, blood 2024 025 [email or web address] 4 [facility] (Lab), [address] [place], [address], 5 17:57:14 CBC w/ auto diff [address] (Lab), [address] [place], [address], 4 09:14:43 CMP, serum or plasma [address] (Lab), [address] [place], [address], 4 09:14:44 lipid panel, serum [address] (Lab), [address] [place], [address], 4 09:14:44 TSH, serum, reflex free T4 [address] (Lab), [address] [place], [address], 4 09:14:44 urinalysis complete, reflex culture [address] (Lab), [address] [place], [address], 4 09:14:44 vitamin D, 25-hydroxy, total, serum [address] (Lab), [address] [place], [address], 4 09:14:44 glycohemogl obin, total, blood [address] (Lab), [address] [place], [address], 4 09:14:44 microalbumi n, urine [address] (Lab), [address] [place], [address], 4 09:14:[address] referral - Please call patient to schedule an appointment . Thank you. 2024 025 [email or web address] Michelet San MD, [address] [place], [address], 5 08:44:19 Procedures None recorded. Surgeries None recorded. Imaging MAMMO, screening, bilateral [address], [address] [place] [address], [address], 5 10:01:23 LDCT, chest, for lung cancer screening - *Please call pt to schedule* [address], [address] [place] [address], [address], 5 16:13:44 DEXA [address], [address] [place] [address], [address], 5 10:01:23 MAMMO, screening, bilateral 2023 024 [email or web address] Not available 10:09:40 LDCT, chest, for lung cancer screening - *Please call pt to schedule* 2023 024 [email or web address] 256 [facility] (Radiology), [address] [facility], [place], [address], 4 10:45:23 DEXA 2023 024 [email or web address] 256 Not available 4 10:10:58 Medication Orders ciprofloxac in 500 mg tablet 2024 025 [place] [facility], [address], [place], [id number], 5 11:50:52 metronidazo le 500 mg tablet 2024 025 [place] [facility], [address], [place], [id number], 5 11:50:51 azithromyci n 250 mg tablet 2024 025 [facility], [address], [place], [id number], 5 11:48:02 prednisone 10 mg tablet 2024 025 [email or web address] [facility], [address], [place], [id number], 5 11:48:19 benzonatate 200 mg capsule 2024 025 [email or web address] [facility], [address], [place], [id number], 5 11:48:06 Breztri Aerosphere 160 mcg-9mcg-4. 8mcg/actuat ion HFA aerosol inhaler 2024 025 [facility], [address] [facility], [place], [place], [id number], 5 13:07:38 ergocalcife rol (vitamin D2) 1,250 mcg (50,000 unit) capsule 2024 025 [facility], [address] [facility], [place], [place], [id number], 5 13:07:38 metformin ER 500 mg tablet,exte nded release 24 hr 2024 025 [facility], [address] [facility], [place], [place], [id number], 5 13:07:38 Rybelsus 3 mg tablet 2024 025 [facility], [address] [facility], [place], [place], [id number], 5 13:07:38 albuterol sulfate HFA 90 mcg/actuati on aerosol inhaler 2024 025 DEX [facility], [address] [facility], [place], [id number], 5 17:25:12 oseltamivir 75 mg capsule 2024 025 [facility], [address] [facility], [place], [place], [id number], 5 12:50:52 Medrol (Ollie) 4 mg tablets in a dose pack 2024 025 [facility], [address] [facility], [place], [place], [id number], 5 12:50:44 azithromyci n 250 mg tablet 2023 024 [facility], [address] [facility], [place], [id number], 5 11:48:02 prednisone 10 mg tablet 2023 024 [facility], [address] [facility], [place], [id number], 5 11:48:19 benzonatate 200 mg capsule 2023 024 [facility], [address] [facility], [place], [id number], 5 11:48:06 meclizine 25 mg tablet 2023 024 [facility], [address] [facility], [place], [id number], 4 10:33:07 ondansetron 4 mg disintegrat ing tablet 2023 024 [facility], [address] [facility], [place], [id number], 4 10:33:11 metformin ER 500 mg tablet,exte nded release 24 hr 2023 024 [place] [facility]7558, [address] [facility], [place], [id number], 4 14:59:15 Farxiga 10 mg tablet 2023 024 [place] [facility]13[facility], [address] [facility], [place], [place], [id number], 4 14:59:14 Patient TargetsNo targets recorded. Patient Instructions Encounter Date Encounter Id Patient Instructions Last Modified By Organization Details Last Modified Time 01/15/2024 [id number] Thank you for yo ur visit to [...] Not available 01/15/2024 14:42:56 Homebound Status : Required Home Health Services: Durable Medical Equipment needed: Billing Guidelines CPT code 59946- Transitional Care Management services with moderate medical decision complexity (jzxp-db-ymbb visit within 14 days of discharge). CPT code 01314- Transitional Care Management services with high medical decision complexity (pwsk-qu-lvub visit within 7 days of discharge). Not available 01/15/2024 14:42:56 02/17/2025 [id number] Due to the COVID-19 (Novel Coronavirus) pandemic, it is within this context (and with the understanding that this method of patient encounter is in the patient s best interest as well as the health and safety of other patients and the public) that [facility] is being provided for this patient encounter rather than a aqdm-hd-uzio visit. This patient encounter is appropriate at this time. This patient has been advised of the potential risks and limitations of this mode of treatment (including, but not limited to, the absence of in-person examination) and has agreed to be treated in a remote fashion despite these risks. Any and all of the patient s /patient s family s questions on this issue [...] Not available 02/17/2025 10:26:13 Reason for Referral Operator Lights Referral for C hronic dyspnea Please call patient to schedule an appointment. Thank you. Referring Physician: Scott Wright, Family Medicine, Encounter Date: 02/05/2025 Results Created Date Observation Date Name Description Value Unit Range Abnormal Flag Note LastModifiedBy Organization Detail LastModifiedTime 04/05/20 25 04/04/2025 LDCT, chest , for lung cance collin cardenas No observ ation record ed. [email or web address] [facility] [address], [place], [address], 04/11/2025 10:51:20 Result Notes None recorded. Problems Name Problem SNOMED Code Status Onset Date Resolution Date Notes Provider Name and Address Organization Details Recorded Time Feeling stressed 029467535 Active Not Available [facility] 3 09:19:03 Fluid level behind tympanic membrane Active Not Available [facility] 3 09:19:03 Mass of body structure 702950489 Active Not Available [facility] 3 09:19:03 Diverticul itis 704668867 Active Not Available [facility] 3 09:19:03 Bronchitis 00726131 Active Not Available [facility] 3 09:19:03 Sinusitis 85996460 Active Not Available [facility] 3 09:19:04 Inguinal hernia 699833879 Active Not Available [facility] 3 09:19:04 Acute urinary tract infection 449700157 Active Not Available [facility] 3 09:19:04 Seasonal allergy 629844546 Active Not Available [facility] 3 09:19:04 Dysuria 08017970 Active Not Available [facility] 3 09:19:04 Cough 17346394 Active Not Available [facility] 3 09:19:05 Urinary tract infectious disease 08389017 Active Not Available [facility] 3 09:19:05 Posterior rhinorrhea 05685027 Active Not Available [facility] 3 09:19:06 Smoker 46335094 Completed Not Available [facility] 3 09:19:06 Fatigue 77547809 Active Not Available [facility] 3 09:19:06 Increased blood pressure 01032339 Active 2017 Not Available [facility] 3 09:19:03 Dyspnea 015203982 Active 2017 Not Available [facility] 3 09:19:03 Chest pain 77293678 Active 2017 Not Available [facility] 3 09:19:03 Stented coronary artery 610528263 Active 2017 Not Available [facility] 3 09:19:04 Chronic obstructiv e pulmonary disease 73317069 Active 2017 Not Available [facility] 3 09:19:02 Congestive heart failure 74456265 Active 2017 Not Available [facility] 3 09:19:04 Left ventricula r hypertroph y 97589454 Active 2017 Not Available [facility] 3 09:19:05 Essential hypertensi on 63348987 Active 2017 Not Available [facility] 3 09:19:05 Strain of neck muscle 766380545 Active 2018 Not Available [facility] 3 09:19:03 Ex-smoker 6915866 Active 2018 Not Available [facility] 3 09:19:06 Coronary arterioscl erosis 56538375 Active 2018 Not Available [facility] 3 09:19:05 Cardiomyop athy 91192513 Active 2018 Not Available [facility] 3 09:19:06 Seasonal allergic rhinitis 859157095 Active 2021 Not Available [facility] 3 09:19:04 Upper respirator y infection 88929837 Active 2021 Not Available [facility] 3 09:19:05 Diverticul osis of colon 342765997 Active 2021 Not Available [facility] 3 09:19:06 Diverticul ar disease of colon 152129052 Active 2022 Scott Wright MD [address], [address], [place], [address] , [place] [facility] 3 10:22:41 Nausea and vomiting 17443874 Active 2022 Scott Wright MD [address], [address], [place], [address] , [place] [facility] 3 10:25:03 Obesity 687229748 Active 2022 Scott Wright MD [address], [address], [place], [address] , [place] [facility] 3 10:40:18 Nausea 977202141 Active 2023 Scott Wright MD [address], [address], [place], [address] , [place] [facility] 4 14:52:02 Vertigo 044972791 Active 2023 Scott Wright MD [address], [address], [place], [address] , [place] [facility] 4 14:52:11 Type 2 diabetes mellitus without complicati on 884814948 Active 2023 Scott Wright MD [address], [address], [place], [address] , [place] [facility] 4 14:57:17 Labyrinthi tis 19579148 Active 2023 Scott Wright MD [address], [address], [place], [address] , [place] [facility] 4 15:12:15 Hypertensi ve disorder 32876114 Active 2023 Scott Wright MD [address], [address], [place], [address] , [place] [facility] 4 15:12:35 Vitamin D deficiency 88410926 Active 2023 Scott Wright MD [address] [facility], [address], [place], [address] , [employer] [facility] 4 10:52:55 Ex-cigaret te smoker 064162540 Active 2024 Scott Wright MD [address] [facility] [address], [place], [address] , [employer] [facility] 5 17:36:24 Chronic kidney disease stage 3 115964994 Active 2024 Scott Wright MD [address] [facility], [address] [address], [place], [address] , [employer] 5 12:57:35 Hypertrigl yceridemia 415789510 Active 2024 Scott Wright MD [address] [facility], [address] [address], [place], [address] , [employer] 5 12:58:51 Chronic dyspnea 232081943 Active 2024 Scott Wright MD [address] [facility], [address] [address], [place], [address] , [employer] 5 13:01:26 Left lower quadrant pain 706671649 Active 2024 Scott Wright MD [address] [facility], [address] [address], [place], [address] , [employer] 5 11:47:50 Diverticul itis of colon 035776949 Active 2024 Scott Wright MD [address] [facility], [address] [address], [place], [address] , [employer] 5 11:48:35 Abdominal pain 96153028 Active 2024 Scott Wright MD [address], [address] [place] [address], [place], [address] , [employer] 5 11:51:06 Problem Notes None recorded. Procedures Surgical History Date Name Laterality Status Provider Name and Address Organization Details Recorded Time 01/15/2024 Transition al_Care_Ma nagement completed Pablo [facility]ARRERA [facility] 01/15/2024 14:42:56 Imaging Results None recorded. Procedure Notes None recorded. Medical Equipment None Reported. Allergies Allergen ID Allergen Name Allergen Category Reaction Reaction Severity Criticality Documentation Date Start Date Code Code System Note Provider Name and Address Organization Details Recorded Time 83499 naproxen medicatio n hives Not available Not available 01/11/2023 7258 RxNorm Not Available [facility] 3 09:26:28 25537 Levaquin medicatio n edema Not available Not available 01/11/2023 97663 2 RxNorm turne d brigh t red Not Available [facility] 3 09:26:28 Medications Name Sig Start Date [...] 1 TIME IF NEEDED. MUST HAVE A ELECTRIC ARC FURNACE OPERATOR FOR THE TEST. 02/21 completed Not Available [...] 1 TABLET BY MOUTH TWICE DAILY DIRECTED 2024 active Not Available Not Available Not Avai lable loratadine 10 mg tablet Take 1 tablet [...] 1 TABLET BY MOUTH EVERY DAY DIRECTED 2024 active Not Available Not Available Not Avai lable Entresto 49 mg-51 mg tablet TAKE 1 [...] Available No t Available Vitals Date Recorded Oxygen saturation Oxygen saturation in Arterial blood by Pulse oximetry Systolic And Diastolic Provider Name and Address Organization Details Last Updated DateTime 12/25/2024 94 % 94 % 162/100 mm[Hg] Scott Wright MD [address] [address], [place], [address], [facility] [email or web address] [facility] 12/25/2024 17:35:36 Date Recorded Body height Body mass index (BMI) Body weight Body temperature Heart rate Provider Name and Address Organization Details Last Updated DateTime 12/25/2024 165.1 cm 34.2 kg/m2 14364.84 g 97.1 [degF] 95 /min Marisa Diana RN [facility] [employer] 5 17:19:43 Date Recorded Body height Body mass index (BMI) Body weight Body temperature Heart rate Respiratory rate Oxygen saturation Oxygen saturation in Arterial blood by Pulse oximetry Systolic And Diastolic Provider Name and Address Organization Details Last Updated DateTime 165.1 cm 34.8 kg/m2 39814.5 6 g 98 [degF] 78 /min 16 /min 98 % 98 % 144/70 mm[Hg] Pablo Cortez [facility] 4 14:47:57 Date Recorded Oxygen saturation Oxygen saturation in Arterial blood by Pulse oximetry Provider Name and Address Organization Details Last Updated DateTime 02/05/2025 93 % 93 % Scott Wright MD [address], [address], [facility] [employer] 02/05/2025 13:06:50 Date Recorded Body height Body mass index (BMI) Body weight Body temperature Heart rate Systolic And Diastolic Provider Name and Address Organization Details Last Updated DateTime 5 165.1 cm 34.5 kg/m2 09621.3 2 g 97.2 [degF] 73 /min 150/72 mm[Hg] Marisa Diana RN [facility] [email or web address] [facility] 5 12:50:23 Date Recorded Body height Body mass index (BMI) Body weight Body temperature Heart rate Respiratory rate Oxygen saturation Oxygen saturation in Arterial blood by Pulse oximetry Systolic And Diastolic Provider Name and Address Organization Details Last Updated DateTime 4 165.1 cm 35 kg/m2 94527.7 5 g 97.99 [degF] 82 /min 16 /min 99 % 99 % 140/76 mm[Hg] Pablo Cortez [employer] 10:43:47 Social History Question Answer Notes LastModified by Organizat ion Details LastModified Time Tobacco Smoking Status Former Smoker quit 2017 [employer] 04/01/2025 16:16:46 Do You Have An Advance Directive? No Information not available 02/21/2023 Are You Blind Or Do You Have Difficulty Seeing? No Information not available 02/21/2023 Is Blood Transfusion Acceptable In An Emergency? Yes Information not available 02/21/2023 What Is Your Level Of Caffeine Consumption? Heavy Soda Information not available 02/21/2023 How Much Tobacco Do You Chew? None [id number] Information not available 01/11/2023 What Is Your Code Status? Full Code Information not available 02/21/2023 In The 14 Days Before Symptom Onset, Have You Had Close Contact With A Laboratory-confir med COVID-19 While That Case Was Ill? No [id number] Information not available 01/11/2023 In The 14 Days Before Symptom Onset, Have You Had Close Contact With A Person Who Is Under Investigation For COVID-19 While That Person Was Ill? No [id number] Information not available 01/11/2023 Are You Deaf Or Do You Have Serious Difficulty Hearing? No Information not available 02/21/2023 What Type Of Diet Are You Following? REGULAR [id number] Information not available 01/11/2023 Which Illicit Or Recreational Drugs Have You Used? None [id number] Information not available 01/11/2023 Have There Been Any Changes To Your Family Or Social Situation? No Information no t available 02/21/2023 When Did You Quit Smoking? 6-10yearssi ncelastciga rette Information not available 02/21/2023 Do You Use Insect Repellent Routinely? No Information not available 02/21/2023 Where Do You Live? Other Mobile Information not available 02/21/2023 Do You Have A Medical Power Of Boilers And Pressure Vessels Inspector? No Information not available 02/21/2023 Do You [...] Many Years Have You Smoked Tobacco? 48 Information not available 04/01/2025 Have You Recently Traveled Abroad? No Information not available 02/21/2023 Do You Have Difficulty Walking Or Climbing Stairs? No Information not available 02/21/2023 Sex: Unknown Functional Status Question Answer Note LastModified by Organizat ion Details LastModified Time Do you use any illicit or recreational drugs? No Information not available 02/21/2023 What is your level of alcohol consumption? None [id number] Information not available 01/11/2023 Do you have access to reliable transportation? No Information not available 02/21/2023 Are you able to walk independently without assistance or assistive devices? YESWOREST Information not available 02/21/2023 Do you have difficulty doing errands alone? No Information not available 02/21/2023 Are you able to care for yourself independently? 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 No Information not available 02/21/2023 Do you or have you ever used e-cigarettes or vape? Never used electronic cigarettes MIGRATION.054001 3152 Information not available 01/11/2023 What is your exercise level? None [id number].[id number] Information not available 01/11/2023 Mental Status Question Answer Note LastModified by Organizat ion Details LastModified Time Do you feel stressed (tense, restless, nervous, or anxious, or unable to sleep at night)? [id number] Information not available 02/21/2023 Do you have difficulty concentrating, remembering or making decisions? No Information no t available 02/21/2023 Family History Relationship Description Onset Age of this Age Resolved Age Notes LastModified by Organization Details LastModified Time Unspecified Relation Family history of malignant neoplasm [id number] Not available 01/11/2023 09:14:02 Father Congestive heart failure [id number] [id number] Not available 01/11/2023 09:14:02 Sister Malignant tumor of pharynx ~early 50's MIGRATION.450 [id number] Not available 01/11/2023 09:14:02 Medical History Condition Response CHF Y Gynecological History Statement/Question Response Date of Last Colonoscopy Most Recent Mammogram Date of LMP Most Recent Bone Density Obstetrics History GPAL:G 0 P 0 0 0 0 Immunizations Vaccine Type Date Status Note Provider Nam e and Address Organization Details Recorded Time Influenza, high-dose, quadrivalent, PF 10/25/2023 completed HOLLY Liao [place] [email or web address] [facility] 10/26/2023 12:30:55 Influenza, high-dose, quadrivalent, PF 09/28/2022 completed Not Available [facility] 3 09:26:23 Influenza, high-dose, quadrivalent, PF 11/18/2021 completed Not Available [facility] 3 09:26:23 Tdap 10/23/2018 completed Not Available [facility] 01/11/2023 09:26:23 Influenza, split virus, quadrivalent, PF 10/23/2018 completed Not Available [facility] 3 09:26:23 Influenza, split virus, quadrivalent, PF 10/29/2020 completed Not Available [facility] 3 09:26:23 Influenza, split virus, quadrivalent, PF 11/20/2019 completed Not Available [facility] 09:26:24 Past Encounters Encounter ID Performer Location Encounter Start Date Encounter Closed Date Diagnosis/Indication Diagnosis SNOMED-CT Code Diagnosis ICD10 Code Diagnosis IMO Codes Diagnosis Note [id number] Scott Wright MD [facility] Dat [address] [place] [address] 02/25/2021 00:00:00 02/25/2021 16:26:49 [id number] Scott Wright MD [facility] Dat [address] [place] [address] 04/28/2021 00:00:00 04/28/2021 15:23:59 [id number] [facility] [address] [facility] [place] [address] 07/08/2021 00:00:00 07/08/2021 17:26:35 [id number] [facility] [address] [facility] [place] [address] 11/17/2021 00:00:00 11/17/2021 18:56:43 [id number] Scott Wright MD [facility] [address] [facility] [place] [address] 08/18/2022 00:00:00 08/18/2022 11:43:34 [id number] [facility] [address] [facility] [place] [address] 09/28/2022 00:00:00 09/28/2022 12:58:26 [id number] Annemarie Lizarraga NP [facility] Dat [address] [place], [place] [address] [place] [address] 02/21/2023 16:25:41 02/21/2023 16:51:40 Chronic obstructive pulmonary disease 97020309 J44.9 Medrol dose ollie, breo sent. If getting colored drainage start on cipro [id number] Scott Wright MD [address] [address] 10/25/2023 09:52:23 10/25/2023 10:46:21 Diverticular disease of colon 822595570 K57.30 Administra tion of influenza vaccine 60092995 Z23 Nausea and vomiting 1693 2000 R11.2 Obesity 523906772 E66.9 [id number] Scott Wright MD [address] [address] 01/15/2024 14:41:05 01/15/2024 15:03:17 Transition of care 6066514056 105 Z75.8 [facility] 275042362 Z76.89 Nausea 910403685 R11.0 Vertigo 019693136 R42 Type 2 zabrina betes mellitus without complication 223351602 E11.9 Ex-smoker 2734176 Z87.89 1 Labyrinthitis 96802676 H 83.03 Hypertensive disorder 38 693807 I10 Obesity 767096213 E66.9 [id number] Scott Wright MD [address] [address] 04/03/2024 10:31:43 04/03/2024 11:15:33 Bronchitis 94251197 J40 Adult heal th examination 595807551 Z00.00 Screening mammography 24 015091 Z12.31 Screening for osteoporosis 568061830 Z13.820 Congestive heart failure 76667251 I50.9 Obesity 904742822 E66.9 Type 2 zabrina betes mellitus without complication 733881287 E11.9 Vitamin D deficiency 347 92486 E55.9 Cough 63897584 R05.9 Ex-smoker 9145281 Z87.89 1 Quitted 2017 [id number] Scott Wright MD [address] [address] 12/25/2024 17:10:35 12/25/2024 17:32:39 Exposure to Influenzavirus 087866701 Z20.828 Pt declined for swab. Bronchitis 35709627 J40 Ex-cigarette smoker 2810 06357 Z87.891 Fatigue 59065182 R53.83 [id number] Scott Wright MD [address] [address] 02/05/2025 12:41:02 02/05/2025 13:06:24 Bronchitis 77100272 J40 Screening mammography 24 409043 Z12.31 Screening for osteoporosis 822432756 Z13.820 Congestive heart failure 96795787 I50.9 Obesity 729013767 E66.9 Type 2 zabrina betes mellitus without complication 290211549 E11.9 Vitamin D deficiency 347 65956 E55.9 Cough 06877333 R05.9 Ex-smoker 1467514 Z87.89 1 Quitted 2018 Chronic ki dney disease stage 3 347209528 N18.30 Hypertriglyceridemia 302 258370 E78.2 Chronic dyspnea 17300669 9 R06.00 [id number] Scott Wright MD [address] [address] 02/17/2025 10:14:47 02/17/2025 12:43:24 Diverticulitis of colon 030128559 K57.32 Left lower quadrant pain 231613827 R10.32 Abdominal pain 18296162 R10.9 Educated pt about alarming symptoms to monitor at home and get checked in ED in that case. Health Concerns Section Related Observation LastModified by Organization Detai ls LastModified Time None Recorded Concern Status LastModified by Organization Details LastModified Time None Recorded Advance Directives Directive N: Payers Insurance Date Sequence Insurance Name Policy Number Policy Acosta Covered Member ID Acosta Member ID Guarantor Name 02/17/2025 1 [facility] [id number] Gayle Pappaser [id number] Gayle Cisse 01/11/2023 [employer] [id number] Annika Cisse 01/11/2023 [email or web address] [id number] Annika Cisse Notes Date Note Type Note Provider [...] meds by them. Scott Wright MD [address], [address], [place], [address], [employer] 01/15/2024 15:14:33 04/03/2024 text/html Pt is here for her annual visit. Doing overall well. Denies any problem with meds. C/o cough, congestion, drainage for last 2 weeks. Pt has been doing otc meds, but still not getting better yet. Pt is f/u with Cardio every 3-6 months for her HTN and CHF and is on meds by them. Scott Wright MD [address], [address], [place], [address], [employer] 04/03/2024 11:09:27 12/25/2024 text/html ACV: C/o congestion, dry cough, body aches, chills since yesterday. Pt says one of her co-worker was sick and she was around her and she has Flu. Scott Wright MD [address], [address], [place], [address], [employer] 12/25/2024 17:37:20 02/05/2025 text/html FUV + ACV: C/o cough, congestion, drainage for last 2 weeks. Pt has been doing otc meds, but still not getting better yet. F/u on her annual labs. Denies any problem with meds. Pt is f/u with Cardio every 3-6 months for her HTN and CHF and is on meds by them. Scott Wright MD [address], [address], [place], [address], [facility] [employer] [facility] [employer] [facility] 02/05/2025 13:10:40 02/17/2025 text/html Telephone visit.ACV: C/o [...] No other concern. Scott Wright MD [address] [facility] [facility] [address], [place], [address], [facility] [employer] [facility] [employer] [facility] 02/17/2025 12:38:01 OBGyn Episode No OBEpisode recorded.
[2025-08-07 18:01] LABS: EDCOVIDSCREEN Negative (Negative)
== END 2025-08-07 18:04 | disposition home or self-care (01) ==
PROVIDERS: Emergency Provider Nurse Practitioner Family; PCP Family Medicine
DX: J06.9 Acute upper respiratory infection, unspecified (principal); I25.10 Atherosclerotic heart disease of native coronary artery without angina pectoris; J44.9 Chronic obstructive pulmonary disease, unspecified; I11.0 Hypertensive heart disease with heart failure; I50.9 Heart failure, unspecified; E78.5 Hyperlipidemia, unspecified; Z87.891 Personal history of nicotine dependence; Z86.718 Personal history of other venous thrombosis and embolism; Z20.822 Contact with and (suspected) exposure to COVID-19
CPT/HCPCS: 87426; 99212; G0463